=== PATIENT | female | born 1995 | race Caucasian/White ===

== ENCOUNTER 2017-12-19 17:15 | Observation (INO) | payer BC, SELFPAY ==
[2017-12-19] VITALS (9 sets, daily range): BP systolic 102–139; BP diastolic 71–92; PULSE 58–105; RESP 16; TEMP 35.9–36.8; O2SAT 99–100; BMI 23.4; BMI 23.5
--- NOTE | 2017-12-19 17:29 | CT_ITS ---
STUDY: CT ABDOMEN AND PELVIS WITHOUT CONTRAST REASON FOR EXAM: Female, 22 years old. Pain. Nausea. RADIATION DOSAGE (If Supplied By Facility): CTDIvol = ( 6.81 ) mGy, DLP = ( 336.67 ) mGycm TECHNIQUE: Transaxial images were obtained from the dome of the diaphragm to the symphysis pubis without oral contrast, and without intravenous contrast. Sagittal and coronal images were reconstructed. Individualized dose optimization techniques were used for this CT. COMPARISON: None. FINDINGS: The visualized lung bases are unremarkable. The visualized portions of the heart are within normal limits. Normal liver. Normal gallbladder and extrahepatic biliary system. Normal spleen. Normal pancreas. Normal bilateral adrenal glands. Normal right kidney. Normal left kidney. Normal visualized stomach. Normal small intestine. Normal colon. There is a calcified appendicolith, series 2 image 120/179. There is a tubular, thick-walled appendix (>7mm), consistent with acute appendicitis, series 2 images 120/179 through 126/179. Normal abdominal aorta. Normal inferior vena cava. Normal retroperitoneum. Normal urinary bladder. Normal visualized uterus. There is mild to moderate free fluid in the pelvis. Normal abdominal wall. Normal osseous structures. CT/Abdomen/Pelvis without Cont IMPRESSION: Acute appendicitis. No obstruction or abscess. Free fluid in the pelvis. N.B. : The above information has been verbally conveyed by Ron Arce MD to Dr Yousif, Referring Physician, on 12/19/2017 19:33:21 (ET). Electronically Signed: Ron Arce MD at 19:27 EDT , Service support , N.B. : The above information has been verbally conveyed by Ron Arce MD to Dr Yousif, Referring Physician, on 12/19/2017 19:33:21 (ET).
[2017-12-19] MEDS: Ondansetron ODT 4 MG Tablet PO (17:36)
[2017-12-19] MEDS: 0.9% Normal Saline 1,000 ML 150 ML IV (17:37)
[2017-12-19] MEDS: Ketorolac 30 MG/ML Syringe IV (17:43)
[2017-12-19] MEDS: Morphine 2 MG/ML Syringe IV ×2 (17:44→23:11)
[2017-12-19 17:54] LABS: Mucous, Urine 0 SEEN /hpf (<or=2+); Red Blood Cells-Urine 0 SEEN /hpf (0-5)
[2017-12-19 17:59] LABS: Absolute Lymphocyte Count 0.94 X10^3/ul (0.83-4.51); Absolute Neutrophil Count 11.6 X10^3/uL (2.0-7.7); Basophil# 0.02 X10^3/uL; Basophil% 0.1 % (0-1); Hematocrit 41.1 % (37-47); Hemoglobin 13.6 g/dl (12.0-15.0); Lymphocyte # 0.94 X10^3/ul (4.0); Mean Corp Hgb Conc 33.1 g/gl (32-36); Mean Corpuscular Hgb 30.3 pg (27.0-32.0); Mean Corpuscular Volume 91.5 fL (81-99); Mean Platelet Vol. 10.4 fl (6.2-12.0); Monocyte# 0.78 X10^3/uL; Monocyte% 5.8 % (0-10); Neutrophil # 11.64 X10^3/uL (2.7-7.7); Neutrophil % 86.9 % (47-70); Platelet Count 252 K/mm3 (150-450); RBC Distribution Width CV 13.8 % (11.6-14.6); RBC Distribution Width SD 45.7 fl (35.1-43.9); Red Blood Count 4.49 M/mm3 (4.2-5.4); White Blood Count 13.4 K/mm3 (4.4-11.0)
[2017-12-19 18:00] LABS: POSITIVE COUNT NO; POSITIVE DIFFERENTIAL NO; POSITIVE MORPHOLOGY NO
[2017-12-19 18:09] LABS: Anion Gap 8 (5-15); BUN 10 mg/dL (7-18); BUN/Creat Ratio 11.7 RATIO (10-20); Calcium,Total 9.2 mg/dL (8.5-10.1); Chloride 106 mmol/L (98-107); Creatinine, Serum 0.86 mg/dL (0.55-1.02); EST Glomerular Filtration Rate 88 mL/min (>60); Est Glom Filt Rate - Afr Amer 107 mL/min (>60); Estimated Creatinine Clearance 92.33 ml/min; Glucose 89 mg/dL (74-106); Potassium 3.8 mmol/L (3.5-5.1); Sodium Level 139 mmol/L (136-145)
[2017-12-19 18:32] LABS: Color, Urine Yellow (Yellow); Glucose, Dipstick Normal (Normal); Ketone-Dipstick 50 mg/dl (Negative); Leukocyte Esterase-Dipstick 100 /ul (Negative); Nitrite-Dipstick Negative (Negative); Occult Blood-Urine Negative /ul (Negative); Protein-Dipstick 15 mg/dl (Negative); Specific Gravity, Urine 1.025 (1.002-1.030); Urine Bilirubin Dipstick Negative (Negative); Urine Clarity Sl. Cloudy (Clear); Urine Urobilinogen Normal (Normal)
[2017-12-19 18:37] LABS: Pregnancy, Serum, hCG Quali. NEGATIVE Negative (0-9 Nonpreg)
[2017-12-19 19:26] LABS: Bacteria 1+ /hpf (None Seen); Squamous Epithelial Cells - UA 5-10 SEEN /hpf (5-10); White Blood Cells 5-10 SEEN /hpf (0-5)
--- NOTE | 2017-12-19 19:46 | ED.DCSUM_ITS ---
- ER Visit Summary Date of Service: 12/19/17 Chief Complaint: Abdominal pain History of Present Illness: The patient is a 22 F who developed lower abdominal pain around 11 PM last evening. She describes it bilateral and into her lower back. She has had some nausea and diarrhea. She denies dysuria or fever. Last menstrual cycle was 3 weeks ago. Past history significant for ovarian cysts. She is not currently on any medications. Physical Examination: Vital signs are unremarkable. Patient sitting upright in bed no acute distress. She is nontoxic appearing. Head neck examination is unremarkable. Heart is regular rate and rhythm. Lung sounds are clear. Abdomen is soft with moderate right lower quadrant tenderness. She has no guarding from at this time. Hypoactive bowel sounds are noted throughout. Test Results: CBC returns with a white count of 13.4 and 87% neutrophils. Chemistry studies are normal. Urinalysis shows 5-10 white cells with 5-10 epithelial cells. test is negative. CT flank shows acute appendicitis with no evidence of abscess. Emergency Department Course and Treatment: Patient was given Toradol, 2 mg of morphine, Zofran, and IV fluids. On repeat evaluation she is resting comfortably. Test results are discussed with patient and mother at bedside. She will be given a dose of Zosyn. I spoke with Dr. Daniels will be in to see the patient. Treatment Plan: [] Disposition: Admit Impression: Acute appendicitis This note was generated with [employer] dictation software. It may contain incorrect words, spelling, and punctuation that were not noted in review of the chart prior to signing ED Disposition - Plan for ED Patient: Chief Complaint: Abd Pain Referrals: Elier Hernandes DO [Primary Care Provider] -
[2017-12-19] MEDS: Piperacil/Tazobactam 4.5 GM in NS100 MBP IV (19:56)
--- NOTE | 2017-12-19 20:12 | PCM.HP.STD ---
History of Present Illness Date of Admission: 12/19/17 Chief Complaint: Acute appendicitis The patient is a 22 year old F presented to the ER due to lower abdominal pain which started about 11 PM yesterday. Patient states that may have gotten a little bit worse but has been about at 10/10 overall. She states it is more in the right lower quadrant currently. Positive nausea denies vomiting. Patient last ate quarter of the hamburger bun this morning, currently has no appetite. Patient CT abdomen pelvis done which did show an appendicolith as well as a thickened appendix and her labs are consistent with a leukocytosis of 13. 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 Denies: Fever Eyes: Denies: Blurred vision HEENT: Denies: Difficulty Swallowing Cardiovascular: Denies: Chest Pain Respiratory: Denies: Shortness of Breath Gastrointestinal: Reports: Abdominal Pain, Nausea. Denies: Vomiting Genitourinary: Denies: Dysuria Musculoskeletal: Denies: Joint Pain Psychiatric: Denies: Anxiety Hematologic/ Lymphatic: Denies: Easy Bruising, Easy Bleeding VTE Information - Inpt Only VTE Present on Admission: Yes VTE Mechan Device Prophylaxis: SCD's VTE Pharm Prophylaxis ordered?: No Reason prophylaxis not ordered:: Treatment Not Indicated - Physical Exam General: Alert, Oriented x3, Cooperative, No apparent distress HEENT: Atraumatic, Normocephalic Abdomen: Soft, Non-Distended, Rebound Tenderness - Mild, no guarding, Tender - Right lower quadrant Extremities: No clubbing, No cyanosis, No edema Skin: No rashes Neurological: Cranial nerves II-XII grossly intact Psych/Mental Status: Normal Affect Vital Signs Temp Pulse Resp BP Pulse Ox 98.2 F 62 16 102/71 100 12/19/17 20:11 12/19/17 20:11 12/19/17 20:11 12/19/17 20:11 12/19/17 20:11 Oxygen Delivery Method Room Air Weight: 141 lb 1.533 oz Body Mass Index (BMI) 23.4 Laboratory Tests Past 24 Hrs 12/19/17 12/19/17 12/19/17 17:47 17:47 17:47 WBC 13.4 H RBC 4.49 Hgb 13.6 Hct 41.1 MCV 91.5 MCH 30.3 MCHC 33.1 RDW 13.8 RDW Differential 45.7 H Plt Count 252 MPV 10.4 Immature Gran % (Auto) 0.200 Neut % (Auto) 86.9 H Lymph % (Auto) 7.0 L Swift % (Auto) 5.8 Eos % (Auto) 0.0 Baso % (Auto) 0.1 Absolute Neuts (auto) 11.6 H Absolute Lymphs (auto) 0.94 Total Counted Not Reportable Sodium 139 Potassium 3.8 Chloride 106 Carbon Dioxide 25.0 Anion Gap 8 BUN 10 Creatinine 0.86 Estim Creat Clear Calc 92.33 Est GFR (MDRD) Af Amer 107 Est GFR (MDRD) Non-Af 88 BUN/Creatinine Ratio 11.7 Glucose 89 Calcium 9.2 Serum , Qual NEGATIVE Urine Color Urine Clarity Urine pH Ur Specific [place] Urine Protein Urine Glucose (UA) Urine Ketones Urine Occult Blood Urine Nitrite Urine Bilirubin Urine Urobilinogen Ur Leukocyte Esterase Urine RBC Urine WBC Ur Squamous Epith Cells Urine Bacteria Urine Mucus 12/19/17 17:47 WBC RBC Hgb Hct MCV MCH MCHC RDW RDW Differential Plt Count MPV Immature Gran % (Auto) Neut % (Auto) Lymph % (Auto) Swift % (Auto) Eos % (Auto) Baso % (Auto) Absolute Neuts (auto) Absolute Lymphs (auto) Total Counted Sodium Potassium Chloride Carbon Dioxide Anion Gap BUN Creatinine Estim Creat Clear Calc Est GFR (MDRD) Af Amer Est GFR (MDRD) Non-Af BUN/Creatinine Ratio Glucose Calcium Serum , Qual Urine Color Yellow Urine Clarity Sl. Cloudy Urine pH 6.0 Ur Specific [place] 1.025 Urine Protein 15 H Urine Glucose (UA) Normal Urine Ketones 50 H Urine Occult Blood Negative Urine Nitrite Negative Urine Bilirubin Negative Urine Urobilinogen Normal Ur Leukocyte Esterase 100 H Urine RBC 0 SEEN Urine WBC 5-10 SEEN Ur Squamous Epith Cells 5-10 SEEN Urine Bacteria 1+ Urine Mucus 0 SEEN Assessment/Plan 22-year-old female with acute appendicitis and leukocytosis of 13 1. Discussed procedure laparoscopic appendectomy, possible open, possible bowel resection along with the risk but not limited to bleeding, infection/abscess, injury to another organ (small bowel, colon, etc.), adhesion, hernia at incision sites, and anesthesia. Patient and her mother had no further questions at this time. Dulce Daniels M.D. Pager: [phone] [facility] [address] [place] [address], [address] [place] [address] Office: [phone]
--- NOTE | 2017-12-19 20:17 | HP.PCM_ITS ---
History of Present Illness Date of Admission: 12/19/17 Chief Complaint: Acute appendicitis The patient is a 22 year old F presented to the ER due to lower abdominal pain which started about 11 PM yesterday. Patient states that may have gotten a little bit worse but has been about at 10/10 overall. She states it is more in the right lower quadrant currently. Positive nausea denies vomiting. Patient last ate quarter of the hamburger bun this morning, currently has no appetite. Patient CT abdomen pelvis done which did show an appendicolith as well as a thickened appendix and her labs are consistent with a leukocytosis of 13. 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 Denies: Fever Eyes: Denies: Blurred vision HEENT: Denies: Difficulty Swallowing Cardiovascular: Denies: Chest Pain Respiratory: Denies: Shortness of Breath Gastrointestinal: Reports: Abdominal Pain, Nausea. Denies: Vomiting Genitourinary: Denies: Dysuria Musculoskeletal: Denies: Joint Pain Psychiatric: Denies: Anxiety Hematologic/ Lymphatic: Denies: Easy Bruising, Easy Bleeding VTE Information - Inpt Only VTE Present on Admission: Yes VTE Mechan Device Prophylaxis: SCD's VTE Pharm Prophylaxis ordered?: No Reason prophylaxis not ordered:: Treatment Not Indicated - Physical Exam General: Alert, Oriented x3, Cooperative, No apparent distress HEENT: Atraumatic, Normocephalic Abdomen: Soft, Non-Distended, Rebound Tenderness - Mild, no guarding, Tender - Right lower quadrant Extremities: No clubbing, No cyanosis, No edema Skin: No rashes Neurological: Cranial nerves II-XII grossly intact Psych/Mental Status: Normal Affect Vital Signs Temp Pulse Resp BP Pulse Ox 98.2 F 62 16 102/71 100 12/19/17 20:11 12/19/17 20:11 12/19/17 20:11 12/19/17 20:11 12/19/17 20:11 Oxygen Delivery Method Room Air Weight: 141 lb 1.533 oz Body Mass Index (BMI) 23.4 Laboratory Tests Past 24 Hrs 12/19/17 12/19/17 12/19/17 17:47 17:47 17:47 WBC 13.4 H RBC 4.49 Hgb 13.6 Hct 41.1 MCV 91.5 MCH 30.3 MCHC 33.1 RDW 13.8 RDW Differential 45.7 H Plt Count 252 MPV 10.4 Immature Gran % (Auto) 0.200 Neut % (Auto) 86.9 H Lymph % (Auto) 7.0 L [place] % (Auto) 5.8 Eos % (Auto) 0.0 Baso % (Auto) 0.1 Absolute Neuts (auto) 11.6 H Absolute Lymphs (auto) 0.94 Total Counted Not Reportable Sodium 139 Potassium 3.8 Chloride 106 Carbon Dioxide 25.0 Anion Gap 8 BUN 10 Creatinine 0.86 Estim Creat Clear Calc 92.33 Est GFR (MDRD) Af Amer 107 Est GFR (MDRD) Non-Af 88 BUN/Creatinine Ratio 11.7 Glucose 89 Calcium 9.2 Serum , Qual NEGATIVE Urine Color Urine Clarity Urine pH Ur Specific [place] Urine Protein Urine Glucose (UA) Urine Ketones Urine Occult Blood Urine Nitrite Urine Bilirubin Urine Urobilinogen Ur Leukocyte Esterase Urine RBC Urine WBC Ur Squamous Epith Cells Urine Bacteria Urine Mucus 12/19/17 17:47 WBC RBC Hgb Hct MCV MCH MCHC RDW RDW Differential Plt Count MPV Immature Gran % (Auto) Neut % (Auto) Lymph % (Auto) [place] % (Auto) Eos % (Auto) Baso % (Auto) Absolute Neuts (auto) Absolute Lymphs (auto) Total Counted Sodium Potassium Chloride Carbon Dioxide Anion Gap BUN Creatinine Estim Creat Clear Calc Est GFR (MDRD) Af Amer Est GFR (MDRD) Non-Af BUN/Creatinine Ratio Glucose Calcium Serum , Qual Urine Color Yellow Urine Clarity Sl. Cloudy Urine pH 6.0 Ur Specific [place] 1.025 Urine Protein 15 H Urine Glucose (UA) Normal Urine Ketones 50 H Urine Occult Blood Negative Urine Nitrite Negative Urine Bilirubin Negative Urine Urobilinogen Normal Ur Leukocyte Esterase 100 H Urine RBC 0 SEEN Urine WBC 5-10 SEEN Ur Squamous Epith Cells 5-10 SEEN Urine Bacteria 1+ Urine Mucus 0 SEEN Assessment/Plan 22-year-old female with acute appendicitis and leukocytosis of 13 1. Discussed procedure laparoscopic appendectomy, possible open, possible bowel resection along with the risk but not limited to bleeding, infection/ abscess, injury to another organ (small bowel, colon, etc.), adhesion, hernia at incision sites, and anesthesia. Patient and her mother had no further questions at this time. Dulce Daniels M.D. Pager: [phone] [facility] [address] [place] [address], [address] [place] [address] Office: [phone]
--- NOTE | 2017-12-19 20:37 | APP_PTH ---
PATIENT: ROLF BARON LOC: MS3 U#:[id number] AGE/SX: 22/F ROOM: MS321 RE12/19/[address]: Dr. Dulce Daniels MD : 1995 BED: 1 DIS: 12/20/2017 SPEC #: [id number] RECD: 12/20/17 08:27 STATUS: ADIS ANTONIO #: [id number] TRACY: 12/19/17 20:[address]: Dulce Daniels DEPT: SURGICAL PATHOLOGY RECD BY: Manrie Barreto ENTERED: 12/20/17 09:34 SP TYPE: APPENDIX OTHR DR: Dr. Elier Hernandes DO Tissues: Appendix, NOS Procedures: Surgery Specimen Level III HEADER OPERATION: Laparoscopic, appendectomy PRE-OP DIAGNOSIS: Acute appendicitis TISSUE SUBMITTED: Appendix MICROSCOPIC DIAGNOSIS Appendix, appendectomy: Acute appendicitis. Acute serositis. AM:azalia 4/26/18 MICROSCOPIC DESCRIPTION Slides are reviewed. GROSS DESCRIPTION Received is one container labeled with the patient's name and designated appendix. The specimen consists of a vermiform appendix measuring 6.5 cm in length and 0.8 cm in average diameter. No gross perforations are evident. Serial sections do not reveal mass lesions. Supervisor Roving sections are submitted in one cassette. / AM:azalia 12/20/17 TC:2 CPT: 20369
[2017-12-19] MEDS: Bupiv/Epi 0.5% Mpf 30 ML Vial (20:58)
--- NOTE | 2017-12-19 21:37 | PCM.OPRPT ---
Report of Operation Date of Procedure: 12/19/17 Pre-Operative Diagnosis: Acute appendicitis Post-Operative Diagnosis: Same Surgery/Procedure Performed:: Laparoscopic appendectomy qc manager: Cornel Roberson Type of Anesthesia:: General Anesthesiologist: Mya Junior Special Medications: Zosyn 4.5 g IV given in ER for acute appendicitis Specimen's removed: Appendix Estimated Blood Loss (mL): <10 cc Fluids Replaced: 1 liter Description of Procedure: Indications: 22-year-old female presented to the ER with bilateral lower quadrant pain starting 11 PM last night which is now in the right lower quadrant. On workup she was found to have acute appendicitis on CT and a leukocytosis of 13.4. Patient was started on antibiotics in the ER for acute appendicitis-Zosyn 4.5 g IV ?1 Description of the procedure: The patient was placed on operating table in supine position. General anesthesia was induced. A timeout was completed verifying correct patient, procedure, sacrum position and special, prior to beginning procedure. A Jon catheter and orogastric tube placed. Abdomen was prepped and draped in usual sterile fashion. Incision was made in the natural skin line above the umbilicus with a 15 blade scalpel. The fascia was elevated and incised. Entry into the peritoneum was confirmed visually and no bowel was noted in the vicinity of the incision. The Benedict trocar was placed under direct vision. Abdomen insufflated with a pressure of 12-15 mmHg. Patient tolerated insertion well. The scope was inserted and the abdomen inspected. No injuries from initial trocar placement were noted. Minimal amount of fluid was seen in the right lower quadrant. An direct visualization 2 -5 mm trocars were placed one above the symptoms his pubis and below the hairline and one in the left lower quadrant lateral to the rectus muscle. Care is taken to avoid injury to the bladder and inferior epigastric vessels. The table was placed in Trendelenburg position with the right side elevated. The appendix was grasped with atraumatic grasper and elevated. It was noted to be inflamed. A window was developed in the mesoappendix at the point between the base of the appendix and the cecum. An endoscopic 45 mm linear cutting stapler blue load was then used to divide and staple the base of the appendix. An Enseal was used to divide the mesoappendix. The appendix was withdrawn into the Benedict trocar after being placed endoscopically retrieval bag. Appendix was sent to pathology. The appendiceal stump was then irrigated and hemostasis was assured. Fluid was suctioned no other pathology was identified. Secondary trochars were removed under direct visualization. No bleeding was noted trocar sites. The laparoscope withdrawn and the umbilical trocar removed. The abdomen was allowed to collapse. Local anesthesia of 21 mL of 0.5% Marcaine was used at the incision sites. The umbilical trocar site was closed with the [id number] 0 Vicryl suture. The skin was closed up to clear sutures of 4-0 Monocryl and Steri-Strips. The patient was extubated. The patient tolerated the procedure well and was taken to the postanesthesia care unit in satisfactory condition. - Complications None
--- NOTE | 2017-12-19 21:40 | OP.PCM_ITS ---
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 On workup she was found to have acute appendicitis on CT and a leukocytosis of 13.4. Patient was started on antibiotics in the ER for acute appendicitis-Zosyn 4.5 g IV ?1 Description of the procedure: The patient was placed on operating table in supine position. General anesthesia was induced. A timeout was completed verifying correct patient, procedure, sacrum position and special, prior to beginning procedure. A Jon catheter and orogastric tube placed. Abdomen was prepped and draped in usual sterile fashion. Incision was made in the natural skin line above the umbilicus with a 15 blade scalpel. The fascia was elevated and incised. Entry into the peritoneum was confirmed visually and no bowel was noted in the vicinity of the incision. The Benedict trocar was placed under direct vision. Abdomen insufflated with a pressure of 12-15 mmHg. Patient tolerated insertion well. The scope was inserted and the abdomen inspected. No injuries from initial trocar placement were noted. Minimal amount of fluid was seen in the right lower quadrant. An direct visualization 2 -5 mm trocars were placed one above the symptoms his pubis and below the hairline and one in the left lower quadrant lateral to the rectus muscle. Care is taken to avoid injury to the bladder and inferior epigastric vessels. The table was placed in Trendelenburg position with the right side elevated. The appendix was grasped with atraumatic grasper and elevated. It was noted to be inflamed. A window was developed in the mesoappendix at the point between the base of the appendix and the cecum. An endoscopic 45 mm linear cutting stapler blue load was then used to divide and staple the base of the appendix. An Enseal was used to divide the mesoappendix. The appendix was withdrawn into the Benedict trocar after being placed endoscopically retrieval bag. Appendix was sent to pathology. The appendiceal stump was then irrigated and hemostasis was assured. Fluid was suctioned no other pathology was identified. Secondary trochars were removed under direct visualization. No bleeding was noted trocar sites. The laparoscope withdrawn and the umbilical trocar removed. The abdomen was allowed to collapse. Local anesthesia of 21 mL of 0.5 % Marcaine was used at the incision sites. The umbilical trocar site was closed with the [id number] 0 Vicryl suture. The skin was closed up to clear sutures of 4-0 Monocryl and Steri-Strips. The patient was extubated. The patient tolerated the procedure well and was taken to the postanesthesia care unit in satisfactory condition. - Complications None
[2017-12-19] MEDS: Dextrose 5%-Lactated Ringers 1,000 ML 125 ML IV (23:03)
[2017-12-19] MEDS: Docusate Sodium 100 MG Capsule PO (23:03)
[2017-12-19] MEDS: Ondansetron 4 MG/2 ML Vial IV (23:11)
[2017-12-20 00:36] VITALS: BP 106/60; PULSE 61; RESP 16; TEMP 36.7; O2SAT 98
[2017-12-20 02:36] VITALS: BP 105/56; PULSE 55; RESP 16; TEMP 36.6; O2SAT 100
[2017-12-20] MEDS: Morphine 2 MG/ML Syringe IV ×2 (03:17→07:25)
[2017-12-20] MEDS: Dextrose 5%-Lactated Ringers 1,000 ML 125 ML IV (07:25)
[2017-12-20 07:30] VITALS: BP 98/54; PULSE 47; RESP 16; TEMP 36.7; O2SAT 99
--- NOTE | 2017-12-20 07:44 | PCM.DC.APPY ---
Discharge Diet: Light diet - advance as tolerated Discharge Activity: May not drive while taking narcotic pain medications. Lifting Restrictions: No lifting greater than 20 pounds for 4 weeks Call your doctor if your incision/area has: Continuous Slow Oozing, Sudden Increased Bleeding, Increased Pain/ Swelling, Increased Redness, Foul Smelling Discharge, Swelling at the incision site Call your doctor if you observe: Fever of 101 or Higher Remove Dressing in (days):: 1 Additional Dressing/Incision Instructions:: Leave Steri-Strips on for 7-10 days then off off in 10 days okay to remove. Additional Instructions: Pain meds can cause constipation. Take daily stool softener (i.e. Colace-generic) to help prevent constipation. Ok to take ibuprofen/advil with food 400-600mg PO Q6h between doses of [place]. If no bowel movement in 1-2 days recommend taking several doses of MiraLAX. If no results that day okay to take half a bottle of magnesium citrate and if no results in 6 hours take the other half of the bottle. Medications to take at Discharge Hydrocodone Bitart/Apap 5-325 [[place] 5MG-325MG] 1 - 2 tab PO Q6H PRN PRN 4 Days #25 tab 12/20/17 Allergies/Adverse Reactions: Allergies No Known Allergies Allergy (Verified 12/19/17 17:18) The following prescriptions were given: Hydrocodone Bitart/Apap 5-325 [[place] 5MG-325MG] 1 - 2 tab PO Q6H PRN PRN 4 Days #25 tab PRN Reason: Pain Primary Care Physician: Elier Hernandes DO [Primary Care Provider] - Please Follow Up With: Dulce Daniels MD - After 5:00/weekends call [phone] with any concerns When: Call the office [phone] plan follow-up appointment in 2 weeks. Proposed Discharge Date: 12/20/17
--- NOTE | 2017-12-20 07:47 | DCINST_ITS ---
Discharge Diet: Light diet - advance as tolerated Discharge Activity: May not drive while taking narcotic pain medications. Lifting Restrictions: No lifting greater than 20 pounds for 4 weeks Call your doctor if your incision/area has: Continuous Slow Oozing, Sudden Increased Bleeding, Increased Pain/ Swelling, Increased Redness, Foul Smelling Discharge, Swelling at the incision site Call your doctor if you observe: Fever of 101 or Higher Remove Dressing in (days):: 1 Additional Dressing/Incision Instructions:: Leave Steri-Strips on for 7-10 days then off off in 10 days okay to remove. Additional Instructions: Pain meds can cause constipation. Take daily stool softener (i.e. Colace- generic) to help prevent constipation. Ok to take ibuprofen/advil with food 400 -600mg PO Q6h between doses of [place]. If no bowel movement in 1-2 days recommend taking several doses of MiraLAX. If no results that day okay to take half a bottle of magnesium citrate and if no results in 6 hours take the other half of the bottle. Medications to take at Discharge Hydrocodone Bitart/Apap 5-325 [[place] 5MG-325MG] 1 - 2 tab PO Q6H PRN PRN 4 Days #25 tab 12/20/17 Allergies/Adverse Reactions: Allergies No Known Allergies Allergy (Verified 12/19/17 17:18) The following prescriptions were given: Hydrocodone Bitart/Apap 5-325 [[place] 5MG-325MG] 1 - 2 tab PO Q6H PRN PRN 4 Days #25 tab PRN Reason: Pain Primary Care Physician: Elier Hernandes DO [Primary Care Provider] - Please Follow Up With: Dulce Daniels MD - After 5:00/weekends call [phone] with any concerns When: Call the office [phone] plan follow-up appointment in 2 weeks. Proposed Discharge Date: 12/20/17
--- NOTE | 2017-12-20 08:53 | PCM.PN.SRG ---
Subjective: pt ariadne clears, pain controlled w IV will change to PO when she eat more, denies n/v, c/o pain/soreness at incisions - Physical Exam General: Alert, Oriented x3, Cooperative, No apparent distress Abdomen: Soft, Non-Distended, Tender - approp. at incisions- dressed, no guarding/rebound Vital Signs Temp Pulse Resp BP Pulse Ox 98.1 F 47 L 16 98/54 L 99 12/20/17 07:30 12/20/17 07:30 12/20/17 07:30 12/20/17 07:30 12/20/17 07:30 Oxygen Delivery Method Room Air Weight: 141 lb Body Mass Index (BMI) 23.4 Intake and Output for Last 24 Hours 12/18/17 12/19/17 12/20/17 23:59 23:59 23:59 Intake Total 1600 / 1600 200 / 200 Output Total 135 / 135 200 / 200 Balance 1465 / 1465 0 / 0 Medical Necessity - Tobacco Use Smoking Status: Never smoker Assessment/Plan 22-year-old female POD 1 s/p lap appy 1. Pt is doing well ariadne clears- will be advanced to regular. d/c home if ariadne PO, vss, amb, pain controlled. Dulce Daniels M.D. Pager: [phone] [facility] [address] [place] [address], [address] [place] [id number] Office: [phone]
--- NOTE | 2017-12-20 09:02 | PN.SURG_ITS ---
Subjective: pt ariadne clears, pain controlled w IV will change to PO when she eat more, denies n/v, c/o pain/soreness at incisions - Physical Exam General: Alert, Oriented x3, Cooperative, No apparent distress Abdomen: Soft, Non-Distended, Tender - approp. at incisions- dressed, no guarding/rebound Vital Signs Temp Pulse Resp BP Pulse Ox 98.1 F 47 L 16 98/54 L 99 12/20/17 07:30 12/20/17 07:30 12/20/17 07:30 12/20/17 07:30 12/20/17 07:30 Oxygen Delivery Method Room Air Weight: 141 lb Body Mass Index (BMI) 23.4 Intake and Output for Last 24 Hours 12/18/17 12/19/17 12/20/17 23:59 23:59 23:59 Intake Total 1600 / 1600 200 / 200 Output Total 135 / 135 200 / 200 Balance 1465 / 1465 0 / 0 Medical Necessity - Tobacco Use Smoking Status: Never smoker Assessment/Plan 22-year-old female POD 1 s/p lap appy 1. Pt is doing well ariadne clears- will be advanced to regular. d/c home if ariadne PO, vss, amb, pain controlled. Dulce Daniels M.D. Pager: [phone] [facility] [address] [place] [address], [address] [place] [id number] Office: [phone]
[2017-12-20] MEDS: Docusate Sodium 100 MG Capsule PO (09:15)
[2017-12-20] MEDS: HYDROcodone Bitartrate/Apap 5/325 Tablet PO (11:32)
[2017-12-20 14:11] VITALS: BP 102/61; PULSE 57; RESP 16; TEMP 36.7; O2SAT 100
== END 2017-12-20 14:40 | disposition home or self-care (01) ==
LOC: ED 18:47 → SDC 20:15 → MS3 12-20 06:18
PROVIDERS: Admitting Provider Surgery; Emergency Provider Emergency Medicine; Family Provider Preventive Medicine Occupational Medicine; PCP Preventive Medicine Occupational Medicine; Visit Provider Surgery
PROC: 0DTJ4ZZ Resection of Appendix, Percutaneous Endoscopic Approach (ICD-10-PCS; CPT 44970; principal; 2017-12-19 08:45)
DX: K35.80 Unspecified acute appendicitis (principal)
CPT/HCPCS: 00840; 44970; 74176; 80048; 81001; 84703; 85025; 88304; 96361; 96365; 96375; 96376; 99218; 99284; J7030; C1760; G0378; J2405

== ENCOUNTER → 2018-08-06 14:15 | Outpatient (CLI) | payer BC, SELFPAY ==
[2018-08-06 14:12] VITALS: BMI 23.4
[2018-08-06 16:09] LABS: HIV - WCH Non-Reactive (Nonreactive)
[2018-08-06 20:20] LABS: Chlamydia Trachomatis by PCR Negative (Negative); Neisserai gonorrhoeae by PCR Negative (Negative); Probe Check PASS; Sample Adequacy Control PASS; Specimen Processing Control PASS
[2018-08-08 15:34] LABS: HPV Reflexed? NOT INDICATED
[2018-08-09 09:09] LABS: HCV Quant. RNA PCR HCV Not Detected IU/mL (.)
[2018-08-10 04:54] LABS: Rapid Plasmin Reagin (RPR) NONREACTIVE (NONREACTIVE)
[2018-08-10 12:40] LABS: HSV 1 IgG < 0.91 index (0.00-0.90); HSV 2 IgG < 0.91 index (0.00-0.90)
== END ==
PROVIDERS: Family Provider Preventive Medicine Occupational Medicine; PCP Preventive Medicine Occupational Medicine; Referring Provider Nurse Practitioner Women's Health; Visit Provider Nurse Practitioner Women's Health
DX: Z12.4 Encounter for screening for malignant neoplasm of cervix (principal); Z11.3 Encounter for screening for infections with a predominantly sexual mode of transmission
CPT/HCPCS: 36415; 86592; 86695; 86696; 86703; 87491; 87522; 87591; 87624; 88175; G0145

== ENCOUNTER → 2019-05-16 15:58 | Outpatient (CLI) | payer BC, SELFPAY ==
[2019-05-16 13:48] VITALS: BMI 23.4
== END ==
PROVIDERS: Family Provider Preventive Medicine Occupational Medicine; PCP Preventive Medicine Occupational Medicine; Referring Provider Nurse Practitioner Women's Health; Visit Provider Nurse Practitioner Women's Health
DX: N76.0 Acute vaginitis (principal)
CPT/HCPCS: 87070; 87205

== ENCOUNTER → 2021-01-13 10:47 | Outpatient (CLI) | payer BC, SELFPAY ==
[2021-01-13 10:22] VITALS: BMI 29.5
[2021-01-13 11:00] LABS: Absolute Lymphocyte Count 1.96 X10^3/uL (0.83-4.51); Absolute Neutrophil Count 4.7 X10^3/uL (2.0-7.7); Basophil# 0.07 X10^3/uL; Eosinophil# 0.04 X10^3/uL; Eosinophils% 0.6 % (0-5); Hematocrit 41.9 % (37-47); Hemoglobin 13.7 g/dL (12.0-15.0); Lymphocyte # 1.96 X10^3/ul (0.83-4.51); Mean Corp Hgb Conc 32.7 g/dL (32-36); Mean Corpuscular Hgb 29.9 pg (27.0-32.0); Mean Corpuscular Volume 91.5 fL (81-99); Mean Platelet Vol. 10.1 fl (6.2-12.0); Monocyte# 0.52 X10^3/uL; Monocyte% 7.2 % (0-10); NRBC Flagged by Analyzer 0 % (0-5); Neutrophil # 4.66 X10^3/uL (2.7-7.7); Neutrophil % 64.1 % (47-70); Platelet Count 265 K/mm3 (150-450); RBC Distribution Width CV 13.4 % (11.6-14.6); RBC Distribution Width SD 45.2 fl (35.1-43.9); Red Blood Count 4.58 M/mm3 (4.2-5.4); White Blood Count 7.3 K/mm3 (4.4-11.0)
[2021-01-13 11:29] LABS: Prolactin 10.8 ng/mL; Thyroid Stim Hormone (TSH) 1.79 uIU/mL (0.358-3.74)
[2021-01-14 20:08] LABS: Chlamydia By Nucleic Acid AMP Negative (Negative)
[2021-01-14 21:26] LABS: Gonococcus By Nucleic Acid AMP Negative (Negative)
[2021-01-19 20:07] LABS: HPV Genotype 16, Aptima Negative (Negative)
[2021-01-19 20:20] LABS: HPV APTIMA, High Risk Positive (Negative); HPV Genotype 18,45 Aptima Negative (Negative)
== END ==
PROVIDERS: PCP Preventive Medicine Occupational Medicine; Referring Provider Nurse Practitioner Women's Health; Visit Provider Nurse Practitioner Women's Health
DX: N93.9 Abnormal uterine and vaginal bleeding, unspecified (principal); Z12.4 Encounter for screening for malignant neoplasm of cervix; Z11.3 Encounter for screening for infections with a predominantly sexual mode of transmission; Z13.29 Encounter for screening for other suspected endocrine disorder
CPT/HCPCS: 36415; 84146; 84443; 85025; 87491; 87591; 87624; 88175; G0145

== ENCOUNTER 2021-09-01 12:15 | Outpatient (CLI) | payer BC, SELFPAY | END 2021-09-01 23:59 | disposition short-term general hospital (02) | LOC: LABSPEC 12:15 | PROVIDERS: PCP Preventive Medicine Occupational Medicine; Visit Provider Physician Assistant | DX: U07.1 COVID-19 (principal) | CPT/HCPCS: 87635; U0003; U0005 ==

== ENCOUNTER → 2022-01-26 | Outpatient (CLI) | payer BC, SELFPAY ==
[2022-01-31 12:05] LABS: HPV Reflexed? NOT INDICATED
== END | disposition home or self-care (01) ==
LOC: LABSPEC 09:54
PROVIDERS: PCP Preventive Medicine Occupational Medicine; Visit Provider Nurse Practitioner Women's Health
DX: Z12.4 Encounter for screening for malignant neoplasm of cervix (principal)
CPT/HCPCS: 88175; G0145

== ENCOUNTER → 2022-04-18 | Outpatient (CLI) | payer BC, SELFPAY ==
[2022-04-18 13:11] LABS: Amphetamine Urine VISTA NEGATIVE (<1000 ng/mL); Barbiturate Urine VISTA NEGATIVE (< 200 ng/mL); Benzodiazepine Urine VISTA NEGATIVE (< 200 ng/mL); Cocaine Urine VISTA NEGATIVE (< 300 ng/mL); Ecstacy Urine VISTA NEGATIVE (< 500 ng/mL); Methadone Urine VISTA NEGATIVE (< 300 ng/mL); PCP Urine VISTA NEGATIVE (< 25 ng/mL); THC Urine VISTA NEGATIVE (< 50 ng/mL); Vista UDS pH Range 7
[2022-04-19 22:07] LABS: Chlamydia By Nucleic Acid AMP Negative (Negative)
[2022-04-20 08:04] LABS: Gonococcus By Nucleic Acid AMP Negative (Negative)
== END | disposition home or self-care (01) ==
LOC: LABSPEC 12:00
PROVIDERS: PCP Preventive Medicine Occupational Medicine; Referring Provider Obstetrics & Gynecology; Visit Provider Obstetrics & Gynecology
DX: Z34.91 Encounter for supervision of normal pregnancy, unspecified, first trimester (principal); Z3A.09 9 weeks gestation of pregnancy
CPT/HCPCS: 80307; 87077; 87086; 87088; 87186; 87491; 87591

== ENCOUNTER → 2022-05-16 | Outpatient (CLI) | payer BC, SELFPAY ==
[2022-05-16 15:39] LABS: Absolute Lymphocyte Count 1.67 X10^3/uL (0.83-4.51); Absolute Neutrophil Count 7.4 X10^3/uL (2.0-7.7); Basophil# 0.06 X10^3/uL; Basophil% 0.6 % (0-1); Eosinophil# 0.06 X10^3/uL; Eosinophils% 0.6 % (0-5); Hematocrit 36.3 % (37-47); Hemoglobin 12.4 g/dL (12.0-15.0); Lymphocyte # 1.67 X10^3/ul (0.83-4.51); Lymphocyte % 16.9 % (19-41); Mean Corp Hgb Conc 34.2 g/dL (32-36); Mean Corpuscular Hgb 30.9 pg (27.0-32.0); Mean Corpuscular Volume 90.5 fL (81-99); Mean Platelet Vol. 10.3 fl (6.2-12.0); Monocyte# 0.65 X10^3/uL; Monocyte% 6.6 % (0-10); NRBC Flagged by Analyzer 0 % (0-5); Neutrophil # 7.42 X10^3/uL (2.7-7.7); Platelet Count 210 K/mm3 (150-450); RBC Distribution Width CV 13.4 % (11.6-14.6); RBC Distribution Width SD 44.6 fl (35.1-43.9); Red Blood Count 4.01 M/mm3 (4.2-5.4); White Blood Count 9.9 K/mm3 (4.4-11.0)
[2022-05-16 15:44] LABS: Glucose Challenge Gest 1H 50g 107 mg/dL (70-140)
[2022-05-16 16:15] LABS: NATERA MAILED SPECIMEN
[2022-05-17 09:19] LABS: HIV - WCH Non-Reactive (Nonreactive); Hepatitis B Surface Antigen Non-Reactive (Nonreactive); Hepatitis C Antibody Non-Reactive (Nonreactive); Rubella IgG Reactive (Nonreactive); Syphilis Antibodies Non-reactive
== END | disposition home or self-care (01) ==
PROVIDERS: PCP Preventive Medicine Occupational Medicine; Referring Provider Obstetrics & Gynecology; Visit Provider Obstetrics & Gynecology
DX: Z34.91 Encounter for supervision of normal pregnancy, unspecified, first trimester (principal)
CPT/HCPCS: 36415; 82950; 85025; 86703; 86762; 86780; 86803; 86850; 86900; 86901; 87340

== ENCOUNTER → 2022-08-08 | Outpatient (CLI) | payer BC, SELFPAY ==
[2022-08-08 17:20] LABS: Absolute Lymphocyte Count 2.24 X10^3/uL (0.83-4.51); Absolute Neutrophil Count 8.3 X10^3/uL (2.0-7.7); Basophil# 0.05 X10^3/uL; Basophil% 0.4 % (0-1); Eosinophil# 0.06 X10^3/uL; Eosinophils% 0.5 % (0-5); Hemoglobin 10.8 g/dL (12.0-15.0); Lymphocyte # 2.24 X10^3/ul (0.83-4.51); Lymphocyte % 19.4 % (19-41); Mean Corp Hgb Conc 32.7 g/dL (32-36); Mean Corpuscular Hgb 30.6 pg (27.0-32.0); Mean Corpuscular Volume 93.5 fL (81-99); Mean Platelet Vol. 10.8 fl (6.2-12.0); Monocyte# 0.78 X10^3/uL; Monocyte% 6.8 % (0-10); NRBC Flagged by Analyzer 0 % (0-5); Neutrophil # 8.33 X10^3/uL (2.7-7.7); Neutrophil % 72.2 % (47-70); Platelet Count 222 K/mm3 (150-450); RBC Distribution Width CV 13.4 % (11.6-14.6); RBC Distribution Width SD 45.6 fl (35.1-43.9); Red Blood Count 3.53 M/mm3 (4.2-5.4); White Blood Count 11.5 K/mm3 (4.4-11.0)
[2022-08-08 17:47] LABS: Glucose Challenge Gest 1H 50g 81 mg/dL (70-140)
== END | disposition home or self-care (01) ==
LOC: LAB 15:53
PROVIDERS: PCP Preventive Medicine Occupational Medicine; Referring Provider Registered Nurse; Visit Provider Registered Nurse
DX: Z34.00 Encounter for supervision of normal first pregnancy, unspecified trimester (principal)
CPT/HCPCS: 36415; 82950; 85025

== ENCOUNTER → 2022-10-26 | Outpatient (CLI) | payer BC, SELFPAY ==
--- NOTE | 2022-10-26 14:31 | US_ITS ---
STUDY: SECOND AND THIRD TRIMESTER OBSTETRICAL ULTRASOUND - LIMITED REASON FOR EXAM: Female, 26 years old measuring large for dates -- growth LMP: February 13, 2022. PRIOR ULTRASOUND: None. TECHNIQUE: Transabdominal TECHNICAL QUALITY: Adequate. FINDINGS: There is a single intrauterine fetus. The fetus is in a cephalic presentation. There is demonstrated cardiac activity with a heart rate of 153 bpm. There is a normal amniotic fluid volume. The largest amniotic fluid pocket measures 5.56 cm. The amniotic fluid index (NIYA) is 14.42 cm. The placenta is fundal in location. There are Grade 2 placental changes. The cervical length was not measured due to the head positioning. BIOMETRY: BPD: 8.82 cm: 35 weeks, 5 days HC: 32.39 cm: 36 weeks, 5 days AC: 32.47 cm: 36 weeks, 3 days FL: 6.86 cm: 35 weeks, 2 days Age by LMP: 36 weeks, 3 days. MARSHAL by LMP: November 20, 2022. age by current US: 36 weeks, 1 days. MARSHAL by current US: November 22, 2022. Estimated weight: 2841 grams, +/- 426 grams, 43 percentile. US/OB Limited With Biometrics IMPRESSION: Single live intrauterine gestation with a mean gestational age of 36 weeks and 1 day. Electronically Signed: Justin Campa MD at 13:54 EST ,
== END | disposition home or self-care (01) ==
LOC: US 14:27
PROVIDERS: PCP Preventive Medicine Occupational Medicine; Visit Provider Obstetrics & Gynecology
DX: O99.210 Obesity complicating pregnancy, unspecified trimester (principal)
CPT/HCPCS: 76816

== ENCOUNTER 2022-11-19 21:05 | Outpatient (CLI) | payer BC, SELFPAY ==
[2022-11-19 21:22] VITALS: BP 122/76; PULSE 106; TEMP 36.8; O2SAT 98
[2022-11-19 21:30] VITALS: BMI 36.5
--- NOTE | 2022-11-20 12:24 | OB.TRI.PN_ITS ---
Progress Notes Date of Service: 11/19/22 Progress Note: Patient presents for triage evaluation secondary to pelvic pressure FHT: 140 Moderate variability reactive no decelerations category I tracing [place]: irregular Contractions Assessment and plan: pelvic pressure false labor Reactive NST, reassuring maternal and status patient discharged to home to follow-up as scheduled. See problem list details for additional plan information. Charges/Coding Procedures Urinary/Genital [id number]: 58855-53 non-stress test Interp
== END 2022-11-19 23:39 | disposition home or self-care (01) ==
LOC: WPOUT 21:15 → WP 21:17
PROVIDERS: PCP Preventive Medicine Occupational Medicine; Visit Provider Obstetrics & Gynecology
DX: O47.9 False labor, unspecified (principal); Z3A.00 Weeks of gestation of pregnancy not specified
CPT/HCPCS: 59025; 59050; 99221; G0378

== ENCOUNTER 2022-11-23 07:12 | Inpatient (IN) | payer BC, SELFPAY ==
[2022-11-23] VITALS (38 sets, daily range): BP systolic 108–130; BP diastolic 56–91; PULSE 65–203; RESP 16; TEMP 36.2–37.2; O2SAT 82–100; BMI 36.6
--- NOTE | 2022-11-23 07:53 | HP.PCM.OB_ITS ---
HPI - General General Date of Admission: 11/23/22 HPI Narrative ROLF VILLALOBOS, is a 27 y/o @ 40 week 3 days who presents to L&D with painful contractions and was found to be 4/85/-1 station per nurse. She is currently breathing through contractions and does not want an epidural at this time and states that she wants to try to do labor without an epidural. She is GBS positive and noted to be LGA at the end of the . She is mildly obese but has had a normal GCT x 2 this . Maternal Data Information MARSHAL Calculator Estimated Delivery Date Method Current WG Current Estimate 11/20/22 LMP (Certain) 40w 3d Other Estimates 11/17/22 Ultrasound #1 40w 6d PFSH PFSH Medical History Abnormal uterine bleeding (AUB) HPV test positive Home Medications multivitamin no.47-iron fum 27 mg-folate no.1 1 mg-dha 300 mg capsule (PNV-DHA) cap PO DAILY 04/14/22 [History Last Taken 1 Month Ago ~10/22/22] Allergy/AdvReac Type Severity Reaction Status Date / Time zinc AdvReac Upset Verified 11/19/22 21:33 Stomach Family History Father Epilepsy Surgical History History of tonsillectomy S/P appendectomy Social History adopted: No household members: significant other housing: house current occupational status: employed 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 occupational exposures/hazards: No pets and animals: Yes (Not managing litter box) pets and animals: cat(s) and dog(s) history of recent travel: No sexually active: Yes Smoking Status: Never smoker alcohol intake: former details: social substance use type: does not use diet: lactose free well-balanced diet: daily or most days caffeine: No eating out: 1-3 times/week during the past year weight has: remained stable what type of physical activity do you participate in: walking frequency: 1-2 times per week duration: 30-45 minutes/day crista/jew: [employer]al seatbelt use: always do you feel safe at home: Yes additional social history: BF- Cristian Crowell Patient works at [employer] History 1 Elective abortions Hx Para 0 Spontaneous abortions Hx # Term Pregnancies Ectopic pregnancies Hx # Pregnancies Multiple births # of living children Visit Details Expected Delivery Route/Plan Labor Preferences- CB/BF classes: encouraged labor support person: cristian labor intervention preferences: pain management options preferred: cut cord/dad catch: [] : [] PP control planned: [] discussed possible routes of delivery and associated risks: [] special requests: [] Plans Covid status: discussed Flu vaccine: discussed Tdap vaccine:given Rhogam: [] LARC form signed: [] Problem list reviewed and updated with the most current plan of care details and appropriate orders placed. Relevant counseling for the gestational age provided. Continue routine care and follow up unless otherwise noted in visit notes/problem list details OB Flowsheet Initial Weight: Not Recorded Date -?-?-?-?-?-?-?-?-?-?-?-?- EGA Weight BP Urine Prot -?-?-?-?-?-?-?-?-?-?-?-?- Glucose FHR FuHt Pres Dilation -?-?-?-?-?-?-?-?-?-?-?-?- Effaced St Visit Note 04/18/22 -?-?-?-?-?-?-?-?-?-?-?-?- 9w 1d 182 lb 182 lb 116/84 -?-?-?-?-?-?-?-?-?-?-?-?- 180 -?-?-?-?-?-?-?-?-?-?-?-?- SM- CRL 2.47cm c ons WITH lmp 05/16/22 -?-?-?-?-?-?-?-?-?-?-?-?- 13w 1d 180 lb 4 oz 126/76 Nega tive -?-?-?-?-?-?-?-?-?-?-?--?- Negative 175 -?-?-?-?-?-?-?-?-?-?-?-?- SM- no vb 06/13/22 -?-?-?-?-?-?-?-?-?-?-?-?- 17w 1d 185 lb 2 oz 136/80 Nega tive -?-?-?-?-?-?-?-?-?-?-?-?- Negative 156 -?-?-?-?-?-?-?-?-?-?-?-?- Lc-no vb,cramp, lof. has anatomy scheduled. 07/11/22 -?-?-?-?-?-?-?-?-?-?-?-?- 21w 1d 120/80 Negative -?-?-?-?-?-?-?-?-?-?-?-?- Negative 143 21 -?-?-?-?-?-?-?-?-?-?-?-?- LC-no vb, crampi ng. needs additional images-has scheduled. hip discomfort- techniques reviewed. 08/08/22 -?-?-?-?-?-?-?-?-?-?-?-?- 25w 1d 195 lb 109/72 Negative -?-?-?-?-?-?-?-?-?-?-?-?- Negative 145 25 -?-?-?-?-?-?-?-?-?-?-?-?- SM- no vb lof go od fm no regular ctx 08/31/22 -?-?-?-?-?-?-?-?-?-?-?-?- 28w 3d 198 lb 6 oz 119/80 Nega tive -?-?-?-?-?-?-?-?-?-?-?-?- Negative 145 30 -?-?-?-?-?-?-?-?-?-?-?-?- JV- no lof, vagi nal bleeding, or dec fm. 09/14/22 -?-?-?-?-?-?-?-?-?-?-?-?- 30w 3d 202 lb 8 oz 132/79 Nega tive -?-?-?-?-?-?-?-?-?-?-?-?- Negative 140 30 -?-?-?-?-?-?-?-?-?-?-?-?- LC- no lof/vb/ct x. good fm. having carpal tunnel symptoms- enc wrist braces. 09/28/22 -?-?-?-?-?-?-?-?-?-?-?-?- 32w 3d 206 lb 136/86 Negative -?-?-?-?-?-?-?-?-?-?-?-?- Negative 142 32 -?-?-?-?-?-?-?-?-?-?-?-?- MH-No VB, LOF. G ood FM. No CTX 10/13/22 -?-?-?-?-?-?-?-?-?-?-?-?- 34w 4d 206 lb 115/80 Negative -?-?-?-?-?-?-?-?-?-?-?-?- Negative 145 37 -?-?-?-?-?-?-?-?-?-?-?-?- JV- no lof, vagi nal bleeding, or dec fm. ordering growth scan for lga. 10/26/22 -?-?-?-?-?-?-?-?-?-?-?-?- 36w 3d 209 lb 6 oz 112/80 -?-?-?-?-?-?-?-?-?-?-?-?- 135 37 -?-?-?-?-?-?-?-?-?-?-?-?- Lc- no lof/vb/ct x. normal growth scan today. good fm. 11/02/22 -?-?-?-?-?-?-?-?-?-?-?-?- 37w 3d 213 lb 8 oz 135/84 Nega tive -?-?-?-?-?-?-?-?-?-?-?-?- Negative 138 37 Cephalic 0 -?-?-?-?-?-?-?-?-?-?-?-?- 20 -1 LC- no lof /vb, no consistent ctx. good fm. 11/09/22 -?-?-?-?-?-?-?-?-?-?-?-?- 38w 3d 214 lb 6 oz 114/81 Nega tive -?-?-?-?-?-?--?-?-?-?-?-?- Negative 130 38 Cephalic 2 .5 -?-?-?-?-?-?-?-?-?-?-?-?- 80 - JV- no lof , vaginal bleeding, or dec fm. EFW 45th% (estimated weight at 8lbs) currently should be about 7 pounds. 11/16/22 -?-?-?-?-?-?-?-?-?-?-?-?- 39w 3d 212 lb 8 oz 133/80 Nega tive -?-?-?-?-?-?-?-?-?-?-?-?- Negative 145 39 Cephalic 3 -?-?-?-?-?-?-?-?-?-?-?-?- - JV- cervix is very posterior today. labor precautions discussed. ROS Constitutional Constitutional: Denies change in weight, fatigue, fever(s), headache(s), poor appetite or weakness Eyes Eyes: Denies blurry vision, change in vision, seeing flashes or spots in vision ENT HEENT: Denies dizziness, headache(s), loss taste/smell or sore throat Cardiovascular Cardiovascular: Denies chest pain, dizziness, dyspnea, irregular heart rhythm, leg edema, palpitations, rapid heart rate or vomiting Respiratory/Chest Respiratory/Chest: Denies chest tightness, cough, dyspnea or breast pain Gastrointestinal Gastrointestinal: Denies abdominal pain, anorexia, constipation, cramping, diarrhea, hemorrhoids, vomiting or weight changes Genitourinary Genitourinary: Denies dysuria, flank pain, genital lesions, genital pain, urinary frequency or urinary urgency Musculoskeletal Musculoskeletal: Denies back pain, difficulty walking, joint pain, limited range of motion, muscle cramps or numbness Integumentary Integumentary: Denies lesions or unusual bruising Neurologic Neurologic: Denies abnormal movements, abnormal speech, dizziness, numbness, seizure-like activity or syncope Psychiatric Psychiatric: Denies anxiety, behavioral changes, change in appetite, change in libido, cognitive impairment, confusion, depression, difficulty concentrating, hallucinations or suicidal thoughts Endocrine Endocrinology: Denies excessive sweating, polydipsia or polyuria Hematologic/Lymphatic Hematologic/Lymphatic: Denies easy bleeding, easy bruising or lymphadenopathy Allergic/Immunologic Allergic/Immunologic: Denies itchy eyes, lip swelling, seasonal rhinorrhea, rhinitis, throat swelling, tongue swelling, eczemia, wheezing or asthma Physical Exam Const alert, oriented x3, no apparent distress and healthy appearing General Appearance: cooperative; Negative for anxious HEENT normocephalic Face and Sinus: normal facial exam Eyes EOMs intact bilaterally and no scleral icterus General Eye: normal appearance of both eyes Neck full ROM and supple Lymph Lymphatic: no lymphadenopathy noted Chest Chest: abnormal inspection of the chest Resp normal respiratory effort Effort and Inspection: able to speak in complete sentences Cardio regular rate GI soft to palpation and non-tender Inspection: gravid Palpation: soft; Negative for tender external exam normal Back/Spine no CVA tenderness Extremity normal to inspection, full ROM and no clubbing, cyanosis or edema General Extremity: Negative for calf tenderness or edema Skin Lesions: no lesions Rashes: no rashes Psych mental status grossly normal Labs Labs Labs: Blood Type O POSITIVE Antibody Screen NEGATIVE Hct 33.0 % (37-47) L Hgb 10.8 g/dL (12.0-15.0) L Obstetrics US Syphilis Total Ab Non-reactive Rubella IgG Antibody Reactive (Nonreactive) Hep Bs Antigen Non-Reactive (Nonreactive) Chlamydia DNA (BRIANNA) Negative (Negative) Neisseria gonorrhoeae DNA (BRIANNA) Negative (Negative) HIV 1&2 Antibody Non-Reactive (Nonreactive) Glucose 1 Hr 50 gm 81 mg/dL (70-140) Assessment & Plan (1) LGA (large for gestational age) fetus: COMMENT: us for 36 weeks ordered -normal (2) GBS (group B streptococcus) UTI complicating : COMMENT: No treatment needed during , PCN in labor (3) Obesity affecting : COMMENT: 1 TM GCT encouraged healthy weight gain (4) Supervision of normal first : COMMENT: PRR , MARSHAL 11/20/22, [facility] (5) : QUALIFIERS: Weeks of gestation: 39 weeks Qualified Code(s): Z3A.39 - 39 weeks gestation of COMMENT: GBS Positive- treat in labor, anatomy nl. NIPT low risk, declined. Carrier testing. declined afp testing. PLAN: Plan Patient presents IAL, plan expectant management for , pitocin/AROM PRN if needed. Pain management: undecided. GBS positive plan IV PCN. Management of any complications: none I have reviewed the [facility] and made any clinically relevant updates.
[2022-11-23] MEDS: Lactated Ringers 1,000 ML 50 ML IV (08:00)
[2022-11-23 08:24] LABS: Absolute Lymphocyte Count 2.16 X10^3/uL (0.83-4.51); Basophil# 0.05 X10^3/uL; Basophil% 0.5 % (0-1); Eosinophil# 0.09 X10^3/uL; Eosinophils% 0.9 % (0-5); Hematocrit 34.5 % (37-47); Hemoglobin 11.4 g/dL (12.0-15.0); Lymphocyte # 2.16 X10^3/ul (0.83-4.51); Lymphocyte % 21.3 % (19-41); Mean Corpuscular Hgb 29.4 pg (27.0-32.0); Mean Corpuscular Volume 88.9 fL (81-99); Mean Platelet Vol. 11.7 fl (6.2-12.0); Monocyte# 0.73 X10^3/uL; Monocyte% 7.2 % (0-10); NRBC Flagged by Analyzer 0 % (0-5); Neutrophil # 7.01 X10^3/uL (2.7-7.7); Neutrophil % 69.2 % (47-70); Platelet Count 220 K/mm3 (150-450); RBC Distribution Width CV 14.7 % (11.6-14.6); Red Blood Count 3.88 M/mm3 (4.2-5.4); White Blood Count 10.1 K/mm3 (4.4-11.0)
[2022-11-23 09:13] LABS: Syphilis Antibodies Non-reactive
[2022-11-23] MEDS: Ondansetron 4 MG/2 ML Vial IV (09:42)
[2022-11-23] MEDS: LACTATED RINGERS 500 ML 999 ML IV (09:45)
[2022-11-23] MEDS: fentaNYL-bupivacaine (epidural) 100 ML BAG EPIDURAL (10:03)
[2022-11-23] MEDS: Penicillin G 3,000,000 Units 50 ML 100 UNITS IV (13:20)
[2022-11-23] MEDS: Lactated Ringers 1,000 ML 200 ML IV (13:20)
[2022-11-23] MEDS: Oxytocin 15 Units/NS 250ml 15 UNITS/250 ML IV.SOLN 83 UNITS IV (14:20)
--- NOTE | 2022-11-23 14:37 | OP.PCM_ITS ---
Assessment & Plan (1) : QUALIFIERS: Weeks of gestation: 39 weeks Qualified Code(s): Z3A.39 - 39 weeks gestation of COMMENT: GBS Positive- treat in labor, anatomy nl. NIPT low risk, declined. Carrier testing. declined afp testing. (2) Supervision of normal first : COMMENT: PRR , MARSHAL 11/20/22, [facility] (3) Obesity affecting : COMMENT: 1 TM GCT encouraged healthy weight gain (4) GBS (group B streptococcus) UTI complicating : COMMENT: No treatment needed during , PCN in labor (5) LGA (large for gestational age) fetus: COMMENT: us for 36 weeks ordered -normal Maternal Data Information MARSHAL Calculator Estimated Delivery Date Method Current WG Current Estimate 11/20/22 LMP (Certain) 40w 3d Other Estimates 11/17/22 Ultrasound #1 40w 6d Vaginal Delivery Maternal Presentation Maternal Presentation: Active Labor Type of Induction: Amniotomy Operative Information Date of Procedure: 11/23/22 Pre-Operative Diagnosis: 27 y/o @ 40 weeks 3 days, active labor Post-Operative Diagnosis: 27 y/o @ 40 weeks 3 days, active labor Surgery / Procedure Performed: Spontaneous Vaginal Delivery Type of Anesthesia: Epidural Drain: Jon to straight drain Estimated Blood Loss: 200cc Findings Description of Procedure: Patient began pushing and delivered the head in the RICARDO presentation. The head was delivered atraumatically. The anterior and posterior shoulders delivered without complication followed by the rest of the infant and the infant was placed on the maternal abdomen. Delayed cord clamping was employed for approximately 60 seconds. Cord was clamped and cut and gentle traction was applied to the cord and the placenta delivered spontaneously immediately following it was noted to be intact with three-vessel cord. The perineum and vagina were inspected and noted to have a 1st degree laceration. This was repaired with a 3-0 vicryl rapide suture. EBL was 200cc. Patient and infant tolerated delivery well. baby boy Cruz Presentation: Vertex Amniotic Membrane Rupture Type: Artificial Time of Membrane Rupture: 12:20 pm Amniotic Fluid Description: Moderate meconium Placental Delivery Description: Spontaneous Placenta Disposition: [facility] Cord Vessel Description: 3 Vessels Cord Entanglement: None A Gender: Male (1 minute): 8 (5 minute): 9 Delayed Cord Clamping: Yes Post Vaginal Delivery Episiotomy Description: None Laceration: 1st degree Multi Select Codes Urinary/Genital Urinary/Genital CPT Codes: 65254 Vaginal Delivery global pkg
[2022-11-23] MEDS: Benzocaine/Lanolin/Aloe Vera 1 SPRAY EACH TOPICAL (20:10)
[2022-11-23] MEDS: Naproxen 500 MG Tablet PO (20:10)
[2022-11-24] VITALS (10 sets, daily range): BP systolic 115–134; BP diastolic 58–76; PULSE 67–90; RESP 16; TEMP 36.3–36.8; O2SAT 96–99
--- NOTE | 2022-11-24 08:24 | PCM.PN.OB ---
Subjective Subjective Patient doing well without complaints. Tolerating PO. Ambulating and voiding without difficulty. Feeding well. Denies chest pain, shortness of breath, calf pain/swelling, fevers, chills, lightheadedness. Objective Data Objective Data Vital Signs: Vital Signs Temp Pulse Resp BP Pulse Ox O2 Del Method 97.7 F L 67 16 115/68 98 Room Air 11/24/22 04:26 11/24/22 04:26 11/24/22 04:26 11/24/22 04:26 11/24/22 04:26 11/24/22 04:26 Oxygen Delivery Method Room Air Weight: 213 lb Body Mass Index (BMI) 36.6 Intake & Output: Intake and Output for Last 24 Hours 11/22/22 11/23/22 11/24/22 23:59 23:59 23:59 Intake Total 1655.00 / 1655.00 Output Total 1200 / 1200 Balance 455.00 / 455.00 Lab / Micro Data Result Diagrams: 11/23/22 08:00 Labs: Laboratory Results - last 24 hr 11/23/22 08:00: WBC 10.1, RBC 3.88 L, Hgb 11.4 L, Hct 34.5 L, MCV 88.9, MCH 29.4, MCHC 33.0, RDW Std Deviation 46.0 H, RDW Coeff of [place] 14.7 H, Plt Count 220, MPV 11.7, Immature Gran % (Auto) 0.900, Neut % (Auto) 69.2, Lymph % (Auto) 21.3, [place] % (Auto) 7.2, Eos % (Auto) 0.9, Baso % (Auto) 0.5, Absolute Neuts (auto) 7.0, Absolute Lymphs (auto) 2.16, Nucleated RBC % 0 11/23/22 08:00: Blood Type O POSITIVE, Antibody Screen NEGATIVE 11/23/22 08:00: Syphilis Total Ab Non-reactive ROS Constitutional Constitutional: Denies chills, fatigue, fever(s), poor appetite or weakness Eyes Eyes: Denies blurry vision, change in vision, seeing flashes or spots in vision ENT HEENT: Denies dizziness, headache(s), loss taste/smell or sore throat Cardiovascular Cardiovascular: Denies chest pain, dizziness, dyspnea, irregular heart rhythm, palpitations or rapid heart rate Respiratory/Chest Respiratory/Chest: Denies chest tightness, cough, dyspnea or breast pain Gastrointestinal Gastrointestinal: Denies abdominal pain, constipation or vomiting Genitourinary Genitourinary: Denies dysuria or flank pain Musculoskeletal Musculoskeletal: Denies difficulty walking, joint pain, limited range of motion or numbness Neurologic Neurologic: Denies abnormal movements, abnormal speech, dizziness, numbness, seizure-like activity or syncope Psychiatric Psychiatric: Denies anxiety, behavioral changes, change in appetite, confusion, depression or suicidal thoughts Physical Exam Const alert, oriented x3 and no apparent distress General Appearance: cooperative and comfortable Resp normal respiratory effort Cardio regular rate GI normal to inspection, nondistended, normoactive bowel sounds GI Narrative: uterus is firm below umbilicus Palpation: soft Back/Spine no CVA tenderness and thoraco-lumbar ROM normal Extremity normal to inspection, no clubbing, cyanosis or edema, no calf tenderness and no pedal edema Psych mental status grossly normal, thought process normal, cooperative, affect normal, speech normal, activity/motor behavior normal, denies homicidal ideation and denies suicidal ideation Assessment & Plan (1) Status post vaginal delivery: COMMENT: baby perri esquivel 11/23/22- Jv (2) : QUALIFIERS: Weeks of gestation: 39 weeks Qualified Code(s): Z3A.39 - 39 weeks gestation of COMMENT: GBS Positive- treat in labor, anatomy nl. NIPT low risk, declined. Carrier testing. declined afp testing. (3) Supervision of normal first : COMMENT: PRR , MARSHAL 11/20/22, [facility] (4) Obesity affecting : COMMENT: 1 TM GCT encouraged healthy weight gain (5) GBS (group B streptococcus) UTI complicating : COMMENT: No treatment needed during , PCN in labor (6) LGA (large for gestational age) fetus: COMMENT: us for 36 weeks ordered -normal PLAN: Plan s/p PPD # 1 1. routine post delivery care 2. breast feeding- support given 3. rh positive 4. rubella immune 5. patient wants to go home today if possible
--- NOTE | 2022-11-24 08:28 | DCINST_ITS ---
Discharge Instructions Diet Discharge Diet: No restrictions Activity Discharge Activity: Return to Normal Activity, May Not Drive (while taking narcotic pain medications.) and May Shower May resume sexual activity in: 4-6 weeks Dressing / Incision Call your doctor if your incision/area has: Continuous Slow Oozing, Sudden Increased Bleeding, Increased Pain/ Swelling, Increased Redness and Foul Smelling Discharge Follow Up Care Please Follow Up With: Nellie Miller DO When: Call [phone] to make an appointment with your doctor in 6 weeks. If you had elevated blood pressure or 4th degree laceration, you will need to be seen in 2 weeks. Test Results: Test results from this visit will be discussed in further detail at your follow- up appointment, if applicable. Discharge Plan Admission Admit Date/Time: 11/23/22 07:12 Primary Reason for Your Visit: vaginal delivery Attending Provider: Nellie Miller Primary Care Provider: Elier Hernandes Discharge Orders/Prescriptions Prescriptions: New naproxen 500 mg tablet 500 mg PO BID PRN (Reason: pain) Qty: 30 0RF Continued PNV-DHA 27 mg iron-1 mg -300 mg capsule PO DAILY Referrals / Follow Up: Elier Hernandes DO [Primary Care Provider] - Disposition Disposition (needs filled in before D/C Order can be placed): Home, Self Care
--- NOTE | 2022-11-24 08:32 | NURSING ---
bruised nipples bilat.
--- NOTE | 2022-11-24 09:59 | NURSING ---
Stcarter charting reviewed and agree. Santhosh GUZMAN [employer] instructor
--- NOTE | 2022-11-28 15:05 | NURSING ---
Follow up questions asked by Domenico at [facility] visit. Pt. is feeling good. Denies any signs or symptoms. Lochia minimal to none. No BP concerns or other issues since being home. Loved the staff during hospital stay and FOB felt well supported as well.
== END 2022-11-24 18:25 | disposition home or self-care (01) | DRG 807 ==
PROVIDERS: Admitting Provider Obstetrics & Gynecology; PCP Preventive Medicine Occupational Medicine; Referring Provider Obstetrics & Gynecology; Visit Provider Obstetrics & Gynecology
DX: O36.63X0 Maternal care for excessive fetal growth, third trimester, not applicable or unspecified (principal); Z37.0 Single live birth; O70.0 First degree perineal laceration during delivery; O99.824 Streptococcus B carrier state complicating childbirth; O77.0 Labor and delivery complicated by meconium in amniotic fluid; Z3A.40 40 weeks gestation of pregnancy; O99.214 Obesity complicating childbirth; Z90.49 Acquired absence of other specified parts of digestive tract
CPT/HCPCS: 59025; 59050; 85025; 86780; 86850; 86900; 86901; 99221; J7120; G0378; J2405

== ENCOUNTER → 2025-02-14 | Outpatient (CLI) | payer OTHER, SELFPAY | END | disposition home or self-care (01) | LOC: LABSPEC 16:13 | PROVIDERS: PCP Preventive Medicine Occupational Medicine; Referring Provider Obstetrics & Gynecology; Visit Provider Obstetrics & Gynecology | DX: Z12.4 Encounter for screening for malignant neoplasm of cervix (principal); O09.90 Supervision of high risk pregnancy, unspecified, unspecified trimester; Z3A.00 Weeks of gestation of pregnancy not specified | CPT/HCPCS: 87086; 87088; 88175; G0145 ==

== ENCOUNTER 2025-02-18 13:52 | Day surgery (SDC) | payer OTHER, SELFPAY ==
[2025-02-18] VITALS (7 sets, daily range): BP systolic 99–120; BP diastolic 51–88; PULSE 64–94; RESP 16–18; TEMP 36.3–36.4; O2SAT 98–100; BMI 36.2
[2025-02-18 14:33] LABS: Hematocrit 39.7 % (37-47); Hemoglobin 13.4 g/dL (12.0-15.0); Mean Corp Hgb Conc 33.8 g/dL (32-36); Mean Corpuscular Hgb 30.5 pg (27.0-32.0); Mean Corpuscular Volume 90.4 fL (81-99); Mean Platelet Vol. 10.2 fl (6.2-12.0); Platelet Count 254 K/mm3 (150-450); RBC Distribution Width CV 13.2 % (11.6-14.6); RBC Distribution Width SD 43.8 fl (35.1-43.9); Red Blood Count 4.39 M/mm3 (4.2-5.4); White Blood Count 8.7 K/mm3 (4.4-11.0)
[2025-02-18] MEDS: Lactated Ringers 1,000 ML 15 ML IV (14:33)
[2025-02-18] MEDS: Doxycycline 100 MG CAPSULE PO (14:37)
--- NOTE | 2025-02-18 15:30 | POC_PTH ---
PATIENT: ROLF BARON LOC: [facility] [place][id number] AGE/SX: 29/F ROOM: RE02/18/[address]: Dr. Nellie Miller, : 1995 BED: DIS: 02/18/2025 SPEC #: [id number] RECD: 02/18/25 18:08 STATUS: ADIS ANTONIO #: [id number] TRACY: 02/18/25 15:[address]: Nellie Miller DEPT: SURGICAL PATHOLOGY RECD BY: Miguel Lowe Tissues: A - Product of conception, NOS Procedures: Surgery Specimen Level IV HEADER OPERATION: Dilation and curettage, suction PRE-OP DIAGNOSIS: Missed TISSUE SUBMITTED: A- Products of conception MICROSCOPIC DIAGNOSIS A. Uterine contents, dilation and suction curettage: * Focally necrotic decidua, immature placental villi, and clotted blood, consistent with products of conception from a missed MICROSCOPIC DESCRIPTION Slides are reviewed. GROSS DESCRIPTION A. Received in formalin labeled with the patient's name and date of . Designated as products of conception is a 6.3 x 5.9 x 1.1 cm aggregate of pink-borjas tissue and clotted blood with minimal mucoid material. Probable chorionic villi are identified. Definitive tissues are not identified. Backshoe Person sections are submitted in 2 cassettes. MO 02/19/2025 CPT:60827
--- NOTE | 2025-02-18 15:47 | PRE.ANES_ITS ---
ASA Classification* ASA Classification ASA Classification: 1 and E Assessment & Plan Anesthesia* Anesthesia Assessment Anesthesia Assessment: Discussed sedation and/or anesthesia options, risks, benefits, and alternatives with patient/parents/legal guardian/POA. Questions invited. The patient/parents/legal guardian/POA seems to understand and agrees to proceed with anesthesia plan. Reviewed the physical assessment, medical history, allergy history and patient home medications list prior to surgery/procedure/anesthetic and documented any changes. Performed airway and anesthesia risk assessments. Anesthesia Type Anesthesia Type: MAC History Source History Obtained from:: Patient and Chart Anesthesia Focused Assessment* Temperature: 97.6 F Pulse Rate: 75 Blood Pressure: 112/67 Respiratory Rate: 18 Pulse Ox: 100 Oxygen Delivery Method: Room Air Airway Assessment Mouth opens: >3 cm Mallampati Score: I Teeth Condition: Caps/Crowns (Patient has 2 crowns on lower molars. They are tight.) Neck Range of motion (ROM): Full ROM Labs Anesthesia Preop lab: CBC WBC 8.7 K/mm3 (4.4-11.0) 02/18/25 14:23 02/18/25 RBC 4.39 M/mm3 (4.2-5.4) 02/18/25 14:23 02/18/25 Hgb 13.4 g/dL (12.0-15.0) 02/18/25 14:23 02/18/25 Hct 39.7 % (37-47) 02/18/25 14:23 02/18/25 Plt Count 254 K/mm3 (150-450) 02/18/25 14:23 02/18/25 CHEMISTRY Potassium 3.8 mmol/L (3.5-5.1) 12/19/17 17:47 12/19/17 Sodium 139 mmol/L (136-145) 12/19/17 17:47 12/19/17 BUN 10 mg/dL (7-18) 12/19/17 17:47 12/19/17 Creatinine 0.86 mg/dL (0.55-1.02) 12/19/17 17:47 12/19/17 Glucose 89 mg/dL (74-106) 12/19/17 17:47 12/19/17 TSH 1.79 uIU/mL (0.358-3.74) 01/13/21 10:50 COAG Tst Clinic Negative 01/17/23 13:34 01/17/23 Pre-Assessment Diagnosis/Proposed Procedure Planned Operative Procedure(s): Dilation and Curettage, Suction Anesthesia History 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 When Was Last Pacemaker Check QUESTION #4 FULL TEXT: You/Your Family Experience fever (hyperthermia) with Anesthesia Last Oral Intake Last Oral intake: Last Oral Intake NPO since 18:00 02/18/25 14:15 Meds taken in AM with sips of Yes 02/18/25 14:15 water? 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 - overlock elastic attacher: PONV - overlock elastic attacher Female Yes 02/17/25 13:24 HX of Motion Sickness No 02/17/25 13:24 HX of N/V After Surgery No 02/17/25 13:24 Non-Smoker Yes 02/17/25 13:24 Duration of Surgery greater No 02/17/25 13:24 than 60 minutes Number of Risk Factors 2 02/17/25 13:24 PONV Score Moderate Risk 02/17/25 13:24 Height & Weight Height & Weight: Anesthesia: Height & Weight Height 5 ft 4 in 02/18/25 14:15 Weight: 95.7 kg 02/18/25 14:15 Body Mass Index (BMI) 36.2 02/18/25 14:15 Respiratory Assessment Respiratory Assessment - overlock elastic attacher: Respiratory Tract Infection Hx - overlock elastic attacher Hx Respiratory Tract Infection No 02/17/25 13:24 STOP Sleep Apnea STOP Sleep Apnea - overlock elastic attacher: STOP Sleep Apnea - overlock elastic attacher Hx Hypertension No 02/17/25 13:24 Hx Sleep Apnea No 02/17/25 13:24 CPAP BIPAP Do you snore loudly (louder No 02/17/25 13:24 than talking or can be heard Do you often feel tired/ No 02/17/25 13:24 fatigued/ sleepy during daytime? Has anyone observed you stop No 02/17/25 13:24 breathing during sleep? STOP Results Negative 02/17/25 13:24 QUESTION #5 FULL TEXT : Do you snore loudly (louder than talking or can be heard through closed doors)? Tobacco Use History Tobacco Use History - overlock elastic attacher: Tobacco Use History - overlock elastic attacher Tobacco Use Smoking Status Never smoker 02/17/25 13:24 Hx Tobacco Use No 02/17/25 13:24 Years Smoking Packs Smoked per Day Smoking Cessation Date was within the last 15 years Hx Smoking Cessation Date Hx Smoking Cessation Counseling Hematologic Medial History Hematologic Hx - overlock elastic attacher: Hematologic Medical Hx - pumpman Hx of Blood Transfusion No 02/17/25 13:24 Hx of Transfusion in last 3 No 02/17/25 13:24 Months Date of Last Transfusion (if within last 3 months) Ever experience any problems No 02/17/25 13:24 with transfusion(s)? Specify any problems Hx of Preganancy in last 3 No 02/17/25 13:24 Months Nurse Filling Out Transfusion JZOLLINGE 02/17/25 13:24 & Questions: Date: 02/17/25 02/17/25 13:24 Time: 13:25 02/17/25 13:24 Patient unable to answer at this time (ie. confused, unrespo /Reproduction History /Reproductive History - overlock elastic attacher: /Reproductive Hx- overlock elastic attacher Hx Now No 02/17/25 13:24 Gestational Age (in weeks): EDC: Hx Hx Para Hx Section SAB No 02/17/25 13:24 Active Medications Active Medications: Current Medications Generic Name Dose Route Start Last Admin Trade Name Freq PRN Reason Stop Dose Admin Lactated Ringer's 1,000 mls @ 15 mls/hr 02/18/25 14:15 02/18/25 14:33 IV 15 mls/hr .Q48H VONDA Administration PFSH Medical History Alcohol use Heartburn Non-smoker Encounter for IUD removal Contraceptive management LGA (large for gestational age) fetus Obesity affecting Supervision of normal first HPV test positive Abnormal uterine bleeding (AUB) Home Medications ?Medication ?Instructions ?Recorded ?Last Taken ?Type fluconazole 150 mg tablet 150 mg PO Q3D 2 doses #2 tab s 02/14/25 Unknown Rx Allergy/AdvReac Type Severity Reaction Status Date / Time zinc AdvReac Upset Verified 02/18/25 14:14 Stomach Family History Father Epilepsy Grandfather Celiac disease Paternal Sister Celiac disease Aunt Lupus Maternal Surgical History Status post vaginal delivery History of surgery History of tonsillectomy S/P appendectomy Social History adopted: No household members: significant other and children housing: house number of children: 2 current occupational status: employed current occupation: [employer] current occupational exposures/hazards: No pets and animals: Yes (Not managing litter box) pets and animals: cat(s) and dog(s) history of recent travel: No sexually active: Yes Smoking Status: Never smoker alcohol intake: current alcohol intake frequency: holidays/special occasions only details: social- Not while substance use type: does not use well-balanced diet: daily or most days caffeine: No eating out: rarely or never during the past year weight has: remained stable what type of physical activity do you participate in: none crista/evangelical: Yazidism seatbelt use: always do you feel safe at home: Yes additional social history: - Jose E Review of Systems (Anesthesia) ROS Narrative System reviewed and no additional complaints, except as documented.
--- NOTE | 2025-02-18 16:09 | HP.PCM_ITS ---
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 Required: No Is patient in pain?: No Allergies zinc Adverse Reaction (Verified 02/14/25 13:12) Upset Stomach Medications ?Medication ?Instructions ?Recorded ?Confirmed ?Type PNV 153-FA 400 mcg-om3 35 mg-dha tab PO .QD 01/30/25 02/14/25 History 25 mg-epa 5 mg-fish oil chew tablet Last Menstrual Period: 12/11/24 Zika: Zika virus screening: Negative : No PFSH PFSH Medical History Encounter for IUD removal Contraceptive management LGA (large for gestational age) fetus Obesity affecting Supervision of normal first HPV test positive Abnormal uterine bleeding (AUB) Surgical History Status post vaginal delivery History of surgery History of tonsillectomy S/P appendectomy Family History Father EpilepsyGrandfather Celiac disease PaternalSister Celiac diseaseAunt Lupus Maternal Social History adopted: No household members: significant other and children housing: house number of children: 2 service: No current occupational status: employed current occupation: [employer] current occupational exposures/hazards: No pets and animals: Yes (Not managing litter box) pets and animals: cat(s) and dog(s) history of recent travel: No sexually active: Yes Smoking Status: Never smoker alcohol intake: current alcohol intake frequency: holidays/special occasions only details: social- Not while substance use type: does not use well-balanced diet: daily or most days caffeine: No eating out: rarely or never during the past year weight has: remained stable what type of physical activity do you participate in: none crista/oriental orthodox: Jewish seatbelt use: always do you feel safe at home: Yes additional social history: - [place] History 2 Elective abortions Hx Para 1 Spontaneous abortions Hx # Term Pregnancies 1 Ectopic pregnancies Hx # Pregnancies Multiple births # of living children 1 Past Pregnancies Del. Date Name GA/Weeks Outcome Route Bth Weight Gen Labor Lgth Anesthesia Del Locatn Provider FOB 11/23/22 Cruz 40 live - full term 7lbs 6oz Male epidural [facility] Nellie Farzana [place] Delivery Date: 11/23/22 Last Updated by: Jayshree Austin see problem list for complications. HPI *EST* NOB LMP 12/11, MARSHAL 09/17 Details: ROLF BARON is a 29 year old who presents for New OB visit. OB Visit MARSHAL Calculator Estimated Delivery Date Method Current WG Current Estimate 09/17/25 LMP (Certain) 9w 2d Comments: HIV: Urine Culture: Sequential Screen: NIPT Screen: Estimated Due Date: 09/17/25 Initial Weight: Not Recorded Date -?-?-?-?-?-?-?-?-?-?-?-?- EGA Weight BP Urine Prot -?-?-?-?-?-?-?-?-?-?-?-?- Glucose FHR FuHt Pres Dilation -?-?-?-?-?-?-?-?-?-?-?-?- Effaced St Visit Note 02/14/25-?-?-?-?-?-?-?-?-?-?-?-?- 9w 2d 212 lb 2 oz -?-?-?-?-?-?-?-?-?-?-?-?- -?-?-?-?-?-?-?-?-?-?-?-?- JV- no heart tones or pole. large GS and yolk sac consistent with miscarriage. patient would like D&C and possible anora testing. Menstrual History Last Menstrual Period: 12/11/24 Reported LMP: definite Normal amount/duration: Yes Frequency in days: unknown due to IUD(removed in October) On hormonal BC at conception: No hCG+: 01/02/25 (faint +, 01/04 spotting x1 light pink, 5 strong +HPT) Antepartum Record Genetic Screening: Congenital Heart Defect: Other, Neural Tube Defect: Other, Hemoglobinopathy Or Carrier: Patient (Maternal Aunt -Lupus), Cystic Fibrosis: Other, Chromosome Abnormality: Other, Reji-Sachs: Other, Hemophilia: Other, Intellectual Disability/Autism: Other, Recurrent Loss/Stillbirth: Other, Other Structural Defect: Other, Other Genetic Disease: Other and Maternal Metabolic Disorder: Other Infection History: Live with someone with TB or Exposed to TB: No, Patient or Partner has history of Genital Herpes: No, Rash or Viral illness since last mentrual period: No, Prior GBS-Infected child: Yes (+GBS 1st ), History of STD: No, HIV Infection: No, History of Hepatitis: No, Recent travel outside of [place]: No, Concern for hepatitis exposure: No, Varicella immune: Yes (immune) and Covid Vaccinated: No Medical History Medical History: Positive: Seasonal allergies (mild, fall), Drug/latex allergies/reactions (zinc), Operations/hospitalizations (See PFSH), History of abnormal pap (+HPV 2020, neg since), Relevant family history (celiac disease Paternal Grandfather & Sister) and Other (obesity) and Negative: Diabetes, Hyper tension, Heart disease, Auto-immune disorder, Kidney disease/UTI, Neurologic/epilepsy, Psychiatric, Depression/ depression, Hepatitis/liver disease, Varicosities/phlebitis, Thyroid dysfunction, Trauma/domestic violence, History of blood transfusions, D (Rh) Sensitized, Pulmonary (e.g.,TB,Asthma), Breast, [employer]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, Anesthetic complications, Uterine anomaly/abilio, Infertility and Anti-retroviral treatment ACOG First Trimester First Trimester: Desire for , Alcohol, Tobacco Cessation, Illicit/Recreational Drug/Substance Use, Intimate Partner Violence, Barriers to care, Unstable Housing, Communication Barriers, Environmental/Work Hazards, Anticipated Course of Care, Toxoplasmosis Precations, Use of Any medications, Sexual activity, Exercise, Dental Care, Sauna/Hot tub use, Seat Belt use, Childbirth classes/Hospital facilities, Travel, Indications for Ultrasound and Screening for Aneuploidy; Discussed Second Trimester Second Trimester: Signs and Symptoms of Labor Third Trimester Third Trimester: Pain Management Plans, Labor support person(s), Immediate Larc, Movement Monitoring, Signs and Symptoms of Preeclampsia, Labor Signs, [place] Education, Family Medical Leave or Disability Forms, Depression and Depression; Discussed Tobacco Cessation ROS Const Reports system reviewed and no additional complaints, except as documented, Reports fatigue and Denies fever(s) Eyes Reports system reviewed and no additional complaints, except as documented ENT Reports system reviewed and no additional complaints, except as documented Card Denies chest pain and Denies dyspnea Resp Reports system reviewed and no additional complaints, except as documented, Denies cough and Denies dyspnea GI Denies abdominal pain and Reports nausea Reports system reviewed and no additional complaints, except as documented Musc Reports system reviewed and no additional complaints, except as documented Skin/Breast Reports system reviewed and no additional complaints, except as documented Neuro Yes system reviewed and no additional complaints, except as documented Psych Reports system reviewed and no additional complaints, except as documented Endo Reports system reviewed and no additional complaints, except as documented and Reports fatigue Exam Const General: healthy appearing, comfortable and no acute distress Orientation: alert [facility] Head: normal to inspection, normocephalic and atraumatic Ears: hearing grossly normal bilaterally and external ears normal Nose: external nose normal and nares normal Mouth: oral mucosae normal Teeth and gingiva: dentition normal Eyes General: appearance normal, both eyes and all related structures Neck Neck: normal visual inspection, no lymphadenopathy and supple Thyroid: thyroid normal Resp Effort & Inspection: normal respiratory effort GI Inspection: normal to inspection Palpation: soft and no hepatosplenomegaly General: bladder normal to palpation External Female Exam: normal external appearance and normal appearance of the urethra Urethra: normal appearance of the urethra Speculum Exam - Vagina: normal appearance of the vagina and normal vaginal discharge Speculum Exam - Cervix: normal appearance of the cervix Bimanual Exam- Vagina & Uterus: normal bimanual exam, bladder normal to palpation, non-tender and other Bimanual Exam- Adnexa, other: non-tender Skin General: no rashes or lesions noted Neuro Motor: muscle tone normal throughout and no movement abnormalities noted Extrem General: normal to inspection and full ROM Supplemental Info ACOG book given and patient encouraged to read about nutrition, exercise, weight gain, and food avoidance in . Coding Level of Care Code Off vis,est,level 4 Diagnoses FH: lupus FH: celiac disease Z83.79 Obesity affecting O99.210 Supervision of high-risk O09.90 Z34.90 Missed O02.1 Assessment and Plan Assessment and Plan (1) FH: lupus: Status: Acute Comment: Maternal Aunt (2) FH: celiac disease: Status: Acute Comment: Sister & Paternal Grandfather (3) Obesity affecting : Status: Acute Comment: HgbA1c (4) Supervision of high-risk : Status: Acute Comment: , MARSHAL 09/17/25, MILLICENT Arroyo, Step son Tyrone, [place] (5) : Status: Acute Comment: elects NIPT with Gender (6) Missed : Status: Acute Plan: After discussing the patient's diagnosis and treatment plan options, patient wishes to proceed with surgical management. I have discussed with the patient the risks, benefits, and alternatives of the procedure which include but are not limited to risks of anesthesia, bleeding, infection, possible damage to bowel, bladder, or surrounding vasculature which could lead to additional surgery to evaluate any complications. Patient agrees to procedure and wishes to proceed. ACOG/uptodate references given for additional information regarding procedure. plan for suction D&C next available. Orders:
--- NOTE | 2025-02-18 16:19 | DCINST_ITS ---
Discharge Instructions Diet Discharge Diet: No restrictions DC O2, CPAP, BIPAP needs Home O2 Discharge instructions: No Dressing / Incision Discharge Activity: Return to Normal Activity, May Shower and May Take a Tub Bath (after 1 week) May resume sexual activity in: 1-2 weeks Weight Bearing Status: Weight bearing as tolerated Lifting Restrictions: none Dressing / Incision Call your doctor if you observe: Fever of 101 or Higher, Using more than 1 pad per hour, Shortness of breath and Uncontrolled pain Follow Up Care Please Follow Up With: Nellie Miller DO When: Call [phone] to schedule appointment. Test Results: Test results from this visit will be discussed in further detail at your follow- up appointment, if applicable. Discharge Plan Admission Primary Reason for Your Visit: dilation and curettage Attending Provider: Nellie Miller Primary Care Provider: VIRGEN LUNA Instructions Print Language: South [place] Discharge Orders/Prescriptions Prescriptions: New ibuprofen 800 mg tablet 800 mg PO Q8H PRN (Reason: pain) Qty: 20 0RF oxycodone-acetaminophen [Percocet] 5-325 mg tablet 1 tab PO Q4H PRN (Reason: pain) 7 Days Qty: 3 0RF No Action fluconazole 150 mg tablet 150 mg PO Q3D 0 Days Qty: 2 2RF Referrals / Follow Up: Elier Hernandes DO [Non-Staff] - Disposition Disposition (needs filled in before D/C Order can be placed): Home, Self Care
[2025-02-18] MEDS: Lidocaine 1% (30 ml sdv) 30 ML Vial (16:44)
[2025-02-18] MEDS: Methylergonovine 0.2 MG/ML Ampul IM (16:56)
--- NOTE | 2025-02-18 17:19 | PCM.POST.ANE ---
Anesthesia: Postop Eval I Current Vital Signs Temperature: 97.3 F Pulse Rate: 89 Blood Pressure: 99/67 Respiratory Rate: 17 Pulse Ox: 98 Assessment Airway patent: Yes Spontaneous unlabored respirations: Yes Mental status: Awake and Calm nausea: No Vomiting: No Anesthesia Complication: No Fluid Hydration Crystalloid volume administer (ml): 1,000 Total IV fluid infused: 1,000 Progress Note Anesthesia document: Postop Eval 1 completed: Yes
--- NOTE | 2025-02-18 17:31 | PCM.OPRPT ---
Problems Associated Problem List Diagnoses (1) Missed : Multi Select Codes Urinary/Genital Urinary/Genital CPT Codes: 04640 Surg Trtmt missed Ab 1TM Operative Report (Standard) Operative Information Date of Procedure: 02/18/25 Pre-Operative Diagnosis: missed measuring 5 weeks Post-Operative Diagnosis: missed measuring 5 weeks Surgery/Procedure Performed: suction dilation and curettage civil rights investigator: No Type of Anesthesia: MAC/Supplemental RN Documented Start/Stop Times: Operation Date: 02/18/25 15:30 Case Time Into Pre-Op 02/18/25 14:00 Out of Pre-Op 02/18/25 16:23 Anesthesia Start 02/18/25 16:35 Into Room 02/18/25 16:35 Procedure Start 02/18/25 16:46 Procedure End 02/18/25 17:07 Anesthesia End 02/18/25 17:14 Out of Room 02/18/25 17:14 Into Recovery 02/18/25 17:15 Procedure Start Time: 16:46 Procedure Stop Time: 17:07 Select all DRAINS/GRAFTS/IMPLANTS that apply: None Estimated Blood Loss: 30cc Specimen collected: Yes Description of specimen(s) removed: endometrial curetting's/products of conception Description of surgery: Patient was taken to the operating room and placed under MAC local anesthesia. She was prepped and draped in the normal sterile fashion the dorsal lithotomy position. Bladder was drained of clear urine and anterior lip of the cervix was grasped and the uterus sounded to 10cm. Cervix was progressively dilated to allow passage of a size 8 suction curette. Progressive passes were made removing the retained products of conception without complication. Sharp curettage confirmed complete removal of the retained products. A post procedure ultrasound was performed showing a thin endometrium. There were some moments of brisk bleeding after the completion of the procedure and methergine IM + TXA 1000mg were given. uterine massage was perfromed and the bleeding stopped. All instruments were removed from the vagina and excellent hemostasis was noted and the patient was taken to recovery in stable condition. IM methergine was given to help contract the uterus. Surgical Findings: small amount of products of conception removed. Complications Complications: No Admit VTE Documentation VTE Present on Admission: No VTE Mechan Device Prophylaxis: SCD's VTE Pharm Prophylaxis ordered?: No
[2025-02-18] MEDS: Acetaminophen 500 MG Tablet 1000 MG PO (17:55)
--- NOTE | 2025-02-18 22:39 | POSTOPAN2_ITS ---
Anesthesia Postop Eval I Sum Postop Eval Completion status Anesthesia document: Postop Eval 1 completed: Yes Anesthesia Postop Eval I Summary Anesthesia Postop Eval I Summary: Anesthesia Postop Eval I: Assessment Summary Airway patent Yes 02/18/25 17:19 [email or web address] Spontaneous unlabored Yes 02/18/25 17:19 [email or web address] [email or web address] respirations Mental status Awake,Calm 02/18/25 17:19 [email or web address] [email or web address] nausea No 02/18/25 17:19 [email or web address] [email or web address] Vomiting No 02/18/25 17:19 [email or web address] Anesthesia Postop Eval I: Fluid Summary Crystalloid volume administer 1,000 02/18/25 17:19 [email or web address] (ml) Colloids volume administered ( ml) Blood Product volume administered (ml) Total IV fluid infused 1,000 02/18/25 17:19 [email or web address] Anesthesia Postop Eval I: Summary Notes Anesthesia Complication No 02/18/25 17:19 [email or web address] Anesthesia Complication Comment: Post-operative progress note Anesthesia: Postop Eval II Evaluation Mental status: Awake and Calm Pain Level: 1 nausea: No Vomiting: No Complications Anesthesia Complication: No
--- NOTE | 2025-02-18 22:39 | PCM.POSTANE2 ---
Anesthesia Postop Eval I Sum Postop Eval Completion status Anesthesia document: Postop Eval 1 completed: Yes Anesthesia Postop Eval I Summary Anesthesia Postop Eval I Summary: Anesthesia Postop Eval I: Assessment Summary Airway patent Yes 02/18/25 17:19 [email or web address] Spontaneous unlabored Yes 02/18/25 17:19 [email or web address] respirations Mental status Awake,Calm 02/18/25 17:19 [email or web address] nausea No 02/18/25 17:19 [email or web address] Vomiting No 02/18/25 17:19 [email or web address] Anesthesia Postop Eval I: Fluid Summary Crystalloid volume administer 1,000 02/18/25 17:19 [email or web address] (ml) Colloids volume administered ( ml) Blood Product volume administered (ml) Total IV fluid infused 1,000 02/18/25 17:19 [email or web address] Anesthesia Postop Eval I: Summary Notes Anesthesia Complication No 02/18/25 17:19 [email or web address] Anesthesia Complication Comment: Post-operative progress note Anesthesia: Postop Eval II Evaluation Mental status: Awake and Calm Pain Level: 1 nausea: No Vomiting: No Complications Anesthesia Complication: No
== END 2025-02-18 18:34 | disposition home or self-care (01) ==
LOC: SDC 13:52 → AC 13:54
PROVIDERS: Referring Provider Obstetrics & Gynecology; Visit Provider Obstetrics & Gynecology
PROC: (CPT 59820; principal; 2025-02-18 15:15)
DX: O02.1 Missed abortion (principal); E66.9 Obesity, unspecified; Z87.891 Personal history of nicotine dependence
CPT/HCPCS: 59820; 85027; 86850; 86900; 86901; 88305; J2405

== ENCOUNTER → 2025-03-11 | Outpatient (CLI) | payer OTHER, SELFPAY ==
[2025-03-11 16:46] LABS: hCG Titer Quant., Serum 160 mIU/mL (<9 non-preg)
--- OUTSIDE RECORDS SUMMARY | 2025-03-11 22:06 | XMS RPT_ITS | CCD ---
Author Organization [facility] CliniSymd Care Team Providers Care Procurement Cost Coordinator Name Role Phone Dr. Mary Hernandes Primary Care Provider Dr. Mary Hernandes Referring Provider 1(330) Kaz BYRNE, REBECCA Nunez Attending Provider 1(330 ) Dr. Maribel Chen Attending Provider 1(330 ) MARIBEL CHEN Attending MARIBEL Malcolm Referring Unavailabl e MARY HERNANDES Primary Care Unavailable MARIBEL CHEN Attending MARIBEL Malcolm Referring Unavailabl e MARY HERNANDES Primary Care Unavailable Dr. Mary Hernandes Primary Care Provider Dr. Mary Hernandes Referring Provider 1(330) Dr. Maribel Chen Attending Provider 1(330 ) ELIESER Gallardo Attending Provider 1(330) Unavailable Primary Care Provider Dr. Mary Null Primary Care Provider Dr. Mary Hernandes Referring Provider 1(330) ELIESER Gallardo Attending Provider 1(330) Dr. Maribel Chen Attending Provider 1(330 ) Dr. Nellie Miller Attending Provider 1( 30) Kaz BANANA GRADERREBECCA Attending Provider 1(330 ) Dr. Mary Hernandes Primary Care Provider Dr. Mary Hernandes Referring Provider 1(330) Dr. Maribel Chen Attending Provider 1(330 ) Dr. Nellie Miller Attending Provider 1( 30) ELIESER Gallardo Attending Provider 1(330) Kaz BANANA GRADER, REBECCA Nunez Attending Provider 1(330 ) Dr. Maribel Chen Other Provider 1(330) Dr. Nellie Miller Admit Provider Dr. Nellie Miller Referring Provider 1(11 24) Dr. Nellie Miller Other Provider MARY HERNANDES DO Attending Unavailable JOANNA PATEL, MARY Primary Care Unavailable Dr. Mary Hernandes DO Primary Care Provider 1(11 24) Dr. Mary Hernandes DO Referring Provider Dr. Maribel Chen MD Attending Provider [phone] Farzana Diego DO, Dr. Ballard Attending Provider Dr. Nellie Miller DO Referring Provider VIRGEN LUNA Primary Care Provider Farzana Diego DO, Dr. Ballard Other Provider 1(11 24) VIRGEN LUNA Primary Care Provider Unavailabl e Mary Hernandes Primary Care Unavailable Nellie Miller Attending Unavailabl e Roxanne Nellie Diego Referring Unavailabl e Mary Hernandes Primary Care Unavailable Mary Hernandes Referring Unavailable Nellie Miller Attending Unavailabl e Roxanne Nellie Diego Attending Unavailabl e Mary Hernandes Referring Unavailable [place], [facility] Primary Care Unavailable Maribel Chen Attending Unavailable Mary Hernandes Primary Care Unavailable Mary Hernandes Referring Unavailable Nellie Miller Attending Unavailabl e Nellie Miller Referring Unavailabl e Nellie Miller Consulting Unavailchaparro e GAL[place]O, [facility] Primary Care Unavailable GAL[place]O, [facility] Primary Care Unavailable Nellie Miller Attending Unavailabl e Vande VelNellie guaman Referring Unavailabl e Allergies Allergy Classification Reported Allergen(s) Allergy Type Date of Onset Reaction(s) Facility (7 sources) Zinc Drug Allergy 08-16-2022 Intolerance [facility] (1 source) Zinc Drug Allergy 03-03-2025 [facility] Repository Medications Current Medications Medication Drug Class(es) Dates Sig (Normalized) Sig (Original) Mcrae (Nk) (1 source) Start: 03-03-2025 Mcrae (Nk) Active March 03, 2025 12:00am oseltamivir 75 mg oral capsule (1 source) Neuraminidase Inhibitor Start: 08-16-2022 End: 08-21-2022 take 1 capsule by mouth twice daily oseltamivir (TAMIFLU) 75 mg capsule Indications: URI, acute Take 1 capsule by mouth twice daily for 5 days. 10 capsule 0 08/16/2022 08/21/2022 Active Comment on above: Take 1 capsule by [facility] twice daily for 5 days. Completed/Discontinued Medications Medication Drug Class(es) Dates Sig (Normalized) Sig (Original) acetaminophen 325 mg / HYDROcodone bitartrate 5 mg oral tablet (10 sources) Opioid Agonist Start: 12-20-2017 End: 01-04-2018 Hydrocodone-Acetamino phen 1 TABLET tablet Discontinued 1 - 2 {tbl} PO EVERY 6 HOURS NEEDED as needed for Pain 25 4 0 December 20, 2017 12:00am January 04, 2018 9:36am Postoperative pain Other acute postprocedural pain Start: 12-20-2017 End: 01-04-2018 take 1 tablet by mouth every six hours as needed Hydrocodone-Acetaminophen Discontinued 1 - 2 TABLET PO EVERY 6 HOURS NEEDED 25 4 December 20, 2017 12:00am January 04, 2018 9:36am acetaminophen 325 mg / oxyCODONE hydrochloride 5 mg oral tablet (3 sources) Opioid Agonist Start: 02-18-2025 End: 03-03-2025 Oxycodone-Acetaminophen (Percocet) 5-325 mg tablet Discontinued 1 {tbl} PO Q4H as needed for pain 3 7 0 February 18, 2025 March 03, 2025 8:02am Status post dilation and curettage Other specified postprocedural states cholecalciferol 0.05 mg oral capsule (20 sources) Vitamin D Start: 04-14-2022 End: 04-18-2022 Cholecalciferol (Vitamin D3) 50 mcg (2,000 unit) capsule Discontinued 50 ug PO .3 x a week April 14, 2022 9:41am April 18, 2022 9:17am Start: 01-25-2022 End: 04-14-2022 take 1 capsule by mouth once daily Cholecalciferol (Vitamin D3) 50 mcg (2,000 unit) capsule Discontinued 50 ug PO DAILY January 25, 2022 12:00am April 14, 2022 9:43am Desogestrel-Ethinyl Estradiol (20 sources) Progestin, Estrogen Start: 10-01-2019 End: 10-09-2019 take 0.15 tablet by mouth once daily Desogestrel-Ethinyl Estradiol (Cyred) 0.15-0.03 mg tablet Discontinued 1 {tbl} PO DAILY 84 0 October 01, 2019 12:20pm October 09, 2019 3:29pm Start: 10-01-2019 End: 10-09-2019 take 0.15 tablet by mouth once daily Desogestrel-Ethinyl Estradiol (Cyred) 0.15-0.03 mg tablet Discontinued 1 {tbl} PO DAILY 84 October 01, 2019 12:20pm October 09, 2019 3:29pm Start: 10-01-2019 End: 10-09-2019 Desogestrel-Ethinyl Estradio l (Cyred) 0.15-0.03 mg tablet Discontinued 1 TABLET PO DAILY 84 October 01, 2019 11:20am October 09, 2019 2:29pm Start: 10-01-2019 End: 10-09-2019 Desogestrel-Ethinyl Estradio l (Cyred) 0.15-0.03 mg tablet Discontinued 1 TABLET PO DAILY 84 October 01, 2019 12:20pm October 09, 2019 3:29pm Start: 08-06-2018 End: 10-01-2019 take 0.15 tablet by mouth once daily Desogestrel-Ethinyl Estradiol (Cyred) 0.15-0.03 mg tablet Discontinued 1 {tbl} PO DAILY 84 August 06, 2018 2:58pm October 01, 2019 12:20pm Start: 08-06-2018 End: 10-01-2019 take 0.15 tablet by mouth once daily Desogestrel-Ethinyl Estradiol (Cyred) 0.15-0.03 mg tablet Discontinued 1 {tbl} PO DAILY 84 August 06, 2018 2:58pm October 01, 2019 12:20pm Start: 08-06-2018 End: 10-01-2019 Desogestrel-Ethinyl Estradio l (Cyred) 0.15-0.03 mg tablet Discontinued 1 TABLET PO DAILY 84 August 06, 2018 1:58pm October 01, 2019 11:20am Start: 08-06-2018 End: 10-01-2019 Desogestrel-Ethinyl Estradio l (Cyred) 0.15-0.03 mg tablet Discontinued 1 TABLET PO DAILY 84 August 06, 2018 2:58pm October 01, 2019 12:20pm Start: 08-06-2018 End: 08-06-2018 take 0.15 tablet by mouth once daily Desogestrel-Ethinyl Estradiol (Cyred) 0.15-0.03 mg tablet Discontinued 1 {tbl} PO DAILY August 06, 2018 1:00am August 06, 2018 2:59pm Start: 08-06-2018 End: 08-06-2018 Desogestrel-Ethinyl Estradio l (Cyred) 0.15-0.03 mg tablet Discontinued 1 TABLET PO DAILY August 06, 2018 12:00am August 06, 2018 1:59pm Start: 08-06-2018 End: 08-06-2018 Desogestrel-Ethinyl Estradio l (Cyred) 0.15-0.03 mg tablet Discontinued 1 TABLET PO DAILY August 06, 2018 1:00am August 06, 2018 2:59pm take 1 tablet by kristin th once daily Desogestrel-Ethinyl Estradiol 0.15-0.03 mg per tablet Take 1 tablet by mouth once daily. 0 Active Comment on above: Take 1 tablet by kristin th once daily. Norgestimate-Ethinyl Estradiol (20 sources) Progestin, Estrogen Start: 01-13-2021 End: 01-25-2022 Norgestimate-Ethinyl Estradiol (Sprintec (28)) 0.25-35 mg-mcg tablet Discontinued 1 {tbl} PO daily 84 January 13, 2021 10:27am January 25, 2022 1:24pm Start: 01-13-2021 End: 01-25-2022 Norgestimate-Ethinyl Estradi ol (Sprintec (28)) 0.25-35 mg-mcg tablet Discontinued 1 {tbl} PO daily 84 January 13, 2021 10:27am January 25, 2022 1:24pm Start: 01-13-2021 End: 01-25-2022 take 1 tablet by mouth once daily Norgestimate-Ethinyl Estradiol (Sprintec (28)) 0.25-35 mg-mcg tablet Discontinued 1 TABLET PO daily January 13, 2021 9:27am January 25, 2022 12:24pm Start: 01-13-2021 End: 01-25-2022 take 1 tablet by mouth once daily Norgestimate-Ethinyl Estradiol (Sprintec (28)) 0.25-35 mg-mcg tablet Discontinued 1 TABLET PO daily January 13, 2021 10:27am January 25, 2022 1:24pm Start: 12-22-2020 End: 01-13-2021 Norgestimate-Ethinyl Estradi ol (Sprintec (28)) 0.25-35 mg-mcg tablet Discontinued 1 {tbl} PO daily 84 December 22, 2020 3:07pm January 13, 2021 10:28am Start: 12-22-2020 End: 01-13-2021 Norgestimate-Ethinyl Estradi ol (Sprintec (28)) 0.25-35 mg-mcg tablet Discontinued 1 {tbl} PO daily December 22, 2020 3:07pm January 13, 2021 10:28am Start: 12-22-2020 End: 01-13-2021 take 1 tablet by mouth once daily Norgestimate-Ethinyl Estradiol (Sprintec (28)) 0.25-35 mg-mcg tablet Discontinued 1 TABLET PO daily December 22, 2020 2:07pm January 13, 2021 9:28am Start: 12-22-2020 End: 01-13-2021 take 1 tablet by mouth once daily Norgestimate-Ethinyl Estradiol (Sprintec (28)) 0.25-35 mg-mcg tablet Discontinued 1 TABLET PO daily December 22, 2020 3:07pm January 13, 2021 10:28am Start: 12-07-2020 End: 12-22-2020 Norgestimate-Ethinyl Estradi ol (Sprintec (28)) 0.25-35 mg-mcg tablet Discontinued 1 {tbl} PO daily 84 0 December 07, 2020 1:45pm December 22, 2020 3:08pm Start: 12-07-2020 End: 12-22-2020 Norgestimate-Ethinyl Estradi ol (Sprintec (28)) 0.25-35 mg-mcg tablet Discontinued 1 {tbl} PO daily 84 December 07, 2020 1:45pm December 22, 2020 3:08pm Start: 12-07-2020 End: 12-22-2020 take 1 tablet by mouth once daily Norgestimate-Ethinyl Estradiol (Sprintec (28)) 0.25-35 mg-mcg tablet Discontinued 1 TABLET PO daily 84 December 07, 2020 12:45pm December 22, 2020 2:08pm Start: 12-07-2020 End: 12-22-2020 take 1 tablet by mouth once daily Norgestimate-Ethinyl Estradiol (Sprintec (28)) 0.25-35 mg-mcg tablet Discontinued 1 TABLET PO daily 84 December 07, 2020 1:45pm December 22, 2020 3:08pm Start: 10-09-2019 End: 12-07-2020 Norgestimate-Ethinyl Estradi ol (Sprintec (28)) 0.25-35 mg-mcg tablet Discontinued 1 {tbl} PO daily 84 4 October 09, 2019 1:00am December 07, 2020 1:45pm Start: 10-09-2019 End: 12-07-2020 Norgestimate-Ethinyl Estradi ol (Sprintec (28)) 0.25-35 mg-mcg tablet Discontinued 1 {tbl} PO daily 84 October 09, 2019 1:00am December 07, 2020 1:45pm Start: 10-09-2019 End: 12-07-2020 take 1 tablet by mouth once daily Norgestimate-Ethinyl Estradiol (Sprintec (28)) 0.25-35 mg-mcg tablet Discontinued 1 TABLET PO daily 84 October 09, 2019 12:00am December 07, 2020 12:45pm Start: 10-09-2019 End: 12-07-2020 take 1 tablet by mouth once daily Norgestimate-Ethinyl Estradiol (Sprintec (28)) 0.25-35 mg-mcg tablet Discontinued 1 TABLET PO daily 84 October 09, 2019 1:00am December 07, 2020 1:45pm fluconazole 150 mg oral tablet (20 sources) Azole Antifungal Start: 02-14-2025 End: 03-03-2025 Fluconazole 150 mg tablet Discontinued 150 mg PO Every 3 Days 2 0 2 February 14, 2025 12:00am March 03, 2025 8:02am Start: 08-06-2018 End: 05-16-2019 Fluconazole 150 mg tablet Discontinued 150 mg PO .COMPLEX 2 0 August 06, 2018 1:00am May 16, 2019 1:56pm 150 mg PO take one po now and repeat in 3 days Start: 08-06-2018 End: 10-09-2019 take 1 tablet by mouth every other day Fluconazole 150 mg tablet Discontinued 150 mg PO .COMPLEX 3 0 May 16, 2019 1:55pm October 09, 2019 3:24pm 150 mg PO take one po every other day X 3 doses ibuprofen 800 mg oral tablet (3 sources) Nonsteroidal Anti-inflammatory Drug Start: 02-18-2025 End: 03-03-2025 take 1 tablet by mouth every eight hours as needed for pain Ibuprofen 800 mg tablet Discontinued 800 mg PO Q8H as needed for pain 20 0 February 18, 2025 12:00am March 03, 2025 8:02am levonorgestrel 0.812669 mg/hr intrauterine system (4 sources) Progestin, Progestin-containing Intrauterine Device Start: 03-01-2023 End: 11-15-2024 Levonorgestrel (Mirena) 21 mcg/24 hours (8 yrs) 52 mg intrauterine device Discontinued 1 NMA INTRA-UTER ONCE March 01, 2023 12:00am November 15, 2024 10:14am as a single dose Multivit 16-Ygbx-Dxlpgs 1-Dha (Pnv-Dha) 27 mg iron-1 mg -300 mg capsule (10 sources) Start: 04-14-2022 End: 01-11-2023 Multivit 91-Vbvo-Kedmoy 1-Dha (Pnv-Dha) 27 mg iron-1 mg -300 mg capsule Discontinued NMA PO DAILY April 14, 2022 12:00am January 11, 2023 10:01am Start: 04-14-2022 End: 01-11-2023 Multivit 39-Ashp-Zkkogu 1-Dh a (Pnv-Dha) 27 mg iron-1 mg -300 mg capsule Discontinued NMA PO DAILY April 14, 2022 12:00am January 11, 2023 10:01am Start: 04-14-2022 take 1 capsule by mo [facility] once daily Multivit 63-Toig-Liinfl 1-Dha (Pnv-Dha) 27 mg iron-1 mg -300 mg capsule Active CAP PO DAILY April 14, 2022 12:00am Start: 04-14-2022 Multivit 47-Ir on-Folate 1-Dha (Pnv-Dha) 27 mg iron-1 mg -300 mg capsule Active CAP PO April 13, 2022 11:00pm Start: 04-14-2022 Multivit 47-Ir on-Folate 1-Dha (Pnv-Dha) 27 mg iron-1 mg -300 mg capsule Active CAP PO April 14, 2022 12:00am naproxen 500 mg oral tablet (5 sources) Nonsteroidal Anti-inflammatory Drug Start: 11-24-2022 End: 01-11-2023 take 1 tablet by mouth twice daily as needed for pain Naproxen 500 mg tablet Discontinued 500 mg PO TWICE A DAY as needed for pain 30 0 November 24, 2022 12:00am January 11, 2023 9:55am Pnv No.314-Kk-Hj1-D parra-Epa-Fish 400 mcg-35 mg- 25 mg-5 mg tablet,chewable (4 sources) Start: 01-30-2025 End: 02-17-2025 Pnv No.110-Ou-Vi4-Dha- Epa-Fish 400 mcg-35 mg- 25 mg-5 mg tablet,chewable Discontinued {tbl} PO .QD January 30, 2025 12:00am February 17, 2025 1:21pm Start: 01-30-2025 Pnv No.153-Fa- Xn3-Gih-Rlz-Fish 400 mcg-35 mg- 25 mg-5 mg tablet,chewable Active {tbl} PO .QD January 30, 2025 12:00am vit,keila 74/iron/fol ic ( VITAMIN 1+1 ORAL) (1 source) vit,keila 74/iron/folic ( VITAMIN 1+1 ORAL) Take by mouth. 0 Active Comment on above: Take by mouth. Problems Active Problems Problem Classification Problem Date Documented Date Episodic/Chronic Contraceptive and procreative management (12 sources) Patient encounter status; Translations: [Encounter for contraceptive management, unspecified] 01-30-2025 Episodic Comment on above: No PA needed for IUD . Electronic auth. Other complications of ; puerperium affecting management of mother (4 sources) Large for gestation age fetus 11-24-2022 Episodic Comment on above: us for 36 weeks orde red -normal Other complications of (18 sources) Maternal obesity complicating , childbirth and the puerperium, antepartum; Translations: [Obesity complicating , unspecified trimester] 04-18-2022 Chronic Comment on above: HgbA1c 1 TM GCT encouraged healthy weight gain Other complications of (20 sources) Obesity complicating , unspecified trimester; Translations: [Obesity complicating , childbirth, or the puerperium, unspecified as to episode of care or not applicable] Chronic Other complications of (9 sources) Urinary tract infection in ; Translations: [Unspecified infection of urinary tract in , unspecified trimester] 04-22-2022 Episodic Comment on above: No treatment needed during , PCN in labor Other complications of (20 sources) Unspecified infection of urinary tract in , unspecified trimester; Translations: [Infections of genitourinary tract in , unspecified as to episode of care or not applicable] Episodic Other complications of (10 sources) Missed miscarriage; Translations: [Missed ] 02-14-2025 Episodic Other complications of (8 sources) High risk ; Translations: [Supervision of high risk , unspecified, unspecified trimester] 01-30-2025 Episodic Comment on above: , MARSHAL 09/17/25, Pepito Arroyo, Step son Tyrone, Cristian Other complications of (1 source) Missed ; Translations: [Missed ] Onset: 02-24-2025 Episodic Other complications of (1 source) Supervision of high risk , unspecified, unspecified trimester; Translations: [Supervision of high risk , unspecified, unspecified trimester] Onset: 02-14-2025 Episodic Other female genital disorders (10 sources) Abnormal uterine bleeding; Translations: [Abnormal uterine and vaginal bleeding, unspecified] 04-18-2022 Chronic Other female genital disorders (9 sources) History of past delivery; Translations: [Status post vaginal delivery] 11-24-2022 Episodic Comment on above: baby perri arroyo 11/23- Jv baby perri Arroyo 7 lb s 6 oz- JV Other and delivery including normal (20 sources) Normal ; Translations: [Encounter for supervision of normal first , unspecified trimester] Episodic Comment on above: PRR , MARSHAL 3, BF Cristian elects NIPT with Gen dahlia GBS Positive- treat in labor, anatomy nl. NIPT low risk, declined. Carrier testing. declined afp testing. Other screening for suspected conditions (not mental disorders or infectious disease) (1 source) Encounter for screening for malignant neoplasm of cervix; Translations: [Encounter for screening for malignant neoplasm of cervix] Onset: 02-21-2025 Episodic Other upper respiratory disease (10 sources) Seasonal allergy; Translations: [Other seasonal allergic rhinitis] 08-08-2022 Chronic Comment on above: spring and fall Other upper respiratory disease (8 sources) Other seasonal allergic rhinitis; Translations: [Allergic rhinitis, cause unspecified] Chronic Residual codes; unclassified (10 sources) Positive measurement finding; Translations: [Positive test for human papillomavirus (HPV)] 04-18-2022 Episodic Comment on above: repeat pap in 1 year Residual codes; unclassified (8 sources) Family history of lupus erythematosus 01-30-2025 Episodic Comment on above: Maternal Aunt Residual codes; unclassified (8 sources) Family history of celiac disease; Translations: [Family history of other diseases of the digestive system] 01-30-2025 Episodic Comment on above: Sister & Paternal Gr andfather Unclassified (1 source) No additional problems on file Past or Other Problems Problem Classification Problem Date Documented Da te Episodic/Chronic Unclassified (10 sources) Large for gestation age fetus; Translations: [Large for gestational age fetus] 10-26-2022 Results Test Name Value Interpretation Reference Range Facility Inspector Dials Office Visit Reporton 03-03-2025 Inspector Dials Office Visit Report [facility] [address], [address] [place] [address] OFFICE VISIT Date of Service: 03/03/25 MR#: [id number] Acct: [id number] Name: TERE BARON Rep #: [id number] : 1995 Provider: Dr. 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: No Is patient in pain?: No Allergies zinc Adverse Reaction (Verified 03/03/25 07:59) Upset Stomach Medications ???Medication ???Instructions ???Recorded ???Confirmed ???Type NK 03/03/25 03/03/25 History Is last menstrual period known: No Post menopausal: No Patient : No : [facility] Medical History Alcohol use Heartburn Non-smoker Encounter for IUD removal Contraceptive management LGA (large for gestational age) fetus Obesity affecting Supervision of normal first HPV test positive Abnormal uterine bleeding (AUB) Surgical History Status post dilation and curettage Status post vaginal delivery History of surgery History of tonsillectomy S/P appendectomy Family History Father Epilepsy Grandfather Celiac disease Paternal Sister Celiac disease Aunt Lupus Maternal Social History adopted: No household members: significant other and children housing: house number of children: 2 current occupational status: employed current occupation: [employer] current occupational exposures/hazards: No pets and animals: Yes (Not managing litter box) pets and animals: cat(s) and dog(s) history of recent travel: No sexually active: Yes Smoking Status: Never smoker alcohol intake: current alcohol intake frequency: holidays/special occasions only details: social- Not while substance use type: does not use well-balanced diet: daily or most days caffeine: No eating out: rarely or never during the past year weight has: remained stable what type of physical activity do you participate in: none crista/taoist: Pentecost[employer]ism seatbelt use: always do you feel safe at home: Yes additional social history: - Cristian HPI 2 wk D C Details: TERE BARON is a 29 year old who presents for 2 week post op D C for a missed . Still spotting a little. States is doing better mentally and they want to take the remains and plant them with page. pathology showed the following: Uterine contents, dilation and suction curettage: - Focally necrotic decidua, immature placental villi, and clotted blood, consistent with products of conception from a missed History 2 Elective abortions Hx Para 1 Spontaneous abortions 1 Hx # Term Pregnancies 1 Ectopic pregnancies Hx # Pregnancies Multiple births # of living children 1 Past Pregnancies Del. Date Name GA/Weeks Outcome Route Bth Weight Infant Gen Labor Lgth Anesthesia Del Locatn Provider FOB 11/23/22 Cruz 40 live - full term 7lbs 6oz Male epidural [facility] 02/14/25 9 spontaneous Delivery Date: 11/23/22 Last Updated by: Jayshree Austin see problem list for complications. ROS ENT ENT: Reports system reviewed and no additional complaints, except as documented Cardio Card: Reports system reviewed and no additional complaints, except as documented Resp Resp: Denies cough, dyspnea or dyspnea on exertion GI GI: Denies abdominal pain, bloating or change in bowel habits : Denies vaginal odor or vaginal pruritus Musc Musc: Reports system reviewed and no additional complaints, except as documented Exam Const General: cooperative, healthy appearing and comfortable Resp Effort Inspection: normal respiratory effort GI Palpation: soft and nontender Rectal Exam: other Extrem General: no edema Coding Level of Care Code Off vis,est,level 3 Diagnoses Status post dilation and curettage Z98.890 Missed O02.1 Assessment and Plan Assessment and Plan (1) Status post dilation and curettage: Status: Acute Comment: 02/18/25 (2) Missed : Status: Acute Plan call when again for quants and 6-7 week ultrasound. 03/03/25 08 Date Nellieryan Yanes Johnathon Bennett Signature: Date (more content not included)... Normal [facility] PAP I-G w/rfx hrHPV-Aptimaon 02-19-2025 ADEQ Comment Normal . [facility] Comment on above: Order Comment: Speci men Comment: [id number] Specimen Comment: No. of containers..01 ThinPrep Vial Result Comment: Sati sfactory for evaluation. No endocervical component is identified. Performed By: #### Jono 7400.0353, M100.0 #### [facility] [address] [place], [place], [id number] COMM . Normal . [facility] Comment on above: Order Comment: Speci men Comment: [id number] Specimen Comment: No. of containers..01 ThinPrep Vial Performed By: #### L 7400.0353, M100.2200 #### [facility] [address] [place], [place], [id number] COMMENT Comment Normal . [facility] Comment on above: Order Comment: Speci men Comment: [id number] Specimen Comment: No. of containers..01 ThinPrep Vial Result Comment: This liquid based ThinPrep(R) pap test was screened with the use of an image guided system. Performed By: #### L 7400.0353, M100.2200 #### [facility] [address] [place], [place], [address] DIAG Comment Normal . [facility] Comment on above: Order Comment: Speci men Comment: [id number] Specimen Comment: No. of containers..01 ThinPrep Vial Result Comment: NEGA TIVE FOR INTRAEPITHELIAL LESION OR MALIGNANCY. FUNGAL ORGANISMS MORPHOLOGICALLY CONSISTENT WITH SAVANNA SPECIES ARE PRESENT. Performed By: #### L 7400.0353, M1.2199 #### [facility] [address] [place], [address] HPV RFLX Comment Normal . [facility] Comment on above: Order Comment: Speci men Comment: [id number] Specimen Comment: No. of containers..01 ThinPrep Vial Result Comment: The HPV DNA reflex criteria were not met with this specimen result therefore, no HPV testing was performed. Performed at: [address] [id number] Junior Marketing Associate: Smitha Allison MD, Phone: [phone] Performed By: #### L [id number], #### [facility] [facility] [address] [place], [address] PAPSMR Comment Normal . [facility] Comment on above: Order Comment: Speci men Comment: [id number] Specimen Comment: No. of containers..01 ThinPrep Vial Result Comment: The Pap smear is a screening test designed to aid in the detection of premalignant and malignant conditions of the uterine cervix. It is not a diagnostic procedure and should not be used as the sole means of detecting cervical cancer. Both false-positive and false-negative reports do occur. Performed By: #### Jono 7400.0353, #### [facility] [address] [place], [address] PERFORM Comment Normal . [facility] Comment on above: Order Comment: Speci men Comment: [id number] Specimen Comment: No. of containers..01 ThinPrep Vial Result Comment: Aicha Garcia, [facility] Psychiatrist (ASCP) Performed By: #### L 7400.0353, M1.2200 #### [facility] [address] [place], [address] CBC-Complete Blood Cnt No Di fernandoon 02-18-2025 Erythrocyte distribution width (RBC) [Ratio] 13.2 % Normal 11.6-14.6 [facility] Comment on above: Performed By: #### Karon BEAVER, L100.0500 #### [facility] [address] [place], [address] Hematocrit (Bld) [Volume fraction] 39.7 % Normal 37-47 [facility] Comment on above: Performed By: #### Karon BEAVER, L100.0500 #### [facility] [address] [place], [address] Hemoglobin (Bld) [Mass/Vol] 13.4 g/dL Normal 12.0-15.0 [facility] Comment on above: Performed By: #### Karon BEAVER, L100.0500 #### [facility] [address] [place], [address] MCH (RBC) [Entitic mass] 30.5 pg Normal 27.0-32.0 [facility] Comment on above: Performed By: #### Karon EBAVER, L100.0500 #### [facility] [address] [place], [address] MCHC (RBC) [Mass/Vol] 33.8 g/dL Normal 32-36 [facility] Comment on above: Performed By: #### Karon BEAVER, L100.0500 #### [facility] [address] [place], [address] MCV (RBC) [Entitic vol] 90.4 fL Normal 81-99 [facility] Comment on above: Performed By: #### Karon BEAVER, L100.0500 #### [facility] [address] [place], [address] Platelet mean volume (Bld) [Entitic vol] 10.2 fL Normal 6.2-12.0 [facility] Comment on above: Performed By: #### B TS, L100.0500 #### [facility] [address] [place], [address] Platelets (Bld) [#/Vol] 254 10*3/uL Normal 150-450 [facility] Comment on above: Performed By: #### Karon TS, L100.0500 #### [facility] [address] [place], [address] RBC (Bld) [#/Vol] 4.39 10*6/uL Normal 4.2-5.4 [facility] Comment on above: Performed By: #### Karon BEAVER, L100.0500 #### [facility] [address] [place], [address] RDW SD 43.8 fl Normal 35.1-43.9 [facility] Comment on above: Performed By: #### Karon BEAVER, L100.0500 #### [facility] [address] [place], [address] WBC (Bld) [#/Vol] 8.7 10*3/uL Normal 4.4-11.0 [facility] Comment on above: Performed By: #### Karon TS, L100.0500 #### [facility] [address] [place], [address] Discharge Instructionon 01-27 Discharge Instruction [facility] Medical Records Department [address] [place] [address] Instructions for Home/Discharge Instructions 02/18/25 1619 MR#: [id number] Acct: [id number] Name: TERE BARONYLYNN Rep #: [id number] : 1995 29 From: Nellie Miller DO PCP: VIRGEN ULNA Status:REG SDC Discharge Instructions Diet Discharge Diet: No restrictions DC O2, CPAP, BIPAP needs Home O2 Discharge instructions: No Dressing / Incision Discharge Activity: Return to Normal Activity, May Shower and May Take a Tub Bath (after 1 week) May resume sexual activity in: 1-2 weeks Weight Bearing Status: Weight bearing as tolerated Lifting Restrictions: none Dressing / Incision Call your doctor if you observe: Fever of 101 or Higher, Using more than 1 pad per hour, Shortness of breath and Uncontrolled pain Follow Up Care Please Follow Up With: Nellie Miller DO When: Call [phone] to schedule appointment. Test Results: Test results from this visit will be discussed in further detail at your follow-up appointment, if applicable. Discharge Plan Admission Primary Reason for Your Visit: dilation and curettage Attending Provider: Nellie Miller Primary Care Provider: VIRGEN LUNA Instructions Print Language: Macedonian Discharge Orders/Prescriptions Prescriptions: New ibuprofen 800 mg tablet 800 mg PO Q8H PRN (Reason: pain) Qty: 20 0RF oxycodone-acetaminophen [Percocet] 5-325 mg tablet 1 tab PO Q4H PRN (Reason: pain) 7 Days Qty: 3 0RF No Action fluconazole 150 mg tablet 150 mg PO Q3D 0 Days Qty: 2 2RF Referrals / Follow Up: Mary Hernandes DO [Non-Staff] - Disposition Disposition (needs filled in before D/C Order can be placed): Home, Self Care 02/18/25 1621 Nellie Miller DO CC: VIRGEN LUNA Signed Normal [facility] Erythrocyte distribution wid th ratioOrdered By: Nellie Diego on 02-18-2025 Erythrocyte distribution width (RBC) [Ratio] 13.2 % 11.6-14.6 [facility] Erythrocyte distribution wid th standard deviationOrdered By: Nellie Diego on 02-18-2025 Erythrocyte distribution width (RBC) [Ratio] 43.8 fl 35.1-43.9 [facility] Hematocrit Auto (Bld) [Volum e fraction]Ordered By: Nellie Diego on 02-18-2025 Hematocrit (Bld) [Volume fraction] 39.7 % 37-47 [facility] Hemoglobin measurementOrdere d By: Nellie Diego on 02-18-2025 Hemoglobin (Bld) [Mass/Vol] 13.4 g/dL 12.0-15.0 [facility] MCV (mean corpuscular volume ) determinationOrdered By: Nellie Diego on 02-18-2025 MCV (RBC) [Entitic vol] 90.4 fL 81-99 [facility] MR/POSTOP.ANEon 02-18-2025 MR/POSTOP.ANE [facility] Medical Records Department [address] [place] [address] Anesthesia Postop Eval I 02/18/251718 MR#: [id number] Acct: [id number] Name: TODTERE AREVALO Rep #: [id number] : 1995 29 From: Benito Rodrigues CRNA PCP: VIRGEN LUNA Status:[facility] Y Race: C Location: [place] [address] Anesthesia: Postop Eval I Current Vital Signs Temperature: 97.3 F Pulse Rate: 89 Blood Pressure: 99/67 Respiratory Rate: 17 Pulse Ox: 98 Assessment Airway patent: Yes Spontaneous unlabored respirations: Yes Mental status: Awake and Calm nausea: No Vomiting: No Anesthesia Complication: No Fluid Hydration Crystalloid volume administer (ml): 1,000 Total IV fluid infused: 1,000 Progress Note Anesthesia document: Postop Eval 1 completed: Yes 02/18/251718 Date Benito Rodrigues CRNA Cosigner Signature: Date CC: Signed Normal [facility] MR/[id number] 02-18-2025 MR/POSTOPAN2 [facility] Medical Records Department [address] [place] [address] Anesthesia Postop Eval II 02/18/252238 MR#: [id number] Acct: [id number] Name: TERE BARON Rep #: [id number] : 1995 29 From: Arnaldo Soto MD PCP: VIRGEN LUNA [place] [facility] [place] Race: C [place] [facility] Anesthesia Postop Eval I Sum Postop Eval Completion status Anesthesia document: Postop Eval 1 completed: Yes Anesthesia Postop Eval I Summary Anesthesia Postop Eval I Summary: Anesthesia Postop Eval I: Assessment Summary Airway patent Yes 02/18/25 17:19 [employer].JENNIFERU Spontaneous unlabored Yes 02/18/25 17:19 [employer].ROBER respirations Mental status Awake,Calm 02/18/25 17:19 [employer].JBLOU nausea No 02/18/25 17:19 [employer].JBLOU Vomiting No 02/18/25 17:19 [employer].JBLOU Anesthesia Postop Eval I: Fluid Summary Crystalloid volume administer 1,000 02/18/25 17:19 [employer]ER.JBLOU (ml) Colloids volume administered ( ml) Blood Product volume administered (ml) Total IV fluid infused 1,000 02/18/25 17:19 [employer] OFFICER.ADRIELLOJuan Anesthesia Postop Eval I: Summary Notes Anesthesia Complication No 02/18/25 17:19 [employer].ROBER Anesthesia Complication Comment: Post-operative progress note Anesthesia: Postop Eval II Evaluation Mental status: Awake and Calm Pain Level: 1 nausea: No Vomiting: No Complications Anesthesia Complication: No 02/18/252238 Date Arnaldo Soto MD Cosigner Signature: Date CC: Signed Normal [facility] Mean corpuscular hemoglobin (MCH) determinationOrdered By: Nellie Diego on 02-18-2025 MCH (RBC) [Entitic mass] 30.5 pg 27.0-32.0 [facility] Mean corpuscular hemoglobin concentration (MCHC) determinationOrdered By: Nellie Diego on 02-18-2025 MCHC (RBC) [Mass/Vol] 33.8 g/dL 32-36 [facility] Mean platelet volume determi nationOrdered By: Nellie Diego on 06-24-2025 Platelet mean volume (Bld) [Entitic vol] 10.2 fL 6.2-12.0 [facility] Operative Reporton 5 Operative Report [facility] Medical Records Department [address] [place] [address] Operative Report 02/18/25 1731 MR#: [id number] Acct: [id number] Name: TERE BARON Rep #: [id number] : 1995 29 From: Nellie Miller DO PCP: VIRGEN LUNA Status[place] [facility] [place]: [place] [address] Problems Associated Problem List Diagnoses (1) Missed : Multi Select Codes Urinary/Genital Urinary/Genital CPT Codes: 78426 Surg Trtmt missed Ab 1TM Operative Report (Standard) Operative Information Date of Procedure: 02/18/25 Pre-Operative Diagnosis: missed measuring 5 weeks Post-Operative Diagnosis: missed measuring 5 weeks Surgery/Procedure Performed: suction dilation and curettage broach operator: No Type of Anesthesia: MAC/Supplemental RN Documented Start/Stop Times: Operation Date: 02/18/25 15:30 Case Time Into Pre-Op 02/18/25 14:00 Out of Pre-Op 02/18/25 16:23 Anesthesia Start 02/18/25 16:35 Into Room 02/18/25 16:35 Procedure Start 02/18/25 16:46 Procedure End 02/18/25 17:07 Anesthesia End 02/18/25 17:14 Out of Room 02/18/25 17:14 Into Recovery 02/18/25 17:15 Procedure Start Time: 16:46 Procedure Stop Time: 17:07 Select all DRAINS/GRAFTS/IMPLANTS that apply: None Estimated Blood Loss: 30cc Specimen collected: Yes Description of specimen(s) removed: endometrial curetting's/products of conception Description of surgery: Patient was taken to the operating room and placed under MAC local anesthesia. She was prepped and draped in the normal sterile fashion the dorsal lithotomy position. Bladder was drained of clear urine and anterior lip of the cervix was grasped and the uterus sounded to 10cm. Cervix was progressively dilated to allow passage of a size 8 suction curette. Progressive passes were made removing the retained products of conception without complication. Sharp curettage confirmed complete removal of the retained products. A post procedure ultrasound was performed showing a thin endometrium. There were some moments of brisk bleeding after the completion of the procedure and methergine IM + TXA 1000mg were given. uterine massage was perfromed and the bleeding stopped. All instruments were removed from the vagina and excellent hemostasis was noted and the patient was taken to recovery in stable condition. IM methergine was given to help contract the uterus. Surgical Findings: small amount of products of conception removed. Complications Complications: No Admit VTE Documentation VTE Present on Admission: No VTE Mechan Device Prophylaxis: SCD's VTE Pharm Prophylaxis ordered?: No 02/18/25 5406 Cosigner Signature (if applicable): CC: Dr. Nellie Miller, DO; VIRGEN LUNA Signed Normal [facility] Platelet countOrdered By: Nam Diego on 02-18-2025 Platelets (Bld) [#/Vol] 254 10*3/uL 150-450 [facility] RBC Auto (Bld) [#/Vol]Ordere d By: Nellie Diego on 02-18-2025 RBC (Bld) [#/Vol] 4.39 10*6/uL 4.2-5.4 [facility] Surgery Specimen Level Mabel 02-18-2025 Surgery Specimen Level IV Patient Age/Sex Location Account Attending Physician TERE BARON / [facility] [id number] [address] [place] Specimen: [id number] Received: 02/18/25 Status: ADIS Theodore Num: [id number] Spec Type: PROD CONC Subm Dr: Dr. Nellie Miller, DO HEAD OPERATION: Dilation and curettage, suction PRE-OP DIAGNOSIS: Missed TISSUE SUBMITTED: A- Products of conception MICROSCOPIC DIAGNOSIS A. Uterine contents, dilation and suction curettage: * Focally necrotic decidua, immature placental villi, and clotted blood, consistent with products of conception from a missed MICROSCOPIC DESCRIPTION Slides are reviewed. GROSS DESCRIPTION A. Received in formalin labeled with the patient's name and date of . Designated as products of conception is a 6.3 x 5.9 x 1.1 cm aggregate of pink-borjas tissue and clotted blood with minimal mucoid material. Probable chorionic villi are identified. Definitive tissues are not identified. Cellular Equipment Repairer sections are submitted in 2 cassettes. MD 02/19/2025 CPT:83075 Patient Age/Sex Location Account Attending Physician [place] [facility] [id number] Dr. Nellie Miller, Rd Signed (signature on file) Dr. Bar Akins MD 02/26/25 1605 Normal [facility] Comment on above: Performed By: #### P SATURNINO #### [facility] [address] [facility] [place] [place], [address] Type AND Screenon 02-18-2025 Ab SCREEN GEL Negative Normal [facility] Comment on above: Order Comment: Katelyn vogt Laboratory Test PRE OP S [id number] 1530 D C Performed By: #### B TS, L100.0500 #### [facility] [address] [place], [address] White blood cell (WBC) count Ordered By: Nellie Diego on 02-18-2025 WBC (Bld) [#/Vol] 8.7 10*3/uL 4.4-11.0 [facility] Urine Cultureon 02-17-2025 URC #1, 2 Below infectio n level. Presumptive C albicans [place] Count <1000 Mixed Gram Positive Organisms Mixed Gram Positive Organisms MIXC Mixed contaminants. Submit a new specimen if indicated. Normal [facility] Comment on above: Performed By: #### L 7400.0353, M100.2200 #### [facility] [address] [place], [address] Cervical or vagninal specime n microscopic examination by cytology stain (reported asOrdered By: Nellie Diego on 02-14-2025 Cytology report Cyto stain Doc (Cvx/Vag) Comment . [facility] Comment on above: The Pap smear is a s creening test designed to aid in thedetection of premalignant and malignant conditions of theuterine cervix. It is not a diagnostic procedure andshould not be used as the sole means of detecting cervicalcancer. Both false-positive and false-negative reports dooccur. Laboratory - CytologyOrdered By: Nellie Diego on 02-14-2025 [facility] Psychiatrist Cyto stain Nom (Cvx/Vag) [ID] Comment . [facility] Comment on above: Gricel Joya ytologist (ASCP) Laboratory - Miscellaneous t estsOrdered By: Nellie Diego on 02-14-2025 Service comment (Unsp spec) [Interp] . . [facility] No Panel InformationOrdered By: Nellie Diego on 02-14-2025 Pap Smear Specimen Adequacy Comment . [facility] Comment on above: Satisfactory for ariadna luation. No endocervical component is identified. Inspector Dials Office Visit Reporton 02-14-2025 Inspector Dials Office Visit Report [facility]'s [address], [address] [place] [address] OFFICE VISIT Date of Service: 02/14/25 MR#: [id number] Acct: [id number] Name: TERE BARON Rep #: [id number] : 1995 Provider: Dr. Nellie Pugh DO Age/Sex: 29/F Location: [facility] Status: Signed Intake Vital Signs 11/15/24 10:10 02/14/25 13:13 02/14/25 13:13 Height 5 ft 4 in 5 ft 4 in 5 ft 4 in Weight: 212 lb 2 oz BMI 36.3 Intake Visit Reasons: *EST* NOB LMP 12/11, MARSHAL 09/17 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: No Is patient in pain?: No Allergies zinc Adverse Reaction (Verified 02/14/25 13:12) Upset Stomach Medications ???Medication ???Instructions ???Recorded ???Confirmed ???Type PNV 153-FA 400 mcg-om3 35 mg-dha tab PO .QD 01/30/25 02/14/25 Histo ry 25 mg-epa 5 mg-fish oil chew tablet Last Menstrual Period: 12/11/24 Zika: Zika virus screening: Negative : No PFSH PFSH Medical History Encounter for IUD removal Contraceptive management LGA (large for gestational age) fetus Obesity affecting Supervision of normal first HPV test positive Abnormal uterine bleeding (AUB) Surgical History Status post vaginal delivery History of surgery History of tonsillectomy S/P appendectomy Family History Father Epilepsy Grandfather Celiac disease Paternal Sister Celiac disease Aunt Lupus Maternal Social History adopted: No household members: significant other and children housing: house number of children: 2 service: No current occupational status: employed current occupation: [employer] current occupational exposures/hazards: No pets and animals: Yes (Not managing litter box) pets and animals: cat(s) and dog(s) history of recent travel: No sexually active: Yes Smoking Status: Never smoker alcohol intake: current alcohol intake frequency: holidays/special occasions only details: social- Not while substance use type: does not use well-balanced diet: daily or most days caffeine: No eating out: rarely or never during the past year weight has: remained stable what type of physical activity do you participate in: none crista/taoist: Pentecostalism seatbelt use: always do you feel safe at home: Yes additional social history: - [place] History 2 Elective abortions Hx Para 1 Spontaneous abortions Hx # Term Pregnancies 1 Ectopic pregnancies Hx # Pregnancies Multiple births # of living children 1 Past Pregnancies Del. Date Name GA/Weeks Outcome Route Bth Weight Gen Labor Lgth Anesthesia Del Locatn Provider FOB 11/23/22 Cruz 40 live - full term 7lbs 6oz Male epidural [facility] Farzana Diego [place] Delivery Date: 11/23/22 Last Updated by: Jayshree Austin see problem list for complications. HPI *EST* NOB LMP 12/11, MARSHAL 09/17 Details: TERE BARON is a 29 year old who presents for New OB visit. OB Visit MARSHAL Calculator Estimated Delivery Date Method Current WG Current Estimate 09/17/25 LMP (Certain) 9w 2d Comments: HIV: Urine Culture: Sequential Screen: NIPT Screen: Estimated Due Date: 09/17/25 Initial Weight: Not Recorded Date -???-???-???-???-???-?? ?-???-???-???-???-???-? ??- EGA Weight BP Urine Prot -???-???-???-???-???-?? ?-???-???-???-???-???-? ??- Glucose FHR FuHt Pres Dilation -???-???-???-???-???-?? ?-???-???-???-???-???-? ??- Effaced St Visit Note 02/14/25 -???-???-???-???-???-?? ?-???-???-???-???-???-? ??- 9w 2d 212 lb 2 oz -???-???-???-???-???-?? ?-???-???-???-???-???-? ??- -???-???-???-???-???-?? ?-???-???-???-???-???-? ??- JV- no heart tones or pole. large GS and yolk sac consistent with miscarriage. patient would like D C and possible anora testing. Menstrual History Last Menstrual Period: 12/11/24 Reported LMP: definite Normal amount/duration: Yes Frequency in days: unknown due to IUD(removed in October) On hormonal BC at conception: No hCG+: 01/02/25 (faint +, 01/04 spotting x1 light pink, 01/05 strong +HPT) Antepartum Record Genetic Screening: Congenital Heart Defect: Other, Neural Tube Defect: Other, Hemoglobinopathy Or Carrier: Patient (Maternal Aunt -Lupus), Cystic Fibrosis: Other, Chromosome Abnormality: Other, Reji- Sachs: Other, Hemophilia: Other, Intellectual Disability/Autism: Other, Recurrent Loss/Stillbirth: Other, Other Structural Defect: Other, Other Genetic Disease: Other and Maternal Metabolic Disorder: Other Infection History: Live with (more content not included)... Normal [facility] Urine cultureOrdered By: Angelic Diego on 02-14-2025 Bacteria identified Cx Nom (U) Presumptive C albicans Abnormal [facility] Bacteria identified Cx Nom (U) Positive Abnormal [facility] Inspector Dials Office Visit Reporton 11-15-2024 Inspector Dials Office Visit Report [facility] [address] [place] [address], [address] [place] [address] OFFICE VISIT Date of Service: 11/15/24 MR#: [id number] Acct: [id number] Name: TERE BRAON Rep #: [id number] : 1995 Provider: Dr. Maribel victor MD Age/Sex: 29/F Location: [facility] Status: Signed with Addenda ADDENDUM by Dr. Maribel Chen MD on 11/27/24 at 1156 Assessment and Plan Assessment and Plan (1) Encounter for IUD removal: Status: Acute Orders: Orders IUD Removal 11/15/24 Z30.432 - Encounter for removal of intrauterine contraceptive device Comments Comments: iud strings grasped and pulled removed without complicaion 11/27/24 1156 Date Maribel Chen MD cc: * Signed Intake Vital Signs 03/01/23 12:55 11/15/24 10:10 Height 5 ft 4 in 5 ft 4 in Weight: 214 lb BMI 36.7 BP 126/76 H Intake Visit Reasons: iud removal (mirena) 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: No Is patient in pain?: No Feel stressed/tense/nervous/ anxious/difficulty sleeping: not at all Allergies zinc Adverse Reaction (Verified 11/15/24 10:14) Upset Stomach Post menopausal: No Patient : No : No PFSH PFSH Medical History Contraceptive management LGA (large for gestational age) fetus Obesity affecting Supervision of normal first HPV test positive Abnormal uterine bleeding (AUB) Surgical History Status post vaginal delivery History of surgery History of tonsillectomy S/P appendectomy Family History Father Epilepsy Social History (Updated 11/15/24 @ 10:15 by Mayra Pollack) adopted: No household members: significant other housing: house number of children: 1 current occupational status: employed current occupation: [employer] current occupational exposures/hazards: No pets and animals: Yes (Not managing litter box) pets and animals: cat(s) and dog(s) history of recent travel: No sexually active: Yes Smoking Status: Never smoker alcohol intake: former details: social substance use type: does not use diet: lactose free well-balanced diet: daily or most days caffeine: No eating out: 1-3 times/week during the past year weight has: remained stable what type of physical activity do you participate in: walking frequency: 1-2 times per week duration: 30-45 minutes/day crista/taoist: Pentecostalism seatbelt use: always do you feel safe at home: Yes additional social history: - [place] History 1 Elective abortions Hx Para 1 Spontaneous abortions Hx # Term Pregnancies 1 Ectopic pregnancies Hx # Pregnancies Multiple births # of living children 1 Past Pregnancies Del. Date Name GA/Weeks Outcome Route Bth Weight Gen Labor Lgth Anesthesia Del Locatn Provider FOB 11/23/22 Cruz 40 live - full term 7lbs 6oz [facility] [place] Delivery Date: 11/23/22 Last Updated by: Jayshree Austin see problem list for complications. HPI iud removal (mirena) Details: TERE BARON is a 29 year old who presents for iud removal she is wanting to conceive. she denies any issues with it, no rgular menes no pelvic pain or fevers no pressure. ROS Const Constitutional: Reports system reviewed and no additional complaints, except as documented : Reports system reviewed and no additional complaints, except as documented and as per HPI Exam Const General: cooperative, healthy appearing, comfortable and no acute distress External Female Exam: normal external appearance and normal appearance of the urethra Urethra: normal appearance of the urethra Speculum Exam - Vagina: normal appearance of the vagina and normal vaginal discharge Speculum Exam - Cervix: normal appearance of the cervix (strings seen 3-4 cm in length) Bimanual Exam- Vagina Uterus: normal bimanual exam Bimanual Exam- Adnexa, other: normal adnexae, adnexae mobile and no masses Coding Level of Care Code Off vis,est,level 2 Diagnoses Encounter for IUD removal Z30.432 Assessment and Plan Assessment and Plan (1) Encounter for IUD removal: Status: Acute Orders: Orders IUD Removal Today Z30.432 - Encounter for removal of intrauterine contraceptive device Plan fu annually 11/15/24 1037 Date Maribel Mora Signature: Date (if applicable) CC: Normal [facility] DHEAUon 04-18-2024 DHEA. 195 ng/dL Normal 31-701 [facility] (ID) Comment on above: Result Comment: This test was developed and its performance characteristics determined by [facility]. It has not been cleared or approved by the Food and Drug Administration. Performed At: [address] [id number] Isaiah Blackwell MD Ph:[phone] Performed By: #### A 1C, CBC, GFR, ANEU, FT4, ADIFF, VIDH, CMP, 194901, FT3, LIPID, TSH, [id number], FE, FERR #### [address] [address] #### PROG, HOMO, B12, CRPHS, THYAB #### [address] [address] TFTESTon 04-16-2024 Free Testost Direct 0.8 pg/mL Normal 0.0-4.2 [facility] ([place]) Comment on above: Result Comment: Perf ormed At: [address] [id number] Isaiah Blackwell MD Ph:[phone] Performed At: [address] [id number] Gwendolyn Carlton PhD Ph:[phone] Performed By: #### A 1C, CBC, GFR, ANEU, FT4, ADIFF, VIDH, CMP, 774299, FT3, LIPID, TSH, [id number], FE, FERR #### [address] [address] #### PROG, HOMO, B12, CRPHS, THYAB #### [address] [address] Testosterone Lvl 19 ng/dL Normal 13-71 [facility] ([place]) Comment on above: Performed By: #### A 1C, CBC, GFR, ANEU, FT4, ADIFF, VIDH, CMP, 712733, FT3, LIPID, TSH, [id number], FE, FERR #### [address] [address] #### PROG, HOMO, B12, CRPHS, THYAB #### [address] [address] .Auto Diffon 04-13-2024 Basophil, Absolute 0.1 10 3/mcL Normal 0.0-0.2 [facility] ([place]) Comment on above: Performed By: #### A 1C, CBC, GFR, ANEU, FT4, ADIFF, VIDH, CMP, 380867, FT3, LIPID, TSH, [id number], FE, FERR #### [address] [address] #### PROG, HOMO, B12, CRPHS, THYAB #### [address] [address] Basophils/100 WBC (Bld) 1.2 % Normal 0.0-2.5 [facility] ([place]) Comment on above: Performed By: #### A 1C, CBC, GFR, ANEU, FT4, ADIFF, VIDH, CMP, 224518, FT3, LIPID, TSH, [id number], FE, FERR #### [address] [address] #### PROG, HOMO, B12, CRPHS, THYAB #### [address] [address] Eosinophil, Absolute 0.1 10 3/mcL Normal 0.0-0.4 [facility] ([place]) Comment on above: Performed By: #### A 1C, CBC, GFR, ANEU, FT4, ADIFF, VIDH, CMP, 349644, FT3, LIPID, TSH, [id number], FE, FERR #### [address] [address] #### PROG, HOMO, B12, CRPHS, THYAB #### [address] [address] Eosinophils/100 WBC (Bld) 1.0 % Normal 0.0-7.0 [facility] ([place]) Comment on above: Performed By: #### A 1C, CBC, GFR, ANEU, FT4, ADIFF, VIDH, CMP, 158974, FT3, LIPID, TSH, [id number], FE, FERR #### [place] [address] #### PROG, HOMO, B12, CRPHS, THYAB #### [address] [address] Lymphocyte, Absolute 1.7 10 3/mcL Normal 0.8-3.9 [facility] ([place]) Comment on above: Performed By: #### A 1C, CBC, GFR, ANEU, FT4, ADIFF, VIDH, CMP, 293555, FT3, LIPID, TSH, [id number], FE, FERR #### [place] [address] #### PROG, HOMO, B12, CRPHS, THYAB #### [address] [address] Lymphocytes/100 WBC (Bld) 28.6 % Normal 10.0-50.0 [facility] ([place]) Comment on above: Performed By: #### A 1C, CBC, GFR, ANEU, FT4, ADIFF, VIDH, CMP, 732442, FT3, LIPID, TSH, [id number], FE, FERR #### [place] [address] #### PROG, HOMO, B12, CRPHS, THYAB #### [address] [address] Monocyte, Absolute 0.4 10 3/mcL Normal 0.2-1.0 [facility] ([place]) Comment on above: Performed By: #### A 1C, CBC, GFR, ANEU, FT4, ADIFF, VIDH, CMP, 068879, FT3, LIPID, TSH, [id number], FE, FERR #### [place] [address] #### PROG, HOMO, B12, CRPHS, THYAB #### [address] [address] Monocytes/100 WBC (Bld) 6.3 % Normal 1.7-13.0 [facility] ([place]) Comment on above: Performed By: #### A 1C, CBC, GFR, ANEU, FT4, ADIFF, VIDH, CMP, 026203, FT3, LIPID, TSH, [id number], FE, FERR #### [address] [address] #### PROG, HOMO, B12, CRPHS, THYAB #### [address] [address] Neutrophils/100 WBC (Bld) 62.9 % Normal 37.0-80.0 [facility] ([place]) Comment on above: Performed By: #### A 1C, CBC, GFR, ANEU, FT4, ADIFF, VIDH, CMP, 519263, FT3, LIPID, TSH, [id number], FE, FERR #### [place] [address] #### PROG, HOMO, B12, CRPHS, THYAB #### [address] [address] .GFRon 04-13-2024 GFR 108 ml/min/1.73sqm Normal [facility] ([place]) Comment on above: Result Comment: GFR Population mean for , Non- Americans Ages 20-29 = 116 mL/min/1.73 sq.m. Ages 30-39 = 107 mL/min/1.73 sq.m. Ages 40-49 = 99 mL/min/1.73 sq.m. Ages 50-59 = 93 mL/min/1.73 sq.m. Ages 60-69 = 85 mL/min/1.73 sq.m. Ages 70+ = 75 mL/min/1.73 sq.m. Chronic Kidney Disease: Less than 60 mL/min/1.73 square meters End Stage Renal Disease: Less than 15 mL/min/1.73 square meters Performed By: #### A 1C, CBC, GFR, ANEU, FT4, ADIFF, VIDH, CMP, 724270, FT3, LIPID, TSH, [id number], FE, FERR #### [place] [address] #### PROG, HOMO, B12, CRPHS, THYAB #### [address] [address] GFR Non- 89 ml/min/1.73sqm Normal [facility] ([place]) Comment on above: Result Comment: GFR Population mean for , Non- Americans Ages 20-29 = 116 mL/min/1.73 sq.m. Ages 30-39 = 107 mL/min/1.73 sq.m. Ages 40-49 = 99 mL/min/1.73 sq.m. Ages 50-59 = 93 mL/min/1.73 sq.m. Ages 60-69 = 85 mL/min/1.73 sq.m. Ages 70+ = 75 mL/min/1.73 sq.m. Chronic Kidney Disease: Less than 60 mL/min/1.73 square meters End Stage Renal Disease: Less than 15 mL/min/1.73 square meters Performed By: #### A 1C, CBC, GFR, ANEU, FT4, ADIFF, VIDH, CMP, 378961, FT3, LIPID, TSH, [id number], FE, FERR #### [place] [address] #### PROG, HOMO, B12, CRPHS, THYAB #### [address] [address] .NEUABSon 04-13-2024 Neutrophil, Absolute 3.8 10 3/mcL Normal 2.9-6.2 [facility] ([place]) Comment on above: Performed By: #### A 1C, CBC, GFR, ANEU, FT4, ADIFF, VIDH, CMP, 140932, FT3, LIPID, TSH, [id number], FE, FERR #### [address] [address] #### PROG, HOMO, B12, CRPHS, THYAB #### [address] [address] A1Con 04-13-2024 Glucose [Mass/Vol] 103 mg/dL Normal [facility] ([place]) Comment on above: Result Comment: Merry mated Average Glucose calculated by equation ((28.7xA1C)-46.7) Estimated average glucose (eAG) is a calculated value from Hemoglobin A1C and is labor representative of the average blood glucose level in the last 2-3 month period. Normal range: less than 114 mg/dL Performed By: #### A 1C, CBC, GFR, ANEU, FT4, ADIFF, VIDH, CMP, 315419, FT3, LIPID, TSH, [id number], FE, FERR #### [place] [address] #### PROG, HOMO, B12, CRPHS, THYAB #### [place] [address] HbA1c (Bld) [Mass fraction] 5.2 % Normal 4.3-6.4 [facility] ([place]) Comment on above: Performed By: #### A 1C, CBC, GFR, ANEU, FT4, ADIFF, VIDH, CMP, 631200, FT3, LIPID, TSH, [id number], FE, FERR #### [place] [address] #### PROG, HOMO, B12, CRPHS, THYAB #### [place] [address] B12on 04-13-2024 Cobalamin (Vitamin B12) [Mass/Vol] 354 pg/mL Normal 211-911 [facility] ([place]) Comment on above: Performed By: #### A 1C, CBC, GFR, ANEU, FT4, ADIFF, VIDH, CMP, 100054, FT3, LIPID, TSH, [id number], FE, FERR #### [place] [address] #### PROG, HOMO, B12, CRPHS, THYAB #### [place] [address] CBCon 04-13-2024 Erythrocyte distribution width (RBC) [Ratio] 14.1 % Normal 11.5-14.5 [facility] ([place]) Comment on above: Performed By: #### A 1C, CBC, GFR, ANEU, FT4, ADIFF, VIDH, CMP, 120715, FT3, LIPID, TSH, [id number], FE, FERR #### [place] [address]77 #### PROG, HOMO, B12, CRPHS, THYAB #### [address] [address] Hematocrit (Bld) [Volume fraction] 42.2 % Normal 37.0-47.0 [facility] ([place]) Comment on above: Performed By: #### A 1C, CBC, GFR, ANEU, FT4, ADIFF, VIDH, CMP, 237767, FT3, LIPID, TSH, [id number], FE, FERR #### [place] [address] #### PROG, HOMO, B12, CRPHS, THYAB #### [place] [address] Hgb 14.0 G/dL Normal 12.0-16.0 [facility] ([place]) Comment on above: Performed By: #### A 1C, CBC, GFR, ANEU, FT4, ADIFF, VIDH, CMP, 500693, FT3, LIPID, TSH, [id number], FE, FERR #### [place] [address] #### PROG, HOMO, B12, CRPHS, THYAB #### [place] [id number] MCH (RBC) [Entitic mass] 30.4 pg Normal 27.0-31.2 [facility] ([place]) Comment on above: Performed By: #### A 1C, CBC, GFR, ANEU, FT4, ADIFF, VIDH, CMP, 504015, FT3, LIPID, TSH, [id number], FE, FERR #### [place] [address] #### PROG, HOMO, B12, CRPHS, THYAB #### [place] [id number] MCHC 33.3 G/dL Normal 33.0-37.0 [facility] ([place]) Comment on above: Performed By: #### A 1C, CBC, GFR, ANEU, FT4, ADIFF, VIDH, CMP, 191022, FT3, LIPID, TSH, [id number], FE, FERR #### [address] [address] #### PROG, HOMO, B12, CRPHS, THYAB #### [address] [address] MCV (RBC) [Entitic vol] 91.4 fL Normal 80.0-94.0 [facility] ([place]) Comment on above: Performed By: #### A 1C, CBC, GFR, ANEU, FT4, ADIFF, VIDH, CMP, 887761, FT3, LIPID, TSH, [id number], FE, FERR #### [address] [address] #### PROG, HOMO, B12, CRPHS, THYAB #### [address] [address] Platelet 202 10 3/mcL Normal 130-400 [facility] ([place]) Comment on above: Performed By: #### A 1C, CBC, GFR, ANEU, FT4, ADIFF, VIDH, CMP, 363354, FT3, LIPID, TSH, [id number], FE, FERR #### [address] [address] #### PROG, HOMO, B12, CRPHS, THYAB #### [address] [address] Platelet mean volume (Bld) [Entitic vol] 9.1 fL Normal 7.4-10.4 [facility] ([place]) Comment on above: Performed By: #### A 1C, CBC, GFR, ANEU, FT4, ADIFF, VIDH, CMP, 067971, FT3, LIPID, TSH, [id number], FE, FERR #### [address] [address] #### PROG, HOMO, B12, CRPHS, THYAB #### [address] [address] RBC 4.61 10 6/mcL Normal 4.20-5.40 [facility] ([place]) Comment on above: Performed By: #### A 1C, CBC, GFR, ANEU, FT4, ADIFF, VIDH, CMP, 361322, FT3, LIPID, TSH, [id number], FE, FERR #### [address] [address] #### PROG, HOMO, B12, CRPHS, THYAB #### [address] [address] WBC 6.0 10 3/mcL Normal 4.6-10.8 [facility] ([place]) Comment on above: Performed By: #### A 1C, CBC, GFR, ANEU, FT4, ADIFF, VIDH, CMP, 660173, FT3, LIPID, TSH, [id number], FE, FERR #### [address] [address] #### PROG, HOMO, B12, CRPHS, THYAB #### [place] [address] CMPon 04-13-2024 Albumin Level 4.1 G/dL Normal 3.5-5.0 [facility] ([place]) Comment on above: Performed By: #### A 1C, CBC, GFR, ANEU, FT4, ADIFF, VIDH, CMP, 675298, FT3, LIPID, TSH, [id number], FE, FERR #### [place] [address] #### PROG, HOMO, B12, CRPHS, THYAB #### [place] [address] Albumin/Globulin [Mass ratio] 1.1 {ratio} Normal 1.1-2.5 [facility] ([place]) Comment on above: Performed By: #### A 1C, CBC, GFR, ANEU, FT4, ADIFF, VIDH, CMP, 550571, FT3, LIPID, TSH, [id number], FE, FERR #### [address] [address] #### PROG, HOMO, B12, CRPHS, THYAB #### [address] [address] ALP [Catalytic activity/Vol] 69 U/L Normal 40-135 [facility] ([place]) Comment on above: Performed By: #### A 1C, CBC, GFR, ANEU, FT4, ADIFF, VIDH, CMP, 355390, FT3, LIPID, TSH, [id number], FE, FERR #### [place] [address] #### PROG, HOMO, B12, CRPHS, THYAB #### [place] [address] ALT [Catalytic activity/Vol] 19 U/L Normal 14-59 [facility] ([place]) Comment on above: Performed By: #### A 1C, CBC, GFR, ANEU, FT4, ADIFF, VIDH, CMP, 511711, FT3, LIPID, TSH, [id number], FE, FERR #### [place] [address] #### PROG, HOMO, B12, CRPHS, THYAB #### [place] [address] AST [Catalytic activity/Vol] 9 U/L Low 10-40 [facility] ([place]) Comment on above: Performed By: #### A 1C, CBC, GFR, ANEU, FT4, ADIFF, VIDH, CMP, 073818, FT3, LIPID, TSH, [id number], FE, FERR #### [place] [address] #### PROG, HOMO, B12, CRPHS, THYAB #### [place] [address] Bili Total 0.4 mg/dL Normal 0.2-1.0 [facility] ([place]) Comment on above: Result Comment: Use of this assay is not recommended for patients undergoing treatment with eltrombopag due to the potential for falsely elevated results. Performed By: #### A 1C, CBC, GFR, ANEU, FT4, ADIFF, VIDH, CMP, 441533, FT3, LIPID, TSH, [id number], FE, FERR #### [place] [address] #### PROG, HOMO, B12, CRPHS, THYAB #### [place] [phone] BUN/Creatinine Ratio 12 ratio Normal 7-27 [facility] ([place]) Comment on above: Performed By: #### A 1C, CBC, GFR, ANEU, FT4, ADIFF, VIDH, CMP, 545667, FT3, LIPID, TSH, [id number], FE, FERR #### [address] [address] #### PROG, HOMO, B12, CRPHS, THYAB #### [address] [address] Calcium [Mass/Vol] 9.0 mg/dL Normal 8.4-10.2 [facility] ([place]) Comment on above: Performed By: #### A 1C, CBC, GFR, ANEU, FT4, ADIFF, VIDH, CMP, 980236, FT3, LIPID, TSH, [id number], FE, FERR #### [address] [address] #### PROG, HOMO, B12, CRPHS, THYAB #### [address] [address] Chloride [Moles/Vol] 105 mmol/L Normal 98-107 [facility] ([place]) Comment on above: Performed By: #### A 1C, CBC, GFR, ANEU, FT4, ADIFF, VIDH, CMP, 549522, FT3, LIPID, TSH, [id number], FE, FERR #### [address] [address] #### PROG, HOMO, B12, CRPHS, THYAB #### [address] [address] CO2 [Moles/Vol] 25 mmol/L Normal 22-29 [facility] ([place]) Comment on above: Performed By: #### A 1C, CBC, GFR, ANEU, FT4, ADIFF, VIDH, CMP, 000725, FT3, LIPID, TSH, [id number], FE, FERR #### [address] [address] #### PROG, HOMO, B12, CRPHS, THYAB #### [address] [address] Creatinine [Mass/Vol] 0.77 mg/dL Normal 0.55-1.02 [facility] ([place]) Comment on above: Performed By: #### A 1C, CBC, GFR, ANEU, FT4, ADIFF, VIDH, CMP, 023804, FT3, LIPID, TSH, [id number], FE, FERR #### [place] [id number] #### PROG, HOMO, B12, CRPHS, THYAB #### [address] [address] Electrolyte Balance 10.0 mEq/L Normal 4.0-15.0 [facility] ([place]) Comment on above: Performed By: #### A 1C, CBC, GFR, ANEU, FT4, ADIFF, VIDH, CMP, 572978, FT3, LIPID, TSH, [id number], FE, FERR #### [place] [address] #### PROG, HOMO, B12, CRPHS, THYAB #### [place] [address] Globulin 3.6 G/dL Normal [facility] ([place]) Comment on above: Performed By: #### A 1C, CBC, GFR, ANEU, FT4, ADIFF, VIDH, CMP, 546156, FT3, LIPID, TSH, [id number], FE, FERR #### [place] [address] #### PROG, HOMO, B12, CRPHS, THYAB #### [address] [address] Glucose [Mass/Vol] 91 mg/dL Normal 70-105 [facility] ([place]) Comment on above: Performed By: #### A 1C, CBC, GFR, ANEU, FT4, ADIFF, VIDH, CMP, 154187, FT3, LIPID, TSH, [id number], FE, FERR #### [place] [id number] #### PROG, HOMO, B12, CRPHS, THYAB #### [address] [address] Potassium [Moles/Vol] 3.8 mmol/L Normal 3.5-5.1 [facility] ([place]) Comment on above: Performed By: #### A 1C, CBC, GFR, ANEU, FT4, ADIFF, VIDH, CMP, 876205, FT3, LIPID, TSH, [id number], FE, FERR #### [address] [address] #### PROG, HOMO, B12, CRPHS, THYAB #### [address] [address] Sodium [Moles/Vol] 140 mmol/L Normal 136-145 [facility] ([place]) Comment on above: Performed By: #### A 1C, CBC, GFR, ANEU, FT4, ADIFF, VIDH, CMP, 685063, FT3, LIPID, TSH, [id number], FE, FERR #### [address] [address] #### PROG, HOMO, B12, CRPHS, THYAB #### [address] [address] Total Protein 7.7 G/dL Normal 6.4-8.2 [facility] ([place]) Comment on above: Performed By: #### A 1C, CBC, GFR, ANEU, FT4, ADIFF, VIDH, CMP, 398350, FT3, LIPID, TSH, [id number], FE, FERR #### [address] [address] #### PROG, HOMO, B12, CRPHS, THYAB #### [address] [address] Urea nitrogen [Mass/Vol] 9 mg/dL Normal 7-18 [facility] ([place]) Comment on above: Performed By: #### A 1C, CBC, GFR, ANEU, FT4, ADIFF, VIDH, CMP, 652370, FT3, LIPID, TSH, [id number], FE, FERR #### [address] [address] #### PROG, HOMO, B12, CRPHS, THYAB #### [address] [address] CRPHSon 04-13-2024 CRP, High Sensitive 1.56 mg/L Normal 0.20-3.00 [facility] ([place]) Comment on above: Result Comment: Rela tive Risk Category and Average hs-CRP Level: Higher Risk: > 5.0 mg/L Guidelines support that hs-CRP can be used as an independent predictor of increased coronary risk; however, hs-CRP results should only be interpreted in conjunction with other cardiac risk factors in establishing overall cardiac risk for a given patient. Performed By: #### A 1C, CBC, GFR, ANEU, FT4, ADIFF, VIDH, CMP, 252540, FT3, LIPID, TSH, [id number], FE, FERR #### [address] [address] #### PROG, HOMO, B12, CRPHS, THYAB #### [place] [id number] FEon 04-13-2024 Iron [Mass/Vol] 113 ug/dL Normal 50-170 [facility] ([place]) Comment on above: Performed By: #### A 1C, CBC, GFR, ANEU, FT4, ADIFF, VIDH, CMP, 929342, FT3, LIPID, TSH, [id number], FE, FERR #### [address] [address] #### PROG, HOMO, B12, CRPHS, THYAB #### [address] [address] [place] 04-13-2024 Ferritin [Mass/Vol] 47.0 ng/mL Normal 8.0-252.0 [facility] ([place]) Comment on above: Performed By: #### A 1C, CBC, GFR, ANEU, FT4, ADIFF, VIDH, CMP, 674252, FT3, LIPID, TSH, [id number], FE, FERR #### [address] [address] #### PROG, HOMO, B12, CRPHS, THYAB #### [address] [address] FT3on 04-13-2024 Free T3 [Mass/Vol] 2.64 pg/mL Normal 2.30-4.00 [facility] ([place]) Comment on above: Performed By: #### A 1C, CBC, GFR, ANEU, FT4, ADIFF, VIDH, CMP, 691544, FT3, LIPID, TSH, [id number], FE, FERR #### [address] [address] #### PROG, HOMO, B12, CRPHS, THYAB #### [address] [address] FT4on 04-13-2024 Free T4 [Mass/Vol] 0.81 ng/dL Normal 0.76-1.46 [facility] ([place]) Comment on above: Performed By: #### A 1C, CBC, GFR, ANEU, FT4, ADIFF, VIDH, CMP, 655275, FT3, LIPID, TSH, [id number], FE, FERR #### [place] [address] #### PROG, HOMO, B12, CRPHS, THYAB #### [place] [address] HOMOon 04-13-2024 Homocysteine 6.2 umol/l Normal 3.7-13.9 [facility] ([place]) Comment on above: Result Comment: No te - New Reference Range in effect 20 Performed By: #### A 1C, CBC, GFR, ANEU, FT4, ADIFF, VIDH, CMP, 795497, FT3, LIPID, TSH, [id number], FE, FERR #### [place] [address] #### PROG, HOMO, B12, CRPHS, THYAB #### [place] [address] LIPIDon 04-13-2024 Cholesterol [Mass/Vol] 199 mg/dL Normal 0-200 [facility] ([place]) Comment on above: Result Comment: Chol esterol Reference Interval: Less than 200 Desirable 200-239 Borderline high risk 240 and above High risk Performed By: #### A 1C, CBC, GFR, ANEU, FT4, ADIFF, VIDH, CMP, 710658, FT3, LIPID, TSH, [id number], FE, FERR #### [address] [address] #### PROG, HOMO, B12, CRPHS, THYAB #### [address] [address] Cholesterol in HDL [Mass/Vol] 65 mg/dL High 40-60 [facility] ([place]) Comment on above: Performed By: #### A 1C, CBC, GFR, ANEU, FT4, ADIFF, VIDH, CMP, 170723, FT3, LIPID, TSH, [id number], FE, FERR #### [place] [address] #### PROG, HOMO, B12, CRPHS, THYAB #### [address] [address] Cholesterol in LDL [Mass/Vol] 124 mg/dL Normal 0-130 [facility] ([place]) Comment on above: Performed By: #### A 1C, CBC, GFR, ANEU, FT4, ADIFF, VIDH, CMP, 527990, FT3, LIPID, TSH, [id number], FE, FERR #### [place] [address] #### PROG, HOMO, B12, CRPHS, THYAB #### [address] [address] Triglyceride [Mass/Vol] 51 mg/dL Normal 0-150 [facility] ([place]) Comment on above: Result Comment: Trig lyceride Reference Interval: Less than 150 Normal 150-199 Borderline high risk 200-499 High risk 500 or higher Very high risk Performed By: #### A 1C, CBC, GFR, ANEU, FT4, ADIFF, VIDH, CMP, 784920, FT3, LIPID, TSH, [id number], FE, FERR #### [place] [address] #### PROG, HOMO, B12, CRPHS, THYAB #### [place] [phone] PROGon 04-13-2024 Progesterone Level 14.0 ng/mL Normal [facility] ([place]) Comment on above: Result Comment: Adul t Female Progesterone Reference Ranges: Follicular phase <0.21 - 1.40 ng/mL Luteal phase 3.34 - 25.56 ng/mL Mid-Luteal phase 4.44 - 28.03 ng/mL Postmenopausal <0.21 - 0.73 ng/ml Female: First trimester 11.22 - 90.00 ng/ml Second trimester 25.55 - 89.40 ng/ml Third trimester 48.40 - 422.50 ng/ml Performed By: #### A 1C, CBC, GFR, ANEU, FT4, ADIFF, VIDH, CMP, 227993, FT3, LIPID, TSH, [id number], FE, FERR #### [place] [address] #### PROG, HOMO, B12, CRPHS, THYAB #### [address] [address] THYABon 04-13-2024 anti-Thyroid Peroxidase 30 units/ml Normal 0-60 [facility] ([place]) Comment on above: Result Comment: No te - New Reference Range in effect 20 Performed By: #### A 1C, CBC, GFR, ANEU, FT4, ADIFF, VIDH, CMP, 643044, FT3, LIPID, TSH, [id number], FE, FERR #### [place] [address] #### PROG, HOMO, B12, CRPHS, THYAB #### [place] [address] Thyroglobulin Ab 119 units/ml High 15-60 [facility] ([place]) Comment on above: Result Comment: No te - New Reference Range in effect 20 Performed By: #### A 1C, CBC, GFR, ANEU, FT4, ADIFF, VIDH, CMP, 502463, FT3, LIPID, TSH, [id number], FE, FERR #### [place] [address] #### PROG, HOMO, B12, CRPHS, THYAB #### [place] [address] TSHon 04-13-2024 TSH Qn 2.68 m[IU]/L Normal 0.36-3.74 [facility] ([place]) Comment on above: Performed By: #### A 1C, CBC, GFR, ANEU, FT4, ADIFF, VIDH, CMP, 732299, FT3, LIPID, TSH, [id number], FE, FERR #### [place] [address] #### PROG, HOMO, B12, CRPHS, THYAB #### [place] [address] VIDHon 04-13-2024 Vit. D 25-Hydroxy 21.1 ng/mL Normal [facility] ([place]) Comment on above: Result Comment: Inte rpretive Values Based on Total 25(OH) Vitamin D: Deficient <20 ng/mL Insufficient 20 - <30 ng/mL Sufficient 30-100 ng/mL Performed By: #### A 1C, CBC, GFR, ANEU, FT4, ADIFF, VIDH, CMP, 832587, FT3, LIPID, TSH, [id number], FE, FERR #### [place] [address] #### PROG, HOMO, B12, CRPHS, THYAB #### [place] [address] Absolute lymphocyte countOrd ered By: Dr. Diego on 11-23-2022 Lymphocytes Auto (Unsp spec) [#/Vol] 2.16 10*3/uL 0.83-4.51 [facility] Basophil percentageOrdered B y: Dr. Diego on 11-23-2022 Basophils/100 WBC (Bld) 0.5 % 0-1 [facility] Eosinophils/100 WBC (Bld) 0.9 % 0-5 [facility] Neutrophils (Bld) [#/Vol] 7.0 10*3/uL 2.0-7.7 [facility] Neutrophils/100 WBC (Bld) 69.2 % 47-70 [facility] WBC (Bld) [#/Vol] 10.1 10*3/uL 4.4-11.0 [facility] Blood erythrocytes count (nu mber/volume)Ordered By: Dr. Diego on 11-23-2022 RBC (Bld) [#/Vol] 3.88 10*6/uL 4.2-5.4 [facility] Blood hemoglobin measurement (mass/volume)Ordered By: Dr. Diego on 11-23-2022 Hemoglobin (Bld) [Mass/Vol] 11.4 g/dL 12.0-15.0 [facility] Blood lymphocytes/100 leukoc ytesOrdered By: Dr. Diego on 11-23-2022 Lymphocytes/100 WBC (Bld) 21.3 % 19-41 [facility] Blood monocytes/100 leukocyt esOrdered By: Dr. Diego on 11-23-2022 Monocytes/100 WBC (Bld) 7.2 % 0-10 [facility] Blood platelet mean volumeOr dered By: Dr. Diego on 11-23-2022 Platelet mean volume (Bld) [Entitic vol] 11.7 fL 6.2-12.0 [facility] Determination of erythrocyte mean corpuscular volume (MCV)Ordered By: Dr. Diego on 11-23-2022 MCV (RBC) [Entitic vol] 88.9 fL 81-99 [facility] Hematocrit Auto (Bld) [Volum e fraction]Ordered By: Dr. Diego on 11-23-2022 Hematocrit (Bld) [Volume fraction] 34.5 % 37-47 [facility] - Hematology and Cell countsOrdered By: Dr. Diego on 11-23-2022 Erythrocyte distribution width (RBC) [Entitic vol] 46.0 fL 35.1-43.9 [facility] Erythrocyte distribution width (RBC) [Ratio] 14.7 % 11.6-14.6 [facility] Immature granulocytes/100 WBC (Bld) 0.900 % 0.0-0.9 [facility] Comment on above: IG% - Immature Granu locytes (promyelocytes, myelocytes and metamyelocytes) > 1% indicates that a LEFT SHIFT is Present. MCH (RBC) [Entitic mass] 29.4 pg 27.0-32.0 [facility] Nucleated RBC/100 WBC (Bld) [Ratio] 0 % 0-5 [facility] MCHC Auto (RBC) [Mass/Vol]Or dered By: Dr. Diego on 11-23-2022 MCHC (RBC) [Mass/Vol] 33.0 g/dL 32-36 [facility] Platelets bldOrdered By: Dr. Diego on 11-23-2022 Platelets (Bld) [#/Vol] 220 10*3/uL 150-450 [facility] Serum Treponema species anti body detectionOrdered By: Dr. Diego on 11-23-2022 Treponema sp Ab Ql (S) Non-Reactive [facility] - Chemistry and C hemistry - challengeon 11-16-2022 Glucose Ql (U) Negative [facility] - Urinalysison Protein Ql (U) Negative [facility] - Chemistry and C hemistry - challengeon 11-09-2022 Glucose Ql (U) Negative [facility] - Urinalysison Protein Ql (U) Negative [facility] - Chemistry and C hemistry - challengeon 2022 Glucose Ql (U) Negative [facility] - Urinalysison Protein Ql (U) Negative [facility] - Chemistry and C hemistry - challengeon 10-13-2022 Glucose Ql (U) Negative [facility] - Urinalysison Protein Ql (U) Negative [facility] - Chemistry and C hemistry - challengeon 09-28-2022 Glucose Ql (U) Negative [facility] - Urinalysison Protein Ql (U) Negative [facility] - Chemistry and C hemistry - challengeon 09-14-2022 Glucose Ql (U) Negative [facility] - Urinalysison Protein Ql (U) Negative [facility] - Chemistry and C hemistry - challengeon 08-31-2022 Glucose Ql (U) Negative [facility] - Urinalysison Protein Ql (U) Negative [facility] CNPNon 08-17-2022 CNPN Telephone (UCTR) TERE VILLALOBOS ([id number]) 1995 F Date Time Provider Department 08/17/22 ANNIKA MORENO [facility] During your visit today, we recorded the following information about you: Annika Moreno APRN.CHRISTA 08/17/2022 7:41 AM Signed Please notify of negative covid and influenza test. DO NOT START TAMIFLU. Continue comfort measures for symptoms as you would for a cold. Any worsening symptoms follow up with PCP or ER. Annika Moreno APRN.CHRISTA Coronado MA 08/17/2022 8:19 AM Signed Left message for pt to call back. ABDELRAHMAN Patterson RN 08/17/2022 8:20 AM Signed Patient notified of results and provider's instructions. Patient verbalizes understanding. Pamela Argueta RN Allergies As of Date: 08/17/2022 Noted Allergy Reaction ZINC 08/16/2022 5 - Intolerance Comments: Abd. cramping Date Reviewed: 08/16/2022 Reviewed by: Terri Cooney LPN - Fully Assessed Reason for Visit: Results [95] Prescriptions as of 08/17/2022 - vit,keila 74/iron/folic ( VITAMIN 1+1 ORAL) Take by mouth. - oseltamivir (TAMIFLU) 75 mg capsule Take 1 capsule by mouth twice daily for 5 days. - Desogestrel-Ethinyl Estradiol 0.15-0.03 mg per tablet Take 1 tablet by mouth once daily. Problem List As Of Date: 08/17/2022 (None) Encounter Status:Closed by PAMELA ARGUETA on 08/17/22 Normal [facility] CNOVon 08-16-2022 CNOV Office Visit (UCTR ) TERE VILLALOBOS ([id number]) 1995 F Date Time Provider Department 08/16/22 4:00 PM ANGY MANELYPARESH During your visit today, we recorded the following information about you: Temperature Pulse Respiration Blood pressure 98.2 degrees 107/minute 16/minute 118/66 Weight Last Period 87.1 kg 02/20/22 Angy Manley APRN.CONTENT DESIGNER 08/16/2022 4:31 PM Signed Subjective HPI HPI Tere Villalobos is a 26 year old female who presents today for CC of st, cough, congestion. This started 2 days ago. Has tried otc medication for relief. Symptoms are worsened by nothing. Risk factors sick exposures at work. 26 weeks . .Patient presents with: Pain, Throat: Pt reported 26 wk gestation, throat pain rated 8, cough, nasal congestion x2 days. No past medical history on file. No past surgical history on file. ALLERGIES Zinc MEDICATIONS vit,keila 74/iron/folic ( VITAMIN 1+1 ORAL) Take by mouth. Desogestrel-Ethinyl Estradiol 0.15-0.03 mg per tablet Take 1 tablet by mouth once daily. (Patient not taking: Reported on 08/16/2022) No family history on file. Social History Tobacco Use Smoking status: Never Smokeless tobacco: Never Substance Use Topics Alcohol use: Never Drug use: Never Review of Systems Constitutional: Negative for fever. HENT: Positive for congestion and sore throat. Negative for ear pain and nosebleeds. Respiratory: Positive for cough. Negative for shortness of breath and wheezing. Cardiovascular: Negative for chest pain. Gastrointestinal: Negative for abdominal pain, diarrhea and vomiting. Musculoskeletal: Negative for neck pain. Skin: Negative for itching and rash. Objective Blood pressure 118/66, pulse 107, temperature 36.8 ?C (98.2 ?F), temperature source Tympanic, resp. rate 16, weight 87.1 kg (192 lb), last menstrual period 02/20/2022, SpO2 96 %. Physical Exam Constitutional: General: She is not in acute distress. Appearance: She is not toxic-appearing or diaphoretic. HENT: Head: Normocephalic and atraumatic. Right Ear: Hearing, tympanic membrane, ear canal and external ear normal. Left Ear: Hearing, tympanic membrane, ear canal and external ear normal. Nose: Nose normal. Mouth/Throat: Pharynx: Uvula midline. Posterior oropharyngeal erythema present. No pharyngeal swelling, oropharyngeal exudate or uvula swelling. Eyes: General: Lids are normal. No scleral icterus. Right eye: No discharge. Left eye: No discharge. Conjunctiva/sclera: Conjunctivae normal. Pupils: Pupils are equal, round, and reactive to light. Neck: Trachea: Trachea normal. Cardiovascular: Rate and Rhythm: Normal rate and regular rhythm. Heart sounds: Normal heart sounds. Pulmonary: Effort: Pulmonary effort is normal. Breath sounds: Normal breath sounds. Musculoskeletal: Cervical back: Normal range of motion and neck supple. Lymphadenopathy: Cervical: No cervical adenopathy. Right cervical: No superficial cervical adenopathy. Left cervical: No superficial cervical adenopathy. Skin: Findings: No rash. Neurological: Mental Status: She is alert and oriented to person, place, and time. ASSESSMENT/PLAN: 1. URI, acute - ICD9: 465.9, ICD10: J06.9 (primary diagnosis) - Discussed viral etiology and rationale for treatment. - Symptomatic treatment with prn analgesia - Supportive care with fluids and rest - Follow up in 3-5 days if symptoms persist or sooner if worsening of symptoms -if positive for flu, tamiflu rx provided, if negative discard rx. - OSELTAMIVIR 75 MG CAPSULE 2. Throat pain - ICD9: 784.1, ICD10: R07.0 Neg strep - STREP A MOLECULAR (POC) NOY Dorsey APRN.CNP 08/16/2022 5:22 PM Signed Addended by: ANGY MANLEY on: 08/16/2022 05:22 PM Modules accepted: Orders Referring Provider: SELF [200] Allergies As of Date: 08/16/2022 Noted Allergy Reaction ZINC 08/16/2022 5 - Intolerance Comments: Abd. cramping Date Reviewed: 08/16/2022 Reviewed by: Terri Cooney LPN - Fully Assessed Reason for Visit: Pain, Throat [856] Cmt: Pt reported 26 wk gestation, throat pain rated 8, cough, nasal congestion x2 days. Primary Visit Diagnosis:URI, acute [J06.9] Other Visit Diagnosis:Throat pain [R07.0] Order(s):STREP A MOLECULAR (POC) [6450860] Order #: [id number] #:[id number] oseltamivir (TAMIFLU) 75 mg capsuleTake 1 capsule by mouth twice daily for 5 days.Disp: 10 capsuleRfl: 0 COVID WITH FLUA+B, ROUTINE [SQCOVFLU] Order #: [id number]. #:[id number] Prescriptions as of 08/16/2022 - vit,keila 74/iron/folic ( VITAMIN 1+1 ORAL) Take by mouth. - oseltamivir (TAMIFLU) 75 mg capsule Take 1 capsule by mouth twice daily for 5 days. - Desogestrel-Ethinyl Estradiol 0.15-0.03 mg per tablet Take 1 tablet by mouth once daily. Problem Li (more content not included)... Normal [facility] Absolute lymphocyte countOrd ered By: Joanna Gallardo on 08-08-2022 Lymphocytes Auto (Unsp spec) [#/Vol] 2.24 10*3/uL 0.83-4.51 [facility] Basophil percentageOrdered B y: Joanna Gallardo on 08-08-2022 Basophils/100 WBC (Bld) 0.4 % 0-1 [facility] Eosinophils/100 WBC (Bld) 0.5 % 0-5 [facility] Neutrophils (Bld) [#/Vol] 8.3 10*3/uL 2.0-7.7 [facility] Neutrophils/100 WBC (Bld) 72.2 % 47-70 [facility] WBC (Bld) [#/Vol] 11.5 10*3/uL 4.4-11.0 [facility] Blood erythrocytes count (nu mber/volume)Ordered By: Joanna Gallardo on 08-08-2022 RBC (Bld) [#/Vol] 3.53 10*6/uL 4.2-5.4 [facility] Blood hemoglobin measurement (mass/volume)Ordered By: Joanna Gallardo on 08-08-2022 Hemoglobin (Bld) [Mass/Vol] 10.8 g/dL 12.0-15.0 [facility] Blood lymphocytes/100 leukoc ytesOrdered By: Joanna Gallardo on 08-08-2022 Lymphocytes/100 WBC (Bld) 19.4 % 19-41 [facility] Blood monocytes/100 leukocyt esOrdered By: Joanna Gallardo on 08-08-2022 Monocytes/100 WBC (Bld) 6.8 % 0-10 [facility] Blood platelet mean volumeOr dered By: Joanna Gallardo on 08-08-2022 Platelet mean volume (Bld) [Entitic vol] 10.8 fL 6.2-12.0 [facility] Determination of erythrocyte mean corpuscular volume (MCV)Ordered By: Joanna Gallardo on 08-08-2022 MCV (RBC) [Entitic vol] 93.5 fL 81-99 [facility] Gestational diabetes screen 1-hour screen with 50g oral glucose loadOrdered By: Joanna Gallardo on 08-08-2022 Glucose 1 Hr post 50 g glucose PO [Mass/Vol] 81 mg/dL 70-140 [facility] Hematocrit Auto (Bld) [Volum e fraction]Ordered By: Joanna Gallardo on 08-08-2022 Hematocrit (Bld) [Volume fraction] 33.0 % 37-47 [facility] Laboratory - Chemistry and C hemistry - challengeon 08-08-2022 Glucose Ql (U) Negative [facility] Laboratory - Hematology and Cell countsOrdered By: Joanna Gallardo on 08-08-2022 Erythrocyte distribution width (RBC) [Entitic vol] 45.6 fL 35.1-43.9 [facility] Erythrocyte distribution width (RBC) [Ratio] 13.4 % 11.6-14.6 [facility] Immature granulocytes/100 WBC (Bld) 0.700 % 0.0-0.9 [facility] Comment on above: IG% - Immature Granu locytes (promyelocytes, myelocytes and metamyelocytes) > 1% indicates that a LEFT SHIFT is Present. MCH (RBC) [Entitic mass] 30.6 pg 27.0-32.0 [facility] Nucleated RBC/100 WBC (Bld) [Ratio] 0 % 0-5 [facility] Laboratory - Urinalysison Protein Ql (U) Negative [facility] MCHC Auto (RBC) [Mass/Vol]Or dered By: Joanna Gallardo on 08-08-2022 MCHC (RBC) [Mass/Vol] 32.7 g/dL 32-36 [facility] Platelets bldOrdered By: Mariam Gallardo on 08-08-2022 Platelets (Bld) [#/Vol] 222 10*3/uL 150-450 [facility] Laboratory - Chemistry and C hemistry - challengeon 07-11-2022 Glucose Ql (U) Negative [facility] Laboratory - Urinalysison Protein Ql (U) Negative [facility] Laboratory - Chemistry and C hemistry - challengeon 06-13-2022 Glucose Ql (U) Negative [facility] Work Phone: Laboratory - Urinalysison Protein Ql (U) Negative [facility] Work Phone: Absolute lymphocyte counton 05-16-2022 Lymphocytes Auto (Unsp spec) [#/Vol] 1.67 10*3/uL 0.83-4.51 [facility] Work Phone: Basophil percentageon 2021 Basophils/100 WBC (Bld) 0.6 % 0-1 [facility] Work Phone: Eosinophils/100 WBC (Bld) 0.6 % 0-5 [facility] Work Phone: Neutrophils (Bld) [#/Vol] 7.4 10*3/uL 2.0-7.7 [facility] Work Phone: Neutrophils/100 WBC (Bld) 75.0 % 47-70 [facility] Work Phone: WBC (Bld) [#/Vol] 9.9 10*3/uL 4.4-11.0 [facility] Work Phone: Blood erythrocytes count (nu mber/volume)on 05-16-2022 RBC (Bld) [#/Vol] 4.01 10*6/uL 4.2-5.4 [facility] Work Phone: Blood hemoglobin measurement (mass/volume)on 05-16-2022 Hemoglobin (Bld) [Mass/Vol] 12.4 g/dL 12.0-15.0 [facility] Work Phone: Blood lymphocytes/100 leukoc yteson 05-16-2022 Lymphocytes/100 WBC (Bld) 16.9 % 19-41 [facility] Work Phone: Blood monocytes/100 leukocyt eson 05-16-2022 Monocytes/100 WBC (Bld) 6.6 % 0-10 [facility] Work Phone: [phone] Blood platelet mean volumeon 05-16-2022 Platelet mean volume (Bld) [Entitic vol] 10.3 fL 6.2-12.0 [facility] Work Phone: Determination of erythrocyte mean corpuscular volume (MCV)on 05-16-2022 MCV (RBC) [Entitic vol] 90.5 fL 81-99 [facility] Work Phone: Gestational diabetes screen 1-hour screen with 50g oral glucose loadon 05-16-2022 Glucose 1 Hr post 50 g glucose PO [Mass/Vol] 107 mg/dL 70-140 [facility] Work Phone: HIV 1 and HIV-2 antibody ass ay with HIV-1 p24 antigen detectionon 05-16-2022 HIV 1+2 Ab+HIV1 p24 Ag IA Ql Non-Reactive Nonreactive [facility] Work Phone: Hematocrit Auto (Bld) [Volum e fraction]on 05-16-2022 Hematocrit (Bld) [Volume fraction] 36.3 % 37-47 [facility] Work Phone: Laboratory - Chemistry and C hemistry - challengeon 05-16-2022 Glucose Ql (U) Negative [facility] Work Phone: Laboratory - Hematology and Cell countson 05-16-2022 Erythrocyte distribution width (RBC) [Entitic vol] 44.6 fL 35.1-43.9 [facility] Work Phone: [phone] Erythrocyte distribution width (RBC) [Ratio] 13.4 % 11.6-14.6 [facility] Work Phone: [phone] Immature granulocytes/100 WBC (Bld) 0.300 % 0.0-0.9 [facility] Work Phone: [phone] Comment on above: IG% - Immature Granu locytes (promyelocytes, myelocytes and metamyelocytes) > 1% indicates that a LEFT SHIFT is Present. MCH (RBC) [Entitic mass] 30.9 pg 27.0-32.0 [facility] Work Phone: [phone] Nucleated RBC/100 WBC (Bld) [Ratio] 0 % 0-5 [facility] Work Phone: [phone] Laboratory - Urinalysison Protein Ql (U) Negative [facility] Work Phone: [phone] MCHC Auto (RBC) [Mass/Vol]on 05-16-2022 MCHC (RBC) [Mass/Vol] 34.2 g/dL 32-36 [facility] Work Phone: No Panel Informationon 05-16 Hepatitis B Surface Antigen Non-Reactive Nonreactive [facility] Work Phone: [phone] Hepatitis C Antibody Non-Reactive Nonreactive [facility] Work Phone: [phone] Comment on above: Non Reactive: < 0.8 Equivocal: >/= 0.8 to < 1.0 Reactive: >/= 1.0The CDC recommends that a reactive/equivocal HCV antibody result be followed up by the HCV Nucleic Acid Amplificationtest (042896) Miscellaneous Test Comment MAILED SPECIMEN [facility] Work Phone: [phone] Rubella IgG Antibody Reactive Nonreactive [facility] Work Phone: [phone] Comment on above: Antibody Results Int erpretation of Immune Status Non Reactive Presumed Non-Immune Equivocal Equivocal Reactive Presumed Immune Platelets bldon 05-16-2022 Platelets (Bld) [#/Vol] 210 10*3/uL 150-450 [facility] Work Phone: [phone] Serum Treponema species anti body detectionon 05-16-2022 Treponema sp Ab Ql (S) Non-Reactive [facility] Work Phone: Chlamydia trachomatis rRNA d etection by probe and target amplification methodon 04-18-2022 C. trachomatis rRNA BRIANNA+probe Ql (Unsp spec) Negative Negative [facility] Work Phone: Laboratory - Drug toxicology on 04-18-2022 Amphetamines Ql (U) Negative <1000 ng/mL [facility] Work Phone: [phone] Benzodiazepines Ql (U) Negative < 200 ng/mL [facility] Work Phone: Cannabinoids Screen Ql (U) Negative < 50 ng/mL [facility] Work Phone: [phone] Cocaine Ql (U) Negative < 300 ng/mL [facility] Work Phone: [phone] Opiates Ql (U) Negative < 300 ng/mL [facility] Work Phone: [phone] Laboratory - Microbiology an d Antimicrobial susceptibilityon 04-18-2022 N. gonorrhoeae DNA BRIANNA+probe Ql (Unsp spec) Negative Negative [facility] Work Phone: Comment on above: Performed at: =[address] [id number] Director: Smitha Allison MD, Phone: [phone] No Panel Informationon 04-18 MDMA (Ecstasy) Screen Negative < 500 ng/mL [facility] Work Phone: [phone] Urine Barbiturates Screen Negative < 200 ng/mL [facility] Work Phone: [phone] Urine Drug Screen Comment [facility] Work Phone: Comment on above: CONFIRMATORY TESTING FOR ALL POSITIVE URINE DRUG SCREENRESULTS WILL ONLY BE SENT OUT UPON PHYSICIAN ORDER. VISTA Urine Drug Screen methods provide only preliminaryanalytical test results. A more specific alternate chemicalmethod must be used in order to obtain a confirmedanalytical result. Gas chromatography/mass spectrometery(GC/MS) is the preferred confirmatory method. Clinicalconsideration and professional judgement should be appliedto any drug of abuse test result, particularly whenpreliminary positive results are used. URINE TCA TESTING MUST BE ORDERED SEPARATELY. USE TESTMNEMONIC: [facility] Urine Methadone Screen Negative < 300 ng/mL [facility] Work Phone: Urine phencyclidine (PCP) de tectionon 04-18-2022 Phencyclidine Ql (U) Negative < 25 ng/mL [facility] Work Phone: Cervical or vagninal specime n microscopic examination by cytology stain (reported ason 01-25-2022 Cytology report Cyto stain Doc (Cvx/Vag) Comment . [facility] Work Phone: Comment on above: The Pap smear is a s creening test designed to aid in thedetection of premalignant and malignant conditions of theuterine cervix. It is not a diagnostic procedure andshould not be used as the sole means of detecting cervicalcancer. Both false-positive and false-negative reports dooccur. Laboratory - Cytologyon 12-28 [facility] Cyto stain Nom (Cvx/Vag) [ID] Comment . [facility] Work Phone: Comment on above: Yolanda Hanley, Cyto technologist (ASCP) Laboratory - Miscellaneous t estson 01-25-2022 Service comment (Unsp spec) [Interp] Comment . [facility] Work Phone: Comment on above: This liquid based Th inPrep(R) pap test was screened withthe use of an image guided system. Service comment (Unsp spec) [Interp] . . [facility] Work Phone: No Panel Informationon 01-25 Human Papillomavirus Screen Comment . [facility] Work Phone: Comment on above: The HPV DNA reflex c christiano were not met with this specimenresult therefore, no HPV testing was performed.Performed at: [address] [place] [id number] Director: Smitha Allison MD, Phone: [phone] Pathology report final diagnosis Narrative Comment . [facility] Work Phone: Comment on above: NEGATIVE FOR INTRAEP ITHELIAL LESION OR MALIGNANCY.THIS SPECIMEN WAS RESCREENED PART OF OUR RELATIONS COORDINATOR PROGRAM. Culture, urine Bacteria identified Cx Nom (U) Streptococcus agalactiae (B) [facility] Work Phone: Bacteria identified Cx Nom (U) Positive [facility] Work Phone: Vital Signs Date Time Vital Sign Value Performing Clinician Faci lity 03-03-2025 08:02-0400 Body height 162.[address] Mary Hernandes DO Work Phone: [facility] 03-03-2025 08:00-0400 Body mass index (BMI) [Ratio] 37.1 kg/m2 Dr. Mary Hernandes DO Work Phone: [facility] 03-03-2025 08:00-0400 Body weight 98.[address] Mary Hernandes DO Work Phone: [facility] 03-03-2025 08:00-0400 Diastolic blood pressure 76 mm[Hg] Dr. Mary Hernandes DO Work Phone: [facility] 03-03-2025 08:00-0400 Systolic blood pressure 119 mm[Hg] Dr. Mary Hernandes DO Work Phone: [facility] 02-18-2025 17:30-0400 Body temperature 97.4 [degF] Dr. Mary Hernandes DO Work Phone: [facility] 02-18-2025 17:30-0400 Diastolic blood pressure 77 mm[Hg] Dr. Mary Hernandes DO Work Phone: [facility] 02-18-2025 17:30-0400 Heart rate 64 /min Dr. Mary Hernandes DO Work Phone: [facility] 02-18-2025 17:30-0400 Respiratory rate 18 /min Dr. Mary Hernandes DO Work Phone: [facility] 02-18-2025 17:30-0400 SaO2% (BldA) [Mass fraction] 100 % Dr. Mary Hernandes DO Work Phone: [facility] 02-18-2025 17:30-0400 Systolic blood pressure 120 mm[Hg] Dr. Mary Hernandes DO Work Phone: [facility] 02-18-2025 14:15-0400 Body height 162.[address] Mary Hernandes DO Work Phone: [facility] 02-18-2025 14:15-0400 Body mass index (BMI) [Ratio] 36.2 kg/m2 Dr. Mary Hernandes DO Work Phone: [facility] 02-18-2025 14:15-0400 Body weight 95.[address] Mary Hernandes DO Work Phone: [facility] 02-14-2025 13:13-0400 Body height 162.[address] Mary Hernandes DO Work Phone: [facility] 02-14-2025 13:13-0400 Body mass index (BMI) [Ratio] 36.3 kg/m2 Dr. Mary Heranndes DO Work Phone: [facility] 02-14-2025 13:13-0400 Body weight 96.[address] Mary Hernandes DO Work Phone: [facility] 11-15-2024 10:10-0400 Body mass index (BMI) [Ratio] 36.7 kg/m2 Dr. Mary Hernandes DO Work Phone: [facility] 11-15-2024 10:10-0400 Body weight 97.[address] Mary Hernandes DO Work Phone: [facility] 11-15-2024 10:10-0400 Diastolic blood pressure 76 mm[Hg] Dr. Mary Hernandes DO Work Phone: [facility] 11-15-2024 10:10-0400 Systolic blood pressure 126 mm[Hg] Dr. Mary Hernandes DO Work Phone: [facility] 11-24-2022 15:59-0400 Body temperature 97.3 [degF] Dr. Mary Hernandes Work Phone: [facility] 11-24-2022 15:59-0400 Diastolic blood pressure 71 mm[Hg] Dr. Mary Hernandes Work Phone: [facility] 11-24-2022 15:59-0400 Heart rate 88 /min Dr. Mary Hernandes Work Phone: [facility] 11-24-2022 15:59-0400 Respiratory rate 16 /min Dr. Mary Hernandes Work Phone: [facility] 11-24-2022 15:59-0400 SaO2% (BldA) [Mass fraction] 98 % Dr. Mary Hernandes Work Phone: [facility] 11-24-2022 15:59-0400 Systolic blood pressure 134 mm[Hg] Dr. Mary Hernandes Work Phone: [facility] 11-23-2022 10:09-0400 Body height 162.[address] Mary Hernandes Work Phone: [facility] 11-23-2022 10:09-0400 Body mass index (BMI) [Ratio] 36.6 kg/m2 Dr. Mary Hernandes Work Phone: [facility] 11-23-2022 10:09-0400 Body weight 96.[address] Mary Hernandes Work Phone: [facility] 11-19-2022 21:30-0400 Body height 162.[address] Mary Hernandes Work Phone: [facility] 11-19-2022 21:30-0400 Body mass index (BMI) [Ratio] 36.5 kg/m2 Dr. Mary Hernandes Work Phone: [facility] 11-19-2022 21:30-0400 Body weight 96.[address] Mary Hernandes Work Phone: [facility] 11-19-2022 21:22-0400 Body temperature 98.3 [degF] Dr. Mary Hernandes Work Phone: [facility] 11-19-2022 21:22-0400 Diastolic blood pressure 76 mm[Hg] Dr. Mary Hernandes Work Phone: [facility] 11-19-2022 21:22-0400 Heart rate 106 /min Dr. Mary Hernandes Work Phone: [facility] 11-19-2022 21:22-0400 SaO2% (BldA) [Mass fraction] 98 % Dr. Mary Hernandes Work Phone: [facility] 11-19-2022 21:22-0400 Systolic blood pressure 122 mm[Hg] Dr. Mary Hernandes Work Phone: [facility] 11-16-2022 15:41-0400 Body mass index (BMI) [Ratio] 36.4 kg/m2 Dr. Mary Hernandes Work Phone: [facility] 11-16-2022 15:41-0400 Body weight 96.[address] Mary Hernandes Work Phone: [facility] 11-16-2022 15:41-0400 Diastolic blood pressure 80 mm[Hg] Dr. Mary Hernandes Work Phone: [facility] 11-16-2022 15:41-0400 Systolic blood pressure 133 mm[Hg] Dr. Mary Hernandes Work Phone: [facility] 11-09-2022 15:56-0400 Body mass index (BMI) [Ratio] 36.8 kg/m2 Dr. Mary Hernandes Work Phone: [facility] 11-09-2022 15:56-0400 Body weight 97.[address] Mary Hernandes Work Phone: [facility] 11-09-2022 15:56-0400 Diastolic blood pressure 81 mm[Hg] Dr. Mary Hernandes Work Phone: [facility] 11-09-2022 15:56-0400 Systolic blood pressure 114 mm[Hg] Dr. Mary Hernandes Work Phone: [facility] 2022 15:09-0500 Body mass index (BMI) [Ratio] 36.6 kg/m2 Dr. Mary Hernandes Work Phone: [facility] 2022 15:09-0500 Body weight 96.[address] Mary Hernandes Work Phone: [facility] 2022 15:09-0500 Diastolic blood pressure 84 mm[Hg] Dr. Mary Hernandes Work Phone: [facility] 2022 15:09-0500 Systolic blood pressure 135 mm[Hg] Dr. Mary Hernandes Work Phone: [facility] 10-26-2022 15:23-0500 Body height 162.[address] Mary Hernandes Work Phone: [facility] 10-26-2022 15:23-0500 Body mass index (BMI) [Ratio] 35.9 kg/m2 Dr. Mary Hernandes Work Phone: [facility] 10-26-2022 15:23-0500 Body weight 94.[address] Mary Hernandes Work Phone: [facility] 10-26-2022 15:23-0500 Diastolic blood pressure 80 mm[Hg] Dr. Mary Hernandes Work Phone: [facility] 10-26-2022 15:23-0500 Systolic blood pressure 112 mm[Hg] Dr. Mary Hernandes Work Phone: [facility] 10-13-2022 15:03-0500 Body mass index (BMI) [Ratio] 35.3 kg/m2 Dr. Mary Hernandes Work Phone: [facility] 10-13-2022 15:03-0500 Body weight 93.[address] Mary Hernandes Work Phone: [facility] 10-13-2022 15:03-0500 Diastolic blood pressure 80 mm[Hg] Dr. Mary Hernandes Work Phone: [facility] 10-13-2022 15:03-0500 Systolic blood pressure 115 mm[Hg] Dr. Mary Hernandes Work Phone: [facility] 09-28-2022 15:33-0500 Body mass index (BMI) [Ratio] 35.3 kg/m2 Dr. Mary Hernandes Work Phone: [facility] 09-28-2022 15:33-0500 Body weight 93.[address] Mary Hernandes Work Phone: [facility] 09-28-2022 15:33-0500 Diastolic blood pressure 86 mm[Hg] Dr. Mary Hernandes Work Phone: [facility] 09-28-2022 15:33-0500 Systolic blood pressure 136 mm[Hg] Dr. Mary Hernandes Work Phone: [facility] 09-14-2022 15:43-0500 Body mass index (BMI) [Ratio] 34.7 kg/m2 Dr. Mary Hernandes Work Phone: [facility] 09-14-2022 15:43-0500 Body weight 91.[address] Mary Hernandes Work Phone: [facility] 09-14-2022 15:43-0500 Diastolic blood pressure 79 mm[Hg] Dr. Mary Hernandes Work Phone: [facility] 09-14-2022 15:43-0500 Systolic blood pressure 132 mm[Hg] Dr. Mary Hernandes Work Phone: [facility] 08-31-2022 13:55-0500 Body mass index (BMI) [Ratio] 34 kg/m2 Dr. Mary Hernandes Work Phone: [facility] 08-31-2022 13:55-0500 Body weight 89.[address] Mary Hernandes Work Phone: [facility] 08-31-2022 13:55-0500 Diastolic blood pressure 80 mm[Hg] Dr. Mary Hernandes Work Phone: [facility] 08-31-2022 13:55-0500 Systolic blood pressure 119 mm[Hg] Dr. Mary Hernandes Work Phone: [facility] 08-08-2022 16:03-0500 Body height 162.[address] Mary Hernandes Work Phone: [facility] Work Phone: 08-08-2022 16:02-0500 Body mass index (BMI) [Ratio] 33.5 kg/m2 Dr. Mary Hernandes Work Phone: [facility] 08-08-2022 16:02-0500 Body weight 88.[address] Mary Hernandes Work Phone: [facility] 08-08-2022 16:02-0500 Diastolic blood pressure 72 mm[Hg] Dr. Mary Hernandes Work Phone: [facility] 08-08-2022 16:02-0500 Systolic blood pressure 109 mm[Hg] Dr. Mary Hernandes Work Phone: [facility] 07-11-2022 14:58-0500 Diastolic blood pressure 80 mm[Hg] Dr. Mary Hernandes Work Phone: [facility] 07-11-2022 14:58-0500 Systolic blood pressure 120 mm[Hg] Dr. Mary Hernandes Work Phone: [facility] 06-13-2022 14:31-0400 Body mass index (BMI) [Ratio] 31.7 kg/m2 Dr. Mary Hernandes Work Phone: [facility] Work Phone: 06-13-2022 14:31-0400 Body weight 83.[address] Mary Hernandes Work Phone: [facility] Work Phone: 06-13-2022 14:31-0400 Diastolic blood pressure 80 mm[Hg] Dr. Mary Hernandes Work Phone: [facility] Work Phone: 06-13-2022 14:31-0400 Systolic blood pressure 136 mm[Hg] Dr. Mary Hernandes Work Phone: [facility] Work Phone: 05-16-2022 14:26-0400 Body height 162.[address] Mary Hernandes Work Phone: [facility] Work Phone: 05-16-2022 14:26-0400 Body mass index (BMI) [Ratio] 30.9 kg/m2 Dr. Mary Hernandes Work Phone: [facility] Work Phone: 05-16-2022 14:26-0400 Body weight 81.[address] Mary Hernandes Work Phone: [facility] Work Phone: 05-16-2022 14:26-0400 Diastolic blood pressure 76 mm[Hg] Dr. Mary Hernandes Work Phone: [facility] Work Phone: 05-16-2022 14:26-0400 Systolic blood pressure 126 mm[Hg] Dr. Mary Hernandes Work Phone: [facility] Work Phone: 04-18-2022 09:17-0400 Body height 162.[address] Mary Hernandes Work Phone: [facility] Work Phone: 04-18-2022 09:17-0400 Body mass index (BMI) [Ratio] 31.2 kg/m2 Dr. Mary Hernandes Work Phone: [facility] Work Phone: 04-18-2022 09:17-0400 Body weight 82.[address] Mary Hernandes Work Phone: [facility] Work Phone: 04-18-2022 09:17-0400 Diastolic blood pressure 84 mm[Hg] Dr. Mary Hernandes Work Phone: [facility] Work Phone: 04-18-2022 09:17-0400 Systolic blood pressure 116 mm[Hg] Dr. Mary Hernandes Work Phone: [facility] Work Phone: 01-25-2022 13:25-0400 Body mass index (BMI) [Ratio] 30.4 kg/m2 Dr. Mary Hernandes Work Phone: [facility] Work Phone: 01-25-2022 13:25-0400 Body weight 80.[address] Mray Hernandes Work Phone: [facility] Work Phone: 01-25-2022 13:25-0400 Diastolic blood pressure 74 mm[Hg] Dr. Mary Hernandes Work Phone: [facility] Work Phone: 01-25-2022 13:25-0400 Systolic blood pressure 118 mm[Hg] Dr. Mary Hernandes Work Phone: [facility] Work Phone: Encounters Encounter Date Encounter Type Care Provider Facility Start: 03-03-2025 End: 03-03-[address] Nellie Miller DO -[facility] Work Phone: Start: 03-03-2025 End: 03-03-[address] Mary Hernandes DO Work Phone: -[facility] Start: 02-24-2025 Encounter for other preprocedural examination Nellie Miller [facility] Start: 02-18-2025 ambulatory Nellie Solis cility:[facility] Start: 02-18-2025 Non-patient / Non-visit Dr. Nam Miller DO -[facility] Start: 02-18-2025 End: 02-18-2025 Admission to same day surgery center Dr. Nellie Miller DO [facility] Start: 02-18-2025 End: 02-18-[address] Mary Hernandes DO Work Phone: [facility] Work Phone: Start: 02-14-2025 End: 02-14-[address] Mary Hernandes DO Work Phone: -Laboratory Specimen Start: 02-14-2025 End: 02-14-[address] Nellie Miller DO -Laboratory Specimen Work Phone: Start: 02-14-2025 End: 02-14-[address] Nelile Miller DO -[facility] Work Phone: Start: 02-14-2025 End: 02-14-[address] Mary Hernandes DO Work Phone: [facility] Work Phone: Start: 02-14-2025 End: 02-14-2025 ambulatory Mary Hernandes Facility:[facility] Start: 11-15-2024 End: 11-15-[address] Maribel Chen MD -[facility] Work Phone: Start: 11-15-2024 End: 11-15-2024 ambulatory Maribel Chen Facility:[facility] Start: 04-13-2024 End: 04-13-2024 ambulatory MARY HERNANDES DO Facility:[facility] Start: 11-24-2022 Non-patient / Non-visit Dr. Barbara Hernandes Work Phone: [facility] Start: 11-23-2022 Non-patient / Non-visit Dr. Barbara Hernandes Work Phone: [facility] Start: 11-23-2022 End: 11-24-2022 Evaluation and management of inpatient Dr. Mary Hernandes Work Phone: [facility] Start: 11-20-2022 Non-patient / Non-visit Dr. Barbara Hernandes Work Phone: [facility] Start: 11-19-2022 End: 11-19-[address] Mary Hernandes Work Phone: [facility] Work Phone: Start: 11-19-2022 End: 11-19-[address] Mary Hernandes Work Phone: [facility] Start: 11-16-2022 End: 11-16-[address] Mary Hernandes Work Phone: [facility] Start: 11-09-2022 End: 11-09-[address] Mary Hernandes Work Phone: [facility] Start: 2022 End: [address] Mary Hernandes Work Phone: [facility] Start: 10-26-2022 End: 10-26-[address] Mary Hernandes Work Phone: [facility] Start: 10-26-2022 End: 10-26-[address] Mary Hernandes Work Phone: [facility] Work Phone: Start: 10-26-2022 End: 10-26-[address] Mary Hernandes Work Phone: [facility] Start: 10-13-2022 End: 10-13-[address] Mary Hernandes Work Phone: [facility] Start: 09-28-2022 End: 09-28-[address] Mary Hernandes Work Phone: [facility] Start: 09-14-2022 End: 09-14-[address] Mary Hernandes Work Phone: [facility] Start: 08-31-2022 End: 08-31-[address] Mary Hernandes Work Phone: [facility] Start: 08-17-2022 Telephone encounter Annika Moreno NOY Work Phone: [facility] Comment on above: Results Start: 08-16-2022 End: 08-16-2022 ambulatory Facility:[facility] Start: 08-08-2022 End: 08-08-[address] Mary Hernandes Work Phone: [facility] Work Phone: Start: 08-08-2022 End: 08-08-[address] Mary Hernandes Work Phone: [facility] Start: 07-12-2022 End: 07-12-2022 ambulatory [facility] Start: 07-11-2022 End: 07-11-[address] Mary Hernandes Work Phone: [facility] Start: 06-27-2022 End: 06-27-2022 ambulatory [facility] Start: 06-13-2022 End: 06-13-[address] Mary Hernandes Work Phone: [facility] Start: 05-16-2022 End: 05-16-[address] Mary Hernandes Work Phone: [facility] Work Phone: Start: 05-16-2022 End: 05-16-[address] Mary Hernandes Work Phone: [facility] Start: 04-18-2022 End: 04-18-[address] Mary Hernandes Work Phone: [facility] Work Phone: Start: 04-18-2022 End: 04-18-[address] Mary Hernandes Work Phone: [facility]atory, Specimen Start: 04-18-2022 End: 04-18-[address] Mary Hernandes Work Phone: [facility] Start: 01-26-2022 End: 01-26-[address] Mary Hernandes Work Phone: [facility], Specimen Start: 01-25-2022 End: 01-25-[address] Mary Hernandes Work Phone: [facility] Procedures Date Procedure Procedure Detail Performing Clinician Start: 02-18-2025 Dilation and curetta ge of uterus Dr. Mary Hernandes DO Work Phone: Start: 02-14-2025 Liquid based cervica l cytology screening Dr. Mary Hernandes DO Work Phone: Comment on above: NEGATIVE FOR INTRAEP ITHELIAL LESION OR MALIGNANCY.FUNGAL ORGANISMS MORPHOLOGICALLY CONSISTENT WITH SAVANNA SPECIES AREPRESENT. This liquid based Th inPrep(R) pap test was screened withthe use of an image guided system. The HPV DNA reflex c christiano were not met with this specimenresult therefore, no HPV testing was performed.Performed at: [address] [id number] Director: Smitha Allison MD, Phone: [phone] Start: 02-14-[address] Brandon Hernandes DO Work Phone: Start: 10-26-2022 Ultrasound scan for growth Dr. Mary Hernandes Work Phone: H/O: surgery Status post dila tion and curettage Dr. Mary Hernandes DO Work Phone: Comment on above: 02/18/[address] Mary alejandre Work Phone: Plan of Treatment Date Care Activity Detail Author Start: 02-18-2025 End: 02-18-2025 Patient discharge [facility] Start: 02-18-2025 End: 02-18-2025 Ambulation without limitation [facility] Start: 02-18-2025 End: 02-18-2025 Medical regimen orders management [facility] Start: 02-18-2025 End: 02-18-2025 Medication education [facility] Start: 02-18-2025 End: 02-18-2025 Procedure discontinued [facility] Start: 02-18-2025 End: 02-18-2025 Taking patient vital signs [facility] Start: 02-18-2025 Vital signs measurements [facility] Start: 02-18-2025 End: 02-18-2025 [facility] Start: 02-18-2025 Anesthesia incomplete/missed ANES INCOMPL/MISSED AB PX [facility] Start: 02-18-2025 Tx missed first trimester surgical CARE OF MISCARRIAGE [facility] Start: 02-14-2025 Liquid based cervical cytology screening [facility] Start: 11-24-2022 Patient discharge [facility] Start: 11-23-2022 Administration of medication [facility] Start: 11-23-2022 Application of ice collar, cap or bag [facility] Start: 11-23-2022 Catheterization of vein [facility] Start: 11-23-2022 Introduction of urinary catheter [facility] Start: 11-23-2022 Measuring intake and output [facility] Start: 11-23-[address] [facility] Start: 11-23-2022 Procedure discontinued [facility] Start: 11-23-2022 Provision of activity privileges [facility] Start: 11-23-2022 Vital signs measurements [facility] Start: 11-23-2022 [facility] Start: 11-23-2022 Admission procedure [facility] Start: 11-19-2022 Nonstress test [facility] Start: 11-19-2022 Obstetric monitoring [facility] Start: 11-19-2022 Vital signs measurements [facility] Start: 11-19-2022 [facility] Start: 04-28-2022 Influenza vaccination INFLUENZA (#1) [facility] Start: 04-18-2022 [facility] Work Phone: Start: 08-28-2021 DEPRESSION ASSESSMENT DEPRESSION ASSESSMENT [facility] Start: 11-01-2016 PAP TESTING PAP TESTING [facility] Start: 11-01-2014 Urine microalbumin profile DTAP,TDAP,TD (1 - Tdap) [facility] Start: 11-01-2013 HEPATITIS C SCREENING HEPATITIS C SCREENING [facility] Start: 11-01-2013 HIV SCREENING HIV SCREENING [facility] Start: 11-01-2009 PEDS TO ADULT TRANSITION ANNUAL ASSESSMENT PEDS TO ADULT TRANSITION ANNUAL ASSESSMENT [facility] Start: 2007 PEDS TO ADULT TRANSITION INITIAL DISCUSSION PEDS TO ADULT TRANSITION INITIAL DISCUSSION [facility] Start: 11-01-2006 HPV VACCINE (1 - 2-dose series) HPV VACCINE (1 - 2-dose series) [facility] Start: 05-04-1996 COVID-19 VACCINE (#1) COVID-19 VACCINE (#1) [facility] Start: 1995 HEPATITIS B (1 of 3 - 3-dose series) HEPATITIS B (1 of 3 - 3-dose series) [facility] CBC W Auto Different ial panel - Blood [facility] Work Phone: Glucose [Mass/volume ] in Serum or Plasma --1 hour post 50 g glucose PO [facility] Work Phone: Hepatitis B surface antigen measurement [facility] Work Phone: Hepatitis C antibody measurement [facility] Work Phone: HIV 1+2 Ab+HIV1 p24 Ag [Presence] in Serum or Plasma by Immunoassay [facility] Work Phone: Liquid based cervica l cytology screening [facility] Path report.final Dx Spec [facility] Patient Education Kick Counts ED False Labor OB Triage: Return to Hospital or Notify Physician if you Experience: [facility] Work Phone: Patient referral [facility] Work Phone: Rubella IgG measurement [facility] Work Phone: Treponema sp Ab [Pre sence] in Serum [facility] Work Phone: Urine culture Urine Culture [facility] Work Phone: [facility] Immunizations Immunization Date Immunization Notes Care Provider Fa cility 09-14-2022 tetanus toxoid, redu kilo diphtheria toxoid, and acellular pertussis vaccine, adsorbed Dr. Mary Hernandes Work Phone: [facility] Payers Date Payer Category Payer Self-pay [id number] 2024 Unknown [id number] 2020 Unknown [id number] 2020 Unknown [employer] C[employer] PPO OOS [id number] 2020-Present [phone] [address] [place] [address] PPO [id number] 1995 Unknown [id number] 1995 Unknown [id number] 1995 Unknown [id number] Unknown [id number] Unknown COMMERCIAL OTHER [id number] Unknown [facility] [id number] Unknown [id number] Unknown [id number] Unknown [id number] Unknown [id number] Unknown [id number] Unknown [id number] Social History Date Type Detail Facility Start: 04-18-2022 End: 11-23-2022 Tobacco smoking status SCIS Unknown if ever smoked [facility] Start: 12-19-2017 Occasional [facility] Start: 12-19-2017 Alone [facility] Start: 1995 Sex Assigned At Female [facility] Start: 08-16-2022 End: 02-17-2025 Tobacco smoking status NHIS Never smoked tobacco [facility] Start: 08-16-2022 Tobacco use and exposure Smokeless tobacco non-user [facility] Start: 08-16-2022 Alcohol intake Lifetime non-d tommy (finding) [facility] Start: 1995 Sex Assigned At Not on file [facility] NEGATED: Highlighted row Not [facility] Medical Equipment Procedure Code Equipment Code Equipment Origin al Text Equipment Identifier Dates RELOAD,STANDARD 45 [id number] ETH FDA Start: 12-19-2017 RELOAD,STANDARD 45 [id number] ETH FDA Start: 12-19-2017 RELOAD,STANDARD 45 [id number] ETH FDA Start: 12-19-2017 RELOAD,STANDARD 45 [id number] ETH FDA Start: 12-19-2017 RELOAD,STANDARD 45 [id number] ETH FDA Start: 12-19-2017 RELOAD,STANDARD 45 [id number] ETH FDA Start: 12-19-2017 RELOAD,STANDARD 45 [id number] ETH FDA Start: 12-19-2017 RELOAD,STANDARD 45 [id number] ETH FDA Start: 12-19-2017 RELOAD,STANDARD 45 [id number] ETH FDA Start: 12-19-2017 RELOAD,STANDARD 45 [id number] ETH FDA Start: 12-19-2017 Goals Date Patient Goal Desired Activity /State Mental Status Date Assessment Result Facility 02-18-2025 Cognitive function Level Of Cons ciousness Awake;Alert [facility] Work Phone: Clinical Notes 01-25-2022 to 02-18-2025 Note Date & Type Note Facility 02-18-2025 Consult note [facility] 02-18-2025 History and physical note [facility] 02-18-2025 Discharge summary Note Date/Time February 18, 2025 4:21pm [facility] Medical Records Department [address] [place] [address] Instructions for Home/Discharge Instructions 02/18/25 1619 MR#: [id number] Acct: [id number] Name: TERE BARON Rep #:[id number] : 1995 29 From: Nellie Miller DO PCP: VIRGEN LUNA Status:REG SDC Discharge Instructions Diet Discharge Diet: No restrictions DC O2, CPAP, BIPAP needs Home O2 Discharge instructions: No Dressing / Incision Discharge Activity: Return to Normal Activity, May Shower and May Take a Tub Bath (after 1 week) May resume sexual activity in: 1-2 weeks Weight Bearing Status: Weight bearing as tolerated Lifting Restrictions: none Dressing / Incision Call your doctor if you observe: Fever of 101 or Higher, Using more than 1 pad per hour, Shortness of breath and Uncontrolled pain Follow Up Care Please Follow Up With: Nellie Miller DO When: Call [phone] to schedule appointment. Test Results: Test results from this visit will be discussed in further detail at your follow-up appointment, if applicable. Discharge Plan Admission Primary Reason for Your Visit: dilation and curettage Attending Provider: Nellie Miller Primary Care Provider: VIRGEN LUNA Instructions Print Language: Macedonian Discharge Orders/Prescriptions Prescriptions: New ibuprofen 800 mg tablet 800 mg PO Q8H PRN (Reason: pain) Qty: 20 0RF oxycodone-acetaminophen [Percocet] 5-325 mg tablet 1 tab PO Q4H PRN (Reason: pain) 7 Days Qty: 3 0RF No Action fluconazole 150 mg tablet 150 mg PO Q3D 0 Days Qty: 2 2RF Referrals / Follow Up: Mary Hernandes DO [Non-Staff] - Disposition Disposition (needs filled in before D/C Order can be placed): Home, Self Care 02/18/25 1621<Electronically signed by Nellie Miller DO>Nellie Miller DO CC: VIRGEN LUNA ~ Signed [facility] Work Phone: 1(361) 112-791306-24-2025 History and physical note [facility] Note Date/Time February 18, 2025 6:34 pm [facility] Medical Records Department [address] [place] [address] History & Physical Exam 02/18/25 1609 MR#: [id number] Acct: [id number] Name: TERE BARON Rep #:[id number] : 1995 29 From: Nellie Miller DO PCP: VIRGEN LUNA [place] [facility] [place]: [place] [address] History and Physical Date of Admission: 02/18/25 Intake Vital Signs 11/15/2509:10 02/14/2513:13 02/14/2513:13 Height 5 ft 4 in 5 ft 4 in 5 ft 4 in Weight: 212 lb 2 oz BMI 36.3 Intake Visit Reasons: *EST* NOB LMP 12/11, [facility] 09/17 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: No Is patient in pain?: No Allergies zinc Adverse Reaction (Verified 02/14/25 13:12) Upset Stomach Medications ?Medication ?Instructions ?Recorded ?Confirmed ?Type PNV 153-FA 400 mcg-om3 35 mg-dha tab PO .QD 01/30/25 02/14/25 History 25 mg-epa 5 mg-fish oil chew tablet Last Menstrual Period: 12/11/24 Zika: Zika virus screening: Negative : No PFSH PFSH Medical History Encounter for IUD removal Contraceptive management LGA (large for gestational age) fetus Obesity affecting Supervision of normal first HPV test positive Abnormal uterine bleeding (AUB) Surgical History Status post vaginal delivery History of surgery History of tonsillectomy S/P appendectomy Family History Father EpilepsyGrandfather Celiac disease PaternalSister Celiac diseaseAunt Lupus Maternal Social History adopted: No household members: significant other and children housing: house number of children: 2 service: No current occupational status: employed current occupation: [employer] current occupational exposures/hazards: No pets and animals: Yes (Not managing litter box) pets and animals: cat(s) and dog(s) history of recent travel: No sexually active: Yes Smoking Status: Never smoker alcohol intake: current alcohol intake frequency: holidays/special occasions only details: social- Not while substance use type: does not use well-balanced diet: daily or most days caffeine: No eating out: rarely or never during the past year weight has: remained stable what type of physical activity do you participate in: none crista/taoist: Pentecostalism seatbelt use: always do you feel safe at home: Yes additional social history: [facility] [place] History 2 Elective abortions Hx Para 1 Spontaneous abortions Hx # Term Pregnancies 1 Ectopic pregnancies Hx # Pregnancies Multiple births # of living children 1 Past Pregnancies Del. Date Name GA/Weeks Outcome Route Bth Weight Gen Labor Lgth Anesthesia Del Locatn Provider FOB 11/23/22 Cruz 40 live - full term 7lbs 6oz Male epidural [facility] Nellie Miller [place] Delivery Date: 11/23/22 Last Updated by: Jayshree Austin see problem list for complications. HPI *EST* NOB LMP 12/11, MARSHAL 09/17 Details: TERE BARON is a 29 year old who presents for New OB visit. OB Visit [facility] Calculator Estimated Delivery Date Method Current WG Current Estimate 09/17/25 LMP (Certain) 9w 2d Comments: HIV: Urine Culture: Sequential Screen: NIPT Screen: Estimated Due Date: 09/17/25 Initial Weight: Not Recorded Date -?-?-?-?-?-?-?-?-?-?-?-?- EGA Weight BP Urine Prot -?-?-?-?-?-?-?-?-?-?-?-?- Glucose FHR FuHt Pres Dilation -?-?-?-?-?-?-?-?-?-?-?-?- Effaced St Visit Note 02/14/25-?-?-?-?-?-?-?-?-?-?-?-?- 9w 2d 212 lb 2 oz -?-?-?-?-?-?-?-?-?-?-?-?- -?-?-?-?-?-?-?-?-?-?-?-?- JV- no heart tones or pole. large GS and yolk sac consistent with miscarriage. patient would like D&C and possible anora testing. Menstrual History Last Menstrual Period: 12/11/24 Reported LMP: definite Normal amount/duration: Yes Frequency in days: unknown due to IUD(removed in October) On hormonal BC at conception: No hCG+: 01/02/25 (faint +, 01/04 spotting x1 light pink, 01/05 strong +HPT) Antepartum Record Genetic Screening: Congenital Heart Defect: Other, Neural Tube Defect: Other, Hemoglobinopathy Or Carrier: Patient (Maternal Aunt -Lupus), Cystic Fibrosis: Other, Chromosome Abnormality: Other, Reji-Sachs: Other, Hemophilia: Other, Intellectual Disability/Autism: Other, Recurrent Loss/Stillbirth: Other, Other Structural Defect: Other, Other Genetic Disease: Other and Maternal Metabolic Disorder: Other Infection History: Live with someone with TB or Exposed to TB: No, Patient or Partner has history of Genital Herpes: No, Rash or Viral illness since last mentrual period: No, Prior GBS-Infected child: Yes (+GBS 1st ), Historyof STD: No, HIV Infection: No, History of Hepatitis: No, Recent travel outside of [place]: No, Concern for hepatitis exposure: No, Varicella immune: Yes (immune) and Covid Vaccinated: No Medical History Medical History: Positive: Seasonal allergies (mild, fall), Drug/latex allergies/reactions (zinc), Operations/hospitalizations (See PFSH), History of abnormal pap (+HPV 2020, neg since), Relevant family history (celiac disease Paternal Grandfather & Sister) and Other (obesity) and Negative: Diabetes, Hypertension, Heart disease, Auto-immune disorder, Kidney disease/UTI, Neurologic/epilepsy, Psychiatric, Depression/ depression, Hepatitis/liver disease, Varicosities/phlebitis, Thyroid dysfunction, Trauma/domestic violence, History of blood transfusions, D (Rh) Sensitized, Pulmonary (e.g.,TB,Asthma), Breast, Parent Partner surgery, Anesthetic complications, Uterine anomaly/abilio, Infertility and Anti-retroviral treatment ACOG First Trimester First Trimester: Desire for , Alcohol, Tobacco Cessation, Illicit/Recreational Drug/Substance Use, Intimate Partner Violence, Barriers to care, Unstable Housing, Communication Barriers, Environmental/Work Hazards, Anticipated Course of Care, Toxoplasmosis Precations, Use of Any medications, Sexual activity, Exercise, Dental Care, Sauna/Hot tub use, Seat Belt use, Childbirth classes/Hospital facilities, Travel, Indications for Ultrasound and Screening for Aneuploidy; Discussed Second Trimester Second Trimester: Signs and Symptoms of Labor Third Trimester Third Trimester: Pain Management Plans, Labor support person(s), Immediate Larc, Movement Monitoring, Signs and Symptoms of Preeclampsia, Labor Signs, Education, Family Medical Leave or Disability Forms, Depression and Depression; Discussed Tobacco Cessation ROS Const Reports system reviewed and no additional complaints, except as documented, Reports fatigue and Denies fever(s) Eyes Reports system reviewed and no additional complaints, except as documented ENT Reports system reviewed and no additional complaints, except as documented Card Denies chest pain and Denies dyspnea Resp Reports system reviewed and no additional complaints, except as documented, Denies cough and Denies dyspnea GI Denies abdominal pain and Reports nausea Reports system reviewed and no additional complaints, except as documented Musc Reports system reviewed and no additional complaints, except as documented Skin/Breast Reports system reviewed and no additional complaints, except as documented Neuro Yes system reviewed and no additional complaints, except as documented Psych Reports system reviewed and no additional complaints, except as documented Endo Reports system reviewed and no additional complaints, except as documented and Reports fatigue Exam Const General: healthy appearing, comfortable and no acute distress Orientation: alert HENCT Head: normal to inspection, normocephalic and atraumatic Ears: hearing grossly normal bilaterally and external ears normal Nose: external nose normal and nares normal Mouth: oral mucosae normal Teeth and gingiva: dentition normal Eyes General: appearance normal, both eyes and all related structures Neck Neck: normal visual inspection, no lymphadenopathy and supple Thyroid: thyroid normal Resp Effort & Inspection: normal respiratory effort GI Inspection: normal to inspection Palpation: soft and no hepatosplenomegaly General: bladder normal to palpation External Female Exam: normal external appearance and normal appearance of the urethra Urethra: normal appearance of the urethra Speculum Exam - Vagina: normal appearance of the vagina and normal vaginal discharge Speculum Exam - Cervix: normal appearance of the cervix Bimanual Exam- Vagina & Uterus: normal bimanual exam, bladder normal to palpation, non-tender and other Bimanual Exam- Adnexa, other: non-tender Skin General: no rashes or lesions noted Neuro Motor: muscle tone normal throughout and no movement abnormalities noted Extrem General: normal to inspection and full ROM Supplemental Info ACOG book given and patient encouraged to read about nutrition, exercise, weight gain, and food avoidance in . Coding Level of Care Code Off vis,est,level 4 Diagnoses FH: lupus FH: celiac disease Z83.79 Obesity affecting O99.210 Supervision of high-risk O09.90 Z34.90 Missed O02.1 Assessment and Plan Assessment and Plan (1) FH: lupus: Status: Acute Comment: Maternal Aunt (2) FH: celiac disease: Status: Acute Comment: Sister & Paternal Grandfather (3) Obesity affecting : Status: Acute Comment: HgbA1c (4) Supervision of high-risk : Status: Acute Comment: , MARSHAL 09/17/25, MILLICENT Arroyo, Jose son Tyrone, [facility] (5) : Status: Acute Comment: elects NIPT with Gender (6) Missed : Status: Acute Plan: After discussing the patient's diagnosis and treatment plan options, patient wishes to proceed with surgical management. I have discussed with the patient the risks, benefits, and alternatives of the procedure which include but are notlimited to risks of anesthesia, bleeding, infection, possible damage to bowel, bladder, or surrounding vasculature which could lead to additional surgery to evaluate any complications. Patient agrees to procedure and wishes to proceed. ACOG/uptodate references given for additional information regarding procedure. plan for suction D&C next available. Orders: 02/18/25 1609 <Electronically signed by Nellie Miller DO> Cosigner Signature (if applicable): CC: Dr. Nellie Miller DO; VIRGEN LUNA~ Signed [facility] Work Phone: [phone] 869-377406-24-2025 Consult note Author Arnaldo Soto [facility] Note Date/Time February 18, 2025 3:51 pm [facility] Medical Records Department [address] [place] [address] Pre-Anesthesia Evaluation 02/18/25 1547 MR#: [id number] Acct: [id number] Name: TERE BARON Rep #:[id number] : 1995 29 From: Arnaldo Soto MD PCP: VIRGEN LUNA [place] [facility] [place] Race: C Location: [place] [address] ASA Classification* ASA Classification ASA Classification: 1 and E Assessment & Plan Anesthesia* Anesthesia Assessment Anesthesia Assessment: Discussed sedation and/or anesthesia options, risks, benefits, and alternatives with patient/parents/legal guardian/POA. Questions invited. The patient/parents/legal guardian/POA seems to understand and agrees to proceedwith anesthesia plan. Reviewed the physical assessment, medical history, allergy history and patient home medications list prior to surgery/procedure/anesthetic and documented any changes. Performed airway and anesthesia risk assessments. Anesthesia Type Anesthesia Type: MAC History Source History Obtained from:: Patient and Chart Anesthesia Focused Assessment* Temperature: 97.6 F Pulse Rate: 75 Blood Pressure: 112/67 Respiratory Rate: 18 Pulse Ox: 100 Oxygen Delivery Method: Room Air Airway Assessment Mouth opens: >3 cm Mallampati Score: I Teeth Condition: Caps/Crowns (Patient has 2 crowns on lower molars. They are tight.) Neck Range of motion (ROM): Full ROM Labs Anesthesia Preop lab: CBC WBC 8.7 K/mm3 (4.4-11.0) 02/18/25 14:23 02/18/25 RBC 4.39 M/mm3 (4.2-5.4) 02/18/25 14:23 02/18/25 Hgb 13.4 g/dL (12.0-15.0) 02/18/25 14:23 02/18/25 Hct 39.7 % (37-47) 02/18/25 14:23 02/18/25 Plt Count 254 K/mm3 (150-450) 02/18/25 14:23 02/18/25 CHEMISTRY Potassium 3.8 mmol/L (3.5-5.1) 12/19/17 17:47 12/19/17 Sodium 139 mmol/L (136-145) 12/19/17 17:47 12/19/17 BUN 10 mg/dL (7-18) 12/19/17 17:47 12/19/17 Creatinine 0.86 mg/dL (0.55-1.02) 12/19/17 17:47 12/19/17 Glucose 89 mg/dL (74-106) 12/19/17 17:47 12/19/17 TSH 1.79 uIU/mL (0.358-3.74) 01/13/21 10:50 COAG Tst Clinic Negative 01/17/23 13:34 01/17/23 Pre-Assessment Diagnosis/Proposed Procedure Planned Operative Procedure(s): Dilation and Curettage, Suction Anesthesia History 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 When Was Last Pacemaker Check QUESTION #4 FULL TEXT: You/Your Family Experience fever (hyperthermia) with Anesthesia Last Oral Intake Last Oral intake: Last Oral Intake NPO since 18:00 02/18/25 14:15 Meds taken in AM with sips of Yes 02/18/25 14:15 water? 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 Female Yes 02/17/25 13:24 HX of Motion Sickness No 02/17/25 13:24 HX of N/V After Surgery No 02/17/25 13:24 Non-Smoker Yes 02/17/25 13:24 Duration of Surgery greater No 02/17/25 13:24 than 60 minutes Number of Risk Factors 2 02/17/25 13:24 PONV Score Moderate Risk 02/17/25 13:24 Height & Weight Height & Weight: Anesthesia: Height & Weight Height 5 ft 4 in 02/18/25 14:15 Weight: 95.7 kg 02/18/25 14:15 Body Mass Index (BMI) 36.2 02/18/25 14:15 Respiratory Assessment Respiratory Assessment - junior accountant bookkeeper: Respiratory Tract Infection Hx - junior accountant bookkeeper Hx Respiratory Tract Infection No 02/17/25 13:24 STOP Sleep Apnea STOP Sleep Apnea - junior accountant bookkeeper: STOP Sleep Apnea - junior accountant bookkeeper Hx Hypertension No 02/17/25 13:24 Hx Sleep Apnea No 02/17/25 13:24 CPAP BIPAP Do you snore loudly (louder No 02/17/25 13:24 than talking or can be heard Do you often feel tired/ No 02/17/25 13:24 fatigued/ sleepy during daytime? Has anyone observed you stop No 02/17/25 13:24 breathing during sleep? STOP Results Negative 02/17/25 13:24 QUESTION #5 FULL TEXT : Do you snore loudly (louder than talking or can be heard through closed doors)? 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 Specify any problems Hx of Preganancy in last 3 No 02/17/25 13:24 Months Nurse Filling Out Transfusion JZOLLINGE 02/17/25 13:24 & Questions: Date: 02/17/25 02/17/25 13:24 Time: 13:02/17/25 13:24 Patient unable to answer at this time (ie. confused, unrespo /Reproduction History /Reproductive History - junior accountant bookkeeper: /Reproductive Hx- junior accountant bookkeeper Hx Now No 02/17/25 13:24 Gestational Age (in weeks): EDC: Hx Hx Para Hx Section SAB No 02/17/25 13:24 Active Medications Active Medications: Current Medications Generic Name Dose Route Start Last Admin Trade Name Freq PRN Reason Stop Dose Admin Lactated Ringer's 1,000 mls @ 15 mls/hr 02/18/25 14:15 02/18/25 14:33 IV 15 mls/hr .Q48H VONDA Administration PFSH Medical History Alcohol use Heartburn Non-smoker Encounter for IUD removal Contraceptive management LGA (large for gestational age) fetus Obesity affecting Supervision of normal first HPV test positive Abnormal uterine bleeding (AUB) Home Medications ?Medication ?Instructions ?Recorded ?Last Taken ?Type fluconazole 150 mg tablet 150 mg PO Q3D 2 doses #2 tab s 02/14/25 Unknown Rx Allergy/AdvReac Type Severity Reaction Status Date / Time zinc AdvReac Upset Verified 02/18/25 14:14 Stomach Family History Father Epilepsy Grandfather Celiac disease Paternal Sister Celiac disease Aunt Lupus Maternal Surgical History Status post vaginal delivery History of surgery History of tonsillectomy S/P appendectomy Social History adopted: No household members: significant other and children housing: house number of children: 2 current occupational status: employed current occupation: [employer] current occupational exposures/hazards: No pets and animals: Yes (Not managing litter box) pets and animals: cat(s) and dog(s) history of recent travel: No sexually active: Yes Smoking Status: Never smoker alcohol intake: current alcohol intake frequency: holidays/special occasions only details: social- Not while substance use type: does not use well-balanced diet: daily or most days caffeine: No eating out: rarely or never during the past year weight has: remained stable what type of physical activity do you participate in: none crista/taoist: Pentecostalism seatbelt use: always do you feel safe at home: Yes additional social history: - [place] Review of Systems (Anesthesia) ROS Narrative System reviewed and no additional complaints, except as documented. 02/18/25 1551 <Electronically signed by Arnaldo coleman MD> Date _ Arnaldo Soto MD Cosigner Signature: Date CC: ~ Signed [facility] Work Phone: [phone]) 842-373606-24-2025 Procedure note [facility] Medical Records Department [address] [facility] [place] [address] Operative Report 02/18/25 1731 MR#: [id number] Acct: [id number] Name: TERE BARON IRINA Rep #:[id number] : 1995 29 From: Nellie Miller DO PCP: VIRGEN LUNA Status:[facility] Location: [place] [address] Problems Associated Problem List Diagnoses (1) Missed : Multi Select Codes Urinary/Genital Urinary/Genital CPT Codes: 23318 Surg Trtmt missed Ab 1TM Operative Report (Standard) Operative Information Date of Procedure: 02/18/25 Pre-Operative Diagnosis: missed measuring 5 weeks Post-Operative Diagnosis: missed measuring 5 weeks Surgery/Procedure Performed: suction dilation and curettage broach operator: No Type of Anesthesia: MAC/Supplemental RN Documented Start/Stop Times: Operation Date: 02/18/25 15:30 Case Time Into Pre-Op 02/18/25 14:00 Out of Pre-Op 02/18/25 16:23 Anesthesia Start 02/18/25 16:35 Into Room 02/18/25 16:35 Procedure Start 02/18/25 16:46 Procedure End 02/18/25 17:07 Anesthesia End 02/18/25 17:14 Out of Room 02/18/25 17:14 Into Recovery 02/18/25 17:15 Procedure Start Time: 16:46 Procedure Stop Time: 17:07 Select all DRAINS/GRAFTS/IMPLANTS that apply: None Estimated Blood Loss: 30cc Specimen collected: Yes Description of specimen(s) removed: endometrial curetting's/products of conception Description of surgery: Patient was taken to the operating room and placed under MAC local anesthesia. She was prepped and draped in the normal sterile fashion the dorsal lithotomy position. Bladder was drained of clear urine and anterior lip of the cervix wasgrasped and the uterus sounded to 10cm. Cervix was progressively dilated to allow passage of a size 8 suction curette. Progressive passes were made removing the retained products of conception without complication. Sharp curettage confirmed complete removal of the retained products. A post procedure ultrasound was performed showing a thin endometrium. There were some moments of brisk bleeding after the completion of the procedure and methergine IM + TXA 1000mg were given. uterine massage was perfromed and the bleeding stopped. All instruments were removed from the vagina and excellent hemostasis was noted and the patient was taken to recovery in stable condition. IM methergine was given to help contract the uterus. Surgical Findings: small amount of products of conception removed. Complications Complications: No Admit VTE Documentation VTE Present on Admission: No VTE Mechan Device Prophylaxis: SCD's VTE Pharm Prophylaxis ordered?: No 02/18/25 6839 Cosigner Signature (if applicable): CC: Dr. Nellie Miller, DO; VIRGEN LUNA~ Signed [facility]06-24-2025 Discharge summary [facility] Medical Records Department [address] [place] [address] Instructions for Home/Discharge Instructions 02/18/25 1619 MR#: [id number] Acct: [id number] Name: TERE BARON IRINA Rep #:[id number] : 1995 29 From: Nellie Miller DO PCP: VIRGEN LUNA Status:REG SDC Discharge Instructions Diet Discharge Diet: No restrictions DC O2, CPAP, BIPAP needs Home O2 Discharge instructions: No Dressing / Incision Discharge Activity: Return to Normal Activity, May Shower and May Take a Tub Bath (after 1 week) May resume sexual activity in: 1-2 weeks Weight Bearing Status: Weight bearing as tolerated Lifting Restrictions: none Dressing / Incision Call your doctor if you observe: Fever of 101 or Higher, Using more than 1 pad per hour, Shortness of breath and Uncontrolled pain Follow Up Care Please Follow Up With: Nellie Miller DO When: Call [phone] to schedule appointment. Test Results: Test results from this visit will be discussed in further detail at your follow- up appointment, if applicable. Discharge Plan Admission Primary Reason for Your Visit: dilation and curettage Attending Provider: Nellie Miller Primary Care Provider: VIRGEN LUNA Instructions Print Language: Macedonian Discharge Orders/Prescriptions Prescriptions: New ibuprofen 800 mg tablet 800 mg PO Q8H PRN (Reason: pain) Qty: 20 0RF oxycodone-acetaminophen [Percocet] 5-325 mg tablet 1 tab PO Q4H PRN (Reason: pain) 7 Days Qty: 3 0RF No Action fluconazole 150 mg tablet 150 mg PO Q3D 0 Days Qty: 2 2RF Referrals / Follow Up: aMry Hernandes DO [Non-Staff] - Disposition Disposition (needs filled in before D/C Order can be placed): Home, Self Care 02/18/25 1621Jennifer Farzana Diego DO CC: VIRGEN LUNA ~ Signed [facility]06-24-2025 [facility] Medical Records Department [address] [place] [address] History Physical Exam 02/18/25 1609 MR#: [id number] Acct: [id number] Name: TERE BARON Rep #: [id number] : 1995 29 From: Nellie Miller DO PCP: VIRGEN LUNA [place] [facility] [place] [address] History and Physical Date of Admission: 02/18/25 Intake Vital Signs 11/15/2509:10 02/14/2513:13 02/14/2513:13 Height 5 ft 4 in 5 ft 4 in 5 ft 4 in Weight: 212 lb 2 oz BMI 36.3 Intake Visit Reasons: *EST* NOB LMP 12/11, MARSHAL 09/17 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: No Is patient in pain?: No Allergies zinc Adverse Reaction (Verified 02/14/25 13:12) Upset Stomach Medications ???Medication ???Instructions ???Recorded ???Confirmed ???Type PNV 153-FA 400 mcg-om3 35 mg-dha tab PO .QD 01/30/25 02/14/25 History 25 mg-epa 5 mg-fish oil chew tablet Last Menstrual Period: 12/11/24 Zika: Zika virus screening: Negative : No PFSH PFSH Medical History Encounter for IUD removal Contraceptive management LGA (large for gestational age) fetus Obesity affecting Supervision of normal first HPV test positive Abnormal uterine bleeding (AUB) Surgical History Status post vaginal delivery History of surgery History of tonsillectomy S/P appendectomy Family History Father EpilepsyGrandfather Celiac disease PaternalSister Celiac diseaseAunt Lupus Maternal Social History adopted: No household members: significant other and children housing: house number of children: 2 service: No current occupational status: employed current occupation: [employer] current occupational exposures/hazards: No pets and animals: Yes (Not managing litter box) pets and animals: cat(s) and dog(s) history of recent travel: No sexually active: Yes Smoking Status: Never smoker alcohol intake: current alcohol intake frequency: holidays/special occasions only details: social- Not while substance use type: does not use well-balanced diet: daily or most days caffeine: No eating out: rarely or never during the past year weight has: remained stable what type of physical activity do you participate in: none crista/taoist: Pentecostalism seatbelt use: always do you feel safe at home: Yes additional social history: - [place] History 2 Elective abortions Hx Para 1 Spontaneous abortions Hx # Term Pregnancies 1 Ectopic pregnancies Hx # Pregnancies Multiple births # of living children 1 Past Pregnancies Del. Date Name GA/Weeks Outcome Route Bth Weight Infant Gen Labor Lgth Anesthesia Del Locatn Provider FOB 11/23/22 Cruz 40 live - full term 7lbs 6oz Male epid ural [facility] Nellie Miller [place] Delivery Date: 11/23/22 Last Updated by: Jayshree Austin see problem list for complications. HPI *EST* NOB LMP 12/11, MARSHAL 09/17 Details: TERE BARON is a 29 year old who presents for New OB visit. OB Visit MARSHAL Calculator Estimated Delivery Date Method Current WG Current Estimate 09/17/25 LMP (Certain) 9w 2d Comments: HIV: Urine Culture: Sequential Screen: NIPT Screen: Estimated Due Date: 09/17/25 Initial Weight: Not Recorded Date -???-???-???-???-???-???-???-???-???-???-???-???- EGA Weight BP Urine Prot -???-???-???-???-???-???-???-???-???-???-???-???- Glucose FHR FuHt Pres Dilation -???-???-???-???-???-???-???-???-???-???-???-???- Effaced St Visit Note 02/14/25-???-???-???-???-???-???-???-???-???-???-???-???- 9w 2d 212 lb 2 oz -???-???-???-???-???-???-???-???-???-???-???-???- -???-???-???-???-???-???-???-???-???-???-???-???- JV- no heart tones or pole. large GS and yolk sac consistent with miscarriage. patient would like D C and possible anora testing. Menstrual History Last Menstrual Period: 12/11/24 Reported LMP: definite Normal amount/duration: Yes Frequency in days: unknown due to IUD(removed in October) On hormonal BC at conception: No hCG+: 01/02/25 (faint +, 01/04 spotting x1 light pink, 01/05 strong +HPT) Antepartum Record Genetic Screening: Congenital Heart Defect: Other, Neural Tube Defect: Other, Hemoglobinopathy Or Carrier: Patient (Maternal Aunt -Lupus), Cystic Fibrosis: Other, Chromosome Abnormality: Other, Reji- Sachs: Other, Hemophilia: Other, Intellectual Disability/Autism: Other, Recurrent Loss/Stillbirth: Other, Other Structural Defect: Other, Other Genetic Disease: Other and Maternal Metabolic Disorder: Other Infection History: (more content not included)...[facility] 02-18-2025 Consult note [facility] Medical Records Department [address] [place] [address] Pre-Anesthesia Evaluation 02/18/25 1547 MR#: [id number] Acct: [id number] Name: TERE BARON Rep #:[id number] : 1995 29 From: Arnaldo Soto MD PCP: VIRGEN LUNA [place] [facility] [place] Race: C Location: [place] [address] ASA Classification* ASA Classification ASA Classification: 1 and E Assessment & Plan Anesthesia* Anesthesia Assessment Anesthesia Assessment: Discussed sedation and/or anesthesia options, risks, benefits, and alternatives with patient/parents/legal guardian/POA. Questions invited. The patient/parents/legal guardian/POA seems to understand and agrees to proceedwith anesthesia plan. Reviewed the physical assessment, medical history, allergy history and patient home medications list prior to surgery/procedure/anesthetic and documented any changes. Performed airway and anesthesia risk assessments. Anesthesia Type Anesthesia Type: MAC History Source History Obtained from:: Patient and Chart Anesthesia Focused Assessment* Temperature: 97.6 F Pulse Rate: 75 Blood Pressure: 112/67 Respiratory Rate: 18 Pulse Ox: 100 Oxygen Delivery Method: Room Air Airway Assessment Mouth opens: >3 cm Mallampati Score: I Teeth Condition: Caps/Crowns (Patient has 2 crowns on lower molars. They are tight.) Neck Range of motion (ROM): Full ROM Labs Anesthesia Preop lab: CBC WBC 8.7 K/mm3 (4.4-11.0) 02/18/25 14:23 02/18/25 RBC 4.39 M/mm3 (4.2-5.4) 02/18/25 14:23 02/18/25 Hgb 13.4 g/dL (12.0-15.0) 02/18/25 14:23 02/18/25 Hct 39.7 % (37-47) 02/18/25 14:23 02/18/25 Plt Count 254 K/mm3 (150-450) 02/18/25 14:23 02/18/25 CHEMISTRY Potassium 3.8 mmol/L (3.5-5.1) 12/19/17 17:47 12/19/17 Sodium 139 mmol/L (136-145) 12/19/17 17:47 12/19/17 BUN 10 mg/dL (7-18) 12/19/17 17:47 12/19/17 Creatinine 0.86 mg/dL (0.55-1.02) 12/19/17 17:47 12/19/17 Glucose 89 mg/dL (74-106) 12/19/17 17:47 12/19/17 TSH 1.79 uIU/mL (0.358-3.74) 01/13/21 10:50 COAG Tst Clinic Negative 01/17/23 13:34 01/17/23 Pre-Assessment Diagnosis/Proposed Procedure Planned Operative Procedure(s): Dilation and Curettage, Suction Anesthesia History 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 When Was Last Pacemaker Check QUESTION #4 FULL TEXT: You/Your Family Experience fever (hyperthermia) with Anesthesia Last Oral Intake Last Oral intake: Last Oral Intake NPO since 18:00 02/18/25 14:15 Meds taken in AM with sips of Yes 02/18/25 14:15 water? 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 Female Yes 02/17/25 13:24 HX of Motion Sickness No 02/17/25 13:24 HX of N/V After Surgery No 02/17/25 13:24 Non-Smoker Yes 02/17/25 13:24 Duration of Surgery greater No 02/17/25 13:24 than 60 minutes Number of Risk Factors 2 02/17/25 13:24 PONV Score Moderate Risk 02/17/25 13:24 Height & Weight Height & Weight: Anesthesia: Height & Weight Height 5 ft 4 in 02/18/25 14:15 Weight: 95.7 kg 02/18/25 14:15 Body Mass Index (BMI) 36.2 02/18/25 14:15 Respiratory Assessment Respiratory Assessment - junior accountant bookkeeper: Respiratory Tract Infection Hx - junior accountant bookkeeper Hx Respiratory Tract Infection No 02/17/25 13:24 STOP Sleep Apnea STOP Sleep Apnea - junior accountant bookkeeper: STOP Sleep Apnea - junior accountant bookkeeper Hx Hypertension No 02/17/25 13:24 Hx Sleep Apnea No 02/17/25 13:24 CPAP BIPAP Do you snore loudly (louder No 02/17/25 13:24 than talking or can be heard Do you often feel tired/ No 02/17/25 13:24 fatigued/ sleepy during daytime? Has anyone observed you stop No 02/17/25 13:24 breathing during sleep? STOP Results Negative 02/17/25 13:24 QUESTION #5 FULL TEXT : Do you snore loudly (louder than talking or can be heard through closeddoors)? 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 Specify any problems Hx of Preganancy in last 3 No 02/17/25 13:24 Months Nurse Filling Out Transfusion JZOLLINGE 02/17/25 13:24 & Questions: Date: 02/17/25 02/17/25 13:24 Time: 02/17/25 13:24 Patient unable to answer at this time (ie. confused, unrespo /Reproduction History /Reproductive History - junior accountant bookkeeper: /Reproductive Hx- junior accountant bookkeeper Hx Now No 02/17/25 13:24 Gestational Age (in weeks): EDC: Hx Hx Para Hx Section SAB No 02/17/25 13:24 Active Medications Active Medications: Current Medications Generic Name Dose Route Start Last Admin Trade Name Freq PRN Reason Stop Dose Admin Lactated Ringer's 1,000 mls @ 15 mls/hr 02/18/25 14:15 02/18/25 14:33 IV 15 mls/hr .Q48H VONDA Administration PFSH Medical History Alcohol use Heartburn Non-smoker Encounter for IUD removal Contraceptive management LGA (large for gestational age) fetus Obesity affecting Supervision of normal first HPV test positive Abnormal uterine bleeding (AUB) Home Medications ?Medication ?Instructions ?Recorded ?Last Taken ?Type fluconazole 150 mg tablet 150 mg PO Q3D 2 doses #2 tab s 02/14/25 Unknown Rx Allergy/AdvReac Type Severity Reaction Status Date / Time zinc AdvReac Upset Verified 02/18/25 14:14 Stomach Family History Father Epilepsy Grandfather Celiac disease Paternal Sister Celiac disease Aunt Lupus Maternal Surgical History Status post vaginal delivery History of surgery History of tonsillectomy S/P appendectomy Social History adopted: No household members: significant other and children housing: house number of children: 2 current occupational status: employed current occupation: [employer] current occupational exposures/hazards: No pets and animals: Yes (Not managing litter box) pets and animals: cat(s) and dog(s) history of recent travel: No sexually active: Yes Smoking Status: Never smoker alcohol intake: current alcohol intake frequency: holidays/special occasions only details: social- Not while substance use type: does not use well-balanced diet: daily or most days caffeine: No eating out: rarely or never during the past year weight has: remained stable what type of physical activity do you participate in: none crista/taoist: Pentecostalism seatbelt use: always do you feel safe at home: Yes additional social history: [facility] [place] Review of Systems (Anesthesia) ROS Narrative System reviewed and no additional complaints, except as documented. 02/18/25 1551 [place] MEZA> Date _ [facility]nal[facility] Soto [facility] Signature: Date CC: ~ Signed [facility]06-20-2025 Progress [facility] [address], [address] [place] [address] OFFICE VISIT Date of Service: 02/14/25 MR#: [id number] Acct: [id number] Name: TERE BARON Rep # : [id number] : 1995 Provider: Dr. Aicha Miller DO Age/Sex: 29/F Location: [facility] Status: Signed Intake Vital Signs 11/15/24 10:10 02/14/25 13:13 02/14/25 13:13 Height 5 ft 4 in 5 ft 4 in 5 ft 4 in Weight: 212 lb 2 oz BMI 36.3 Intake Visit Reasons: *EST* NOB LMP 12/11, MARSHAL 09/17 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: No Is patient in pain?: No Allergies zinc Adverse Reaction (Verified 02/14/25 13:12) Upset Stomach Medications ?Medication ?Instructions ?Recorded ?Confirmed ?Type PNV 153-FA 400 mcg-om3 35 mg-dha tab PO .QD 01/30/25 0 02/14/25 History 25 mg-epa 5 mg-fish oil chew tablet Last Menstrual Period: 12/11/24 Zika: Zika virus screening: Negative : No PFSH PFSH Medical History Encounter for IUD removal Contraceptive management LGA (large for gestational age) fetus Obesity affecting Supervision of normal first HPV test positive Abnormal uterine bleeding (AUB) Surgical History Status post vaginal delivery History of surgery History of tonsillectomy S/P appendectomy Family History Father Epilepsy Grandfather Celiac disease Paternal Sister Celiac disease Aunt Lupus Maternal Social History adopted: No household members: significant other and children housing: house number of children: 2 service: No current occupational status: employed current occupation: [employer] current occupational exposures/hazards: No pets and animals: Yes (Not managing litter box) pets and animals: cat(s) and dog(s) history of recent travel: No sexually active: Yes Smoking Status: Never smoker alcohol intake: current alcohol intake frequency: holidays/special occasions only details: social- Not while substance use type: does not use well-balanced diet: daily or most days caffeine: No eating out: rarely or never during the past year weight has: remained stable what type of physical activity do you participate in: none crista/taoist: Pentecostalism seatbelt use: always do you feel safe at home: Yes additional social history: [facility] [place] History 2 Elective abortions Hx Para 1 Spontaneous abortions Hx # Term Pregnancies 1 Ectopic pregnancies Hx # Pregnancies Multiple births # of living children 1 Past Pregnancies Del. Date Name GA/Weeks Outcome Route Bth Weight Infant Gen Labor Lgth Anesthesia Del Locatn Provider FOB 11/23/22 Cruz 40 live - full term 7lbs 6oz Male ep idural [facility] Nellie Miller [place] Delivery Date: 11/23/22 Last Updated by: Jayshree Austin see problem list for complications. HPI *EST* NOB LMP 12/11, MARSHAL 09/17 Details: TERE BARON is a 29 year old who presents for New OB visit. OB Visit MARSHAL Calculator Estimated Delivery Date Method Current WG Current Estimate 09/17/25 LMP (Certain) 9w 2d Comments: HIV: Urine Culture: Sequential Screen: NIPT Screen: Estimated Due Date: 09/17/25 Initial Weight: Not Recorded Date -?-?-?-?-?-?-?-?-?-?-?-?- EGA Weight BP Urine Prot -?-?-?-?-?--?-?-?-?-?-?-?- Glucose FHR FuHt Pres Dilation -?-?-?-?-?-?-?-?-?-?-?--?- Effaced St Visit Note 02/14/25 -?-?-?-?-?-?-?-?-?-?-?-?- 9w 2d 212 lb 2 oz -?-?-?-?-?-?-?-?-?-?-?-?- -?-?-?-?-?-?-?-?-?-?-?-?- JV- no heart ton es or pole. large GS and yolk sac consistent with miscarriage. patient would like D&C and possible anora testing. Menstrual History Last Menstrual Period: 12/11/24 Reported LMP: definite Normal amount/duration: Yes Frequency in days: unknown due to IUD(removed in October) On hormonal BC at conception: No hCG+: 01/02/25 (faint +, 01/04 spotting x1 light pink, 01/05 strong +HPT) Antepartum Record Genetic Screening: Congenital Heart Defect: Other, Neural Tube Defect: Other, Hemoglobinopathy Or Carrier: Patient (Maternal Aunt -Lupus), Cystic Fibrosis: Other, Chromosome Abnormality: Other, Reji-Sachs: Other, Hemophilia: Other, Intellectual Disability/Autism: Other, Recurrent Loss/Stillbirth: Other, Other Structural Defect: Other, Other Genetic Disease: Other and Maternal Metabolic Disorder: Other Infection History: Live with someone with TB or Exposed to TB: No, Patient or Partner has history of Genital Herpes: No, Rash or Viral illness since last mentrual period: No, Prior GBS-Infected child: Yes (+GBS 1st ), Historyof STD: No, HIV Infection: No, History of Hepatitis: No, Recent travel outside of [place]: No, Concern for hepatitis exposure: No, Varicella immune: Yes (immune) and Covid Vaccinated: No Medical History Medical History: Positive: Seasonal allergies (mild, fall), Drug/latex allergies/reactions (zinc), Operations/hospitalizations (See PFSH), History of abnormal pap (+HPV 2020, neg since), Relevant family history (celiac disease Paternal Grandfather & Sister) and Other (obesity) and Negative: Diabetes, Hypertension, Heart disease, Auto-immune disorder, Kidney disease/UTI, Neurologic/epilepsy, Psychiatric, Depression/ depression, Hepatitis/liver disease, Varicosities/phlebitis, Thyroid dysfunction, Trauma/domestic violence, History of blood transfusions, D (Rh) Sensitized, Pulmonary (e.g.,TB,Asthma), Breast, Parent Partner surgery, Anesthetic complications, Uterine anomaly/abilio, Infertility and Anti-retroviral treatment ACOG First Trimester First Trimester: Desire for , Alcohol, Tobacco Cessation, Illicit/Recreational Drug/Substance Use, Intimate Partner Violence, Barriers to care, Unstable Housing, Communication Barriers, Environmental/Work Hazards, Anticipated Course of Care, Toxoplasmosis Precations, Use of Any med ications, Sexual activity, Exercise, Dental Care, Sauna/Hot tub use, Seat Belt use, Childbirth classes/Hospital facilities, Travel, Indications for Ultrasound and Screening for Aneuploidy; Discussed Second Trimester Second Trimester: Signs and Symptoms of Labor Third Trimester Third Trimester: Pain Management Plans, Labor support person(s), Immediate Larc, Movement Monitoring, Signs and Symptoms of Preeclampsia, Labor Signs, Education, Family Medical Leave or Disability Forms, Depression and Depression; Discussed Tobacco Cessation ROS Const Reports system reviewed and no additional complaints, except as documented, Reports fatigue and Denies fever(s) Eyes Reports system reviewed and no additional complaints, except as documented ENT Reports system reviewed and no additional complaints, except as documented Card Denies chest pain and Denies dyspnea Resp Reports system reviewed and no additional complaints, except as documented, Denies cough and Deniesdyspnea GI Denies abdominal pain and Reports nausea Reports system reviewed and no additional complaints, except as documented Musc Reports system reviewed and no additional complaints, except as documented Skin/Breast Reports system reviewed and no additional complaints, except as documented Neuro Yes system reviewed and no additional complaints, except as documented Psych Reports system reviewed and no additional complaints, except as documented Endo Reports system reviewed and no additional complaints, except as documented and Reports fatigue Exam Const General: healthy appearing, comfortable and no acute distress Orientation: alert [facility] Head: normal to inspection, normocephalic and atraumatic Ears: hearing grossly normal bilaterally and external ears normal Nose: external nose normal and nares normal Mouth: oral mucosae normal Teeth and gingiva: dentition normal Eyes General: appearance normal, both eyes and all related structures Neck Neck: normal visual inspection, no lymphadenopathy and supple Thyroid: thyroid normal Resp Effort & Inspection: normal respiratory effort GI Inspection: normal to inspection Palpation: soft and no hepatosplenomegaly General: bladder normal to palpation External Female Exam: normal external appearance and normal appearance of the urethra Urethra: normal appearance of the urethra Speculum Exam - Vagina: normal appearance of the vagina and normal vaginal discharge Speculum Exam - Cervix: normal appearance of the cervix Bimanual Exam- Vagina & Uterus: normal bimanual exam, bladder normal to palpation, non-tender and other Bimanual Exam- Adnexa, other: non-tender Skin General: no rashes or lesions noted Neuro Motor: muscle tone normal throughout and no movement abnormalities noted Extrem General: normal to inspection and full ROM Supplemental Info ACOG book given and patient encouraged to read about nutrition, exercise, weight gain, and food avoidance in . Coding Level of Care Code Off vis,est,level 4 Diagnoses FH: lupus FH: celiac disease Z83.79 Obesity affecting O99.210 Supervision of high-risk O09.90 Z34.90 Missed O02.1 Assessment and Plan Assessment and Plan (1) FH: lupus: Status: Acute Comment: Maternal Aunt (2) FH: celiac disease: Status: Acute Comment: Sister & Paternal Grandfather (3) Obesity affecting : Status: Acute Comment: HgbA1c (4) Supervision of high-risk : Status: Acute Comment: , MARSHAL 09/17/25, MILLICENT Arroyo, Step son Tyrone, Cristian (5) : Status: Acute Comment: elects NIPT with Gender (6) Missed : Status: Acute Plan: After discussing the patient's diagnosis and treatment plan options, patient wishes to proceed withsurgical management. I have discussed with the patient the risks, benefits, and alternatives of theprocedure which include but are notlimited to risks of anesthesia, bleeding, infection, possible damage to bowel, bladder, or surrounding vasculature which could lead to additional surgery to evaluate any complications. Patient agrees to procedure and wishes to proceed. ACOG/uptodate references given for additional information regarding procedure. plan for suction D&C next available. Orders: Orders Culture, Urine 01/30/25 O09.90 - Supervision of high risk , unspecified, unspecified trimester PAP I-G w/rfx hrHPV-Aptima 01/30/25 O09.90 - Supervision of high risk , unspecified, unspecified trimester, Z12.4 - Encounter for screening for malignant neoplasm of cervix 02/14/25 1358 filippo Diego DO> Date _ Nellie Gallegos Signature: Date (if applicable) CC: ~ [facility]03-21-2025 Evaluation note* Diagnosis Onset Date Resolution Status Admit Date Encounter for IUD removal inactive November 15, 2024 10:03am FH: celiac disease acute January 272024 12:53pm FH: lupus acute February 14 12:53pm Obesity affecting acute February 14, 2025 12:53pm acute February 14 12:53pm Supervision of high-risk acute February 14, 2025 12:53pm [facility] Work Phone: [phone]) [phone] Evaluation note* Diagnosis Onset Date Resolution Status Admit Date Encounter for IUD removal inactive November 15, 2024 10:03am FH: celiac disease acute January 272024 12:53pm FH: lupus acute February 14 12:53pm Missed acute January 12:53pm Obesity affecting acute February 14, 2025 12:53pm acute February 14 12:53pm Supervision of high-risk acute February 14, 2025 12:53pm Missed acute January 1:52pm [facility] Work Phone: 1(670) 657-314103-30-[address] Diego [facility] November 24, 2022 8:31am Note Date/Time November 24, 2022 8:2 9am [facility] Medical Records Department [address] [place] [address] Instructions for Home/Discharge Instructions 11/24/22 0828 MR#: [id number] Acct: [id number] Name: TERE VILLALOBOS Rep #:[id number] : 1995 27 From: Nellie Miller DO PCP: Dr. Mary Hernandes DO Status:ADM IN Discharge Instructions Diet Discharge Diet: No restrictions Activity Discharge Activity: Return to Normal Activity, May Not Drive (while taking narcotic pain medications.) and May Shower May resume sexual activity in: 4-6 weeks Dressing / Incision Call your doctor if your incision/area has: Continuous Slow Oozing, Sudden Increased Bleeding, Increased Pain/ Swelling, Increased Redness and Foul Smelling Discharge Follow Up Care Please Follow Up With: Nellie Miller DO When: Call [phone] to make an appointment with your doctor in 6 weeks. If you had elevated blood pressure or 4th degree laceration, you will need to be seen in 2 weeks. Test Results: Test results from this visit will be discussed in further detail at your follow- up appointment, if applicable. Discharge Plan Admission Admit Date/Time: 11/23/22 07:12 Primary Reason for Your Visit: vaginal delivery Attending Provider: Nellie Miller Primary Care Provider: Mary Hernandes Discharge Orders/Prescriptions Prescriptions: New naproxen 500 mg tablet 500 mg PO BID PRN (Reason: pain) Qty: 30 0RF Continued PNV-DHA 27 mg iron-1 mg -300 mg capsule PO DAILY Referrals / Follow Up: Mary Hernandes DO [Primary Care Provider] - Disposition Disposition (needs filled in before D/C Order can be placed): Home, Self Care 11/24/22830<Electronically signed by Nellie Miller DO>Nellie Miller DO CC: Dr. Mary Hernandes DO ~ Signed [facility] Work Phone: 1(120) 642-124803-30-[address] Diego [facility] November 24, 2022 8:28am Note Date/Time November 24, 2022 8:2 8am [facility] Medical Records Department [address] [place] [id number] Progress Note - OBGYN 11/24/22823 MR#: [id number] Acct: [id number] Name: TERE VILLALOBOS Rep #:[id number] : 1995 27 From: Nellie Miller DO PCP: Dr. Mary Hernandes DO Status:ADM IN Location: GA190-9 Subjective Subjective Patient doing well without complaints. Tolerating PO. Ambulating and voiding without difficulty. Feeding well. Denies chest pain, shortness of breath, calf pain/swelling, fevers, chills, lightheadedness. Objective Data Objective Data Vital Signs: Vital Signs Temp Pulse Resp BP Pulse Ox O2 Del Method 97.7 F L 67 16 115/68 98 Room Air 11/24/22 04:26 11/24/22 04:26 11/24/22 04:26 11/24/22 04:26 11/24/22 04:26 11/24/22 04:26 Oxygen Delivery Method Room Air Weight: 213 lb Body Mass Index (BMI) 36.6 Intake & Output: Intake and Output for Last 24 Hours 11/22/22 11/23/22 11/24/22 23:59 23:59 23:59 Intake Total 1655.00 / 1655.00 Output Total 1200 / 1200 Balance 455.00 / 455.00 Lab / Micro Data Result Diagrams: 11/23/22 08:00 Labs: Laboratory Results - last 24 hr 11/23/22 08:00: WBC 10.1, RBC 3.88 L, Hgb 11.4 L, Hct 34.5 L, MCV 88.9, MCH 29.4, MCHC 33.0, RDW Std Deviation 46.0 H, RDW Coeff of [place]elm[place] 14.7 H, Plt Count 220, MPV 11.7, Immature Gran % (Auto) 0.900, Neut % (Auto) 69.2, Lymph % (Auto) 21.3, Dickinson % (Auto) 7.2, Eos % (Auto) 0.9, Baso % (Auto) 0.5, Absolute Neuts (auto) 7.0, Absolute Lymphs (auto) 2.16, Nucleated RBC % 0 11/23/22 08:00: Blood Type O POSITIVE, Antibody Screen NEGATIVE 11/23/22 08:00: Syphilis Total Ab Non-reactive ROS Constitutional Constitutional: Denies chills, fatigue, fever(s), poor appetite or weakness Eyes Eyes: Denies blurry vision, change in vision, seeing flashes or spots in vision ENT HEENT: Denies dizziness, headache(s), loss taste/smell or sore throat Cardiovascular Cardiovascular: Denies chest pain, dizziness, dyspnea, irregular heart rhythm, palpitations or rapid heart rate Respiratory/Chest Respiratory/Chest: Denies chest tightness, cough, dyspnea or breast pain Gastrointestinal Gastrointestinal: Denies abdominal pain, constipation or vomiting Genitourinary Genitourinary: Denies dysuria or flank pain Musculoskeletal Musculoskeletal: Denies difficulty walking, joint pain, limited range of motion or numbness Neurologic Neurologic: Denies abnormal movements, abnormal speech, dizziness, numbness, seizure-like activity or syncope Psychiatric Psychiatric: Denies anxiety, behavioral changes, change in appetite, confusion, depression or suicidal thoughts Physical Exam Const alert, oriented x3 and no apparent distress General Appearance: cooperative and comfortable Resp normal respiratory effort Cardio regular rate GI normal to inspection, nondistended, normoactive bowel sounds GI Narrative: uterus is firm below umbilicus Palpation: soft Back/Spine no CVA tenderness and thoraco-lumbar ROM normal Extremity normal to inspection, no clubbing, cyanosis or edema, no calf tenderness and no pedal edema Psych mental status grossly normal, thought process normal, cooperative, affect normal, speech normal, activity/motor behavior normal, denies homicidal ideationand denies suicidal ideation Assessment & Plan (1) Status post vaginal delivery: COMMENT: baby perri arroyo 11/23/22- Jv (2) : QUALIFIERS: Weeks of gestation: 39 weeks Qualified Code(s): Z3A.39 - 39 weeks gestation of COMMENT: GBS Positive- treat in labor, anatomy nl. NIPT low risk, declined. Carrier testing. declined afp testing. (3) Supervision of normal first : COMMENT: PRR , MARSHAL 11/20/22, [facility] (4) Obesity affecting : COMMENT: 1 TM GCT encouraged healthy weight gain (5) GBS (group B streptococcus) UTI complicating : COMMENT: No treatment needed during , PCN in labor (6) LGA (large for gestational age) fetus: COMMENT: us for 36 weeks ordered -normal PLAN: Plan s/p PPD # 1 1. routine post delivery care 2. breast feeding- support given 3. rh positive 4. rubella immune 5. patient wants to go home today if possible 11/24/22 0828 <Electronically signed by Nellie Miller DO> Cosigner Signature (if applicable): CC: ~ Signed [facility] Work Phone: 1(861) 338-494203-29-2023 Procedure [facility] 11-23-2022 History and physical note Author Dr. Diego [facility] November 23, 2022 7:58am Note Date/Time November 23, 2022 7:5 8am [facility] Medical Records Department [address] [place] [address] H&P Exam - DYNAMITE CARTRIDGE CRIMPER 11/23/22 0753 MR#: [id number] Acct: [id number] Name: TERE VILLALOBOS Rep #:[id number] : 1995 27 From: Nellie Miller DO PCP: Dr. Mary Hernandes DO Status:ADM IN Location: PG792-5 HPI - General General Date of Admission: 11/23/22 HPI Narrative TERE VILLALOBOS, is a 27 y/o @ 40 week 3 days who presents to L&D with painful contractions and was found to be 4/85/-1 station per nurse. She is currently breathing through contractions and does not want an epidural at this time and states that she wants to try to do labor without an epidural. She is GBS positive and noted to be LGA at the end of the . She is mildly obese but has had a normal GCT x 2 this . Maternal Data Information MARSHAL Calculator Estimated Delivery Date Method Current WG Current Estimate 11/20/22 LMP (Certain) 40w 3d Other Estimates 11/17/22 Ultrasound #1 40w 6d PFSH PFSH Medical History Abnormal uterine bleeding (AUB) HPV test positive Home Medications multivitamin no.47-iron fum 27 mg-folate no.1 1 mg-dha 300 mg capsule (PNV- DHA)cap PO DAILY 04/14/22 [History Last Taken 1 Month Ago ~10/22/22] Allergy/AdvReac Type Severity Reaction Status Date / Time zinc AdvReac Upset Verified 11/19/22 21:33 Stomach Family History Father Epilepsy Surgical History History of tonsillectomy S/P appendectomy Social History adopted: No household members: significant other housing: house current occupational status: employed current occupation: [employer] current occupational exposures/hazards: No pets and animals: Yes (Not managing litter box) pets and animals: cat(s) and dog(s) history of recent travel: No sexually active: Yes Smoking Status: Never smoker alcohol intake: former details: social substance use type: does not use diet: lactose free well-balanced diet: daily or most days caffeine: No eating out: 1-3 times/week during the past year weight has: remained stable what type of physical activity do you participate in: walking frequency: 1-2 times per week duration: 30-45 minutes/day crista/taoist: Pentecostalism seatbelt use: always do you feel safe at home: Yes additional social history: BF- Cristian Crowell Patient works at [employer] History 1 Elective abortions Hx Para 0 Spontaneous abortions Hx # Term Pregnancies Ectopic pregnancies Hx # Pregnancies Multiple births # of living children Visit Details Expected Delivery Route/Plan Labor Preferences- CB/BF classes: encouraged labor support person: cristian labor intervention preferences: pain management options preferred: cut cord/dad catch: [] : [] PP control planned: [] discussed possible routes of delivery and associated risks: [] special requests: [] Plans Covid status: discussed Flu vaccine: discussed Tdap vaccine:given Rhogam: [] LARC form signed: [] Problem list reviewed and updated with the most current plan of care details and appropriate orders placed. Relevant counseling for the gestational age provided. Continue routine care and follow up unless otherwise noted in visit notes/problem list details OB Flowsheet Initial Weight: Not Recorded Date -?-?-?-?-?-?-?-?-?-?-?-?- EGA Weight BP Urine Prot -?-?-?-?-?-?-?-?-?-?-?-?- Glucose FHR FuHt Pres Dilation -?-?-?-?-?-?-?-?-?-?-?-?- Effaced St Visit Note 04/18/22 -?-?-?-?-?-?-?-?-?-?-?-?- 9w 1d 182 lb 182 lb 116/84 -?-?-?-?-?-?-?-?-?-?-?-?- 180 -?-?-?-?-?-?-?-?-?-?-?-?- SM- CRL 2.47cm c ons WITH lmp 05/16/22 -?-?-?-?-?-?-?-?-?-?-?-?- 13w 1d 180 lb 4 oz 126/76 Nega tive -?-?-?-?-?-?--?-?-?-?-?-?- Negative 175 -?-?-?-?-?-?-?-?-?-?-?-?- SM- no vb 10/17/22 -?-?-?-?-?-?-?-?-?-?-?-?- 17w 1d 185 lb 2 oz 136/80 Nega tive -?-?-?-?-?-?-?-?-?-?-?-?- Negative 156 -?-?-?-?-?-?-?-?-?-?-?-?- Lc-no vb,cramp, lof. has anatomy scheduled. 07/11/22 -?-?-?-?-?-?-?-?-?-?-?-?- 21w 1d 120/80 Negative -?-?-?-?-?-?-?-?-?-?-?-?- Negative 143 21 -?-?-?-?-?-?-?-?-?-?-?-?- LC-no vb, crampi ng. needs additional images-has scheduled. hip discomfort- techniques reviewed. 08/08/22 -?-?-?-?-?-?-?-?-?-?-?-?- 25w 1d 195 lb 109/72 Negative -?-?-?-?-?-?-?-?-?-?-?-?- Negative 145 25 -?-?-?-?-?-?-?-?-?-?-?-?- SM- no vb lof go od fm no regular ctx 08/31/22 -?-?-?-?-?-?-?-?-?-?-?-?- 28w 3d 198 lb 6 oz 119/80 Nega tive -?-?-?-?-?-?-?-?-?-?-?-?- Negative 145 30 -?-?-?-?-?-?-?-?-?-?-?-?- JV- no lof, vagi nal bleeding, or dec fm. 09/14/22 -?-?-?-?-?-?-?-?-?-?-?-?- 30w 3d 202 lb 8 oz 132/79 Nega tive -?-?-?-?-?-?-?-?-?-?-?-?- Negative 140 30 -?-?-?-?-?-?-?-?-?-?-?-?- LC- no lof/vb/ct x. good fm. having carpal tunnel symptoms- enc wrist braces. 09/28/22 -?-?-?-?-?-?-?-?-?-?-?-?- 32w 3d 206 lb 136/86 Negative -?-?-?-?-?-?-?-?-?-?-?-?- Negative 142 32 -?-?-?-?-?-?-?-?-?-?-?-?- MH-No VB, LOF. G ood FM. No CTX 10/13/22 -?-?-?-?-?-?-?-?-?-?-?-?- 34w 4d 206 lb 115/80 Negative -?-?-?-?-?-?-?-?-?--?-?-?- Negative 145 37 -?-?-?-?-?-?-?-?-?-?-?-?- JV- no lof, vagi nal bleeding, or dec fm. ordering growth scan for lga. 10/26/22 -?-?-?-?-?-?-?-?--?-?-?-?- 36w 3d 209 lb 6 oz 112/80 -?-?-?-?-?-?-?-?-?-?-?-?- 135 37 -?-?-?-?-?-?-?-?-?-?-?-?- Lc- no lof/vb/ct x. normal growth scan today. good fm. 11/02/22 -?-?-?-?-?-?-?-?-?-?-?-?- 37w 3d 213 lb 8 oz 135/84 Nega tive -?-?-?-?-?-?-?-?-?-?-?-?- Negative 138 37 Cephalic 0 -?-?-?-?-?-?-?-?-?-?-?-?- 20 -1 LC- no lof /vb, no consistent ctx. good fm. 11/09/22 -?-?-?-?-?-?-?-?-?-?-?-?- 38w 3d 214 lb 6 oz 114/81 Nega tive -?--?-?-?-?-?-?-?-?-?-?-?- Negative 130 38 Cephalic 2 .5 -?-?-?-?-?-?-?-?-?-?-?-?- 80 - JV- no lof , vaginal bleeding, or dec fm. EFW 45th% (estimated weight at 8lbs) currently should be about 7 pounds. 11/16/22 -?-?-?-?-?-?-?-?-?-?-?-?- 39w 3d 212 lb 8 oz 133/80 Nega tive -?-?-?-?-?-?-?-?-?-?-?-?- Negative 145 39 Cephalic 3 -?-?-?-?-?-?-?-?-?-?-?-?- 80 - JV- cervix is very posterior today. labor precautions discussed. ROS Constitutional Constitutional: Denies change in weight, fatigue, fever(s), headache(s), poor appetite or weakness Eyes Eyes: Denies blurry vision, change in vision, seeing flashes or spots in vision ENT HEENT: Denies dizziness, headache(s), loss taste/smell or sore throat Cardiovascular Cardiovascular: Denies chest pain, dizziness, dyspnea, irregular heart rhythm, leg edema, palpitations, rapid heart rate or vomiting Respiratory/Chest Respiratory/Chest: Denies chest tightness, cough, dyspnea or breast pain Gastrointestinal Gastrointestinal: Denies abdominal pain, anorexia, constipation, cramping, diarrhea, hemorrhoids, vomiting or weight changes Genitourinary Genitourinary: Denies dysuria, flank pain, genital lesions, genital pain, urinary frequency or urinary urgency Musculoskeletal Musculoskeletal: Denies back pain, difficulty walking, joint pain, limited range of motion, muscle cramps or numbness Integumentary Integumentary: Denies lesions or unusual bruising Neurologic Neurologic: Denies abnormal movements, abnormal speech, dizziness, numbness, seizure-like activity or syncope Psychiatric Psychiatric: Denies anxiety, behavioral changes, change in appetite, change in libido, cognitive impairment, confusion, depression, difficulty concentrating, hallucinations or suicidal thoughts Endocrine Endocrinology: Denies excessive sweating, polydipsia or polyuria Hematologic/Lymphatic Hematologic/Lymphatic: Denies easy bleeding, easy bruising or lymphadenopathy Allergic/Immunologic Allergic/Immunologic: Denies itchy eyes, lip swelling, seasonal rhinorrhea, rhinitis, throat swelling, tongue swelling, eczemia, wheezing or asthma Physical Exam Const alert, oriented x3, no apparent distress and healthy appearing General Appearance: cooperative; Negative for anxious HEENT normocephalic Face and Sinus: normal facial exam Eyes EOMs intact bilaterally and no scleral icterus General Eye: normal appearance of both eyes Neck full ROM and supple Lymph Lymphatic: no lymphadenopathy noted Chest Chest: abnormal inspection of the chest Resp normal respiratory effort Effort and Inspection: able to speak in complete sentences Cardio regular rate GI soft to palpation and non-tender Inspection: gravid Palpation: soft; Negative for tender external exam normal Back/Spine no CVA tenderness Extremity normal to inspection, full ROM and no clubbing, cyanosis or edema General Extremity: Negative for calf tenderness or edema Skin Lesions: no lesions Rashes: no rashes Psych mental status grossly normal Labs Labs Labs: Blood Type O POSITIVE Antibody Screen NEGATIVE Hct 33.0 % (37-47) L Hgb 10.8 g/dL (12.0-15.0) L Obstetrics US Syphilis Total Ab Non-reactive Rubella IgG Antibody Reactive (Nonreactive) Hep Bs Antigen Non-Reactive (Nonreactive) Chlamydia DNA (BRIANNA) Negative (Negative) Neisseria gonorrhoeae DNA (BRIANNA) Negative (Negative) HIV 1&2 Antibody Non-Reactive (Nonreactive) Glucose 1 Hr 50 gm 81 mg/dL (70-140) Assessment & Plan (1) LGA (large for gestational age) fetus: COMMENT: us for 36 weeks ordered -normal (2) GBS (group B streptococcus) UTI complicating : COMMENT: No treatment needed during , PCN in labor (3) Obesity affecting : COMMENT: 1 TM GCT encouraged healthy weight gain (4) Supervision of normal first : COMMENT: PRR , MARSHAL 11/20/22, [facility] (5) : QUALIFIERS: Weeks of gestation: 39 weeks Qualified Code(s): Z3A.39 - 39 weeks gestation of COMMENT: GBS Positive- treat in labor, anatomy nl. NIPT low risk, declined. Carrier testing. declined afp testing. PLAN: Plan Patient presents IAL, plan expectant management for , pitocin/AROM PRN if needed. Pain management: undecided. GBS positive plan IV PCN. Management of any complications: none I have reviewed the [facility] and made any clinically relevant updates. 11/23/22 0758 <Electronically signed by Nellie Miller DO> Cosigner Signature (if applicable): CC: Dr. Nellie Miller DO; Dr. Mary Hernandes DO~ Signed [facility] Work Phone: [phone] 104-635312-21-2022 Miscellaneous Notes* Telephone Encounter - Pamela Argueta RN - 08/17/2022 8:20 AM EST Patient notified of results and provider's instructions. Patient verbalizes understanding. Pamela Argueta RN * Telephone Encounter - Xi Coronado MA - 08/17/2022 8:18 AM EST Left message for pt to call back. Xi Coronado MA * Telephone Encounter - Annika Moreno APRN.CNP - 08/17/2022 7:40 AM EST Please notify of negative covid and influenza test. DO NOT START TAMIFLU. Continue comfort measuresfor symptoms as you would for a cold. Any worsening symptoms follow up with PCP or ER. Annika Moreno APRN.CNP documented in this encounterUniversity [facility] Influenza virus A and B RNA and SARS-CoV-2 (COVID-19) N gene panel BRIANNA+probe (Resp)COVID 19 RESULT: SARS-CoV-2 (Agent of COVID-19) Not Detected by RT-PCR or equivalent method. robbie [id number]-[id number] (CHU[employer])_EUA This test was developed and its performance characteristics determined by [facility] [place]. This test has been authorized by FDA under an Emergency Use Authorization (EUA). This test has been validated in accordance with the FDA's Guidance Document Policy for DiagnosticsTesting in Laboratories Certified to Perform High Complexity Testing under CLIA prior to Emergency use Authorization for Coronavirus Disease 2019 during the Public Health Emergency issued on October 26, 2019. Test performed by [facility], [facility] [place], [address] [place] [address]. INFLUENZA A PCR: Negative for Influenza A by RT-PCR INFLUENZA B PCR: Negative for Influenza B by RT-PCROhiohealth Van Wert HospitalComment on above: Performed By: #### [id number] #### [facility] CLIA [id number] [address] [place], [place] [address]K [address] STATES OF [id number] NoteHNO ID: [id number] Author: Angy Manley APRN.CONTENT DESIGNER Service: ? Author Type: Nurse Practitioner Type: Progress Notes Filed: 08/16/2022 4:31 PM Note Text: Subjective HPI HPI Tere Villalobos is a 26 year old female who presents today for CC of st, cough, congestion. This started 2 days ago. Has tried otc medication for relief. Symptoms are worsened by nothing. Risk factors sick exposures at work. 26 weeks . .Patient presents with: Pain, Throat: Pt reported 26 wk gestation, throat pain rated 8, cough, nasal congestion x2 days. No past medical history on file. No past surgical history on file. ALLERGIES Zinc MEDICATIONS vit,keila 74/iron/folic ( VITAMIN 1+1 ORAL) Take by mouth. Desogestrel-Ethinyl Estradiol 0.15-0.03 mg per tablet Take 1 tablet by mouth once daily. (Patient not taking: Reported on 08/16/2022) No family history on file. Social History Tobacco Use Smoking status: Never Smokeless tobacco: Never Substance Use Topics Alcohol use: Never Drug use: Never Review of Systems Constitutional: Negative for fever. HENT: Positive for congestion and sore throat. Negative for ear pain and nosebleeds. Respiratory: Positive for cough. Negative for shortness of breath and wheezing. Cardiovascular: Negative for chest pain. Gastrointestinal: Negative for abdominal pain, diarrhea and vomiting. Musculoskeletal: Negative for neck pain. Skin: Negative for itching and rash. Objective Blood pressure 118/66, pulse 107, temperature 36.8 ?C (98.2 ?F), temperature source Tympanic, resp. rate 16, weight 87.1 kg (192 lb), last menstrual period 02/20/2022, SpO2 96 %. Physical Exam Constitutional: General: She is not in acute distress. Appearance: She is not toxic-appearing or diaphoretic. HENT: Head: Normocephalic and atraumatic. Right Ear: Hearing, tympanic membrane, ear canal and external ear normal. Left Ear: Hearing, tympanic membrane, ear canal and external ear normal. Nose: Nose normal. Mouth/Throat: Pharynx: Uvula midline. Posterior oropharyngeal erythema present. No pharyngeal swelling, oropharyngeal exudate or uvula swelling. Eyes: General: Lids are normal. No scleral icterus. Right eye: No discharge. Left eye: No discharge. Conjunctiva/sclera: Conjunctivae normal. Pupils: Pupils are equal, round, and reactive to light. Neck: Trachea: Trachea normal. Cardiovascular: Rate and Rhythm: Normal rate and regular rhythm. Heart sounds: Normal heart sounds. Pulmonary: Effort: Pulmonary effort is normal. Breath sounds: Normal breath sounds. Musculoskeletal: Cervical back: Normal range of motion and neck supple. Lymphadenopathy: Cervical: No cervical adenopathy. Right cervical: No superficial cervical adenopathy. Left cervical: No superficial cervical adenopathy. Skin: Findings: No rash. Neurological: Mental Status: She is alert and oriented to person, place, and time. ASSESSMENT/PLAN: 1. URI, acute - ICD9: 465.9, ICD10: J06.9 (primary diagnosis) - Discussed viral etiology and rationale for treatment. - Symptomatic treatment with prn analgesia - Supportive care with fluids and rest - Follow up in 3-5 days if symptoms persist or sooner if worsening of symptoms -if positive for flu, tamiflu rx provided, if negative discard rx. - OSELTAMIVIR 75 MG CAPSULE 2. Throat pain - ICD9: 784.1, ICD10: R07.0 Neg strep - STREP A MOLECULAR (POC) Angy Manley APRN.[facility]05-31-2022 NotePap Smear Specimen AdequacyMay 2021 3:25pmComment.Satisfactory for evaluation. No endocervical component is identified.[facility] A#[id number] Hospital Work Phone: Comment on above:Satisfactory for evaluation. No endocervical component is identified.01-25-2022 NotePap Smear QC ReviewMay 2021 3:25pmComment.Deandra Tay, Supervisory Microsoft Exchange Administrator (ASCP)[facility] A#[id number] Hospital Work Phone: Comment on above:Deandra Tay Supervisory [employer] Exchange Administrator (ASCP)01-25-2022 NotePap Smear Specimen AdequacyMay 2021 3:25pmComment.Satisfactory for evaluation. No endocervical component is identified.[facility] A#[id number] Hospital Work Phone: Comment on above:Satisfactory for evaluation. No endocervical component is identified.01-25-2022 NotePap Smear QC ReviewMay 2021 3:25pmComment.Deandra Tay Supervisory Microsoft Exchange Administrator (ASCP)[facility] A#[id number] Hospital Work Phone: Comment on above:Deandra Tay, Supervisory Microsoft Exchange Administrator (ASCP)Consult note Author Benito Rodrigues [facility] Note Date/Time February 18, 2025 6:34 pm [facility] Medical Records Department [address] [place] [address] Anesthesia Postop Eval I 02/18/25 1719 MR#: [id number] Acct: [id number] Name: CRISTINATERE PANTOJA IRINA Rep #:[id number] : 1995 29 From: Benito GOMEZ PCP: VIRGEN LUNA Status:REG SDC Y Race: C Location: [place] [address] Anesthesia: Postop Eval I Current Vital Signs Temperature: 97.3 F Pulse Rate: 89 Blood Pressure: 99/67 Respiratory Rate: 17 Pulse Ox: 98 Assessment Airway patent: Yes Spontaneous unlabored respirations: Yes Mental status: Awake and Calm nausea: No Vomiting: No Anesthesia Complication: No Fluid Hydration Crystalloid volume administer (ml): 1,000 Total IV fluid infused: 1,000 Progress Note Anesthesia document: Postop Eval 1 completed: Yes 02/18/25 8059 <Electronically signed by Benito Rodrigues [employer] OFFICER> Date _ Benito Rodrigues [employer] OFFICER Cosigner Signature: Date CC: ~ Signed [facility] Work Phone: evaluation note* Diagnosis Onset Date Resolution Status Encounter for routine gynecological examination noneactive Obesity affecting acute acute Seasonal allergies acute Supervision of normal first [facility] Work Phone: evaluation note* Diagnosis Onset Date Resolution Status Encounter for routine gynecological examination noneactive Obesity affecting acute acute Seasonal allergies acute Supervision of normal first acute GBS (group B streptococcus) UTI complicating acute Obesity affecting acute acute Seasonal allergies acute Supervision of normal first [facility] Work Phone: Evaluation note* Diagnosis Onset Date Resolution Status Obesity affecting acute acute Supervision of normal first acute Seasonal allergies resolved GBS (group B streptococcus) UTI complicating acute Obesity affecting acute acute Supervision of normal first acute Seasonal allergies resolved GBS (group B streptococcus) UTI complicating acute Obesity affecting acute acute Supervision of normal first acute Seasonal allergies resolved GBS (group B streptococcus) UTI complicating acute Obesity affecting acute acute Supervision of normal first acute Seasonal allergies resolved GBS (group B streptococcus) UTI complicating acute Obesity affecting acute acute Supervision of normal first acute [facility] Work Phone: Evaluation note* Diagnosis Onset Date Resolution Status GBS (group B streptococcus) UTI complicating acute Obesity affecting acute acute Supervision of normal first acute Seasonal allergies resolved GBS (group B streptococcus) UTI complicating acute Obesity affecting acute acute Supervision of normal first acute GBS (group B streptococcus) UTI complicating acute Obesity affecting acute acute Supervision of normal first acute GBS (group B streptococcus) UTI complicating acute Obesity affecting acute acute Supervision of normal first acute GBS (group B streptococcus) UTI complicating acute Obesity affecting acute acute Supervision of normal first acute GBS (group B streptococcus) UTI complicating acute LGA (large for gestational age) fetus acute Obesity affecting acute acute Supervision of normal first acute GBS (group B streptococcus) UTI complicating acute LGA (large for gestational age) fetus acute Obesity affecting acute acute Supervision of normal first acute [facility] Work Phone: Evaluation note* Diagnosis Onset Date Resolution Status GBS (group B streptococcus) UTI complicating acute Obesity affecting acute acute Supervision of normal first acute GBS (group B streptococcus) UTI complicating acute Obesity affecting acute acute Supervision of normal first acute GBS (group B streptococcus) UTI complicating acute Obesity affecting acute acute Supervision of normal first acute GBS (group B streptococcus) UTI complicating acute Obesity affecting acute acute Supervision of normal first acute GBS (group B streptococcus) UTI complicating acute LGA (large for gestational age) fetus acute Obesity affecting acute acute Supervision of normal first acute GBS (group B streptococcus) UTI complicating acute LGA (large for gestational age) fetus acute Obesity affecting acute acute Supervision of normal first acute GBS (group B streptococcus) UTI complicating acute LGA (large for gestational age) fetus acute Obesity affecting acute acute Supervision of normal first acute GBS (group B streptococcus) UTI complicating acute LGA (large for gestational age) fetus acute Obesity affecting acute acute Supervision of normal first acute GBS (group B streptococcus) UTI complicating acute LGA (large for gestational age) fetus acute Obesity affecting acute acute Supervision of normal first acute [facility] Work Phone: Evaluation note* Diagnosis Onset Date Resolution Status GBS (group B streptococcus) UTI complicating acute GBS (group B streptococcus) UTI complicating acute GBS (group B streptococcus) UTI complicating acute GBS (group B streptococcus) UTI complicating acute GBS (group B streptococcus) UTI complicating acute GBS (group B streptococcus) UTI complicating acute GBS (group B streptococcus) UTI complicating acute GBS (group B streptococcus) UTI complicating acute GBS (group B streptococcus) UTI complicating acute GBS (group B streptococcus) UTI complicating acute [facility] Work Phone: Progress note Author Nellie Diego [facility] Note Date/Time February 14, 2025 1:57 pm [facility] [address] [place] [address], [address] [place] [address] OFFICE VISIT Date of Service: 02/14/25 MR#: [id number] Acct: [id number] Name: TERE BARON Rep # : [id number] : 1995 Provider: Dr. Aicha Miller DO Age/Sex: 29/F Location: [facility] Status: Signed Intake Vital Signs 11/15/24 10:10 02/14/25 13:13 02/14/25 13:13 Height 5 ft 4 in 5 ft 4 in 5 ft 4 in Weight: 212 lb 2 oz BMI 36.3 Intake Visit Reasons: *EST* NOB LMP 12/11, MARSHAL 09/17 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: No Is patient in pain?: No Allergies zinc Adverse Reaction (Verified 02/14/25 13:12) Upset Stomach Medications ?Medication ?Instructions ?Recorded ?Confirmed ?Type PNV 153-FA 400 mcg-om3 35 mg-dha tab PO .QD 01/30/25 0 02/14/25 History 25 mg-epa 5 mg-fish oil chew tablet Last Menstrual Period: 12/11/24 Zika: Zika virus screening: Negative : No PFSH PFSH Medical History Encounter for IUD removal Contraceptive management LGA (large for gestational age) fetus Obesity affecting Supervision of normal first HPV test positive Abnormal uterine bleeding (AUB) Surgical History Status post vaginal delivery History of surgery History of tonsillectomy S/P appendectomy Family History Father Epilepsy Grandfather Celiac disease Paternal Sister Celiac disease Aunt Lupus Maternal Social History adopted: No household members: significant other and children housing: house number of children: 2 service: No current occupational status: employed current occupation: [employer] current occupational exposures/hazards: No pets and animals: Yes (Not managing litter box) pets and animals: cat(s) and dog(s) history of recent travel: No sexually active: Yes Smoking Status: Never smoker alcohol intake: current alcohol intake frequency: holidays/special occasions only details: social- Not while substance use type: does not use well-balanced diet: daily or most days caffeine: No eating out: rarely or never during the past year weight has: remained stable what type of physical activity do you participate in: none crista/taoist: Pent[employer]ost[employer]ism seatbelt use: always do you feel safe at home: Yes additional social history: [facility] History 2 Elective abortions Hx Para 1 Spontaneous abortions Hx # Term Pregnancies 1 Ectopic pregnancies Hx # Pregnancies Multiple births # of living children 1 Past Pregnancies Del. Date Name GA/Weeks Outcome Route Bth Weight Infant Gen Labor Lgth Anesthesia Del Locatn Provider FOB 11/23/22 Cruz 40 live - full term 7lbs 6oz Male ep idural [facility] Nellie Yanes [place] Delivery Date: 11/23/22 Last Updated by: Jayshree Austin see problem list for complications. HPI *EST* NOB LMP 12/11, MARSHAL 09/17 Details: TERE BARON is a 29 year old who presents for New OB visit. OB Visit MARSHAL Calculator Estimated Delivery Date Method Current WG Current Estimate 09/17/25 LMP (Certain) 9w 2d Comments: HIV: Urine Culture: Sequential Screen: NIPT Screen: Estimated Due Date: 09/17/25 Initial Weight: Not Recorded Date -?-?-?-?-?-?-?-?-?-?-?-?- EGA Weight BP Urine Prot -?-?-?-?-?--?-?-?-?-?-?-?- Glucose FHR FuHt Pres Dilation -?-?-?-?-?-?-?-?-?-?-?--?- Effaced St Visit Note 02/14/25 -?-?-?-?-?-?-?-?-?-?-?-?- 9w 2d 212 lb 2 oz -?-?-?-?-?-?-?-?-?-?-?-?- -?-?-?-?-?-?-?-?-?-?-?-?- JV- no heart ton es or pole. large GS and yolk sac consistent with miscarriage. patient would like D&C and possible anora testing. Menstrual History Last Menstrual Period: 12/11/24 Reported LMP: definite Normal amount/duration: Yes Frequency in days: unknown due to IUD(removed in October) On hormonal BC at conception: No hCG+: 01/02/25 (faint +, 01/04 spotting x1 light pink, 01/05 strong +HPT) Antepartum Record Genetic Screening: Congenital Heart Defect: Other, Neural Tube Defect: Other, Hemoglobinopathy Or Carrier: Patient (Maternal Aunt -Lupus), Cystic Fibrosis: Other, Chromosome Abnormality: Other, Reji-Sachs: Other, Hemophilia: Other, Intellectual Disability/Autism: Other, Recurrent Loss/Stillbirth: Other, Other Structural Defect: Other, Other Genetic Disease: Other and Maternal Metabolic Disorder: Other Infection History: Live with someone with TB or Exposed to TB: No, Patient or Partner has history of Genital Herpes: No, Rash or Viral illness since last mentrual period: No, Prior GBS-Infected child: Yes (+GBS 1st ), Historyof STD: No, HIV Infection: No, History of Hepatitis: No, Recent travel outside of [place]: No, Concern for hepatitis exposure: No, Varicella immune: Yes (immune) and Covid Vaccinated: No Medical History Medical History: Positive: Seasonal allergies (mild, fall), Drug/latex allergies/reactions (zinc), Operations/hospitalizations (See PFSH), History of abnormal pap (+HPV 2020, neg since), Relevant family history (celiac disease Paternal Grandfather & Sister) and Other (obesity) and Negative: Diabetes, Hypertension, Heart disease, Auto-immune disorder, Kidney disease/UTI, Neurologic/epilepsy, Psychiatric, Depression/ depression, Hepatitis/liver disease, Varicosities/phlebitis, Thyroid dysfunction, Trauma/domestic violence, History of blood transfusions, D (Rh) Sensitized, Pulmonary (e.g.,TB,Asthma), Breast, Parent Partner surgery, Anesthetic complications, Uterine anomaly/abilio, Infertility and Anti-retroviral treatment ACOG First Trimester First Trimester: Desire for , Alcohol, Tobacco Cessation, Illicit/Recreational Drug/Substance Use, Intimate Partner Violence, Barriers to care, Unstable Housing, Communication Barriers, Environmental/Work Hazards, Anticipated Course of Care, Toxoplasmosis Precations, Use of Any medications, Sexual activity, Exercise, Dental Care, Sauna/Hot tub use, Seat Belt use, Childbirth classes/Hospital facilities, Travel, Indications for Ultrasound and Screening for Aneuploidy; Discussed Second Trimester Second Trimester: Signs and Symptoms of Labor Third Trimester Third Trimester: Pain Management Plans, Labor support person(s), Immediate Larc, Movement Monitoring, Signs and Symptoms of Preeclampsia, Labor Signs, [place] Education, Family Medical Leave or Disability Forms, Depression and Depression; Discussed Tobacco Cessation ROS Const Reports system reviewed and no additional complaints, except as documented, Reports fatigue and Denies fever(s) Eyes Reports system reviewed and no additional complaints, except as documented ENT Reports system reviewed and no additional complaints, except as documented Card Denies chest pain and Denies dyspnea Resp Reports system reviewed and no additional complaints, except as documented, Denies cough and Denies dyspnea GI Denies abdominal pain and Reports nausea Reports system reviewed and no additional complaints, except as documented Musc Reports system reviewed and no additional complaints, except as documented Skin/Breast Reports system reviewed and no additional complaints, except as documented Neuro Yes system reviewed and no additional complaints, except as documented Psych Reports system reviewed and no additional complaints, except as documented Endo Reports system reviewed and no additional complaints, except as documented and Reports fatigue Exam Const General: healthy appearing, comfortable and no acute distress Orientation: alert HENMT Head: normal to inspection, normocephalic and atraumatic Ears: hearing grossly normal bilaterally and external ears normal Nose: external nose normal and nares normal Mouth: oral mucosae normal Teeth and gingiva: dentition normal Eyes General: appearance normal, both eyes and all related structures Neck Neck: normal visual inspection, no lymphadenopathy and supple Thyroid: thyroid normal Resp Effort & Inspection: normal respiratory effort GI Inspection: normal to inspection Palpation: soft and no hepatosplenomegaly General: bladder normal to palpation External Female Exam: normal external appearance and normal appearance of the urethra Urethra: normal appearance of the urethra Speculum Exam - Vagina: normal appearance of the vagina and normal vaginal discharge Speculum Exam - Cervix: normal appearance of the cervix Bimanual Exam- Vagina & Uterus: normal bimanual exam, bladder normal to palpation, non-tender and other Bimanual Exam- Adnexa, other: non-tender Skin General: no rashes or lesions noted Neuro Motor: muscle tone normal throughout and no movement abnormalities noted Extrem General: normal to inspection and full ROM Supplemental Info ACOG book given and patient encouraged to read about nutrition, exercise, weight gain, and food avoidance in . Coding Level of Care Code Off vis,est,level 4 Diagnoses FH: lupus FH: celiac disease Z83.79 Obesity affecting O99.210 Supervision of high-risk O09.90 Z34.90 Missed O02.1 Assessment and Plan Assessment and Plan (1) FH: lupus: Status: Acute Comment: Maternal Aunt (2) FH: celiac disease: Status: Acute Comment: Sister & Paternal Grandfather (3) Obesity affecting : Status: Acute Comment: HgbA1c (4) Supervision of high-risk : Status: Acute Comment: , MARSHAL 09/17/25, Jose Sarmiento son Tyrone, [facility] (5) : Status: Acute Comment: elects NIPT with Gender (6) Missed : Status: Acute Plan: After discussing the patient's diagnosis and treatment plan options, patient wishes to proceed with surgical management. I have discussed with the patient the risks, benefits, and alternatives of the procedure which include but are notlimited to risks of anesthesia, bleeding, infection, possible damage to bowel, bladder, or surrounding vasculature which could lead to additional surgery to evaluate any complications. Patient agrees to procedure and wishes to proceed. ACOG/uptodate references given for additional information regarding procedure. plan for suction D&C next available. Orders: Orders Culture, Urine 01/30/25 O09.90 - Supervision of high risk , unspecified, unspecified trimester PAP I-G w/rfx hrHPV-Aptima 01/30/25 O09.90 - Supervision of high risk , unspecified, unspecified trimester, Z12.4 - Encounter for screening for malignant neoplasm of cervix 02/14/25 1358 <Electronically signed by Nellie Schuster DO> Date _ Nellie Miller DO Cosigner Signature: Date (if applicable) CC: ~ [facility] Work Phone: Reason for referral (narrative)No reason for referral information [facility] Work Phone: Chief Complaint and Reason for Visit Chief Complaint Annual (COSTING MANAGER) NOB LMP 02/13 Reason for Visit Encounter for routin e gynecological examination Obesity affecting Seasonal allergies Supervision of normal first Chief Complaint Annual (COSTING MANAGER) NOB LMP 02/13 13 WK OB Reason for Visit Encounter for routin e gynecological examination Obesity affecting Seasonal allergies Supervision of normal first GBS (group B streptococcus) UTI complicating Obesity affecting Seasonal allergies Supervision of normal first Chief Complaint NOB LMP 02/13 13 WK OB 17 WK OB 21 WK OB EORDERS- GLUCOSE DRAW AT 500 25 WK OB Reason for Visit Obesity affecting pr egnancy Supervision of normal first Seasonal allergies GBS (group B streptococcus) UTI complicating Obesity affecting Supervision of normal first Seasonal allergies GBS (group B streptococcus) UTI complicating Obesity affecting Supervision of normal first Seasonal allergies GBS (group B streptococcus) UTI complicating Obesity affecting Supervision of normal first Seasonal allergies GBS (group B streptococcus) UTI complicating Obesity affecting Supervision of normal first Chief Complaint 21 WK OB EORDERS- GLUCOSE DRAW AT 500 25 WK OB 28WK OB 30WK OB 32 WK OB 34 WK OB MEASURING LARGE FOR DATES 36 WK OB Reason for Visit GBS (group B strepto coccus) UTI complicating Obesity affecting Supervision of normal first Seasonal allergies GBS (group B streptococcus) UTI complicating Obesity affecting Supervision of normal first GBS (group B streptococcus) UTI complicating Obesity affecting Supervision of normal first GBS (group B streptococcus) UTI complicating Obesity affecting Supervision of normal first GBS (group B streptococcus) UTI complicating Obesity affecting Supervision of normal first GBS (group B streptococcus) UTI complicating LGA (large for gestational age) fetus Obesity affecting Supervision of normal first GBS (group B streptococcus) UTI complicating LGA (large for gestational age) fetus Obesity affecting Supervision of normal first Chief Complaint EORDERS- GLUCOSE DANIELA W AT 500 25 WK OB 28WK OB 30WK OB 32 WK OB 34 WK OB MEASURING LARGE FOR DATES 36 WK OB 37 WK OB 38 WK OB 39 WK OB RULE OUT LABOR Reason for Visit GBS (group B strepto coccus) UTI complicating Obesity affecting Supervision of normal first GBS (group B streptococcus) UTI complicating Obesity affecting Supervision of normal first GBS (group B streptococcus) UTI complicating Obesity affecting Supervision of normal first GBS (group B streptococcus) UTI complicating Obesity affecting Supervision of normal first GBS (group B streptococcus) UTI complicating LGA (large for gestational age) fetus Obesity affecting Supervision of normal first GBS (group B streptococcus) UTI complicating LGA (large for gestational age) fetus Obesity affecting Supervision of normal first GBS (group B streptococcus) UTI complicating LGA (large for gestational age) fetus Obesity affecting Supervision of normal first GBS (group B streptococcus) UTI complicating LGA (large for gestational age) fetus Obesity affecting Supervision of normal first GBS (group B streptococcus) UTI complicating LGA (large for gestational age) fetus Obesity affecting Supervision of normal first Chief Complaint EORDERS- GLUCOSE DANIELA W AT 500 25 WK OB 28WK OB 30WK OB 32 WK OB 34 WK OB MEASURING LARGE FOR DATES 36 WK OB 37 WK OB 38 WK OB 39 WK OB RULE OUT LABOR RULE OUT LABOR VAGINAL DELIVERY INDUCTION VAGINAL DELIVERY Reason for Visit GBS (group B strepto coccus) UTI complicating GBS (group B streptococcus) UTI complicating GBS (group B streptococcus) UTI complicating GBS (group B streptococcus) UTI complicating GBS (group B streptococcus) UTI complicating GBS (group B streptococcus) UTI complicating GBS (group B streptococcus) UTI complicating GBS (group B streptococcus) UTI complicating GBS (group B streptococcus) UTI complicating GBS (group B streptococcus) UTI complicating Chief Complaint Admit Date iud removal (mirena) November 15, 2024 10 :03am *EST* NOB LMP 12/11, MARSHAL 09/17February 14, 2025 12:53pm Reason for Visit Admit Date Encounter for IUD removal November 15 10:03am FH: celiac disease February 14, 2025 12:5 3pm FH: lupus February 14, 2025 12:5 3pm Obesity affecting February 14 12:53pm February 14, 2025 12:5 3pm Supervision of high-risk February 14, 2025 12:53pm Chief Complaint Admit Date iud removal (mirena) November 15, 2024 10 :03am *EST* NOB LMP 12/11, MARSHAL 09/17February 14, 2025 12:53pm Dilation and Curettage, Suction January 1:52pm Dilation and Curettage, Suction January 4:09pm Reason for Visit Admit Date Encounter for IUD removal November 15 10:03am FH: celiac disease February 14, 2025 12:5 3pm FH: lupus February 14, 2025 12:5 3pm Missed February 14, 2025 12:5 3pm Obesity affecting February 14 025 12:53pm February 14, 2025 12:5 3pm Supervision of high-risk February 14, 2025 12:53pm Missed February 18, 2025 1:52 pm Chief Complaint Admit Date iud removal (mirena) November 15, 2024 10 :03am *EST* NOB LMP 12/11, MARSHAL 09/17February 14, 2025 12:53pm Dilation and Curettage, Suction January 1:52pm Dilation and Curettage, Suction January 4:09pm 2 wk D&C March 03, 2025 7:58a m Advance Directives No Advanced Directives Records Found Advance Directive Response Recorded Date/ Time Living Will No December 19, 2017 10:36pm Power of Stem Frazer No December 19 10:36pm Advance Directive Response Recorded Date/ Time Living Will No December 19, 2017 9:36pm Power of Stem Frazer No December 19 9:36pm Advance Directive Response Recorded Date/ Time Name of Medical Power of Stem Frazer Cristian elkins November 23, 2022 8:23am Living Will Yes November 23, 2022 8:23am Power of Stem Frazer Yes November 23 8:23am Advance Directive Response Recorded Date/ Time Do you have a Healthcare Power of Stem Frazer? No February 17, 2025 1:24pm Summary Purpose Family History Relationship Condition Age at Onset Recorded Date/T fariha father Epilepsy Unknown grandfather Celiac disease Unknown sister Celiac disease Unknown aunt Lupus Unknown No Family History Records Found Additional Source Comments Goals (unrecognized section and content) Goals may be documented in a n alternate sectionGoals may be documented in an alternate sectionGoals may be documented in an alternate sectionGoals may be documented in an alternate sectionGoals may be documented in an alternate sectionGoals may be documented in an alternate section INFORMATION SOURCE (unrecogn ized section and content) DATE CREATED AUTHOR 07/13/2022 [facility] DATE CREATED AUTHOR AUTHOR'S ORGANIZ ATION 08/20/2022 [facility] DATE CREATED AUTHOR AUTHOR'S ORGANIZ ATION 04/18/2024 [facility] ([place]) DATE CREATED AUTHOR AUTHOR'S ORGANIZ ATION 03/06/2025 [facility] Source Comments (unrecognize d section and content) In the event this informatio n is protected by the Federal Confidentiality of Alcohol and Drug Abuse Patient Records regulations: The Federal rules restrict any use of the information to criminally investigate or prosecute any alcohol or drug abuse patient.[facility] Reason for Visit (unrecogniz ed section and content) Reason Comments Results Care Teams (unrecognized sec tion and content) Team Status: Active Member Role Status Dates VIRGEN LUNA Primary Care Provider Active Team Status: Inactive Member Role Status Dates Dr. Mary Hernandes DO Primary Care Provider Active Start: November 15, 2024 End: November 15, 2024 Dr. Mary Hernandes DO Referring Provider Active Start: November 15, 2024 End: November 15, 2024 Dr. Maribel Chen MD Attending Provider Active Start: November 15, 2024 End: November 15, 2024 Team Status: Inactive Member Role Status Dates Dr. Mary Hernandes DO Primary Care Provider Active Start: February 14, 2025 End: February 14, 2025 Dr. Mary Hernandes DO Referring Provider Active Start: February 14, 2025 End: February 14, 2025 Dr. Nellie Miller DO Attending Provider Activ e Start: February 14, 2025 End: February 14, 2025 Team Status: Active Member Role Status Dates Dr. Mary Hernandes DO Primary Care Provider Active Start: February 14, 2025 Dr. Nellie Miller DO Attending Provider Activ e Start: February 14, 2025 Dr. Nellie Miller DO Referring Provider Activ e Start: February 14, 2025 Team Status: Inactive Member Role Status Dates Dr. Nellie Miller DO Attending Provider Activ e Start: February 18, 2025 End: February 18, 2025 Dr. Nellie Miller DO Referring Provider Activ e Start: February 18, 2025 End: February 18, 2025 JEREMY NEW Primary Care Provider Active Start: February 18, 2025 End: February 18, 2025 Team Status: Active Member Role Status Dates Dr. Nellie Miller DO Attending Provider Activ e Start: February 18, 2025 Dr. Nellie Vande Velde , DO Referring Provider Activ e Start: February 18, 2025 Dr. Nellie Miller DO Other Provider Active Start: February 18, 2025 JEREMY NEW Primary Care Provider Active Start: February 18, 2025 Team Status: Active Member Role Status Dates Dr. Mary Hernandes DO Family Provider Active Dr. Mary Hernandes DO Primary Care Provider Active Team Status: Inactive Member Role Status Dates Dr. Mary Hernandes DO Primary Care Provider, Referri ng Provider Active Joanna Gallardo CNM Attending Provider Active Team Status: Inactive Member Role Status Dates Dr. Mary Hernandes DO Primary Care Provider, Referri ng Provider Active Dr. Maribel Chen MD Attending Provider Active Team Status: Inactive Member Role Status Dates Dr. Mary Hernandes DO Primary Care Provider, Referri ng Provider Active Dr. Nellie Miller DO Attending Provider Activ e Team Status: Inactive Member Role Status Dates Dr. Mary Hernandes DO Primary Care Provider, Referri ng Provider Active Mayra Mccurdy BANANA GRADER, BANANA GRADER-C Attending Provider Active Team Status: Inactive Member Role Status Dates Dr. Mary Hernandes DO Primary Care Provider Active Joanna Gallardo CNM Attending Provider, Referring Pr ovider Active Team Status: Inactive Member Role Status Dates Dr. Mary Hernandes DO Primary Care Provider Active Dr. Nellie Miller DO Attending Provider Activ e Team Status: Inactive Member Role Status Dates Dr. Mary Hernandes DO Primary Care Provider Active Dr. Maribel Chen MD Attending Provider Active Team Status: Active Member Role Status Dates Dr. Mary Hernandes DO Primary Care Provider Active Dr. Maribel Chen MD Attending Provider, Other Provider Active Team Status: Active Member Role Status Dates Dr. Mary Hernandes DO Primary Care Provider Active Dr. Nellie Miller DO Admit Prov ider, Attending Provider, Referring Provider, Other Provider Active Team Status: Inactive Member Role Status Dates Dr. Mary Hernandes DO Primary Care Provider Active Dr. Nellie Miller DO Admit Prov ider, Attending Provider, Referring Provider Active Team Status: Active Member Role/Relationship Status Dates VIRGEN LUNA Primary Care Provider Active Team Status: Inactive Member Role/Relationship Status Dates Dr. Mary Hernandes DO Primary Care Provider Active Start: November 15, 2024 End: November 15, 2024 Dr. Mary Hernandes DO Referring Provider Active Start: November 15, 2024 End: November 15, 2024 Dr. Maribel Chen MD Attending Provider Active Start: November 15, 2024 End: November 15, 2024 Team Status: Inactive Member Role/Relationship Status Dates Dr. Mary Hernandes DO Primary Care Provider Active Start: February 14, 2025 End: February 14, 2025 Dr. Mary Hernandes DO Referring Provider Active Start: February 14, 2025 End: February 14, 2025 Dr. Nellie Miller DO Attending Provider Activ e Start: February 14, 2025 End: February 14, 2025 Team Status: Inactive Member Role/Relationship Status Dates Dr. Mary Hernandes DO Primary Care Provider Active Start: February 14, 2025 End: February 14, 2025 Dr. Nellie Miller DO Attending Provider Activ e Start: February 14, 2025 End: February 14, 2025 Dr. Nellie Miller DO Referring Provider Activ e Start: February 14, 2025 End: February 14, 2025 Team Status: Inactive Member Role/Relationship Status Dates Dr. Nellie Miller DO Attending Provider Activ e Start: February 18, 2025 End: February 18, 2025 Dr. Nellie Miller DO Referring Provider Activ e Start: February 18, 2025 End: February 18, 2025 JEREMY NEW Primary Care Provider Active Start: February 18, 2025 End: February 18, 2025 Team Status: Active Member Role/Relationship Status Dates Dr. Nellie Miller DO Attending Provider Activ e Start: February 18, 2025 Dr. Nellie Miller DO Referring Provider Activ e Start: February 18, 2025 Dr. Nellie Miller DO Other Provider Active Start: February 18, 2025 JEREMY NEW Primary Care Provider Active Start: February 18, 2025 Team Status: Inactive Member Role/Relationship Status Dates Dr. Mary Hernandes DO Referring Provider Active Start: March 03, 2025 End: March 03, 2025 Dr. Nellie Miller DO Attending Provider Activ e Start: March 03, 2025 End: March 03, 2025 JEREMY NEW Primary Care Provider Active Start: March 03, 2025 End: March 03, 2025 FOR RECORDS PERTAINING TO PATIENTS WHO ARE OR HAVE BEEN ENROLLED IN A CHEMICAL DEPENDENCY/SUBSTANCEABUSE PROGRAM, SOME INFORMATION MAY BE OMITTED. This clinical summary was aggregated from multiple sources. Caution should be exercised in using it in the provision of clinical care. This summary normalizes information from multiple sources, and as a consequence, information in this document may materially change the coding, format and clinical context of patient data. In addition, data may be omitted in some cases. CLINICAL DECISIONS SHOULD BE BASED ON THE PRIMARY CLINICAL RECORDS. [facility] [employer], [facility]. provides no warranty or guarantee of the accuracy or completeness of information in this document.
--- OUTSIDE RECORDS SUMMARY | 2025-03-11 22:06 | XMS RPT_ITS | CCD ---
Author Organization [facility] Care Team Providers Care Database Security Administrator Name Role Phone Dr. Mary Hernandes Primary [...] Nellie Miller Attending Provider 1( 30) Kaz TUNNEL WORKERREBECCA Attending Provider 1(330 ) Dr. Mary Hernandes Primary Care Provider Dr. Mary Hernandes Referring Provider 1(330) Dr. Maribel Chen Attending Provider 1(330 ) Dr. Nellie Miller Attending Provider 1( 30) ELIESER Gallardo Attending Provider 1(330) Kaz TUNNEL WORKER, REBECCA Nunez Attending Provider 1(330 ) Dr. Maribel Chen Other Provider 1(330) Dr. Nellie Miller Admit Provider Dr. Nellie Miller Referring Provider 1(11 24) Dr. Nellie Miller Other Provider MARY HERNANDES DO Attending Unavailable JOANNA PATEL, MARY Primary Care Unavailable Dr. Mary Hernandes DO Primary Care Provider 1(11 24) Dr. Mary Hernandes DO Referring Provider Dr. Maribel Chen MD Attending Provider Farzana Diego DO, Dr. Ballard Attending Provider [...] Unavailabl e Mary Hernandes Referring Unavailable [place] Primary Care Unavailable Maribel Chen Attending Unavailable Mary Hernandes Primary Care Unavailable Mary Hernandes Referring Unavailable Nellie Miller Attending Unavailabl e Nellie Miller Referring Unavailabl e Nellie Miller Consulting Unavailchaparro e [facility] Primary Care Unavailable [facility] Primary Care Unavailable Nellie Miller Attending Unavailabl e Vande VelNellie guaman Referring Unavailabl e Allergies Allergy Classification Reported Allergen(s) Allergy Type Date of Onset Reaction(s) Facility (7 sources) Zinc Drug Allergy 08-16-2022 Intolerance [facility] (1 source) Zinc Drug Allergy 03-03-2025 [facility] Repository Medications Current Medications Medication Drug Class(es) Dates Sig (Normalized) Sig (Original) [place] (Nk) (1 source) Start: 03-03-2025 [place] (Nk) Active March 03, 2025 12:00am oseltamivir 75 mg oral capsule (1 source) Neuraminidase Inhibitor Start: 08-16-2022 End: 08-21-2022 take 1 capsule by mouth twice daily oseltamivir (TAMIFLU) 75 mg capsule Indications: URI, acute Take 1 capsule by mouth twice daily for 5 days. 10 capsule 0 08/16/2022 08/21/2022 Active Comment on above: Take 1 capsule by [facility] twice daily for 5 days. Completed/Discontinued Medications [...] 2025 12:00am March 03, 2025 8:02am levonorgestrel 0.327089 mg/hr intrauterine system (4 sources) Progestin, Progestin-containing Intrauterine Device Start: 03-01-2023 End: 11-15-2024 Levonorgestrel (Mirena) 21 mcg/24 hours (8 yrs) 52 mg intrauterine device Discontinued 1 NMA INTRA-UTER ONCE March 01, 2023 12:00am November 15, 2024 10:14am as a single dose Multivit 43-Iqms-Hzdwrc 1-Dha (Pnv-Dha) 27 mg iron-1 mg -300 mg capsule (10 sources) Start: 04-14-2022 End: 01-11-2023 Multivit 39-Djnw-Eybuzw 1-Dha (Pnv-Dha) 27 mg iron-1 mg -300 mg capsule Discontinued NMA PO DAILY April 14, 2022 12:00am January 11, 2023 10:01am Start: 04-14-2022 End: 01-11-2023 Multivit 05-Aieg-Miptzz 1-Dh a (Pnv-Dha) 27 mg iron-1 mg -300 mg capsule Discontinued NMA PO DAILY April 14, 2022 12:00am January 11, 2023 10:01am Start: 04-14-2022 take 1 capsule by mo [facility] once daily Multivit 51-Yzag-Nztqcs 1-Dha (Pnv-Dha) 27 mg iron-1 mg -300 [...] 2022 12:00am January 11, 2023 9:55am Pnv No.213-Xo-Wc8-D parra-Epa-Fish 400 mcg-35 mg- 25 mg-5 mg tablet,chewable (4 sources) Start: 01-30-2025 End: 02-17-2025 Pnv No.575-Lb-Jz4-Dha- Epa-Fish 400 mcg-35 mg- 25 mg-5 mg tablet,chewable Discontinued {tbl} PO .QD January 30, 2025 12:00am February 17, 2025 1:21pm Start: 01-30-2025 Pnv No.153-Fa- Fi8-Bec-Hbe-Fish 400 mcg-35 mg- 25 mg-5 mg tablet,chewable [...] Test Name Value Interpretation Reference Range Facility [facility] Office Visit Reporton 03-03-2025 Cap Sewer Office Visit Report [facility]'s [address], [address] [place] [address] OFFICE VISIT Date of Service: 03/03/25 MR#: [id number] Acct: [id number] Name: TERE BARON Rep #: [id number] : 1995 Provider: Dr. 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 Is patient in pain?: No Allergies zinc Adverse Reaction (Verified 03/03/25 07:59) Upset Stomach Medications ???Medication ???Instructions ???Recorded ???Confirmed ???Type NK 03/03/25 03/03/25 History Is last menstrual period known: No Post menopausal: No Patient : No : [facility] Alcohol use Heartburn Non-smoker [...] physical activity do you participate in: none 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 Normal [facility] PAP I-G w/rfx hrHPV-Aptimaon 02-19-2025 ADEQ Comment Normal . [facility] Comment on above: Order Comment: Speci men Comment: [id number] Specimen Comment: No. of containers..01 ThinPrep Vial Result Comment: Sati sfactory for evaluation. No endocervical component is identified. Performed By: #### Jono 7400.0353, M100.0 #### [facility] [address] [place], [place], [address] COMM . Normal . [facility] Comment on above: Order Comment: Speci men Comment: [id number] Specimen Comment: No. of containers..01 ThinPrep Vial Performed By: #### L 7400.0353, M100.2200 #### [facility] [address] [place], [place], [address] COMMENT Comment Normal . [facility] Comment on above: Order Comment: Speci men Comment: [id number] Specimen Comment: No. of containers..01 ThinPrep Vial Result Comment: This liquid based ThinPrep(R) pap test was screened with the use of an image guided system. Performed By: #### L 7400.0353, M100.2200 #### [facility] [address] [place], [place], [address] DIAG Comment Normal . [facility] Comment on above: Order Comment: Speci men Comment: [id number] Specimen Comment: No. of containers..01 ThinPrep Vial Result Comment: NEGA TIVE FOR INTRAEPITHELIAL LESION OR MALIGNANCY. FUNGAL ORGANISMS MORPHOLOGICALLY CONSISTENT WITH SAVANNA SPECIES ARE PRESENT. Performed By: #### L 7400.0353, M1.2199 #### [facility] [address] [place], [address] HPV RFLX Comment Normal . [facility] Comment on above: Order Comment: Speci men Comment: [id number] Specimen Comment: No. of containers..01 ThinPrep Vial Result Comment: The HPV DNA reflex criteria were not met with this specimen result therefore, no HPV testing was performed. Performed at: [address] [id number] Rock Singer: Smitha Allison MD, Phone: [phone] Performed By: #### L 7400.0353, #### [facility] [address] [place], [address] PAPSMR Comment Normal . [facility] Comment on above: Order Comment: Speci men Comment: [id number] Specimen Comment: No. of containers..01 ThinPrep Vial Result Comment: The Pap smear is a screening test designed to aid in the detection of premalignant and malignant conditions of the uterine cervix. It is not a diagnostic procedure and should not be used as the sole means of detecting cervical cancer. Both false-positive and false-negative reports do occur. Performed By: #### Jono 7400.0353, #### [facility] [address] [place], [address] PERFORM Comment Normal . [facility] Comment on above: Order Comment: Speci men Comment: [id number] Specimen Comment: No. of containers..01 ThinPrep Vial Result Comment: Aicha Garcia, Fuel Cell Engineer (ASCP) Performed By: #### L 7400.0353, M1.2200 #### [facility] [address] [place], [address] CBC-Complete Blood Cnt No Di fernandoon 02-18-2025 Erythrocyte distribution width (RBC) [Ratio] 13.2 % Normal 11.6-14.6 [facility] Comment on above: Performed By: #### Karon BEAVER, L100.0500 #### [facility] [address] [place], [address] Hematocrit (Bld) [Volume fraction] 39.7 % Normal 37-47 [facility] Comment on above: Performed By: #### Karon BEAVER, L100.0500 #### [facility] [address] [place], [address] Hemoglobin (Bld) [Mass/Vol] 13.4 g/dL Normal 12.0-15.0 [facility] Comment on above: Performed By: #### Karon BEAVER, L100.0500 #### [facility] [address] [place], [address] MCH (RBC) [Entitic mass] 30.5 pg Normal 27.0-32.0 [facility] Comment on above: Performed By: #### Karon BEAVER, L100.0500 #### [facility] [address] [place], [address] MCHC (RBC) [Mass/Vol] 33.8 g/dL Normal 32-36 [facility] Comment on above: Performed By: #### Karon BEAVER, L100.0500 #### [facility] [address] [place], [address] MCV (RBC) [Entitic vol] 90.4 fL Normal 81-99 [facility] Comment on above: Performed By: #### Karon BEAVER, L100.0500 #### [facility] [address] [place], [address] Platelet mean volume (Bld) [Entitic vol] 10.2 fL Normal 6.2-12.0 [facility] Comment on above: Performed By: #### B TS, L100.0500 #### [facility] [address] [place], [address] Platelets (Bld) [#/Vol] 254 10*3/uL Normal 150-450 [facility] Comment on above: Performed By: #### Karon TS, L100.0500 #### [facility] [address] [place], [address] RBC (Bld) [#/Vol] 4.39 10*6/uL Normal 4.2-5.4 [facility] Comment on above: Performed By: #### Karon BEAVER, L100.0500 #### [facility] [address] [place], [address] RDW SD 43.8 fl Normal 35.1-43.9 [facility] Comment on above: Performed By: #### Karon BEAVER, L100.0500 #### [facility] [address] [place], [address] WBC (Bld) [#/Vol] 8.7 10*3/uL Normal 4.4-11.0 [facility] Comment on above: Performed By: #### Karon TS, L100.0500 #### [facility] [address] [place], [address] Discharge Instructionon 01-27 Discharge Instruction [facility] Medical Records Department [address] [place] [address] Instructions for Home/Discharge Instructions 02/18/25 1619 MR#: [id number] Acct: [id number] Name: TERE BARONYLYNN Rep #: [id number] : 1995 29 From: Nellie Miller DO [...] Up With: Nellie Miller DO When: Call [phone] to schedule appointment. Test Results: Test results from this visit will be discussed in further detail at your follow-up appointment, if applicable. Discharge Plan Admission Primary Reason for Your Visit: dilation and curettage Attending Provider: Nellie Miller Primary Care Provider: VIRGEN LUNA Instructions Print Language: Urdu Discharge Orders/Prescriptions Prescriptions: New ibuprofen 800 mg [...] Miller DO CC: VIRGEN LUNA Signed Normal [facility] Erythrocyte distribution wid th ratioOrdered By: Nellie Diego on 02-18-2025 Erythrocyte distribution width (RBC) [Ratio] 13.2 % 11.6-14.6 [facility] Erythrocyte distribution wid th standard deviationOrdered By: Nellie Diego on 02-18-2025 Erythrocyte distribution width (RBC) [Ratio] 43.8 fl 35.1-43.9 [facility] Hematocrit Auto (Bld) [Volum e fraction]Ordered By: Nellie Diego on 02-18-2025 Hematocrit (Bld) [Volume fraction] 39.7 % 37-47 [facility] Hemoglobin measurementOrdere d By: Nellie Diego on 02-18-2025 Hemoglobin (Bld) [Mass/Vol] 13.4 g/dL 12.0-15.0 [facility] MCV (mean corpuscular volume ) determinationOrdered By: Nellie Diego on 02-18-2025 MCV (RBC) [Entitic vol] 90.4 fL 81-99 [facility] MR/POSTOP.ANEon 02-18-2025 MR/POSTOP.ANE [facility] Medical Records Department [address] [facility] [place] [address] Anesthesia Postop Eval I 02/18/251718 MR#: [id number] Acct: [id number] Name: TODTERE AREVALO Rep #: [id number] : 1995 29 From: Benito Rodrigues CRNA PCP: VIRGEN LUNA Status:[facility] Y Race: C Location: [place] [address] Anesthesia: Postop Eval I Current Vital Signs [...] CRNA Cosigner Signature: Date CC: Signed Normal [facility] MR/MEORHJHB7zx 02-18-2025 MR/POSTOPAN2 [facility] Medical Records Department [address] [place] [address] Anesthesia Postop Eval II 02/18/252238 MR#: [id number] Acct: [id number] Name: TERE BARON Rep #: [id number] : 1995 29 From: Arnaldo Soto MD PCP: VIRGEN LUNA Status:DEP [facility] Y Race: C Location: [facility] Anesthesia Postop Eval I Sum Postop Eval Completion status Anesthesia document: Postop Eval 1 completed: Yes Anesthesia Postop Eval I Summary Anesthesia Postop Eval I Summary: Anesthesia Postop Eval I: Assessment Summary Airway patent Yes 02/18/25 17:19 MODULAR HOME CREW MEMBER.JENNIFERU Spontaneous unlabored Yes 02/18/25 17:19 MODULAR HOME CREW MEMBER.ROBER respirations Mental status Awake,Calm 02/18/25 17:19 MODULAR HOME CREW MEMBER.JBLOU nausea No 02/18/25 17:19 MODULAR HOME CREW MEMBER.JBLOU Vomiting No 02/18/25 17:19 MODULAR HOME CREW MEMBER.JBLOU Anesthesia Postop Eval I: Fluid Summary Crystalloid volume administer 1,000 02/18/25 17:19 MODULAR HOME CREW MEMBER.JBLOU (ml) Colloids volume administered ( ml) Blood Product volume administered (ml) Total IV fluid infused 1,000 02/18/25 17:19 MODULAR HOME CREW MEMBER.ADRIELLOJuan Anesthesia Postop Eval I: Summary Notes Anesthesia Complication No 02/18/25 17:19 MODULAR HOME CREW MEMBER.ROBER Anesthesia Complication Comment: Post-operative progress note Anesthesia: Postop Eval II Evaluation Mental status: Awake and Calm Pain Level: 1 nausea: No Vomiting: No Complications Anesthesia Complication: No 02/18/252238 Date Arnaldo Soto MD Cosigner Signature: Date CC: Signed Normal [facility] Mean corpuscular hemoglobin (MCH) determinationOrdered By: Nellie Diego on 02-18-2025 MCH (RBC) [Entitic mass] 30.5 pg 27.0-32.0 [facility] Mean corpuscular hemoglobin concentration (MCHC) determinationOrdered By: Nellie Diego on 02-18-2025 MCHC (RBC) [Mass/Vol] 33.8 g/dL 32-36 [facility] Mean platelet volume determi nationOrdered By: Nellie Diego on 06-24-2025 Platelet mean volume (Bld) [Entitic vol] 10.2 fL 6.2-12.0 [facility] Operative Reporton 5 Operative Report [facility] Medical Records Department [address] [place] [address] Operative Report 02/18/25 1731 MR#: [id number] Acct: [id number] Name: TERE BARON Rep #: [id number] : 1995 29 From: Nellie Miller DO PCP: VIRGEN LUNA Status:REG [facility] Location: [place] [address] Problems Associated Problem List Diagnoses (1) Missed : Multi Select Codes Urinary/Genital Urinary/Genital CPT Codes: 21367 Surg Trtmt missed Ab 1TM Operative Report (Standard) Operative Information Date of Procedure: 02/18/25 Pre-Operative Diagnosis: missed measuring 5 weeks Post-Operative Diagnosis: missed measuring 5 weeks Surgery/Procedure Performed: suction dilation and curettage 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 Nellie Miller, DO; VIRGEN LUNA Signed Normal [facility] Platelet countOrdered By: Nam Diego on 02-18-2025 Platelets (Bld) [#/Vol] 254 10*3/uL 150-450 [facility] RBC Auto (Bld) [#/Vol]Ordere d By: Nellie Diego on 02-18-2025 RBC (Bld) [#/Vol] 4.39 10*6/uL 4.2-5.4 [facility] Surgery Specimen Level Mabel 02-18-2025 Surgery Specimen Level IV Patient Age/Sex Location Account Attending Physician TERE BARON / [facility] [id number] [place] Specimen: [id number] Received: 02/18/25 Status: ADIS Theodore Num: [id number] Spec Type: PROD CONC Subm Dr: Dr. [...] are identified. Definitive tissues are not identified. Aerial Crop Duster sections are submitted in 2 cassettes. DE 02/19/2025 CPT:01949 Patient Age/Sex Location Account Attending Physician TODTERENN [facility] [id number] Dr. Nellie Miller, Rd Signed (signature on file) Dr. Bar Akins MD 02/26/25 1605 Normal [facility] Comment on above: Performed By: #### P SATURNINO #### [facility] [address] [place], [address] Type AND Screenon 02-18-2025 Ab SCREEN GEL Negative Normal [facility] Comment on above: Order Comment: Katelyn vogt Laboratory Test PRE OP S [id number] D C Performed By: #### B TS, L100.0500 #### [facility] [address] [place], [address] White blood cell (WBC) count Ordered By: Nellie Diego on 02-18-2025 WBC (Bld) [#/Vol] 8.7 10*3/uL 4.4-11.0 [facility] Urine Cultureon 02-17-2025 URC #1, 2 Below infectio n level. Presumptive C albicans [place] Count <1000 Mixed Gram Positive Organisms Mixed Gram Positive Organisms MIXC Mixed contaminants. Submit a new specimen if indicated. Normal [facility] Comment on above: Performed By: #### L 7400.0353, M100.2200 #### [facility] [address] [place], [address] Cervical or vagninal specime n microscopic examination by cytology stain (reported asOrdered By: Nellie Diego on 02-14-2025 Cytology report Cyto stain Doc (Cvx/Vag) Comment . [facility] Comment on above: The Pap smear is a s creening test designed to aid in thedetection of premalignant and malignant conditions of theuterine cervix. It is not a diagnostic procedure andshould not be used as the sole means of detecting cervicalcancer. Both false-positive and false-negative reports dooccur. Laboratory - CytologyOrdered By: Nellie Diego on 02-14-2025 Fuel Cell Engineer Cyto stain Nom (Cvx/Vag) [ID] Comment . [facility] Comment on above: Gricel Joya ytologist (ASCP) Laboratory - Miscellaneous t estsOrdered By: Nellie Diego on 02-14-2025 Service comment (Unsp spec) [Interp] . . [facility] No Panel InformationOrdered By: Nellie Diego on 02-14-2025 Pap Smear Specimen Adequacy Comment . [facility] Comment on above: Satisfactory for ariadna luation. No endocervical component is identified. Cap Sewer Office Visit Reporton 02-14-2025 Cap Sewer Office Visit Report [facility]'s [address], [address] [place] [address] OFFICE VISIT Date of Service: 02/14/25 MR#: [id number] Acct: [id number] Name: TERE BARON Rep #: [id number] : 1995 Provider: Dr. 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 Normal [facility] Urine cultureOrdered By: Angelic Diego on 02-14-2025 Bacteria identified Cx Nom (U) Presumptive C albicans Abnormal [facility] Bacteria identified Cx Nom (U) Positive Abnormal [facility] Cap Sewer Office Visit Reporton 11-15-2024 Cap Sewer Office Visit Report [facility] [address] [place] [address], [address] [place] [address] OFFICE VISIT Date of Service: 11/15/24 MR#: [id number] Acct: [id number] Name: TERE BARON Rep #: [id number] : 1995 Provider: Dr. Maribel victor MD Age/Sex: 29/F Location: [facility] Status: Signed with Addenda ADDENDUM by Dr. [...] H Intake Visit Reasons: iud removal (mirena) High School Music Instructor Required: No Is patient in pain?: No [...] 1-2 times per week duration: 30-45 minutes/day crista/methodist: Church seatbelt use: always do you feel safe at home: Yes additional social history: - [place] History 1 Elective abortions Hx Para 1 Spontaneous abortions Hx # Term Pregnancies 1 Ectopic pregnancies Hx # Pregnancies Multiple births # of living children 1 Past Pregnancies Del. Date Name GA/Weeks Outcome Route Bth Weight Gen Labor Lgth Anesthesia Del Locatn Provider FOB 11/23/22 Cruz 40 live - full term 7lbs 6oz Male [facility] Farzana Diego [place] Delivery Date: 11/23/22 Last Updated by: Jayshree [...] Mora Signature: Date (if applicable) CC: Normal [facility] DHEAUon 04-18-2024 DHEA. 195 ng/dL Normal 31-701 [facility] ([place]) Comment on above: Result Comment: This test was developed and its performance characteristics determined by [facility]. It has not been cleared or approved by the Food and Drug Administration. Performed At: [address] [id number] Isaiah Blackwell MD Ph:[phone] Performed By: #### A 1C, CBC, GFR, ANEU, FT4, ADIFF, VIDH, CMP, 956460, FT3, LIPID, TSH, [id number], FE, FERR #### [address] [address] #### PROG, HOMO, B12, CRPHS, THYAB #### [address] [address] TFTESTon 04-16-2024 Free Testost Direct 0.8 pg/mL Normal 0.0-4.2 [facility] ([place]) Comment on above: Result Comment: Perf ormed At: [address] [id number] Isaiah Blackwell MD Ph:[phone] Performed At: [address] [id number] Gwendolyn Carlton PhD Ph:[phone] Performed By: #### A 1C, CBC, GFR, ANEU, FT4, ADIFF, VIDH, CMP, 844243, FT3, LIPID, TSH, [id number], FE, FERR #### [address] [address] #### PROG, HOMO, B12, CRPHS, THYAB #### [address] [address] Testosterone Lvl 19 ng/dL Normal 13-71 [facility] ([place]) Comment on above: Performed By: #### A 1C, CBC, GFR, ANEU, FT4, ADIFF, VIDH, CMP, 624308, FT3, LIPID, TSH, [id number], FE, FERR #### [address] [address] #### PROG, HOMO, B12, CRPHS, THYAB #### [address] [address] .Auto Diffon 04-13-2024 Basophil, Absolute 0.1 10 3/mcL Normal 0.0-0.2 [facility] ([place]) Comment on above: Performed By: #### A 1C, CBC, GFR, ANEU, FT4, ADIFF, VIDH, CMP, 217566, FT3, LIPID, TSH, [id number], FE, FERR #### [address] [address] #### PROG, HOMO, B12, CRPHS, THYAB #### [address] [address] Basophils/100 WBC (Bld) 1.2 % Normal 0.0-2.5 [facility] ([place]) Comment on above: Performed By: #### A 1C, CBC, GFR, ANEU, FT4, ADIFF, VIDH, CMP, 791152, FT3, LIPID, TSH, [id number], FE, FERR #### [address] [address] #### PROG, HOMO, B12, CRPHS, THYAB #### [address] [address] Eosinophil, Absolute 0.1 10 3/mcL Normal 0.0-0.4 [facility] ([place]) Comment on above: Performed By: #### A 1C, CBC, GFR, ANEU, FT4, ADIFF, VIDH, CMP, 591862, FT3, LIPID, TSH, [id number], FE, FERR #### [address] [address] #### PROG, HOMO, B12, CRPHS, THYAB #### [address] [address] Eosinophils/100 WBC (Bld) 1.0 % Normal 0.0-7.0 [facility] ([place]) Comment on above: Performed By: #### A 1C, CBC, GFR, ANEU, FT4, ADIFF, VIDH, CMP, 558429, FT3, LIPID, TSH, [id number], FE, FERR #### [place] [address] #### PROG, HOMO, B12, CRPHS, THYAB #### [address] [address] Lymphocyte, Absolute 1.7 10 3/mcL Normal 0.8-3.9 [facility] ([place]) Comment on above: Performed By: #### A 1C, CBC, GFR, ANEU, FT4, ADIFF, VIDH, CMP, 583475, FT3, LIPID, TSH, [id number], FE, FERR #### [place] [address] #### PROG, HOMO, B12, CRPHS, THYAB #### [address] [address] Lymphocytes/100 WBC (Bld) 28.6 % Normal 10.0-50.0 [facility] ([place]) Comment on above: Performed By: #### A 1C, CBC, GFR, ANEU, FT4, ADIFF, VIDH, CMP, 235625, FT3, LIPID, TSH, [id number], FE, FERR #### [place] [address] #### PROG, HOMO, B12, CRPHS, THYAB #### [address] [address] Monocyte, Absolute 0.4 10 3/mcL Normal 0.2-1.0 [facility] ([place]) Comment on above: Performed By: #### A 1C, CBC, GFR, ANEU, FT4, ADIFF, VIDH, CMP, 970203, FT3, LIPID, TSH, [id number], FE, FERR #### [place] [address] #### PROG, HOMO, B12, CRPHS, THYAB #### [address] [address] Monocytes/100 WBC (Bld) 6.3 % Normal 1.7-13.0 [facility] ([place]) Comment on above: Performed By: #### A 1C, CBC, GFR, ANEU, FT4, ADIFF, VIDH, CMP, 749295, FT3, LIPID, TSH, [id number], FE, FERR #### [address] [address] #### PROG, HOMO, B12, CRPHS, THYAB #### [address] [address] Neutrophils/100 WBC (Bld) 62.9 % Normal 37.0-80.0 [facility] ([place]) Comment on above: Performed By: #### A 1C, CBC, GFR, ANEU, FT4, ADIFF, VIDH, CMP, 070898, FT3, LIPID, TSH, [id number], FE, FERR #### [place] [address] #### PROG, HOMO, B12, CRPHS, THYAB #### [address] [address] .GFRon 04-13-2024 GFR 108 ml/min/1.73sqm Normal [facility] ([place]) Comment on above: Result Comment: GFR Population [...] CBC, GFR, ANEU, FT4, ADIFF, VIDH, CMP, 410112, FT3, LIPID, TSH, [id number], FE, FERR #### [place] [address] #### PROG, HOMO, B12, CRPHS, THYAB #### [address] [address] GFR Non- 89 ml/min/1.73sqm Normal [facility] ([place]) Comment on above: Result Comment: GFR Population [...] CBC, GFR, ANEU, FT4, ADIFF, VIDH, CMP, 764795, FT3, LIPID, TSH, [id number], FE, FERR #### [place] [address] #### PROG, HOMO, B12, CRPHS, THYAB #### [address] [address] .NEUABSon 04-13-2024 Neutrophil, Absolute 3.8 10 3/mcL Normal 2.9-6.2 [facility] ([place]) Comment on above: Performed By: #### A 1C, CBC, GFR, ANEU, FT4, ADIFF, VIDH, CMP, 950706, FT3, LIPID, TSH, [id number], FE, FERR #### [address] [address] #### PROG, HOMO, B12, CRPHS, THYAB #### [address] [address] A1Con 04-13-2024 Glucose [Mass/Vol] 103 mg/dL Normal [facility] ([place]) Comment on above: Result Comment: Merry mated Average Glucose calculated by equation ((28.7xA1C)-46.7) Estimated average glucose (eAG) is a calculated value from Hemoglobin A1C and is malt liquors sales representative of the average blood glucose level in the last 2-3 month period. Normal range: less than 114 mg/dL Performed By: #### A 1C, CBC, GFR, ANEU, FT4, ADIFF, VIDH, CMP, 627170, FT3, LIPID, TSH, [id number], FE, FERR #### [place] [address] #### PROG, HOMO, B12, CRPHS, THYAB #### [place] [address] HbA1c (Bld) [Mass fraction] 5.2 % Normal 4.3-6.4 [facility] ([place]) Comment on above: Performed By: #### A 1C, CBC, GFR, ANEU, FT4, ADIFF, VIDH, CMP, 007553, FT3, LIPID, TSH, [id number], FE, FERR #### [place] [address] #### PROG, HOMO, B12, CRPHS, THYAB #### [place] [address] B12on 04-13-2024 Cobalamin (Vitamin B12) [Mass/Vol] 354 pg/mL Normal 211-911 [facility] ([place]) Comment on above: Performed By: #### A 1C, CBC, GFR, ANEU, FT4, ADIFF, VIDH, CMP, 099393, FT3, LIPID, TSH, [id number], FE, FERR #### [place] [address] #### PROG, HOMO, B12, CRPHS, THYAB #### [place] [address] CBCon 04-13-2024 Erythrocyte distribution width (RBC) [Ratio] 14.1 % Normal 11.5-14.5 [facility] ([place]) Comment on above: Performed By: #### A 1C, CBC, GFR, ANEU, FT4, ADIFF, VIDH, CMP, 452037, FT3, LIPID, TSH, [id number], FE, FERR #### [place] [address] #### PROG, HOMO, B12, CRPHS, THYAB #### [address] [address] Hematocrit (Bld) [Volume fraction] 42.2 % Normal 37.0-47.0 [facility] ([place]) Comment on above: Performed By: #### A 1C, CBC, GFR, ANEU, FT4, ADIFF, VIDH, CMP, 120165, FT3, LIPID, TSH, [id number], FE, FERR #### [place] [address] #### PROG, HOMO, B12, CRPHS, THYAB #### [place] [address] Hgb 14.0 G/dL Normal 12.0-16.0 [facility] ([place]) Comment on above: Performed By: #### A 1C, CBC, GFR, ANEU, FT4, ADIFF, VIDH, CMP, 401820, FT3, LIPID, TSH, [id number], FE, FERR #### [place] [address] #### PROG, HOMO, B12, CRPHS, THYAB #### [place] [id number] MCH (RBC) [Entitic mass] 30.4 pg Normal 27.0-31.2 [facility] ([place]) Comment on above: Performed By: #### A 1C, CBC, GFR, ANEU, FT4, ADIFF, VIDH, CMP, 636607, FT3, LIPID, TSH, [id number], FE, FERR #### [place] [address] #### PROG, HOMO, B12, CRPHS, THYAB #### [place] [id number] MCHC 33.3 G/dL Normal 33.0-37.0 [facility] ([place]) Comment on above: Performed By: #### A 1C, CBC, GFR, ANEU, FT4, ADIFF, VIDH, CMP, 350431, FT3, LIPID, TSH, [id number], FE, FERR #### [address] [address] #### PROG, HOMO, B12, CRPHS, THYAB #### [address] [address] MCV (RBC) [Entitic vol] 91.4 fL Normal 80.0-94.0 [facility] ([place]) Comment on above: Performed By: #### A 1C, CBC, GFR, ANEU, FT4, ADIFF, VIDH, CMP, 700853, FT3, LIPID, TSH, [id number], FE, FERR #### [address] [address] #### PROG, HOMO, B12, CRPHS, THYAB #### [address] [address] Platelet 202 10 3/mcL Normal 130-400 [facility] ([place]) Comment on above: Performed By: #### A 1C, CBC, GFR, ANEU, FT4, ADIFF, VIDH, CMP, 045270, FT3, LIPID, TSH, [id number], FE, FERR #### [address] [address] #### PROG, HOMO, B12, CRPHS, THYAB #### [address] [address] Platelet mean volume (Bld) [Entitic vol] 9.1 fL Normal 7.4-10.4 [facility] ([place]) Comment on above: Performed By: #### A 1C, CBC, GFR, ANEU, FT4, ADIFF, VIDH, CMP, 323422, FT3, LIPID, TSH, [id number], FE, FERR #### [address] [address] #### PROG, HOMO, B12, CRPHS, THYAB #### [address] [address] RBC 4.61 10 6/mcL Normal 4.20-5.40 [facility] ([place]) Comment on above: Performed By: #### A 1C, CBC, GFR, ANEU, FT4, ADIFF, VIDH, CMP, 935212, FT3, LIPID, TSH, [id number], FE, FERR #### [address] [address] #### PROG, HOMO, B12, CRPHS, THYAB #### [address] [address] WBC 6.0 10 3/mcL Normal 4.6-10.8 [facility] ([place]) Comment on above: Performed By: #### A 1C, CBC, GFR, ANEU, FT4, ADIFF, VIDH, CMP, 035298, FT3, LIPID, TSH, [id number], FE, FERR #### [address] [address] #### PROG, HOMO, B12, CRPHS, THYAB #### [place] [address] CMPon 04-13-2024 Albumin Level 4.1 G/dL Normal 3.5-5.0 [facility] ([place]) Comment on above: Performed By: #### A 1C, CBC, GFR, ANEU, FT4, ADIFF, VIDH, CMP, 779388, FT3, LIPID, TSH, [id number], FE, FERR #### [place] [address] #### PROG, HOMO, B12, CRPHS, THYAB #### [place] [address] Albumin/Globulin [Mass ratio] 1.1 {ratio} Normal 1.1-2.5 [facility] ([place]) Comment on above: Performed By: #### A 1C, CBC, GFR, ANEU, FT4, ADIFF, VIDH, CMP, 954642, FT3, LIPID, TSH, [id number], FE, FERR #### [address] [address] #### PROG, HOMO, B12, CRPHS, THYAB #### [address] [address] ALP [Catalytic activity/Vol] 69 U/L Normal 40-135 [facility] ([place]) Comment on above: Performed By: #### A 1C, CBC, GFR, ANEU, FT4, ADIFF, VIDH, CMP, 995583, FT3, LIPID, TSH, [id number], FE, FERR #### [place] [address] #### PROG, HOMO, B12, CRPHS, THYAB #### [place] [address] ALT [Catalytic activity/Vol] 19 U/L Normal 14-59 [facility] ([place]) Comment on above: Performed By: #### A 1C, CBC, GFR, ANEU, FT4, ADIFF, VIDH, CMP, 985910, FT3, LIPID, TSH, [id number], FE, FERR #### [place] [address] #### PROG, HOMO, B12, CRPHS, THYAB #### [place] [address] AST [Catalytic activity/Vol] 9 U/L Low 10-40 [facility] ([place]) Comment on above: Performed By: #### A 1C, CBC, GFR, ANEU, FT4, ADIFF, VIDH, CMP, 061245, FT3, LIPID, TSH, [id number], FE, FERR #### [place] [address] #### PROG, HOMO, B12, CRPHS, THYAB #### [place] [address] Bili Total 0.4 mg/dL Normal 0.2-1.0 [facility] ([place]) Comment on above: Result Comment: Use of this assay is not recommended for patients undergoing treatment with eltrombopag due to the potential for falsely elevated results. Performed By: #### A 1C, CBC, GFR, ANEU, FT4, ADIFF, VIDH, CMP, 799615, FT3, LIPID, TSH, [id number], FE, FERR #### [place] [address] #### PROG, HOMO, B12, CRPHS, THYAB #### [place] [id number] BUN/Creatinine Ratio 12 ratio Normal 7-27 [facility] ([place]) Comment on above: Performed By: #### A 1C, CBC, GFR, ANEU, FT4, ADIFF, VIDH, CMP, 208109, FT3, LIPID, TSH, [id number], FE, FERR #### [address] [address] #### PROG, HOMO, B12, CRPHS, THYAB #### [address] [address] Calcium [Mass/Vol] 9.0 mg/dL Normal 8.4-10.2 [facility] ([place]) Comment on above: Performed By: #### A 1C, CBC, GFR, ANEU, FT4, ADIFF, VIDH, CMP, 793081, FT3, LIPID, TSH, [id number], FE, FERR #### [address] [address] #### PROG, HOMO, B12, CRPHS, THYAB #### [address] [address] Chloride [Moles/Vol] 105 mmol/L Normal 98-107 [facility] ([place]) Comment on above: Performed By: #### A 1C, CBC, GFR, ANEU, FT4, ADIFF, VIDH, CMP, 895378, FT3, LIPID, TSH, [id number], FE, FERR #### [address] [address] #### PROG, HOMO, B12, CRPHS, THYAB #### [address] [address] CO2 [Moles/Vol] 25 mmol/L Normal 22-29 [facility] ([place]) Comment on above: Performed By: #### A 1C, CBC, GFR, ANEU, FT4, ADIFF, VIDH, CMP, 425915, FT3, LIPID, TSH, [id number], FE, FERR #### [address] [address] #### PROG, HOMO, B12, CRPHS, THYAB #### [address] [address] Creatinine [Mass/Vol] 0.77 mg/dL Normal 0.55-1.02 [facility] ([place]) Comment on above: Performed By: #### A 1C, CBC, GFR, ANEU, FT4, ADIFF, VIDH, CMP, 480167, FT3, LIPID, TSH, [id number], FE, FERR #### [place] [id number] #### PROG, HOMO, B12, CRPHS, THYAB #### [address] [address] Electrolyte Balance 10.0 mEq/L Normal 4.0-15.0 [facility] ([place]) Comment on above: Performed By: #### A 1C, CBC, GFR, ANEU, FT4, ADIFF, VIDH, CMP, 678004, FT3, LIPID, TSH, [id number], FE, FERR #### [place] [address] #### PROG, HOMO, B12, CRPHS, THYAB #### [place] [address] Globulin 3.6 G/dL Normal [facility] ([place]) Comment on above: Performed By: #### A 1C, CBC, GFR, ANEU, FT4, ADIFF, VIDH, CMP, 963622, FT3, LIPID, TSH, [id number], FE, FERR #### [place] [address] #### PROG, HOMO, B12, CRPHS, THYAB #### [address] [address] Glucose [Mass/Vol] 91 mg/dL Normal 70-105 [facility] ([place]) Comment on above: Performed By: #### A 1C, CBC, GFR, ANEU, FT4, ADIFF, VIDH, CMP, 882395, FT3, LIPID, TSH, [id number], FE, FERR #### [place] [id number] #### PROG, HOMO, B12, CRPHS, THYAB #### [address] [address] Potassium [Moles/Vol] 3.8 mmol/L Normal 3.5-5.1 [facility] ([place]) Comment on above: Performed By: #### A 1C, CBC, GFR, ANEU, FT4, ADIFF, VIDH, CMP, 204932, FT3, LIPID, TSH, [id number], FE, FERR #### [address] [address] #### PROG, HOMO, B12, CRPHS, THYAB #### [address] [address] Sodium [Moles/Vol] 140 mmol/L Normal 136-145 [facility] ([place]) Comment on above: Performed By: #### A 1C, CBC, GFR, ANEU, FT4, ADIFF, VIDH, CMP, 174290, FT3, LIPID, TSH, [id number], FE, FERR #### [address] [address] #### PROG, HOMO, B12, CRPHS, THYAB #### [address] [address] Total Protein 7.7 G/dL Normal 6.4-8.2 [facility] ([place]) Comment on above: Performed By: #### A 1C, CBC, GFR, ANEU, FT4, ADIFF, VIDH, CMP, 607920, FT3, LIPID, TSH, [id number], FE, FERR #### [address] [address] #### PROG, HOMO, B12, CRPHS, THYAB #### [address] [address] Urea nitrogen [Mass/Vol] 9 mg/dL Normal 7-18 [facility] ([place]) Comment on above: Performed By: #### A 1C, CBC, GFR, ANEU, FT4, ADIFF, VIDH, CMP, 787479, FT3, LIPID, TSH, [id number], FE, FERR #### [address] [address] #### PROG, HOMO, B12, CRPHS, THYAB #### [address] [address] CRPHSon 04-13-2024 CRP, High Sensitive 1.56 mg/L Normal 0.20-3.00 [facility] ([place]) Comment on above: Result Comment: Rela tive [...] CBC, GFR, ANEU, FT4, ADIFF, VIDH, CMP, 981502, FT3, LIPID, TSH, [id number], FE, FERR #### [address] [address] #### PROG, HOMO, B12, CRPHS, THYAB #### [place] [id number] FEon 04-13-2024 Iron [Mass/Vol] 113 ug/dL Normal 50-170 [facility] ([place]) Comment on above: Performed By: #### A 1C, CBC, GFR, ANEU, FT4, ADIFF, VIDH, CMP, 283118, FT3, LIPID, TSH, [id number], FE, FERR #### [address] [address] #### PROG, HOMO, B12, CRPHS, THYAB #### [address] [address] [place] 04-13-2024 Ferritin [Mass/Vol] 47.0 ng/mL Normal 8.0-252.0 [facility] ([place]) Comment on above: Performed By: #### A 1C, CBC, GFR, ANEU, FT4, ADIFF, VIDH, CMP, 987605, FT3, LIPID, TSH, [id number], FE, FERR #### [address] [address] #### PROG, HOMO, B12, CRPHS, THYAB #### [address] [address] FT3on 04-13-2024 Free T3 [Mass/Vol] 2.64 pg/mL Normal 2.30-4.00 [facility] ([place]) Comment on above: Performed By: #### A 1C, CBC, GFR, ANEU, FT4, ADIFF, VIDH, CMP, 860179, FT3, LIPID, TSH, [id number], FE, FERR #### [address] [address] #### PROG, HOMO, B12, CRPHS, THYAB #### [address] [address] FT4on 04-13-2024 Free T4 [Mass/Vol] 0.81 ng/dL Normal 0.76-1.46 [facility] ([place]) Comment on above: Performed By: #### A 1C, CBC, GFR, ANEU, FT4, ADIFF, VIDH, CMP, 121326, FT3, LIPID, TSH, [id number], FE, FERR #### [place] [address] #### PROG, HOMO, B12, CRPHS, THYAB #### [place] [address] HOMOon 04-13-2024 Homocysteine 6.2 umol/l Normal 3.7-13.9 [facility] ([place]) Comment on above: Result Comment: No te - New Reference Range in effect 20 Performed By: #### A 1C, CBC, GFR, ANEU, FT4, ADIFF, VIDH, CMP, 241159, FT3, LIPID, TSH, [id number], FE, FERR #### [place] [address] #### PROG, HOMO, B12, CRPHS, THYAB #### [place] [address] LIPIDon 04-13-2024 Cholesterol [Mass/Vol] 199 mg/dL Normal 0-200 [facility] ([place]) Comment on above: Result Comment: Chol esterol Reference Interval: Less than 200 Desirable 200-239 Borderline high risk 240 and above High risk Performed By: #### A 1C, CBC, GFR, ANEU, FT4, ADIFF, VIDH, CMP, 643218, FT3, LIPID, TSH, [id number], FE, FERR #### [address] [address] #### PROG, HOMO, B12, CRPHS, THYAB #### [address] [address] Cholesterol in HDL [Mass/Vol] 65 mg/dL High 40-60 [facility] ([place]) Comment on above: Performed By: #### A 1C, CBC, GFR, ANEU, FT4, ADIFF, VIDH, CMP, 428171, FT3, LIPID, TSH, [id number], FE, FERR #### [place] [address] #### PROG, HOMO, B12, CRPHS, THYAB #### [address] [address] Cholesterol in LDL [Mass/Vol] 124 mg/dL Normal 0-130 [facility] ([place]) Comment on above: Performed By: #### A 1C, CBC, GFR, ANEU, FT4, ADIFF, VIDH, CMP, 463626, FT3, LIPID, TSH, [id number], FE, FERR #### [place] [address] #### PROG, HOMO, B12, CRPHS, THYAB #### [address] [address] Triglyceride [Mass/Vol] 51 mg/dL Normal 0-150 [facility] ([place]) Comment on above: Result Comment: Trig lyceride Reference Interval: Less than 150 Normal 150-199 Borderline high risk 200-499 High risk 500 or higher Very high risk Performed By: #### A 1C, CBC, GFR, ANEU, FT4, ADIFF, VIDH, CMP, 193068, FT3, LIPID, TSH, [id number], FE, FERR #### [place] [address] #### PROG, HOMO, B12, CRPHS, THYAB #### [place] [id number] PROGon 04-13-2024 Progesterone Level 14.0 ng/mL Normal [facility] ([place]) Comment on above: Result Comment: Adul t [...] CBC, GFR, ANEU, FT4, ADIFF, VIDH, CMP, 980686, FT3, LIPID, TSH, [id number], FE, FERR #### [place] [address] #### PROG, HOMO, B12, CRPHS, THYAB #### [address] [address] THYABon 04-13-2024 anti-Thyroid Peroxidase 30 units/ml Normal 0-60 [facility] ([place]) Comment on above: Result Comment: No te - New Reference Range in effect 20 Performed By: #### A 1C, CBC, GFR, ANEU, FT4, ADIFF, VIDH, CMP, 627396, FT3, LIPID, TSH, [id number], FE, FERR #### [place] [address] #### PROG, HOMO, B12, CRPHS, THYAB #### [place] [address] Thyroglobulin Ab 119 units/ml High 15-60 [facility] ([place]) Comment on above: Result Comment: No te - New Reference Range in effect 20 Performed By: #### A 1C, CBC, GFR, ANEU, FT4, ADIFF, VIDH, CMP, 098875, FT3, LIPID, TSH, [id number], FE, FERR #### [place] [address] #### PROG, HOMO, B12, CRPHS, THYAB #### [place] [address] TSHon 04-13-2024 TSH Qn 2.68 m[IU]/L Normal 0.36-3.74 [facility] ([place]) Comment on above: Performed By: #### A 1C, CBC, GFR, ANEU, FT4, ADIFF, VIDH, CMP, 383491, FT3, LIPID, TSH, [id number], FE, FERR #### [place] [address] #### PROG, HOMO, B12, CRPHS, THYAB #### [place] [address] VIDHon 04-13-2024 Vit. D 25-Hydroxy 21.1 ng/mL Normal [facility] ([place]) Comment on above: Result Comment: Inte rpretive Values Based on Total 25(OH) Vitamin D: Deficient <20 ng/mL Insufficient 20 - <30 ng/mL Sufficient 30-100 ng/mL Performed By: #### A 1C, CBC, GFR, ANEU, FT4, ADIFF, VIDH, CMP, 645918, FT3, LIPID, TSH, [id number], FE, FERR #### [place] [address] #### PROG, HOMO, B12, CRPHS, THYAB #### [place] [address] Absolute lymphocyte countOrd ered By: Dr. Diego on 11-23-2022 Lymphocytes Auto (Unsp spec) [#/Vol] 2.16 10*3/uL 0.83-4.51 [facility] Basophil percentageOrdered B y: Dr. Diego on 11-23-2022 Basophils/100 WBC (Bld) 0.5 % 0-1 [facility] Eosinophils/100 WBC (Bld) 0.9 % 0-5 [facility] Neutrophils (Bld) [#/Vol] 7.0 10*3/uL 2.0-7.7 [facility] Neutrophils/100 WBC (Bld) 69.2 % 47-70 [facility] WBC (Bld) [#/Vol] 10.1 10*3/uL 4.4-11.0 [facility] Blood erythrocytes count (nu mber/volume)Ordered By: Dr. Diego on 11-23-2022 RBC (Bld) [#/Vol] 3.88 10*6/uL 4.2-5.4 [facility] Blood hemoglobin measurement (mass/volume)Ordered By: Dr. Diego on 11-23-2022 Hemoglobin (Bld) [Mass/Vol] 11.4 g/dL 12.0-15.0 [facility] Blood lymphocytes/100 leukoc ytesOrdered By: Dr. Diego on 11-23-2022 Lymphocytes/100 WBC (Bld) 21.3 % 19-41 [facility] Blood monocytes/100 leukocyt esOrdered By: Dr. Diego on 11-23-2022 Monocytes/100 WBC (Bld) 7.2 % 0-10 [facility] Blood platelet mean volumeOr dered By: Dr. Diego on 11-23-2022 Platelet mean volume (Bld) [Entitic vol] 11.7 fL 6.2-12.0 [facility] Determination of erythrocyte mean corpuscular volume (MCV)Ordered By: Dr. Diego on 11-23-2022 MCV (RBC) [Entitic vol] 88.9 fL 81-99 [facility] Hematocrit Auto (Bld) [Volum e fraction]Ordered By: Dr. Diego on 11-23-2022 Hematocrit (Bld) [Volume fraction] 34.5 % 37-47 [facility] Laboratory - Hematology and Cell countsOrdered By: Dr. Diego on 11-23-2022 Erythrocyte distribution width (RBC) [Entitic vol] 46.0 fL 35.1-43.9 [facility] Erythrocyte distribution width (RBC) [Ratio] 14.7 % 11.6-14.6 [facility] Immature granulocytes/100 WBC (Bld) 0.900 % 0.0-0.9 [facility] Comment on above: IG% - Immature Granu locytes (promyelocytes, myelocytes and metamyelocytes) > 1% indicates that a LEFT SHIFT is Present. MCH (RBC) [Entitic mass] 29.4 pg 27.0-32.0 [facility] Nucleated RBC/100 WBC (Bld) [Ratio] 0 % 0-5 [facility] MCHC Auto (RBC) [Mass/Vol]Or dered By: Dr. Diego on 11-23-2022 MCHC (RBC) [Mass/Vol] 33.0 g/dL 32-36 [facility] Platelets bldOrdered By: Dr. Diego on 11-23-2022 Platelets (Bld) [#/Vol] 220 10*3/uL 150-450 [facility] Serum Treponema species anti body detectionOrdered By: Dr. Diego on 11-23-2022 Treponema sp Ab Ql (S) Non-Reactive [facility] Laboratory - Chemistry and C hemistry - challengeon 11-16-2022 Glucose Ql (U) Negative [facility] Laboratory - Urinalysison Protein Ql (U) Negative [facility] Laboratory - Chemistry and C hemistry - challengeon 11-09-2022 Glucose Ql (U) Negative [facility] Laboratory - Urinalysison Protein Ql (U) Negative [facility] Laboratory - Chemistry and C hemistry - challengeon 2022 Glucose Ql (U) Negative [facility] Laboratory - Urinalysison Protein Ql (U) Negative [facility] Laboratory - Chemistry and C hemistry - challengeon 10-13-2022 Glucose Ql (U) Negative [facility] Laboratory - Urinalysison Protein Ql (U) Negative [facility] Laboratory - Chemistry and C hemistry - challengeon 09-28-2022 Glucose Ql (U) Negative [facility] Laboratory - Urinalysison Protein Ql (U) Negative [facility] Laboratory - Chemistry and C hemistry - challengeon 09-14-2022 Glucose Ql (U) Negative [facility] Laboratory - Urinalysison Protein Ql (U) Negative [facility] Laboratory - Chemistry and C hemistry - challengeon 08-31-2022 Glucose Ql (U) Negative [facility] Laboratory - Urinalysison Protein Ql (U) Negative [facility] CNPNon 08-17-2022 CNPN Telephone (UCTR) TERE VILLALOBOS ([id number]) 1995 F Date Time Provider Department 08/17/22 ANNIKA MORENO [facility] During your visit today, we recorded the [...] Status:Closed by PAMELA ARGUETA on 08/17/22 Normal [facility] CNOVon 08-16-2022 CNOV Office Visit (UCTR ) TERE VILLALOBOS ([id number]) 1995 F Date Time Provider Department 08/16/22 4:00 PM ANGY MANLEYPARESH During your visit today, we recorded the following information about you: Temperature Pulse Respiration Blood pressure 98.2 degrees 107/minute 16/minute 118/66 Weight Last Period 87.1 kg 02/20/22 Angy Manley APRN.[employer] 08/16/2022 4:31 PM Signed Subjective HPI HPI [...] Diagnosis:Throat pain [R07.0] Order(s):STREP A MOLECULAR (POC) [0432826] Order #: [id number]. #:[id number] oseltamivir (TAMIFLU) 75 mg capsuleTake 1 capsule by mouth twice daily for 5 days.Disp: 10 capsuleRfl: 0 COVID WITH FLUA+B, ROUTINE [SQCOVFLU] Order #: [id number]. #:[id number] Prescriptions as of 08/16/2022 - vit,keila 74/iron/folic ( VITAMIN 1+1 ORAL) Take by mouth. - oseltamivir (TAMIFLU) 75 mg capsule Take 1 capsule by mouth twice daily for 5 days. - Desogestrel-Ethinyl Estradiol 0.15-0.03 mg per tablet Take 1 tablet by mouth once daily. Problem Li (more content not included)... Normal [facility] Absolute lymphocyte countOrd ered By: Joanna Gallardo on 08-08-2022 Lymphocytes Auto (Unsp spec) [#/Vol] 2.24 10*3/uL 0.83-4.51 [facility] Basophil percentageOrdered B y: Joanna Gallardo on 08-08-2022 Basophils/100 WBC (Bld) 0.4 % 0-1 [facility] Eosinophils/100 WBC (Bld) 0.5 % 0-5 [facility] Neutrophils (Bld) [#/Vol] 8.3 10*3/uL 2.0-7.7 [facility] Neutrophils/100 WBC (Bld) 72.2 % 47-70 [facility] WBC (Bld) [#/Vol] 11.5 10*3/uL 4.4-11.0 [facility] Blood erythrocytes count (nu mber/volume)Ordered By: Joanna Gallardo on 08-08-2022 RBC (Bld) [#/Vol] 3.53 10*6/uL 4.2-5.4 [facility] Blood hemoglobin measurement (mass/volume)Ordered By: Joanna Gallrado on 08-08-2022 Hemoglobin (Bld) [Mass/Vol] 10.8 g/dL 12.0-15.0 [facility] Blood lymphocytes/100 leukoc ytesOrdered By: Joanna Gallardo on 08-08-2022 Lymphocytes/100 WBC (Bld) 19.4 % 19-41 [facility] Blood monocytes/100 leukocyt esOrdered By: Joanna Gallardo on 08-08-2022 Monocytes/100 WBC (Bld) 6.8 % 0-10 [facility] Blood platelet mean volumeOr dered By: Joanna Gallardo on 08-08-2022 Platelet mean volume (Bld) [Entitic vol] 10.8 fL 6.2-12.0 [facility] Determination of erythrocyte mean corpuscular volume (MCV)Ordered By: Joanna Gallardo on 08-08-2022 MCV (RBC) [Entitic vol] 93.5 fL 81-99 [facility] Gestational diabetes screen 1-hour screen with 50g oral glucose loadOrdered By: Joanna Gallardo on 08-08-2022 Glucose 1 Hr post 50 g glucose PO [Mass/Vol] 81 mg/dL 70-140 [facility] Hematocrit Auto (Bld) [Volum e fraction]Ordered By: Joanna Gallardo on 08-08-2022 Hematocrit (Bld) [Volume fraction] 33.0 % 37-47 [facility] Laboratory - Chemistry and C hemistry - challengeon 08-08-2022 Glucose Ql (U) Negative [facility] Laboratory - Hematology and Cell countsOrdered By: Joanna Gallardo on 08-08-2022 Erythrocyte distribution width (RBC) [Entitic vol] 45.6 fL 35.1-43.9 [facility] Erythrocyte distribution width (RBC) [Ratio] 13.4 % 11.6-14.6 [facility] Immature granulocytes/100 WBC (Bld) 0.700 % 0.0-0.9 [facility] Comment on above: IG% - Immature Granu locytes (promyelocytes, myelocytes and metamyelocytes) > 1% indicates that a LEFT SHIFT is Present. MCH (RBC) [Entitic mass] 30.6 pg 27.0-32.0 [facility] Nucleated RBC/100 WBC (Bld) [Ratio] 0 % 0-5 [facility] Laboratory - Urinalysison Protein Ql (U) Negative [facility] MCHC Auto (RBC) [Mass/Vol]Or dered By: Joanna Gallardo on 08-08-2022 MCHC (RBC) [Mass/Vol] 32.7 g/dL 32-36 [facility] Platelets bldOrdered By: Mariam Gallardo on 08-08-2022 Platelets (Bld) [#/Vol] 222 10*3/uL 150-450 [facility] Laboratory - Chemistry and C hemistry - challengeon 07-11-2022 Glucose Ql (U) Negative [facility] Laboratory - Urinalysison Protein Ql (U) Negative [facility] Laboratory - Chemistry and C hemistry - challengeon 06-13-2022 Glucose Ql (U) Negative [facility] Work Phone: Laboratory - Urinalysison Protein Ql (U) Negative [facility] Work Phone: Absolute lymphocyte counton 05-16-2022 Lymphocytes Auto (Unsp spec) [#/Vol] 1.67 10*3/uL 0.83-4.51 [facility] Work Phone: Basophil percentageon 2021 Basophils/100 WBC (Bld) 0.6 % 0-1 [facility] Work Phone: Eosinophils/100 WBC (Bld) 0.6 % 0-5 [facility] Work Phone: Neutrophils (Bld) [#/Vol] 7.4 10*3/uL 2.0-7.7 [facility] Work Phone: Neutrophils/100 WBC (Bld) 75.0 % 47-70 [facility] Work Phone: WBC (Bld) [#/Vol] 9.9 10*3/uL 4.4-11.0 [facility] Work Phone: Blood erythrocytes count (nu mber/volume)on 05-16-2022 RBC (Bld) [#/Vol] 4.01 10*6/uL 4.2-5.4 [facility] Work Phone: Blood hemoglobin measurement (mass/volume)on 05-16-2022 Hemoglobin (Bld) [Mass/Vol] 12.4 g/dL 12.0-15.0 [facility] Work Phone: Blood lymphocytes/100 leukoc yteson 05-16-2022 Lymphocytes/100 WBC (Bld) 16.9 % 19-41 [facility] Work Phone: Blood monocytes/100 leukocyt eson 05-16-2022 Monocytes/100 WBC (Bld) 6.6 % 0-10 [facility] Work Phone: [phone] Blood platelet mean volumeon 05-16-2022 Platelet mean volume (Bld) [Entitic vol] 10.3 fL 6.2-12.0 [facility] Work Phone: Determination of erythrocyte mean corpuscular volume (MCV)on 05-16-2022 MCV (RBC) [Entitic vol] 90.5 fL 81-99 [facility] Work Phone: Gestational diabetes screen 1-hour screen with 50g oral glucose loadon 05-16-2022 Glucose 1 Hr post 50 g glucose PO [Mass/Vol] 107 mg/dL 70-140 [facility] Work Phone: HIV 1 and HIV-2 antibody ass ay with HIV-1 p24 antigen detectionon 05-16-2022 HIV 1+2 Ab+HIV1 p24 Ag IA Ql Non-Reactive Nonreactive [facility] Work Phone: Hematocrit Auto (Bld) [Volum e fraction]on 05-16-2022 Hematocrit (Bld) [Volume fraction] 36.3 % 37-47 [facility] Work Phone: Laboratory - Chemistry and C hemistry - challengeon 05-16-2022 Glucose Ql (U) Negative [facility] Work Phone: Laboratory - Hematology and Cell countson 05-16-2022 Erythrocyte distribution width (RBC) [Entitic vol] 44.6 fL 35.1-43.9 [facility] Work Phone: [phone] Erythrocyte distribution width (RBC) [Ratio] 13.4 % 11.6-14.6 [facility] Work Phone: [phone] Immature granulocytes/100 WBC (Bld) 0.300 % 0.0-0.9 [facility] Work Phone: [phone] Comment on above: IG% - Immature Granu locytes (promyelocytes, myelocytes and metamyelocytes) > 1% indicates that a LEFT SHIFT is Present. MCH (RBC) [Entitic mass] 30.9 pg 27.0-32.0 [facility] Work Phone: [phone] Nucleated RBC/100 WBC (Bld) [Ratio] 0 % 0-5 [facility] Work Phone: [phone] Laboratory - Urinalysison Protein Ql (U) Negative [facility] Work Phone: [phone] MCHC Auto (RBC) [Mass/Vol]on 05-16-2022 MCHC (RBC) [Mass/Vol] 34.2 g/dL 32-36 [facility] Work Phone: No Panel Informationon 05-16 Hepatitis B Surface Antigen Non-Reactive Nonreactive [facility] Work Phone: [phone] Hepatitis C Antibody Non-Reactive Nonreactive [facility] Work Phone: [phone] Comment on above: Non Reactive: < 0.8 Equivocal: >/= 0.8 to < 1.0 Reactive: >/= 1.0The CDC recommends that a reactive/equivocal HCV antibody result be followed up by the HCV Nucleic Acid Amplificationtest (848029) Miscellaneous Test Comment MAILED SPECIMEN [facility] Work Phone: [phone] Rubella IgG Antibody Reactive Nonreactive [facility] Work Phone: [phone] Comment on above: Antibody Results Int erpretation of Immune Status Non Reactive Presumed Non-Immune Equivocal Equivocal Reactive Presumed Immune Platelets bldon 05-16-2022 Platelets (Bld) [#/Vol] 210 10*3/uL 150-450 [facility] Work Phone: [phone] Serum Treponema species anti body detectionon 05-16-2022 Treponema sp Ab Ql (S) Non-Reactive [facility] Work Phone: Chlamydia trachomatis rRNA d etection by probe and target amplification methodon 04-18-2022 C. trachomatis rRNA BRIANNA+probe Ql (Unsp spec) Negative Negative [facility] Work Phone: Laboratory - Drug toxicology on 04-18-2022 Amphetamines Ql (U) Negative <1000 ng/mL [facility] Work Phone: [phone] Benzodiazepines Ql (U) Negative < 200 ng/mL [place] Work Phone: Cannabinoids Screen Ql (U) Negative < 50 ng/mL [facility] Work Phone: [phone] Cocaine Ql (U) Negative < 300 ng/mL [facility] Work Phone: [phone] Opiates Ql (U) Negative < 300 ng/mL [facility] Work Phone: [phone] Laboratory - Microbiology an d Antimicrobial susceptibilityon 04-18-2022 N. gonorrhoeae DNA BRIANNA+probe Ql (Unsp spec) Negative Negative [facility] Work Phone: Comment on above: Performed at: =[address] [id number] Director: Smitha Allison MD, Phone: [phone] No Panel Informationon 04-18 MDMA (Ecstasy) Screen Negative < 500 ng/mL [facility] Work Phone: [phone] Urine Barbiturates Screen Negative < 200 ng/mL [facility] Work Phone: [phone] Urine Drug Screen Comment [facility] Work Phone: Comment on above: CONFIRMATORY [...] Urine Methadone Screen Negative < 300 ng/mL [place] Work Phone: Urine phencyclidine (PCP) de tectionon 04-18-2022 Phencyclidine Ql (U) Negative < 25 ng/mL [facility] Work Phone: Cervical or vagninal specime n microscopic examination by cytology stain (reported ason 01-25-2022 Cytology report Cyto stain Doc (Cvx/Vag) Comment . [facility] Work Phone: Comment on above: The Pap smear is a s creening test designed to aid in thedetection of premalignant and malignant conditions of theuterine cervix. It is not a diagnostic procedure andshould not be used as the sole means of detecting cervicalcancer. Both false-positive and false-negative reports dooccur. Laboratory - Cytologyon 12-28 [employer] Engineer Cyto stain Nom (Cvx/Vag) [ID] Comment . [facility] Work Phone: Comment on above: Yolanda Hanley, Cyto technologist (ASCP) Laboratory - Miscellaneous t estson 01-25-2022 Service comment (Unsp spec) [Interp] Comment . [facility] Work Phone: Comment on above: This liquid based Th inPrep(R) pap test was screened withthe use of an image guided system. Service comment (Unsp spec) [Interp] . . [facility] Work Phone: No Panel Informationon 01-25 Human Papillomavirus Screen Comment . [facility] Work Phone: Comment on above: The HPV DNA reflex c christiano were not met with this specimenresult therefore, no HPV testing was performed.Performed at: [address] [place] [id number] Director: Smitha Allison MD, Phone: [phone] Pathology report final diagnosis Narrative Comment . [facility] Work Phone: Comment on above: NEGATIVE FOR INTRAEP ITHELIAL LESION OR MALIGNANCY.THIS SPECIMEN WAS RESCREENED PART OF OUR HEALTH CARE COACH PROGRAM. Culture, urine Bacteria identified Cx Nom (U) Streptococcus agalactiae (B) [facility] Work Phone: Bacteria identified Cx Nom (U) Positive [facility] Work Phone: Vital Signs Date Time Vital Sign Value Performing Clinician Faci lity 03-03-2025 08:02-0400 Body height 162.[address] Mary Hernandes DO Work Phone: [facility] 03-03-2025 08:00-0400 Body mass index (BMI) [Ratio] 37.1 kg/m2 Dr. Mary Hernandes DO Work Phone: [facility] 03-03-2025 08:00-0400 Body weight 98.[address] Mary Hernandes DO Work Phone: [facility] 03-03-2025 08:00-0400 Diastolic blood pressure 76 mm[Hg] Dr. Mary Hernandes DO Work Phone: [facility] 03-03-2025 08:00-0400 Systolic blood pressure 119 mm[Hg] Dr. Mary Hernandes DO Work Phone: [facility] 02-18-2025 17:30-0400 Body temperature 97.4 [degF] Dr. Mary Hernandes DO Work Phone: [facility] 02-18-2025 17:30-0400 Diastolic blood pressure 77 mm[Hg] Dr. Mary Hernandes DO Work Phone: [facility] 02-18-2025 17:30-0400 Heart rate 64 /min Dr. Mary Hernandes DO Work Phone: [facility] 02-18-2025 17:30-0400 Respiratory rate 18 /min Dr. Mary Hernandes DO Work Phone: [facility] 02-18-2025 17:30-0400 SaO2% (BldA) [Mass fraction] 100 % Dr. Mary Hernandes DO Work Phone: [facility] 02-18-2025 17:30-0400 Systolic blood pressure 120 mm[Hg] Dr. Mary Hernandes DO Work Phone: [facility] 02-18-2025 14:15-0400 Body height 162.[address] Mary Hernandes DO Work Phone: [facility] 02-18-2025 14:15-0400 Body mass index (BMI) [Ratio] 36.2 kg/m2 Dr. Mary Hernandes DO Work Phone: [facility] 02-18-2025 14:15-0400 Body weight 95.[address] Mary Hernandes DO Work Phone: [facility] 02-14-2025 13:13-0400 Body height 162.[address] Mary Hernandes DO Work Phone: [facility] 02-14-2025 13:13-0400 Body mass index (BMI) [Ratio] 36.3 kg/m2 Dr. Mary Hernandes DO Work Phone: [facility] 02-14-2025 13:13-0400 Body weight 96.[address] Mary Hernandes DO Work Phone: [facility] 11-15-2024 10:10-0400 Body mass index (BMI) [Ratio] 36.7 kg/m2 Dr. Mary Hernandes DO Work Phone: [facility] 11-15-2024 10:10-0400 Body weight 97.[address] Mary Hernandes DO Work Phone: [facility] 11-15-2024 10:10-0400 Diastolic blood pressure 76 mm[Hg] Dr. Mary Hernandes DO Work Phone: [facility] 11-15-2024 10:10-0400 Systolic blood pressure 126 mm[Hg] Dr. Mary Hernandes DO Work Phone: [facility] 11-24-2022 15:59-0400 Body temperature 97.3 [degF] Dr. Mary Hernandes Work Phone: [facility] 11-24-2022 15:59-0400 Diastolic blood pressure 71 mm[Hg] Dr. Mary Hernandes Work Phone: [facility] 11-24-2022 15:59-0400 Heart rate 88 /min Dr. Mary Hernandes Work Phone: [facility] 11-24-2022 15:59-0400 Respiratory rate 16 /min Dr. Mary Hernandes Work Phone: [facility] 11-24-2022 15:59-0400 SaO2% (BldA) [Mass fraction] 98 % Dr. Mary Hernandes Work Phone: [facility] 11-24-2022 15:59-0400 Systolic blood pressure 134 mm[Hg] Dr. Mary Hernandes Work Phone: [facility] 11-23-2022 10:09-0400 Body height 162.[address] Mary Hernandes Work Phone: [facility] 11-23-2022 10:09-0400 Body mass index (BMI) [Ratio] 36.6 kg/m2 Dr. Mary Hernandes Work Phone: [facility] 11-23-2022 10:09-0400 Body weight 96.[address] Mary Hernandes Work Phone: [facility] 11-19-2022 21:30-0400 Body height 162.[address] Mary Hernandes Work Phone: [facility] 11-19-2022 21:30-0400 Body mass index (BMI) [Ratio] 36.5 kg/m2 Dr. Mary Hernandes Work Phone: [facility] 11-19-2022 21:30-0400 Body weight 96.[address] Mary Hernandes Work Phone: [facility] 11-19-2022 21:22-0400 Body temperature 98.3 [degF] Dr. Mary Hernandes Work Phone: [facility] 11-19-2022 21:22-0400 Diastolic blood pressure 76 mm[Hg] Dr. Mary Hernandes Work Phone: [facility] 11-19-2022 21:22-0400 Heart rate 106 /min Dr. Mary Hernandes Work Phone: [facility] 11-19-2022 21:22-0400 SaO2% (BldA) [Mass fraction] 98 % Dr. Mary Hernandes Work Phone: [facility] 11-19-2022 21:22-0400 Systolic blood pressure 122 mm[Hg] Dr. Mary Hernandes Work Phone: [facility] 11-16-2022 15:41-0400 Body mass index (BMI) [Ratio] 36.4 kg/m2 Dr. Mary Hernandes Work Phone: [facility] 11-16-2022 15:41-0400 Body weight 96.[address] Mary Hernandes Work Phone: [facility] 11-16-2022 15:41-0400 Diastolic blood pressure 80 mm[Hg] Dr. Mary Hernandes Work Phone: [facility] 11-16-2022 15:41-0400 Systolic blood pressure 133 mm[Hg] Dr. Mary Hernandes Work Phone: [facility] 11-09-2022 15:56-0400 Body mass index (BMI) [Ratio] 36.8 kg/m2 Dr. Mary Hernandes Work Phone: [facility] 11-09-2022 15:56-0400 Body weight 97.[address] Mary Hernandes Work Phone: [facility] 11-09-2022 15:56-0400 Diastolic blood pressure 81 mm[Hg] Dr. Mary Hernandes Work Phone: [facility] 11-09-2022 15:56-0400 Systolic blood pressure 114 mm[Hg] Dr. Mary Hernandes Work Phone: [facility] 2022 15:09-0500 Body mass index (BMI) [Ratio] 36.6 kg/m2 Dr. Mary Hernandes Work Phone: [facility] 2022 15:09-0500 Body weight 96.[address] Mary Hernandes Work Phone: [facility] 2022 15:09-0500 Diastolic blood pressure 84 mm[Hg] Dr. Mary Hernandes Work Phone: [facility] 2022 15:09-0500 Systolic blood pressure 135 mm[Hg] Dr. Mary Hernandes Work Phone: [facility] 10-26-2022 15:23-0500 Body height 162.[address] Mary Hernandes Work Phone: [facility] 10-26-2022 15:23-0500 Body mass index (BMI) [Ratio] 35.9 kg/m2 Dr. Mary Hernandes Work Phone: [facility] 10-26-2022 15:23-0500 Body weight 94.[address] Mary Hernandes Work Phone: [facility] 10-26-2022 15:23-0500 Diastolic blood pressure 80 mm[Hg] Dr. Mary Hernandes Work Phone: [facility] 10-26-2022 15:23-0500 Systolic blood pressure 112 mm[Hg] Dr. Mary Hernandes Work Phone: [facility] 10-13-2022 15:03-0500 Body mass index (BMI) [Ratio] 35.3 kg/m2 Dr. Mary Hernandes Work Phone: [facility] 10-13-2022 15:03-0500 Body weight 93.[address] Mary Hernandes Work Phone: [facility] 10-13-2022 15:03-0500 Diastolic blood pressure 80 mm[Hg] Dr. Mary Hernandes Work Phone: [facility] 10-13-2022 15:03-0500 Systolic blood pressure 115 mm[Hg] Dr. Mary Hernandes Work Phone: [facility] 09-28-2022 15:33-0500 Body mass index (BMI) [Ratio] 35.3 kg/m2 Dr. Mary Hernandes Work Phone: [facility] 09-28-2022 15:33-0500 Body weight 93.[address] Mary Hernandes Work Phone: [facility] 09-28-2022 15:33-0500 Diastolic blood pressure 86 mm[Hg] Dr. Mary Hernandes Work Phone: [facility] 09-28-2022 15:33-0500 Systolic blood pressure 136 mm[Hg] Dr. Mary Hernandes Work Phone: [facility] 09-14-2022 15:43-0500 Body mass index (BMI) [Ratio] 34.7 kg/m2 Dr. Mary Hernandes Work Phone: [facility] 09-14-2022 15:43-0500 Body weight 91.[address] Mary Hernandes Work Phone: [facility] 09-14-2022 15:43-0500 Diastolic blood pressure 79 mm[Hg] Dr. Mary Hernandes Work Phone: [facility] 09-14-2022 15:43-0500 Systolic blood pressure 132 mm[Hg] Dr. Mary Hernandes Work Phone: [facility] 08-31-2022 13:55-0500 Body mass index (BMI) [Ratio] 34 kg/m2 Dr. Mary Hernandes Work Phone: [facility] 08-31-2022 13:55-0500 Body weight 89.[address] Mary Hernandes Work Phone: [facility] 08-31-2022 13:55-0500 Diastolic blood pressure 80 mm[Hg] Dr. Mary Hernandes Work Phone: [facility] 08-31-2022 13:55-0500 Systolic blood pressure 119 mm[Hg] Dr. Mary Hernandes Work Phone: [facility] 08-08-2022 16:03-0500 Body height 162.[address] Mary Hernandes Work Phone: [facility] Work Phone: 08-08-2022 16:02-0500 Body mass index (BMI) [Ratio] 33.5 kg/m2 Dr. Mary Hernandes Work Phone: [facility] 08-08-2022 16:02-0500 Body weight 88.[address] Mary Hernandes Work Phone: [facility] 08-08-2022 16:02-0500 Diastolic blood pressure 72 mm[Hg] Dr. Mary Hernandes Work Phone: [facility] 08-08-2022 16:02-0500 Systolic blood pressure 109 mm[Hg] Dr. Mary Hernandes Work Phone: [facility] 07-11-2022 14:58-0500 Diastolic blood pressure 80 mm[Hg] Dr. Mary Hernandes Work Phone: [facility] 07-11-2022 14:58-0500 Systolic blood pressure 120 mm[Hg] Dr. Mary Hernandes Work Phone: [facility] 06-13-2022 14:31-0400 Body mass index (BMI) [Ratio] 31.7 kg/m2 Dr. Mary Hernandes Work Phone: [facility] Work Phone: 06-13-2022 14:31-0400 Body weight 83.[address] Mary Hernandes Work Phone: [facility] Work Phone: 06-13-2022 14:31-0400 Diastolic blood pressure 80 mm[Hg] Dr. Mary Hernandes Work Phone: [facility] Work Phone: 06-13-2022 14:31-0400 Systolic blood pressure 136 mm[Hg] Dr. Mary Hernandes Work Phone: [facility] Work Phone: 05-16-2022 14:26-0400 Body height 162.[address] Mary Hernandes Work Phone: [facility] Work Phone: 05-16-2022 14:26-0400 Body mass index (BMI) [Ratio] 30.9 kg/m2 Dr. Mary Hernandes Work Phone: [facility] Work Phone: 05-16-2022 14:26-0400 Body weight 81.[address] Mary Hernandes Work Phone: [facility] Work Phone: 05-16-2022 14:26-0400 Diastolic blood pressure 76 mm[Hg] Dr. Mary Hernandes Work Phone: [facility] Work Phone: 05-16-2022 14:26-0400 Systolic blood pressure 126 mm[Hg] Dr. Mary Hernandes Work Phone: [facility] Work Phone: 04-18-2022 09:17-0400 Body height 162.[address] Mary Hernandes Work Phone: [facility] Work Phone: 04-18-2022 09:17-0400 Body mass index (BMI) [Ratio] 31.2 kg/m2 Dr. Mary Hernandes Work Phone: [facility] Work Phone: 04-18-2022 09:17-0400 Body weight 82.[address] Mary Hernandes Work Phone: [facility] Work Phone: 04-18-2022 09:17-0400 Diastolic blood pressure 84 mm[Hg] Dr. Mary Hernandes Work Phone: [facility] Work Phone: 04-18-2022 09:17-0400 Systolic blood pressure 116 mm[Hg] Dr. Mary Hernandes Work Phone: [facility] Work Phone: 01-25-2022 13:25-0400 Body mass index (BMI) [Ratio] 30.4 kg/m2 Dr. Mary Hernandes Work Phone: [facility] Work Phone: 01-25-2022 13:25-0400 Body weight 80.[address] Mary Hernandes Work Phone: [facility] Work Phone: 01-25-2022 13:25-0400 Diastolic blood pressure 74 mm[Hg] Dr. Mary Hernandes Work Phone: [facility] Work Phone: 01-25-2022 13:25-0400 Systolic blood pressure 118 mm[Hg] Dr. Mary Hernandes Work Phone: [facility] Work Phone: Encounters Encounter Date Encounter Type Care Provider Facility Start: 03-03-2025 End: 03-03-[address] Nellie Miller DO -[facility] Work Phone: Start: 03-03-2025 End: 03-03-[address] Mary Hernandes DO Work Phone: -[facility] Start: 02-24-2025 Encounter for other preprocedural examination Nellie Miller [facility] Start: 02-18-2025 ambulatory Nellie Solis cility:[facility] Start: 02-18-2025 Non-patient / Non-visit Dr. Nam Miller DO -[facility] Start: 02-18-2025 End: 02-18-2025 Admission to same day surgery center Dr. Nellie Miller DO -[facility] Start: 02-18-2025 End: 02-18-[address] Mary Hernandes DO Work Phone: [facility] Work Phone: Start: 02-14-2025 End: 02-14-[address] Mary Hernandes DO Work Phone: -Laboratory Specimen Start: 02-14-2025 End: 02-14-[address] Nellie Miller DO -Laboratory Specimen Work Phone: Start: 02-14-2025 End: 02-14-[address] Nellie Miller DO -[facility] Work Phone: Start: 02-14-2025 End: 02-14-[address] Mary Hernandes DO Work Phone: [facility] Work Phone: Start: 02-14-2025 End: 02-14-2025 ambulatory Mary Hernandes Facility:[facility] Start: 11-15-2024 End: 11-15-[address] Maribel Chen MD -[facility] Work Phone: Start: 11-15-2024 End: 11-15-2024 ambulatory Maribel Chen Facility:[facility] Start: 04-13-2024 End: 04-13-2024 ambulatory MARY HERNANDES DO Facility:[facility] Start: 11-24-2022 Non-patient / Non-visit Dr. Barbara Hernandes Work Phone: [facility] Start: 11-23-2022 Non-patient / Non-visit Dr. Barbara Hernandes Work Phone: [facility] Start: 11-23-2022 End: 11-24-2022 Evaluation and management of inpatient Dr. Mary Hernandes Work Phone: [facility] Start: 11-20-2022 Non-patient / Non-visit Dr. Barbara Hernandes Work Phone: [facility] Start: 11-19-2022 End: 11-19-[address] Mary Hernandes Work Phone: [facility] Work Phone: Start: 11-19-2022 End: 11-19-[address] Mary Hernandes Work Phone: [facility] Start: 11-16-2022 End: 11-16-[address] Mary Hernandes Work Phone: [facility] Start: 11-09-2022 End: 11-09-[address] Mary Hernandes Work Phone: [facility] Start: 2022 End: [address] Mary Hernandes Work Phone: [facility] Start: 10-26-2022 End: 10-26-[address] Mary Hernandes Work Phone: [facility] Start: 10-26-2022 End: 10-26-[address] Mary Hernandes Work Phone: [facility] Work Phone: Start: 10-26-2022 End: 10-26-[address] Mary Hernandes Work Phone: [facility] Start: 10-13-2022 End: 10-13-[address] Mary Hernandes Work Phone: [facility] Start: 09-28-2022 End: 09-28-[address] Mary Hernandes Work Phone: [facility] Start: 09-14-2022 End: 09-14-[address] Mary Hernandes Work Phone: [facility] Start: 08-31-2022 End: 08-31-[address] Mary Hernandes Work Phone: [facility] Start: 08-17-2022 Telephone encounter Annika Moreno NOY Work Phone: [facility] Comment on above: Results Start: 08-16-2022 End: 08-16-2022 ambulatory Facility:[facility] Start: 08-08-2022 End: 08-08-[address] Mary Hernandes Work Phone: [facility] Work Phone: Start: 08-08-2022 End: 08-08-[address] Mary Hernandes Work Phone: [facility] Start: 07-12-2022 End: 07-12-2022 ambulatory [facility] Start: 07-11-2022 End: 07-11-[address] Mary Hernandes Work Phone: [facility] Start: 06-27-2022 End: 06-27-2022 ambulatory [facility] Start: 06-13-2022 End: 06-13-[address] Mary Hernandes Work Phone: [facility] Start: 05-16-2022 End: 05-16-[address] Mary Hernandes Work Phone: [facility] Work Phone: Start: 05-16-2022 End: 05-16-[address] Mary Hernandes Work Phone: [facility] Start: 04-18-2022 End: 04-18-[address] Mary Hernandes Work Phone: [facility] Work Phone: Start: 04-18-2022 End: 04-18-[address] Mary Hernandes Work Phone: [facility]-Laboratory, Specimen Start: 04-18-2022 End: 04-18-[address] Mary Hernandes Work Phone: [facility] Start: 01-26-2022 End: 01-26-[address] Mary Hernandes Work Phone: [facility]Labor[facility], Specimen Start: 01-25-2022 End: 01-25-[address] Mary Hernandes Work Phone: [facility] Procedures Date Procedure Procedure Detail Performing Clinician [...] therefore, no HPV testing was performed.Performed at: [address] [id number] Director: Smitha Allison MD, Phone: [phone] Start: 02-14-[address] Brandon Hernandes DO Work Phone: Start: 10-26-2022 Ultrasound scan for growth Dr. Mary Hernandes Work Phone: H/O: surgery Status post dila tion and curettage Dr. Mary Hernandes DO Work Phone: Comment on above: 02/18/[address] Mary alejandre Work Phone: Plan of Treatment Date Care Activity Detail Author Start: 02-18-2025 End: 02-18-2025 Patient discharge [facility] Start: 02-18-2025 End: 02-18-2025 Ambulation without limitation [facility] Start: 02-18-2025 End: 02-18-2025 Medical regimen orders management [facility] Start: 02-18-2025 End: 02-18-2025 Medication education [facility] Start: 02-18-2025 End: 02-18-2025 Procedure discontinued [facility] Start: 02-18-2025 End: 02-18-2025 Taking patient vital signs [facility] Start: 02-18-2025 Vital signs measurements [facility] Start: 02-18-2025 End: 02-18-2025 [facility] Start: 02-18-2025 Anesthesia incomplete/missed ANES INCOMPL/MISSED AB PX [facility] Start: 02-18-2025 Tx missed first trimester surgical CARE OF MISCARRIAGE [facility] Start: 02-14-2025 Liquid based cervical cytology screening [facility] Start: 11-24-2022 Patient discharge [facility] Start: 11-23-2022 Administration of medication [facility] Start: 11-23-2022 Application of ice collar, cap or bag [facility] Start: 11-23-[address] [facility] Start: 11-23-2022 Introduction of urinary catheter [facility] Start: 11-23-2022 Measuring intake and output [facility] Start: 11-23-2022 Notification of physician [facility] Start: 11-23-2022 Procedure discontinued [facility] Start: 11-23-2022 Provision of activity privileges [facility] Start: 11-23-2022 Vital signs measurements [facility] Start: 11-23-2022 [facility] Start: 11-23-2022 Admission procedure [facility] Start: 11-19-2022 Nonstress test [facility] Start: 11-19-2022 Obstetric monitoring [facility] Start: 11-19-2022 Vital signs measurements [facility] Start: 11-19-2022 [facility] Start: 04-28-2022 Influenza vaccination INFLUENZA (#1) [facility] Start: 04-18-2022 [facility] Work Phone: Start: 08-28-2021 DEPRESSION ASSESSMENT DEPRESSION ASSESSMENT [facility] Start: 11-01-2016 PAP TESTING PAP TESTING [facility] Start: 11-01-2014 Urine microalbumin profile DTAP,TDAP,TD (1 - Tdap) [facility] Start: 11-01-2013 HEPATITIS C SCREENING HEPATITIS C SCREENING [facility] Start: 11-01-2013 HIV SCREENING HIV SCREENING [facility] Start: 11-01-2009 PEDS TO ADULT TRANSITION ANNUAL ASSESSMENT PEDS TO ADULT TRANSITION ANNUAL ASSESSMENT [facility] Start: 2007 PEDS TO ADULT TRANSITION INITIAL DISCUSSION PEDS TO ADULT TRANSITION INITIAL DISCUSSION [facility] Start: 11-01-2006 HPV VACCINE (1 - 2-dose series) HPV VACCINE (1 - 2-dose series) [facility] Start: 05-04-1996 COVID-19 VACCINE (#1) COVID-19 VACCINE (#1) [facility] Start: 1995 HEPATITIS B (1 of 3 - 3-dose series) HEPATITIS B (1 of 3 - 3-dose series) [facility] CBC W Auto Different ial panel - Blood [facility] Work Phone: Glucose [Mass/volume ] in Serum or Plasma --1 hour post 50 g glucose PO [facility] Work Phone: Hepatitis B surface antigen measurement [facility] Work Phone: Hepatitis C antibody measurement [facility] Work Phone: HIV 1+2 Ab+HIV1 p24 Ag [Presence] in Serum or Plasma by Immunoassay [facility] Work Phone: Liquid based cervica l cytology screening [facility] Path report.final Dx Spec [facility] Patient Education Kick Counts ED False Labor OB Triage: Return to Hospital or Notify Physician if you Experience: [facility] Work Phone: Patient referral [facility] Work Phone: Rubella IgG measurement [facility] Work Phone: Treponema sp Ab [Pre sence] in Serum [facility] Work Phone: Urine culture Urine Culture [facility] Work Phone: [facility] Immunizations Immunization Date Immunization Notes Care Provider Fa cility 09-14-2022 tetanus toxoid, redu kilo diphtheria toxoid, and acellular pertussis vaccine, adsorbed Dr. Mary Hernandes Work Phone: [facility] Payers Date Payer Category Payer Self-pay [id number] 2024 Unknown [id number] 2020 Unknown [id number] 2020 Unknown [employer] BL[employer] CARD PPO OOS [id number] 2020-Present [phone] [address] [place] [address] PPO [id number] 1995 Unknown [id number] 1995 Unknown [id number] 1995 Unknown [id number] Unknown [id number] Unknown COMMERCIAL OTHER [id number] Unknown [facility] [id number] Unknown [id number] Unknown [id number] Unknown [id number] Unknown [id number] Unknown [id number] Unknown [id number] Social History Date Type Detail Facility Start: 04-18-2022 End: 11-23-2022 Tobacco smoking status MIIS Unknown if ever smoked [facility] Start: 12-19-[address] [facility] Start: 12-19-[address] [facility] Start: 1995 Sex Assigned At Female [facility] Start: 08-16-2022 End: 02-17-2025 Tobacco smoking status NHIS Never smoked tobacco [facility] Start: 08-16-2022 Tobacco use and exposure Smokeless tobacco non-user [facility] Start: 08-16-2022 Alcohol intake Lifetime non-d tommy (finding) [facility] Start: 1995 Sex Assigned At Not on file [facility] NEGATED: Highlighted row Not [facility] Medical Equipment Procedure Code Equipment Code [...] Cognitive function Level Of Cons ciousness Awake;Alert [facility] Work Phone: Clinical Notes 01-25-2022 to 02-18-2025 Note Date & Type Note Facility 02-18-2025 Consult note [facility] 02-18-2025 History and physical note [facility] 02-18-2025 Discharge summary Note Date/Time February 18, 2025 4:21pm [facility] Medical Records Department [address] [place] [address] Instructions for Home/Discharge Instructions 02/18/25 1619 MR#: [id number] Acct: [id number] Name: TERE BARON Rep #:[id number] : 1995 29 From: Nellie Miller DO [...] Up With: Nellie Miller DO When: Call [phone] to schedule appointment. Test Results: Test results from this visit will be discussed in further detail at your follow-up appointment, if applicable. Discharge Plan Admission Primary Reason for Your Visit: dilation and curettage Attending Provider: Nellie Miller Primary Care Provider: VIRGEN LUNA Instructions Print Language: Urdu Discharge Orders/Prescriptions Prescriptions: New ibuprofen 800 mg [...] Miller DO CC: VIRGEN LUNA ~ Signed [facility] Work Phone: 1(374) 965-774706-24-2025 History and physical note [facility] Note Date/Time February 18, 2025 6:34 pm [facility] Medical Records Department [address] [place] [address] History & Physical Exam 02/18/25 1609 MR#: [id number] Acct: [id number] Name: TERE BARON Rep #:[id number] : 1995 29 From: Nellie Miller DO PCP: VIRGEN LUNA [place] Location: [place] [address] History and Physical Date of Admission: 02/18/25 Intake Vital Signs 11/15/2509:10 02/14/2513:13 02/14/2513:13 Height 5 ft 4 in 5 ft 4 in 5 ft 4 in Weight: 212 lb 2 oz BMI 36.3 Intake Visit Reasons: *EST* NOB LMP 12/11, MARSHAL 09/17 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 [place] History 2 Elective abortions Hx Para 1 Spontaneous abortions Hx # Term Pregnancies 1 Ectopic pregnancies Hx # Pregnancies Multiple births # of living children 1 Past Pregnancies Del. Date Name GA/Weeks Outcome Route Bth Weight Gen Labor Lgth Anesthesia Del Locatn Provider FOB 11/23/22 Cruz 40 live - full term 7lbs 6oz Male epidural [facility] Nellie Miller [place] Delivery Date: 11/23/22 Last Updated by: Jayshree [...] transfusions, D (Rh) Sensitized, Pulmonary (e.g.,TB,Asthma), Breast, Hall Coordinator surgery, Anesthetic complications, Uterine anomaly/abilio, Infertility and [...] comfortable and no acute distress Orientation: alert [facility] Head: normal to inspection, normocephalic and atraumatic [...] MARSHAL 09/17/25, MILLICENT Arroyo, Jose son Tyrone, [facility] (5) : Status: Acute Comment: elects NIPT [...] Dr. Nellie Miller DO; VIRGEN LUNA~ Signed [facility] Work Phone: 1(969) 501-207106-24-2025 Consult note Author Arnaldo Soto [facility] Note Date/Time February 18, 2025 3:51 pm [facility] Medical Records Department [address] [place] [address] Pre-Anesthesia Evaluation 02/18/25 1547 MR#: [id number] Acct: [id number] Name: TERE BARON Rep #:[id number] : 1995 29 From: Arnaldo Soto MD PCP: VIRGEN LUNA Status:[facility] Y Race: C Location: [place] [address] ASA Classification* ASA Classification ASA Classification: 1 [...] Curettage, Suction Anesthesia History Anesthesia History - civil draftsman: Anesthesia History - civil draftsman Hx Hospitalization No 02/17/25 13:24 Any Problems [...] take am of surgery PONV PONV - civil draftsman: PONV - civil draftsman Female Yes 02/17/25 13:24 HX of Motion [...] 02/18/25 14:15 Respiratory Assessment Respiratory Assessment - civil draftsman: Respiratory Tract Infection Hx - civil draftsman Hx Respiratory Tract Infection No 02/17/25 13:24 STOP Sleep Apnea STOP Sleep Apnea - civil draftsman: STOP Sleep Apnea - civil draftsman Hx Hypertension No 02/17/25 13:24 Hx Sleep [...] Tobacco Use History Tobacco Use History - civil draftsman: Tobacco Use History - civil draftsman Tobacco Use Smoking Status Never smoker 02/17/25 13:24 Hx Tobacco Use No 02/17/25 13:24 Years Smoking Packs Smoked per Day Smoking Cessation Date was within the last 15 years Hx Smoking Cessation Date Hx Smoking Cessation Counseling Hematologic Medial History Hematologic Hx - civil draftsman: 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 02/18/25 1551 <Electronically signed by Arnaldo coleman MD> Date _ Arnaldo Soto MD Cosigner Signature: Date CC: ~ Signed [facility] Work Phone: 1(585) 209-336206-24-2025 Procedure note [facility] Medical Records Department [address] [facility] [place] [address] Operative Report 02/18/25 1731 MR#: [id number] Acct: [id number] Name: TERE BARON IRINA Rep #:[id number] : 1995 29 From: Nellie Miller DO PCP: VIRGEN LUNA Status:[facility] Location: [place] [address] Problems Associated Problem List Diagnoses (1) Missed : Multi Select Codes Urinary/Genital Urinary/Genital CPT Codes: 91721 Surg Trtmt missed Ab 1TM Operative Report (Standard) Operative Information Date of Procedure: 02/18/25 Pre-Operative Diagnosis: missed measuring 5 weeks Post-Operative Diagnosis: missed measuring 5 weeks Surgery/Procedure Performed: suction dilation and curettage hardwood flooring specialist: No Type of Anesthesia: MAC/Supplemental RN Documented [...] SCD's VTE Pharm Prophylaxis ordered?: No 02/18/25 1267 Cosigner Signature (if applicable): CC: Dr. Nellie Miller, DO; VIRGEN LUNA~ Signed [facility]06-24-2025 Discharge summary [facility] Medical Records Department [address] [place] [address] Instructions for Home/Discharge Instructions 02/18/25 1619 MR#: [id number] Acct: [id number] Name: TERE BARON IRINA Rep #:[id number] : 1995 29 From: Nellie Miller DO [...] Up With: Nellie Miller DO When: Call [phone] to schedule appointment. Test Results: Test results from this visit will be discussed in further detail at your follow- up appointment, if applicable. Discharge Plan Admission Primary Reason for Your Visit: dilation and curettage Attending Provider: Nellie Miller Primary Care Provider: VIRGEN LUNA Instructions Print Language: Urdu Discharge Orders/Prescriptions Prescriptions: New ibuprofen 800 mg [...] Diego DO CC: VIRGEN LUNA ~ Signed [facility]06-24-2025 [facility] Medical Records Department [address] [place] [address] History Physical Exam 02/18/25 1609 MR#: [id number] Acct: [id number] Name: TERE BARON Rep #: [id number] : 1995 29 From: Nellie Miller DO PCP: VIRGEN LUNA Status[place] Location: [place] [address] History and Physical Date of Admission: 02/18/25 Intake Vital Signs 11/15/2509:10 02/14/2513:13 02/14/2513:13 Height 5 ft 4 in 5 ft 4 in 5 ft 4 in Weight: 212 lb 2 oz BMI 36.3 Intake Visit Reasons: *EST* NOB LMP 12/11, MARSHAL 09/17 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 Date Name GA/Weeks Outcome Route Bth Weight Infant Gen Labor Lgth Anesthesia Del Locatn Provider FOB 11/23/22 Cruz 40 live - full term 7lbs 6oz Male epid ural [facility] Nellie Miller [place] Delivery Date: 11/23/22 Last Updated by: Jayshree [...] Disorder: Other Infection History: (more content not included)...[facility] 02-18-2025 Consult note [facility] Medical Records Department [address] [place] [address] Pre-Anesthesia Evaluation 02/18/25 1547 MR#: [id number] Acct: [id number] Name: TERE BARON Rep #:[id number] : 1995 29 From: Arnaldo Soto MD PCP: VIRGEN LUNA Status:[facility] Y Race: C Location: [place] [address] ASA Classification* ASA Classification ASA Classification: 1 [...] Curettage, Suction Anesthesia History Anesthesia History - civil draftsman: Anesthesia History - civil draftsman Hx Hospitalization No 02/17/25 13:24 Any Problems [...] take am of surgery PONV PONV - civil draftsman: PONV - civil draftsman Female Yes 02/17/25 13:24 HX of Motion [...] 02/18/25 14:15 Respiratory Assessment Respiratory Assessment - civil draftsman: Respiratory Tract Infection Hx - civil draftsman Hx Respiratory Tract Infection No 02/17/25 13:24 STOP Sleep Apnea STOP Sleep Apnea - civil draftsman: STOP Sleep Apnea - civil draftsman Hx Hypertension No 02/17/25 13:24 Hx Sleep [...] Tobacco Use History Tobacco Use History - civil draftsman: Tobacco Use History - civil draftsman Tobacco Use Smoking Status Never smoker 02/17/25 13:24 Hx Tobacco Use No 02/17/25 13:24 Years Smoking Packs Smoked per Day Smoking Cessation Date was within the last 15 years Hx Smoking Cessation Date Hx Smoking Cessation Counseling Hematologic Medial History Hematologic Hx - civil draftsman: Hematologic Medical Hx - disaster director Hx of Blood Transfusion No 02/17/25 13:24 [...] confused, unrespo /Reproduction History /Reproductive History - civil draftsman: /Reproductive Hx- civil draftsman Hx Now No 02/17/25 13:24 Gestational Age [...] physical activity do you participate in: none crista/methodist: Church seatbelt use: always do you feel safe at home: Yes additional social history: [facility]- [facility] Review of Systems (Anesthesia) ROS Narrative System reviewed and no additional complaints, except as documented. 02/18/25 1551 [place] MEZA> Date _ [facility]oto [facility] Signature: Date CC: ~ Signed [facility]06-20-2025 [facility] [address], [address] [place] [address] OFFICE VISIT Date of Service: 02/14/25 MR#: [id number] Acct: [id number] Name: TERE BARON Rep # : [id number] : 1995 Provider: Dr. 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 [place] History 2 Elective abortions Hx Para 1 Spontaneous abortions Hx # Term Pregnancies 1 Ectopic pregnancies Hx # Pregnancies Multiple births # of living children 1 Past Pregnancies Del. Date Name GA/Weeks Outcome Route Bth Weight Infant Gen Labor Lgth Anesthesia Del Locatn Provider FOB 11/23/22 Cruz 40 live - full term 7lbs 6oz Male ep idural [facility] Nellie Miller [place] Delivery Date: 11/23/22 Last Updated by: Jayshree [...] transfusions, D (Rh) Sensitized, Pulmonary (e.g.,TB,Asthma), Breast, Hall Coordinator surgery, Anesthetic complications, Uterine anomaly/abilio, Infertility and [...] comfortable and no acute distress Orientation: alert [facility] Head: normal to inspection, normocephalic and atraumatic [...] Gallegos Signature: Date (if applicable) CC: ~ [facility]03-21-2025 Evaluation note* Diagnosis Onset Date Resolution Status Admit Date Encounter for IUD removal inactive November 15, 2024 10:03am FH: celiac disease acute January 272024 12:53pm FH: lupus acute February 14 12:53pm Obesity affecting acute February 14, 2025 12:53pm acute February 14 12:53pm Supervision of high-risk acute February 14, 2025 12:53pm [facility] Work Phone: [phone] Evaluation note* Diagnosis Onset Date Resolution Status Admit Date Encounter for IUD removal inactive November 15, 2024 10:03am FH: celiac disease acute January 272024 12:53pm FH: lupus acute February 14 12:53pm Missed acute January 12:53pm Obesity affecting acute February 14, 2025 12:53pm acute February 14 12:53pm Supervision of high-risk acute February 14, 2025 12:53pm Missed acute January 1:52pm [facility] Work Phone: 1(494) 586-452903-30-[address] Diego [facility] November 24, 2022 8:31am Note Date/Time November 24, 2022 8:2 9am [facility] Medical Records Department [address] [place] [address] Instructions for Home/Discharge Instructions 11/24/22 0828 MR#: [id number] Acct: [id number] Name: TERE VILLALOBOS Rep #:[id number] : 1995 27 From: Nellie Miller DO [...] Up With: Nellie Miller DO When: Call [phone] to make an appointment with your doctor [...] CC: Dr. Mary Hernandes DO ~ Signed [facility] Work Phone: 1(982) 958-876703-30-[address] Diego [facility] November 24, 2022 8:28am Note Date/Time November 24, 2022 8:2 8am [facility] Medical Records Department [address] [place] [address] Progress Note - OBGYN 11/24/22823 MR#: [id number] Acct: [id number] Name: TERE VILLALOBOS Rep #:[id number] : 1995 27 From: Nellie Miller DO PCP: Dr. Mary Hernandes DO Status:ADM IN Location: [id number] Subjective Subjective Patient doing well without complaints. [...] % (Auto) 69.2, Lymph % (Auto) 21.3, [place] % (Auto) 7.2, Eos % (Auto) 0.9, [...] first : COMMENT: PRR , MARSHAL 11/20/22, [facility] (4) Obesity affecting : COMMENT: 1 [...] Cosigner Signature (if applicable): CC: ~ Signed [facility] Work Phone: 1(451) 106-377403-29-2023 Procedure [facility] 11-23-2022 History and physical note Author Dr. Diego [facility] November 23, 2022 7:58am Note Date/Time November 23, 2022 7:5 8am [facility] Medical Records Department [address] [place] [address] H&P Exam - VOICE ENGINEER 11/23/22 0753 MR#: [id number] Acct: [id number] Name: TERE VILLALOBOS Rep #:[id number] : 1995 27 From: Nellie Miller DO PCP: Dr. Mary Hernandes DO Status:ADM IN Location: [id number] HPI - General General Date of Admission: [...] house current occupational status: employed current occupation: [employer] current occupational exposures/hazards: No pets and animals: [...] 1-2 times per week duration: 30-45 minutes/day crista/methodist: Church seatbelt use: always do you feel safe at home: Yes additional social history: BF- Cristian Crowell Patient works at [employer] History 1 Elective abortions Hx Para 0 [...] first : COMMENT: PRR , MARSHAL 11/20/22, [facility] (5) : QUALIFIERS: Weeks of gestation: [...] any complications: none I have reviewed the [facility] and made any clinically relevant updates. 11/23/22 0758 <Electronically signed by Nellie Miller DO> Cosigner Signature (if applicable): CC: Dr. Nellie Miller DO; Dr. Mary Hernandes DO~ Signed [facility] Work Phone: 1(687) 207-497712-21-2022 Miscellaneous Notes* Telephone Encounter - Pamela Argueta [...] ER. Annika Moreno APRN.CNP documented in [facility] Influenza virus A and B RNA and SARS-CoV-2 (COVID-19) N gene panel BRIANNA+probe (Resp)COVID 19 RESULT: SARS-CoV-2 (Agent of COVID-19) Not Detected by RT-PCR or equivalent method. robbie LUSX-HbG-2_Erkld [employer] (CHUCHO)_EUA This test was developed and its performance characteristics determined by [facility] [place]. This test has been authorized by FDA under an Emergency Use Authorization (EUA). This test has been validated in accordance with the FDA's Guidance Document Policy for DiagnosticsTesting in Laboratories Certified to Perform High Complexity Testing under CLIA prior to Emergency use Authorization for Coronavirus Disease 2019 during the Public Health Emergency issued on October 26, 2019. Test performed by [facility], Mary Moreland [facility] [place], [address] [place] [address]. INFLUENZA A PCR: Negative for Influenza A by RT-PCR INFLUENZA B PCR: Negative for Influenza B by RT-PCRBluffton HospitalComment on above: Performed By: #### [id number] #### [facility] CLIA [id number] [address] [place], [place] [address] STATES OF [id number] NoteHNO ID: [id number] Author: Angy Manley APRN.BAND AID MACHINE OPERATOR Service: ? Author Type: Nurse Practitioner Type: [...] - STREP A MOLECULAR (POC) Angy Manley APRN.[facility]05-31-2022 NotePap Smear Specimen AdequacyMay 2021 3:25pmComment.Satisfactory for evaluation. No endocervical component is identified.[facility] A#[id number] Work Phone: Comment on above:Satisfactory for evaluation. No endocervical component is identified.01-25-2022 NotePap Smear QC ReviewMay 2021 3:25pmComment.Deandra Tay, Supervisory Client Technical Professional (ASCP)[facility] A#[id number] Clinic [facility] Work Phone: Comment on above:Deandra Tay Supervisory Client Technical Professional (ASCP)01-25-2022 NotePap Smear Specimen AdequacyMay 2021 3:25pmComment.Satisfactory for evaluation. No endocervical component is identified.[facility] A#[id number] Clinic [facility] Work Phone: Comment on above:Satisfactory for evaluation. No endocervical component is identified.01-25-2022 NotePap Smear QC ReviewMay 2021 3:25pmComment.Deandra Tay Supervisory Client Technical Professional (ASCP)[facility] A#[id number] Clinic [facility] Work Phone: Comment on above:Deandra Tay, Supervisory Client Technical Professional (ASCP)Consult note Author Benito Rodrigues [facility] Note Date/Time February 18, 2025 6:34 pm [facility] Medical Records Department [address] [facility] [place] [address] Anesthesia Postop Eval I 02/18/25 1719 MR#: [id number] Acct: [id number] Name: CRISTINATERE PANTOJA IRINA Rep #:[id number] : 1995 29 From: Benito GMOEZ PCP: VIRGEN LUNA Status:REG SDC Y Race: C Location: [place] [address] Anesthesia: Postop Eval I Current Vital Signs [...] document: Postop Eval 1 completed: Yes 02/18/25 4481 <Electronically signed by Benito Rodrigues MODULAR HOME CREW MEMBER> Date _ Benito Rodrigues MODULAR HOME CREW MEMBER Cosigner Signature: Date CC: ~ Signed [facility] Work Phone: evaluation note* Diagnosis Onset Date Resolution Status Encounter for routine gynecological examination noneactive Obesity affecting acute acute Seasonal allergies acute Supervision of normal first [facility] Work Phone: evaluation note* Diagnosis Onset Date Resolution Status Encounter for routine gynecological examination noneactive Obesity affecting acute acute Seasonal allergies acute Supervision of normal first acute GBS (group B streptococcus) UTI complicating acute Obesity affecting acute acute Seasonal allergies acute Supervision of normal first [facility] Work Phone: Evaluation note* Diagnosis Onset Date [...] acute acute Supervision of normal first acute [facility] Work Phone: Evaluation note* Diagnosis Onset [...] acute acute Supervision of normal first acute [facility] Work Phone: Evaluation note* Diagnosis Onset [...] acute acute Supervision of normal first acute [facility] Work Phone: Evaluation note* Diagnosis Onset [...] GBS (group B streptococcus) UTI complicating acute [facility] Work Phone: Progress note Author Nellie Diego [facility] Note Date/Time February 14, 2025 1:57 pm [facility] [address] [place] [address], [address] [place] [address] OFFICE VISIT Date of Service: 02/14/25 MR#: [id number] Acct: [id number] Name: TERE BARON Rep # : [id number] : 1995 Provider: Dr. 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 Date Name GA/Weeks Outcome Route Bth Weight Infant Gen Labor Lgth Anesthesia Del Locatn Provider FOB 11/23/22 Cruz 40 live - full term 7lbs 6oz Male ep idural [facility] Nellie Yanes Johnathon Calypso Delivery Date: 11/23/22 Last Updated by: Jayshree Austin see problem list for complications. HPI *EST* NOB LMP 12/11, MARSAHL 09/17 Details: TERE BARON is a 29 [...] transfusions, D (Rh) Sensitized, Pulmonary (e.g.,TB,Asthma), Breast, Hall Coordinator surgery, Anesthetic complications, Uterine anomaly/abilio, Infertility and [...] Signs and Symptoms of Preeclampsia, Labor Signs, [place] Education, Family Medical Leave or Disability Forms, [...] , MARSHAL 09/17/25, Jose Sarmiento son Tyrone, [facility] (5) : Status: Acute Comment: elects NIPT [...] Cosigner Signature: Date (if applicable) CC: ~ [facility] Work Phone: Reason for referral (narrative)No reason for referral information availableEastern Plumas District Hospital Work Phone: Chief Complaint and Reason for Visit Chief Complaint Annual (MAILROOM COURIER) NOB LMP 02/13 Reason for Visit Encounter for routin e gynecological examination Obesity affecting Seasonal allergies Supervision of normal first Chief Complaint Annual (MAILROOM COURIER) NOB LMP 02/13 13 WK OB Reason [...] No December 19, 2017 10:36pm Power of Manager Utilities No December 19 10:36pm Advance Directive Response Recorded Date/ Time Living Will No December 19, 2017 9:36pm Power of Manager Utilities No December 19 9:36pm Advance Directive Response Recorded Date/ Time Name of Medical Power of Manager Utilities Cristian elkins November 23, 2022 8:23am Living Will Yes November 23, 2022 8:23am Power of Manager Utilities Yes November 23 8:23am Advance Directive Response Recorded Date/ Time Do you have a Healthcare Power of Manager Utilities? No February 17, 2025 1:24pm Summary Purpose [...] section and content) DATE CREATED AUTHOR 07/13/2022 [facility] DATE CREATED AUTHOR AUTHOR'S ORGANIZ ATION 08/20/2022 [facility] DATE CREATED AUTHOR AUTHOR'S ORGANIZ ATION 04/18/2024 [facility] ([place]) DATE CREATED AUTHOR AUTHOR'S ORGANIZ ATION 03/06/2025 [facility] Source Comments (unrecognize d section and content) In the event this informatio n is protected by the Federal Confidentiality of Alcohol and Drug Abuse Patient Records regulations: The Federal rules restrict any use of the information to criminally investigate or prosecute any alcohol or drug abuse patient.[facility] Reason for Visit (unrecogniz ed [...] Provider, Referri ng Provider Active Mayra Mccurdy TUNNEL WORKER, TUNNEL WORKER-C Attending Provider Active Team Status: Inactive Member [...] BE BASED ON THE PRIMARY CLINICAL RECORDS. [facility] [employer], [facility]. provides no warranty or guarantee of the accuracy or completeness of information in this document.
== END | disposition home or self-care (01) ==
LOC: LAB 14:59
PROVIDERS: Referring Provider Obstetrics & Gynecology; Visit Provider Obstetrics & Gynecology
DX: R11.2 Nausea with vomiting, unspecified (principal)
CPT/HCPCS: 36415; 84702

== ENCOUNTER → 2025-03-13 | Outpatient (CLI) | payer OTHER, SELFPAY ==
[2025-03-13 16:53] LABS: hCG Titer Quant., Serum 126 mIU/mL (<9 non-preg)
== END | disposition home or self-care (01) ==
LOC: LAB 15:06
PROVIDERS: Referring Provider Obstetrics & Gynecology; Visit Provider Obstetrics & Gynecology
DX: R11.2 Nausea with vomiting, unspecified (principal)
CPT/HCPCS: 36415; 84702